=== PATIENT | male | born 1960 | race Caucasian/White ===

== ENCOUNTER 2017-03-16 15:56 | Emergency (ER) | payer SELFPAY ==
[~2017-03-16] VITALS: Ht 182.9 cm; Wt 90.0 kg
[~2017-03-16 15:56] MED LIST: TAMS0.4C67 PO; WARF1TAB PO
[2017-03-16 15:57] VITALS: BP 141/81; PULSE 92; RESP 16; TEMP 98.3; O2SAT 99
--- NOTE | 2017-03-16 16:08 | PD ---
Physical Exam Time Seen by Provider: 15:59 Narrative 36-year-old male presents with concern of discoloration to his right thigh and numbness and tingling to his right lower extremity 1 week. Denies leg pain. Has history of DVT. Denies current anticoagulant therapy. Patient seen in triage. Vital signs reviewed. Patient taken to medical bed. Data Data Last Documented VS Vital Signs Date Time Temp Pulse Resp B/P (MAP) Pulse Ox O2 Delivery O2 Flow Rate FiO2 03/16/17 15:57 98.3 92 16 141/81 (101) 99 MDM Supervised Visit with ROB: Angeles Brink Mar 16, 2017 16:08
--- NOTE | 2017-03-16 16:12 | PD ---
HPI . right leg pain Chief Complaint: Pain: Acute or Chronic Time Seen by Provider: 16:12 Travel History International Travel<30 days: No Contact w/Intl Traveler<30days: No Traveled to known affect area: No History of Present Illness HPI 56 yr old male here with c/o right leg pain and discoloration. He is very worried because he had a blood clot in this leg in 2010 and thinks he may have another one. 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 He wears compression stockings daily and takes aspirin. He has no sob , chest pain, nausea, vomiting, diaphoresis or other complaints. No trauma to the area. He denies any back pain. No bowel or bladder dysfunction. He sometimes has numbness in his feet, but no other paresthesias. PFSH Past Medical History Asthma: No Autoimmune Disease: No Bipolar Disorder: Yes Anxiety: Yes Depression: Yes Cancer: No Cardiovascular Problems: Yes High Cholesterol: No Chemotherapy: No Chest Pain: No Congestive Heart Failure: No COPD: No Diabetes: No Diminished Hearing: No Deep Vein Thrombosis: Yes ([place]) Endocrine: No Genitourinary: No Hiatal Hernia: Yes (2000) Immune Disorder: No Inguinal Hernia: Yes Kidney Stones: Yes Musculoskeletal: No Neurologic: No Psychiatric: Yes (BIPOLAR) Reproductive: No Respiratory: Yes Radiation Therapy: No Renal Failure: Yes Sleep Apnea: No Past Surgical History Abdominal Surgery: Yes (HERNIA REPAIR IN 2000 AND 2001) Cardiac Surgery: No Ear Surgery: No Endocrine Surgery: No Eye Surgery: No Genitourinary Surgery: Yes (KIDNEY STONE REMOVED) Gynecologic Surgery: No Oral Surgery: Yes (TEETH TAKEN OUT) Pacemaker: No Thoracic Surgery: No Tonsillectomy: Yes Other Surgery: Yes Social History Alcohol Use: Yes (1-2 beers qday) Tobacco Use: Yes (< 1 PPD) Substance Use: Yes (OVER 10 YEARS AGO SMOKED POT) Allergies-Medications (Allergen,Severity, Reaction): Coded Allergies: Sulfa (Sulfonamide Antibiotics) (Verified Allergy, Severe, HEADACHE, ) Reported Meds & Prescriptions Reported Meds & Active Scripts Active Reported Aspirin 81 Mg Chew 81 Mg CHEW DAILY Review of Systems General / Constitutional: No: Fever Eyes: No: Visual changes HENT: No: Headaches Cardiovascular: No: Chest Pain or Discomfort Respiratory: No: Shortness of Breath Gastrointestinal: No: Abdominal Pain Genitourinary: No: Dysuria Musculoskeletal: No: Pain Skin: No Rash Neurologic: No: Weakness Psychiatric: No: Depression Endocrine: No: Polydipsia Hematologic/Lymphatic: No: Easy Bruising Physical Exam Narrative GENERAL: AAO x 3, no acute distress, Well-nourished, well-developed patient. SKIN: Warm and dry. No visible rashes or bruising. multiple spider veins and varicosities in the b/l LE, mild discoloration to the popliteal fossa on right side HEAD: Normocephalic and atraumatic. EYES: No scleral icterus. No injection or drainage. ENT: No nasal drainage noted. Mucous membranes pink. Airway patent. NECK: Supple, trachea midline. No JVD. CARDIOVASCULAR: Regular rate and rhythm without murmurs, gallops, or rubs. RESPIRATORY: Breath sounds equal bilaterally. No accessory muscle use. No rhonchi or rales. GASTROINTESTINAL: Abdomen soft, non-tender, nondistended. EXTREMITIES: No cyanosis no edema. pedal pulses intact b/l BACK: Nontender without obvious deformity. No CVA tenderness. NEURO: CN II-12 intact, keno writer/runner strength normal b/l, UE and LE 5/5, no focal deficits PSYCH: AAO x 3, normal affect. Data Data Last Documented VS Vital Signs Date Time Temp Pulse Resp B/P (MAP) Pulse Ox O2 Delivery O2 Flow Rate FiO2 03/16/17 15:57 98.3 92 16 141/81 (101) 99 Orders Orders Us Leg Venous Doppler (03/16/17 16:24) MDM Medical Decision Making Medical Screen Exam Complete: Yes Emergency Medical Condition: Yes Medical Record Reviewed: Yes Differential Diagnosis DVT, PVD, PAD, less likely fracture Narrative Course 56-year-old male here with complaints of possible DVT to the right lower extremities. I've done an exam and I do not suspect there will be a DVT. However with his history I will go ahead and check a venous Doppler. Last Impressions Lower Extremity Ultrasound 03/16/17 1184 Signed Impressions: Service Date/Time: Thursday, March 16, 2017 16:52 - CONCLUSION: 1. No DVT identified. Hernandez Rodriguez MD I discussed the results with the patient. Recommend outpatient f/u. I think he has PVD and could also have some level of neuropathy. This can be followed on an outpatient basis. Patient verbalized understanding of instructions, questions were answered, and thanked me for their care. I advised them if their condition worsens, please return to the nearest emergency room for further care. Diagnosis Primary Impression: Right leg pain Referrals: [facility] Patient Instructions: General Instructions Additional Instructions: Please return to emergency department if your symptoms return or worsen. Follow up with your primary care provider. Disposition: 01 DISCHARGE HOME Condition: Stable Jessica Feliz Mar 16, 2017 16:12
[2017-03-16] MEDS ORDERED: ASPI81CH CHEW (16:23)
--- NOTE | 2017-03-16 17:15 | RADRPT ---
EXAM DATE/TIME: 03/16/2017 16:52 [facility] COMPARISON: US LEG RIGHT VENOUS DOPPLER, March 17, 2011, 16:36. INDICATIONS : Right leg pain. MEDICAL HISTORY : Deep venous thrombosis. Renal calculi. Hiatal hernia. Renal failure. Inguinal hernia. Bipolar dis order. Depression. Anxiety. SURGICAL HISTORY : Tonsillectomy. Kidney stone removal. Hernia repair x 2. ENCOUNTER: Subsequent ACUITY: 2 day PAIN SCORE: 3/10 LOCATION: Right leg. TECHNIQUE: Venous ultrasound of the leg was performed from the inguinal ligament to the proximal calf. Real-claritza e, color Doppler and spectral tracing, compression and augmentation techniques were used. FINDINGS: There is normal compressibility of the deep venous system from the inguinal region to the proximal ca lf. No echogenic clot is seen in the lumen of the common femoral, femoral, popliteal, and posterior tibial veins. There is a normal response of the venous system to proximal and distal augmentation an d respiration. CONCLUSION: 1. No DVT identified. Hernandez Rodriguez MD on March 16, 2017 at 17:12 Board Certified Radiologist. This report was verified electronically.
== END 2017-03-16 18:33 | disposition home or self-care (01) ==
LOC: NEPD 15:56
DX: M79.661 Pain in right lower leg (principal); Z86.718 Personal history of other venous thrombosis and embolism; F31.9 Bipolar disorder, unspecified; F41.9 Anxiety disorder, unspecified; Z79.82 Long term (current) use of aspirin
CPT/HCPCS: 93971

== ENCOUNTER 2018-01-21 21:29 | Inpatient (IN) ==
[2018-01-21] MEDS ORDERED: Sod Chloride 0.9% Inj 1,000 ML IV.SIG ONE (23:24)
[2018-01-21 23:57] LABS: Baso % (Auto) 0.2 % (0.0-2.0); Eos % (Auto) 0.1 % (0.0-4.0); Hematocrit 43.9 % (39.0-51.0); Hemoglobin 14.7 gm/dL (13.0-17.0); Lymph # (Auto) 0.9 th/mm3 (1.0-4.8); Lymph % (Auto) 4.8 % (9.0-44.0); Mean Corpuscular HGB Conc 33.4 % (32.0-36.0); Mean Corpuscular Hemoglobin 31.1 pg (27.0-34.0); Mean Platelet Volume 7.5 fL (7.0-11.0); Mono # (Auto) 1.1 th/mm3 (0.0-0.9); Mono % (Auto) 5.4 % (0.0-8.0); Neut # (Auto) 17.4 th/mm3 (1.8-7.7); Neut % (Auto) 89.5 % (16.0-70.0); Platelet Count 368 th/mm3 (150-450); Red Blood Count 4.72 mil/mm3 (4.50-5.90); Red Cell Distribution Width 16.7 % (11.6-17.2); White Blood Count 19.4 th/mm3 (4.0-11.0)
[2018-01-22 00:14] LABS: Albumin 3.7 g/dL (3.4-5.0); Anion Gap 10 meq/L (5-15); Aspartate Aminotransferase 17 U/L (15-37); Blood Urea Nitrogen 16 mg/dL (7-18); Calcium 8.9 mg/dL (8.5-10.1); Carbon Dioxide 26.6 meq/L (21.0-32.0); Chloride 101 meq/L (98-107); Glomerular Filtration Rate 73 mL/min (>89); Glucose,Random 106 mg/dL (74-106); Lipase 107 U/L (73-393); Potassium 4.2 meq/L (3.5-5.1); Sodium 138 meq/L (136-145)
[2018-01-22 00:16] LABS: Alanine Aminotransferase 20 U/L (12-78)
[2018-01-22 00:18] LABS: Alkaline Phosphatase 102 U/L (45-117); Total Protein 7.6 g/dL (6.4-8.2)
--- NOTE | 2018-01-22 02:21 | CT ---
EXAM DATE: 01/22/2018 2:10 AM EDT AGE/SEX: 57 years / Male INDICATIONS: Patient complains of lower abdomen and pelvic pain. CLINICAL DATA: This is the patient's initial encounter. Patient reports that signs and symptoms have been present for 1 day and indicates a pain score of 6/10. MEDICAL/SURGICAL HISTORY: Deep venous thrombosis. A-fib, viral meningitis None. ORAL CONTRAST: No oral contrast ingested. RADIATION DOSE: 7.07 CTDI (mGy) COMPARISON: [facility] [place], CT ABDOMEN & PELVIS W/O CONTRAST, 12/10/2011. . TECHNIQUE: Multiple contiguous axial images were obtained through the abdomen and pelvis following b olus infusion of 96 ml Omnipaque 350 (iohexol) nonionic water-soluble contrast as a single exam dos e. No oral contrast ingested. Using automated exposure control and adjustment of the mA and/or kV ac cording to patient size, radiation dose was kept as low as reasonably achievable to obtain optimal di agnostic quality images. DICOM format image data is available electronically for review and comparis on. FINDINGS: Lower Lungs: The visualized lower lungs are clear. Liver: The liver has a homogeneous density without space-occupying lesion. There is no dilation of th e biliary tree. Liver millimeter calcified gallstone, larger than 2012. Spleen: Homogeneous density without enlargement. Pancreas: Unremarkable without mass or calcification. Kidneys: Normal in size and shape. No evidence of mass or hydronephrosis. 2 mm nonobstructing calcif ied stone lower pole left kidney. Adrenal Glands: Unremarkable. Aorta: The aorta and proximal iliac vessels are grossly unremarkable without aneurysmal dilation. Bowel/Mesentery: Abnormal. There is induration of the mesenteric fat lower abdomen and pelvis which surrounds the mid sigmoid colon and several loops of small bowel in the right lower quadrant. There a re a few small diverticula in the sigmoid colon and there are several focal collections of gas to the right of the mid sigmoid colon which are nonspecific in appearance and could represent gas and diver ticula or extraluminal gas. The mid sigmoid colon wall appears thick, but this is nonspecific since t he bowel loops are nondistended. The induration extends to the right lower quadrant inferior to the c ecum; the appendix is not identified with certainty. No dilated loops of small bowel seen. No evidenc e of free fluid in the pelvis. Abdominal Wall: Intact. Retroperitoneum: No evidence of adenopathy in the retrocrural, para-aortic, or deep pelvic regions. Bladder: Nondistended. Contours are smooth. Reproductive Organs: No abnormal masses or calcifications seen. Inguinal: The inguinal region is unremarkable without evidence of adenopathy. Bony Structures: Moderate degenerative changes in the posterior elements of the lumbar spine. CONCLUSION: 1. Evidence of inflammatory process in the lower abdomen/pelvis in the midline and to the right of t he midline surrounding the mid sigmoid colon and extending to the inferior cecum. The epicenter of th e inflammation is about the sigmoid colon suggesting this may represent diverticulitis. No evidence o f free fluid. 2. Calcified gallstone is larger than in 2012. Nonobstructing 2 mm stone lower pole left kidney. Electronically signed by: Alex Gilliland MD 01/22/2018 2:20 AM EDT
[2018-01-22 03:14] LABS: Bilirubin,Urine Negative (Negative); Clarity,Urine Clear (Clear); Color,Urine Yellow (Yellw/Straw); Glucose,Urine (UA) Negative (Negative); Hyaline Casts,Urine 1 /lpf (0-3); Leukocyte Esterase,Urine Trace (Negative); Mucus,Urine Few /lpf (Occasional); Nitrite,Urine Negative (Negative); Specific Gravity,Urine 1.017 (1.002-1.035)
[2018-01-22] MEDS ORDERED: Morphine Inj 4 MG/ML Vial IV.PUSH PRN (03:33)
[2018-01-22] MEDS ORDERED: Temazepam 15 MG Capsule PO PRN (03:33)
[2018-01-22] MEDS ORDERED: Bisacodyl 10 MG Supp RECTAL PRN (03:33)
[2018-01-22] MEDS ORDERED: Acetaminophen 325 MG Tablet PO PRN (03:33)
--- NOTE | 2018-01-22 03:59 | P.HPIM ---
History of Present Illness Primary Care Physician: Arnold Costello DO History of Present Illness: This is a 57-year-old male with PMH of A. fib, h/o DVT on Anticoagulation and HTN who presented to the ER w/ complaints of abdominal pain. States pain started yesterday afternoon, pain runs along lower abdomen, severe, 10/10, non- radiating. No associated nausea, vomiting or diarrhea. Denies fever or chills. No h/o similar symptoms. On arrival, BP 125/67, HR 79, O2 sat 98% on RA, Temp 99.1. WBC of 19.4. Chemistry essentially unremarkable except for GFR 73. UA positive for UTI. CT Abdomen/Pelvis with inflammatory process lower abdomen/pelvis, likely diverticulitis, several focal collections of gas to the right of the mid sigmoid colon, nonspecific possible extraluminal gas. S/p Cipro/Flagyl in ER. Dr. Fuentes consulted, will evaluate. - Diagnosis (1) Diverticulitis of colon with perforation (2) UTI (urinary tract infection) (3) Afib Inpatient Certification: I certify that the inpatient services were ordered in accordance with Medicare regulations governing the order. This includes certification that hospital inpatient services are reasonable and necessary and in the case of services not specified as inpatient-only under 42 CFR 419.22(n), that they are appropriately provided as inpatient services in accordance to with the 2-midnight benchmark under 43 CFR 412.3(e) Estimated Total Length of Stay (Days): 2 Plans for Post Hospital Care: Not yet determined Review of Systems PAST FAMILY HISTORY: Reviewed. No h/o DM or CAD All other systems reviewed negative except as stated [facility] - History History Provided By: Patient - Medical History Medical History: Medical History (Last Updated 01/21/18 @ 23:25 by Eusebia Gonzalez) Afib Bacterial meningitis Cataract DVT (deep venous thrombosis) - Tobacco History Tobacco Use In Past 30 Days: Yes Smoking Status: Current every day smoker Tobacco Type: Cigarettes - Alcohol History How Often Do You Have a Drink Containing Alcohol: 4 or more times a week - Substance Use History Substance History: No History of Abuse - Travel History Recent Travel in the [place] Within the Last 8 Weeks: No Recent Travel Out of the Country Within the Last 8 Weeks: No - Immunization History Tetanus Immunization: Unsure Hx Influenza Vaccine This Season: No Medications and Allergies Active Medications: Active Medications Acetaminophen (Tylenol) 650 mg PO Q4H PRN PRN Reason: Temp > 100.4 Al Hydroxide/Mg Hydroxide (Milk Of Magnesia Liq) 30 ml PO Q12H PRN PRN Reason: Mild Constipation Bisacodyl (Dulcolax Supp) 10 mg RECTAL DAILY PRN PRN Reason: SEVERE CONSITIPATION Levofloxacin/Dextrose (Levaquin 750 Mg Premix Inj) 150 mls @ 100 mls/hr IV.SIG ONCE ONE Stop: 01/22/18 04:47 Levofloxacin/Dextrose (Levaquin 750 Mg Premix Inj) 150 mls @ 100 mls/hr IV.SIG Q24H [place] Metronidazole/Sodium Chloride (Flagyl 500 Mg Inj) 100 mls @ 100 mls/hr IV.SIG Q8H [place] Sodium Chloride (Ns Inj) 1,000 mls @ 100 mls/hr IV.CONT .Q10H [place] Lactulose (Lactulose Liq) 30 ml PO DAILY PRN PRN Reason: SEVERE CONSITIPATION Morphine Sulfate (Morphine Inj) 2 mg IV.PUSH Q4H PRN PRN Reason: PAIN 6-10 Ondansetron HCl (Zofran Inj) 4 mg IV.PUSH Q6H PRN PRN Reason: NAUSEA OR VOMITING Senna/Docusate Sodium (Zaira-Colace) 1 tab PO BID [place] Sennosides (Senokot) 17.2 mg PO Q12H PRN PRN Reason: Moderate Constipation Sodium Chloride (Ns Flush) 2 ml IV.FLUSH PRN PRN PRN Reason: FLUSH AFTER USING IV ACCESS Temazepam (Restoril) 15 mg PO HS PRN PRN Reason: INSOMNIA Allergies Allergy/AdvReac Type Severity Reaction Status Date / Time Sulfa (Sulfonamide Allergy Severe HEADACHE Verified 03/16/17 16:22 Antibiotics) Exam Vital signs: Vital Signs 01/21/18 22:01 01/21/18 23:19 Temperature 99.1 F Pulse Rate 79 79 Respiratory Rate 16 18 Blood Pressure 125/67 151/82 H Pulse Oximetry 98 98 Intake & Output 01/21/18 01/21/18 01/22/18 06:59 18:59 06:59 Weight 85 kg Narrative: PE: GENERAL: Middle-aged white male in no acute distress. Anxious, asking for a pillow HEENT: PERRLA, EOMI. No scleral icterus or conjunctival pallor. No lid lag or facial droop. CARDIOVASCULAR: Regular rate and rhythm. No obvious murmurs to auscultation. No chest tenderness to palpation. RESPIRATORY: No obvious rhonchi or wheezing. Clear to auscultation. Breath sounds equal bilaterally. GASTROINTESTINAL: Abdomen soft, tenderness to palpation lower abdomen, nondistended. BS normal. MUSCULOSKELETAL: Extremities without clubbing, cyanosis, or edema. No obvious deformities. NEUROLOGICAL: Awake, alert and oriented x4. No focal neurologic deficits. Moving both upper and lower extremities spontaneously. Results - Labs CBC & Chem 7: 01/21/18 23:35 01/21/18 23:35 Labs: Short CBC 01/21/18 Range/Units 23:35 WBC 19.4 H (4.0-11.0) th/mm3 Hgb 14.7 (13.0-17.0) gm/dL Hct 43.9 (39.0-51.0) % Plt Count 368 (150-450) th/mm3 BMP 01/21/18 23:35 Sodium 138 Potassium 4.2 Chloride 101 Carbon Dioxide 26.6 BUN 16 Creatinine 1.04 Calcium 8.9 Liver Function 01/21/18 Range/Units 23:35 Total Bilirubin 0.4 (0.2-1.0) mg/dL AST 17 (15-37) U/L ALT 20 (12-78) U/L Alkaline Phosphatase 102 (45-117) U/L Albumin 3.7 (3.4-5.0) g/dL Urine 01/22/18 Range/Units 02:40 Urine Color Yellow (Yellw/Straw) Urine Clarity Clear (Clear) Urine pH 5.0 (5.0-8.5) Ur Specific Cost 1.017 (1.002-1.035) Urine Protein Negative (Neg-Trace) mg/dL Urine Glucose (UA) Negative (Negative) mg/dL - Imaging Impressions Abdomen/Pelvis CT 01/22/18 00:19 CONCLUSION: 1. Evidence of inflammatory process in the lower abdomen/pelvis in the midline and to the right of the midline surrounding the mid sigmoid colon and extending to the inferior cecum. The epicenter of the inflammation is about the sigmoid colon suggesting this may represent diverticulitis. No evidence of free fluid. 2. Calcified gallstone is larger than in 2012. Nonobstructing 2 mm stone lower pole left kidney. Caprini VTE Risk Assessment Caprini VTE Risk Assessment: Moderate/High Risk (score >= 2) Caprini Risk Assessment Model: Point Value = 1 Point Value = 2 Point Value = 3 Point Value = 5 Age 41-60 Minor surgery BMI > 25 kg/m2 Swollen legs Varicose veins or History of unexplained or recurrent spontaneous Oral contraceptives or hormone replacement Sepsis (< 1 month) Serious lung disease, including pneumonia (< 1 month) Abnormal pulmonary function Acute myocardial infarction Congestive heart failure (< 1 month) History of inflammatory bowel disease Medical patient at bed rest Age 61-74 Arthroscopic surgery Major open surgery (> 45 min) Laparoscopic surgery (> 45 min) Malignancy Confined to bed (> 72 hours) Immobilizing plaster cast Central venous access Age >= 75 History of VTE Family history of VTE Factor V Leiden Prothrombin 30582H Lupus anticoagulant Anticardiolipin antibodies Elevated serum homocysteine Heparin-induced thrombocytopenia Other congenital or acquired thrombophilia Stroke (< 1 month) Elective arthroplasty Hip, pelvis, or leg fracture Acute spinal cord injury (< 1 month) Prophylaxis Regimen: Total Risk Factor Score Risk Level Prophylaxis Regimen 0-1 Low Early ambulation 2 Moderate Order ONE of the following: *Sequential Compression Device (SCD) *Heparin 5000 units SQ BID 3-4 Higher Order ONE of the following medications: *Heparin 5000 units SQ TID *Enoxaparin/Lovenox 40 mg SQ daily (WT < 150 kg, CrCl > 30 mL/min) *Enoxaparin/Lovenox 30 mg SQ daily (WT < 150 kg, CrCl > 10-29 mL/min) *Enoxaparin/Lovenox 30 mg SQ BID (WT < 150 kg, CrCl > 30 mL/min) AND/OR *Sequential Compression Device (SCD) 5 or more Highest Order ONE of the following medications: *Heparin 5000 units SQ TID (Preferred with Epidurals) *Enoxaparin/Lovenox 40 mg SQ daily (WT < 150 kg, CrCl > 30 mL/min) *Enoxaparin/Lovenox 30 mg SQ daily (WT < 150 kg, CrCl > 10-29 mL/min) *Enoxaparin/Lovenox 30 mg SQ BID (WT < 150 kg, CrCl > 30 mL/min) AND *Sequential Compression Device (SCD) Assessment and Plan - Assessment (1) Diverticulitis of colon with perforation Code(s): K57.20 - Diverticulitis of large intestine with perforation and abscess without bleeding Status: Acute (2) UTI (urinary tract infection) Code(s): N39.0 - Urinary tract infection, site not specified Status: Acute (3) Afib Code(s): I48.91 - Unspecified atrial fibrillation Status: Acute - Plan A/P: 1. Diverticulitis: w/ likely microperforations, CT Abd/Pelvis w/ diverticulitis lower abdomen and several focal collections of gas to the right of the mid sigmoid, possibly extraluminal gas, images reviewed. Dr. Fuentes consulted, will eval. Keep NPO, IVF, Levaquin/Flagyl, analgesics/antiemetics as needed. 2. UTI: U/a w/ UTI, continue IV Abx as above for coverage of UTI, follow up cultures, IVF, monitor I/O. 3. A-fib: H/o Afib on anticoagulation, unable to tell me which medications he takes. Will need to contact pharmacy in am for verification of meds. NPO for now. 4. DVT Prophylaxis: Heparin sq 5. Social work for d/c planning as needed 6. Case discussed w/ ER physician at length, labs/records/imaging reviewed by me.
[2018-01-22 04:09] LABS: INR 1.6 Ratio; Prothrombin Time 16.1 sec (9.8-11.6)
[2018-01-22] MEDS ORDERED: Chlorhexidine Gluconate 2% 1 Pack (2 Cloths) TOPICAL SCH (05:45)
[2018-01-22] MEDS ORDERED: Metoprolol Tartrate 25 MG Tablet PO SCH (05:45)
[2018-01-22] MEDS ORDERED: Sodium Chlor 0.9% Inj 500 ML IV.SIG SCH (06:00)
--- NOTE | 2018-01-22 07:49 | ED ---
HPI General Chief Complaint: Abdominal Pain Stated Complaint: Abd pain Time Seen by Provider: 01/21/18 23:13 Source: patient Mode of arrival: ambulatory Limitations: no limitations History of Present Illness HPI narrative: Patient is a 57-year-old male, past medical history significant for bacterial meningitis several months ago for which he was in intensive unit on dialysis in the hospital in [place]. Today he reports several days of lower abdominal pain. He admits to nausea but denies vomiting. He denies fever nor chills. No constipation. No dysuria. complaint: abdominal pain Onset (ago): day(s) Pain Consistency: constant Location: periumbilical and suprapubic Severity: moderate Quality: aching and fullness Radiation: none Relieving factors: nothing Related Data Home Medications Medication Instructions Recorded Confirmed Unable to Obtain Home Meds 01/22/18 01/22/18 Allergies Allergy/AdvReac Type Severity Reaction Status Date / Time Sulfa (Sulfonamide Allergy Severe HEADACHE Verified 03/16/17 16:22 Antibiotics) Review of Systems Except as stated in HPI: all other systems reviewed are negative Constitutional Denies chills and Denies fever(s) Eyes Denies blurry vision ENT Denies nasal congestion Cardiovascular Denies chest pain Respiratory Denies dyspnea Gastrointestinal Reports abdominal pain, Reports nausea and Denies vomiting Genitourinary Denies flank pain Musculoskeletal Denies back pain Integumentary/Breasts Denies rash Neurologic Denies headache(s) Psychiatric Denies confusion Endocrine Reports fatigue FOR[facility]LY [facility] Medical History Medical History Afib (Acute) Bacterial meningitis (Acute) Cataract (Acute) DVT (deep venous thrombosis) (Acute) Social History Social History Substance History: No History of Abuse Second Hand Smoke Exposure: No Smoking Status: Current every day smoker Tobacco Type: Cigarettes How Often Do You Have a Drink Containing Alcohol: 2 to 3 times a week Recent Travel in [facility] within the Last 8 Weeks: No Recent Out of Country Travel within the Last 8 Weeks: No Immunization History Tetanus Immunization: >5 Years Hx Influenza Vaccine This Season: No Exam Narrative Exam Narrative: GENERAL: Well-appearing male in no acute distress SKIN: Focused skin assessment warm/dry. No erythema, crepitus nor bulla. HEAD: Atraumatic. Normocephalic. EYES: Pupils equal and round. No scleral icterus. No injection or drainage. ENT: No nasal bleeding or discharge. Mucous membranes pink and moist. NECK: Trachea midline. No JVD. CARDIOVASCULAR: Regular rate and rhythm. No murmur appreciated. Intact and equal peripheral pulses RESPIRATORY: No accessory muscle use. Clear to auscultation. Breath sounds equal bilaterally. GASTROINTESTINAL: Abdomen soft in the upper abdomen but not soft in the lower abdomen, nondistended. Diffuse tenderness throughout. Hepatic and splenic margins not palpable. No tenderness, erythema, crepitus to the perineum nor groin. MUSCULOSKELETAL: No obvious deformities. No clubbing. No cyanosis. No edema. NEUROLOGICAL: Awake and alert. No obvious cranial nerve deficits. Motor grossly within normal limits. Normal speech. PSYCHIATRIC: Appropriate mood and affect; insight and judgment normal. Course Initial Documented Vital Signs Temperature 99.1 F 01/21/18 22:01 Pulse Rate 79 01/21/18 22:01 Respiratory Rate 16 01/21/18 22:01 Blood Pressure 125/67 01/21/18 22:01 Pulse Oximetry 98 01/21/18 22:01 Last Documented Vital Signs Temperature 99.1 F 01/21/18 22:01 Pulse Rate 75 01/22/18 03:00 Respiratory Rate 18 01/22/18 03:00 Blood Pressure 114/60 01/22/18 03:00 Pulse Oximetry 98 01/21/18 23:19 Medical Decision Making MDM Narrative Medical decision making narrative: Patient is a 57-year-old male who presents with complaint of lower abdominal pain for the last several days. His upper abdomen is soft but his lower abdomen is not. He is diffusely tender throughout but vital signs are stable. Labs revealed a leukocytosis. CT is concerning for diverticulitis with perforations throughout development of what appears to be an early abscess. I spoke to Dr. Fuentes, surgeon on-call, who recommended this patient be started on Levaquin and Flagyl and admitted to the hospitalist service. Differential Diagnosis Differential Diagnosis: Differential diagnosis includes but is not limited to diverticulitis, urinary tract infection, appendicitis, colitis. Medical Records Medical records reviewed: Yes I reviewed the patient's medical records. Lab Data Lab results reviewed: Yes I reviewed the patient's lab results. Lab results narrative: Leukocytosis present. Result diagrams: 01/21/18 23:35 08/03/18 23:35 Lab Results 01/21/18 01/21/18 01/22/18 Range/Units 23:35 23:35 02:40 WBC 19.4 H (4.0-11.0) th/mm3 RBC 4.72 (4.50-5.90) mil/mm3 Hgb 14.7 (13.0-17.0) gm/dL Hct 43.9 (39.0-51.0) % MCV 93.0 (80.0-100.0) fL MCH 31.1 (27.0-34.0) pg MCHC 33.4 (32.0-36.0) % RDW 16.7 (11.6-17.2) % Plt Count 368 (150-450) th/mm3 MPV 7.5 (7.0-11.0) fL Neut % (Auto) 89.5 H (16.0-70.0) % Lymph % (Auto) 4.8 L (9.0-44.0) % [place] % (Auto) 5.4 (0.0-8.0) % Eos % (Auto) 0.1 (0.0-4.0) % Baso % (Auto) 0.2 (0.0-2.0) % Neut # (Auto) 17.4 H (1.8-7.7) th/mm3 Lymph # (Auto) 0.9 L (1.0-4.8) th/mm3 [place] # (Auto) 1.1 H (0.0-0.9) th/mm3 Eos # (Auto) 0.0 (0.0-0.4) th/mm3 Baso # (Auto) 0.0 (0.0-0.2) th/mm3 WBC Differential . Differential Comment Auto diff final PT (9.8-11.6) sec INR Ratio Sodium 138 (136-145) meq/L Potassium 4.2 (3.5-5.1) meq/L Chloride 101 (98-107) meq/L Carbon Dioxide 26.6 (21.0-32.0) meq/L Anion Gap 10 (5-15) meq/L BUN 16 (7-18) mg/dL Creatinine 1.04 (0.60-1.30) mg/dL Estimated GFR 73 L (>89) mL/min Random Glucose 106 (74-106) mg/dL Lactic Acid (0.4-2.0) mmol/L Calcium 8.9 (8.5-10.1) mg/dL Total Bilirubin 0.4 (0.2-1.0) mg/dL AST 17 (15-37) U/L ALT 20 (12-78) U/L Alkaline Phosphatase 102 (45-117) U/L Total Protein 7.6 (6.4-8.2) g/dL Albumin 3.7 (3.4-5.0) g/dL Lipase 107 (73-393) U/L Urine Color Yellow (Yellw/Straw) Urine Clarity Clear (Clear) Urine pH 5.0 (5.0-8.5) Ur Specific [place] 1.017 (1.002-1.035) Urine Protein Negative (Neg-Trace) mg/dL Urine Glucose (UA) Negative (Negative) mg/dL Urine Ketones 20 (Negative) mg/dL Urine Occult Blood Moderate H (Negative) Urine Nitrate Negative (Negative) Urine Bilirubin Negative (Negative) Urine Urobilinogen Less than 2 (Less than 2) mg/dL Ur Leukocyte Esterase Trace H (Negative) Urine RBC 1 (0-3) /hpf Urine WBC 9 H (0-5) /hpf Hyaline Casts 1 (0-3) /lpf Urine Mucus Few H (Occasional) /lpf Micro UA Comment Culture indicated Urine Culture Comments Culture indicated 01/22/18 01/22/18 Range/Units 03:06 03:30 WBC (4.0-11.0) th/mm3 RBC (4.50-5.90) mil/mm3 Hgb (13.0-17.0) gm/dL Hct (39.0-51.0) % MCV (80.0-100.0) fL MCH (27.0-34.0) pg MCHC (32.0-36.0) % RDW (11.6-17.2) % Plt Count (150-450) th/mm3 MPV (7.0-11.0) fL Neut % (Auto) (16.0-70.0) % Lymph % (Auto) (9.0-44.0) % [place] % (Auto) (0.0-8.0) % Eos % (Auto) (0.0-4.0) % Baso % (Auto) (0.0-2.0) % Neut # (Auto) (1.8-7.7) th/mm3 Lymph # (Auto) (1.0-4.8) th/mm3 [place] # (Auto) (0.0-0.9) th/mm3 Eos # (Auto) (0.0-0.4) th/mm3 Baso # (Auto) (0.0-0.2) th/mm3 WBC Differential Differential Comment PT 16.1 H (9.8-11.6) sec INR 1.6 Ratio Sodium (136-145) meq/L Potassium (3.5-5.1) meq/L Chloride (98-107) meq/L Carbon Dioxide (21.0-32.0) meq/L Anion Gap (5-15) meq/L BUN (7-18) mg/dL Creatinine (0.60-1.30) mg/dL Estimated GFR (>89) mL/min Random Glucose (74-106) mg/dL Lactic Acid 1.0 (0.4-2.0) mmol/L Calcium (8.5-10.1) mg/dL Total Bilirubin (0.2-1.0) mg/dL AST (15-37) U/L ALT (12-78) U/L Alkaline Phosphatase (45-117) U/L Total Protein (6.4-8.2) g/dL Albumin (3.4-5.0) g/dL Lipase (73-393) U/L Urine Color (Yellw/Straw) Urine Clarity (Clear) Urine pH (5.0-8.5) Ur Specific [place] (1.002-1.035) Urine Protein (Neg-Trace) mg/dL Urine Glucose (UA) (Negative) mg/dL Urine Ketones (Negative) mg/dL Urine Occult Blood (Negative) Urine Nitrate (Negative) Urine Bilirubin (Negative) Urine Urobilinogen (Less than 2) mg/dL Ur Leukocyte Esterase (Negative) Urine RBC (0-3) /hpf Urine WBC (0-5) /hpf Hyaline Casts (0-3) /lpf Urine Mucus (Occasional) /lpf Micro UA Comment Urine Culture Comments Imaging Data Attestation: I personally reviewed and interpreted this imaging study as follows : Radiologist's impression: Abdomen/Pelvis CT 01/22/18 00:19 CONCLUSION: 1. Evidence of inflammatory process in the lower abdomen/pelvis in the midline and to the right of the midline surrounding the mid sigmoid colon and extending to the inferior cecum. The epicenter of the inflammation is about the sigmoid colon suggesting this may represent diverticulitis. No evidence of free fluid. 2. Calcified gallstone is larger than in 2012. Nonobstructing 2 mm stone lower pole left kidney. Discharge Plan Discharge Disposition Patient Disposition: 30 Still Patient Discharge Condition Condition: Fair Discharge Details Diagnosis: Diverticulitis Physicians Team ED Provider: Elisa Franco Primary Care Provider: Arnold Costello Attending Provider: Kandy Hernandez Status ED Status: Left Department Discharge Information Discharge Date/Time: 01/22/18 07:14
--- NOTE | 2018-01-22 09:51 | P.CONGS ---
[facility] Gen Surgery Consult Note Consult date: 01/22/18 Reason for consult: abdominal pain Narrative: 57-year-old male who developed severe acute onset of abdominal pain yesterday in the lower abdomen. He denies nausea and vomiting or constipation. He does not have a known history of diverticulitis. He was noted to have a white blood count of 19,[address] of the abdomen and pelvis showing a significant amount of inflammatory changes around the sigmoid colon with some small pockets of free air. The patient has a somewhat complex medical history. Couple months ago he had bacterial meningitis and was critically ill hospitalized in [place]. He had a gastrostomy tube. He has a history of recurrent DVTs and he is on some type of anticoagulation but it is unclear what he is taking. INR is 1.6. Past surgical history includes inguinal hernia repair. Review of Systems All other systems reviewed negative except as stated in [facility] - History History Provided By: Patient - Medical History Medical History: Medical History (Last Reviewed 01/22/18 @ 07:45 by Elisa Franco MD) Afib Bacterial meningitis Cataract DVT (deep venous thrombosis) - Tobacco History Second Hand Smoke Exposure: No Tobacco Use In Past 30 Days: Yes Smoking Status: Current every day smoker Tobacco Type: Cigarettes - Alcohol History How Often Do You Have a Drink Containing Alcohol: 2 to 3 times a week - Substance Use History Substance History: No History of Abuse - Travel History Recent Travel in the [place] Within the Last 8 Weeks: No Recent Travel Out of the Country Within the Last 8 Weeks: No - Immunization History Tetanus Immunization: >5 Years Hx Influenza Vaccine This Season: No Medications and Allergies Active Medications: Active Medications Acetaminophen (Tylenol) 650 mg PO Q4H PRN PRN Reason: Temp > 100.4 Al Hydroxide/Mg Hydroxide (Milk Of Yana Liq) 30 ml PO Q12H PRN PRN Reason: Mild Constipation Bisacodyl (Dulcolax Supp) 10 mg RECTAL DAILY PRN PRN Reason: SEVERE CONSITIPATION Chlorhexidine Gluconate (Chlorhexidine 2% Cloth) 3 pack [employer] [facility] Stop: 01/25/18 05:43 Heparin Sodium (Porcine) (Heparin Inj) 5,000 units SQ Q12HR [place] Levofloxacin/Dextrose (Levaquin 750 Mg Premix Inj) 150 mls @ 100 mls/hr IV.SIG Q24H [place] Metronidazole/Sodium Chloride (Flagyl 500 Mg Inj) 100 mls @ 100 mls/hr IV.SIG Q8H [facility] Sodium Chloride (Ns Inj) 1,000 mls @ 100 mls/hr IV.CONT .Q10H [facility] Lactated Ringer's (Lr 1000 Ml Inj) 1,000 mls @ 30 mls/hr IV.SIG .Q24H [facility] Stop: 01/25/18 05:43 Sodium Chloride (Ns Inj) 500 mls @ 30 mls/hr IV.SIG .Q10H [facility] Stop: 01/25/18 05:43 Lactulose (Lactulose Liq) 30 ml PO DAILY PRN PRN Reason: SEVERE CONSITIPATION Metoprolol Tartrate (Lopressor) 25 mg PO [employer] [facility] Stop: 01/25/18 05:43 Morphine Sulfate (Morphine Inj) 2 mg IV.PUSH Q4H PRN PRN Reason: PAIN 6-10 Ondansetron HCl (Zofran Inj) 4 mg IV.PUSH Q6H PRN PRN Reason: NAUSEA OR VOMITING Povidone Iodine (Betadine 5% Antisepsis Kit) 1 applicatio EACH [employer] [facility] Stop: 01/25/18 05:43 Senna/Docusate Sodium (Zaira-Colace) 1 tab PO BID [facility] Sennosides (Senokot) 17.2 mg PO Q12H PRN PRN Reason: Moderate Constipation Sodium Chloride (Ns Flush) 2 ml IV.FLUSH PRN PRN PRN Reason: FLUSH AFTER USING IV ACCESS Temazepam (Restoril) 15 mg PO HS PRN PRN Reason: INSOMNIA Allergies Allergy/AdvReac Type Severity Reaction Status Date / Time Sulfa (Sulfonamide Allergy Severe HEADACHE Verified 03/16/17 16:22 Antibiotics) Home Medications Medication Instructions Recorded Confirmed Type Unable to Obtain Home Meds 01/22/18 01/22/18 History Exam Vital signs: Vital Signs 01/21/18 22:01 01/21/18 23:19 01/22/18 03:00 Temperature 99.1 F Pulse Rate 79 79 75 Respiratory Rate 16 18 18 Blood Pressure 125/67 151/82 H 114/60 Pulse Oximetry 98 98 Intake & Output 01/21/18 01/22/18 01/22/18 18:59 06:59 18:59 Weight 85 kg Narrative: GENERAL: Awake and alert. No acute distress. Cooperative. HEAD: Normocephalic. Atraumatic. EYES: Pupils equal round and reactive to light bilaterally. No scleral icterus. ENT: Moist oral mucosa. Poor dentition NECK: Trachea midline. CHEST: Lungs clear to auscultation bilaterally with no wheezing or rhonchi. No respiratory distress. CARDIOVASCULAR: Regular rate and rhythm. ABDOMEN: Severe lower abdominal ttp with rebound, remainder of abdomen is firm and mildly tender EXTREMITIES: No cyanosis or edema. SKIN: Warm, dry, nonjaundiced. Results - Labs 01/21/18 23:35 01/21/18 23:35 Abnormal lab results 01/21/18 01/21/18 01/22/18 Range/Units 23:35 23:35 02:40 WBC 19.4 H (4.0-11.0) th/mm3 Neut % (Auto) 89.5 H (16.0-70.0) % Lymph % (Auto) 4.8 L (9.0-44.0) % Neut # (Auto) 17.4 H (1.8-7.7) th/mm3 Lymph # (Auto) 0.9 L (1.0-4.8) th/mm3 [place] # (Auto) 1.1 H (0.0-0.9) th/mm3 PT (9.8-11.6) sec Estimated GFR 73 L (>89) mL/min Urine Occult Blood Moderate H (Negative) Ur Leukocyte Esterase Trace H (Negative) Urine WBC 9 H (0-5) /hpf Urine Mucus Few H (Occasional) /lpf 01/22/18 Range/Units 03:30 WBC (4.0-11.0) th/mm3 Neut % (Auto) (16.0-70.0) % Lymph % (Auto) (9.0-44.0) % Neut # (Auto) (1.8-7.7) th/mm3 Lymph # (Auto) (1.0-4.8) th/mm3 [place] # (Auto) (0.0-0.9) th/mm3 PT 16.1 H (9.8-11.6) sec Estimated GFR (>89) mL/min Urine Occult Blood (Negative) Ur Leukocyte Esterase (Negative) Urine WBC (0-5) /hpf Urine Mucus (Occasional) /lpf Diabetes panel 01/21/18 Range/Units 23:35 Sodium 138 (136-145) meq/L Potassium 4.2 (3.5-5.1) meq/L Chloride 101 (98-107) meq/L Carbon Dioxide 26.6 (21.0-32.0) meq/L BUN 16 (7-18) mg/dL Creatinine 1.04 (0.60-1.30) mg/dL Calcium 8.9 (8.5-10.1) mg/dL AST 17 (15-37) U/L ALT 20 (12-78) U/L Alkaline Phosphatase 102 (45-117) U/L Total Protein 7.6 (6.4-8.2) g/dL Albumin 3.7 (3.4-5.0) g/dL Calcium panel 01/21/18 Range/Units 23:35 Calcium 8.9 (8.5-10.1) mg/dL Albumin 3.7 (3.4-5.0) g/dL Pituitary panel 01/21/18 Range/Units 23:35 Sodium 138 (136-145) meq/L Potassium 4.2 (3.5-5.1) meq/L Chloride 101 (98-107) meq/L Carbon Dioxide 26.6 (21.0-32.0) meq/L BUN 16 (7-18) mg/dL Creatinine 1.04 (0.60-1.30) mg/dL Calcium 8.9 (8.5-10.1) mg/dL Adrenal panel 01/21/18 Range/Units 23:35 Sodium 138 (136-145) meq/L Potassium 4.2 (3.5-5.1) meq/L Chloride 101 (98-107) meq/L Carbon Dioxide 26.6 (21.0-32.0) meq/L BUN 16 (7-18) mg/dL Creatinine 1.04 (0.60-1.30) mg/dL Calcium 8.9 (8.5-10.1) mg/dL Total Bilirubin 0.4 (0.2-1.0) mg/dL AST 17 (15-37) U/L ALT 20 (12-78) U/L Alkaline Phosphatase 102 (45-117) U/L Total Protein 7.6 (6.4-8.2) g/dL Albumin 3.7 (3.4-5.0) g/dL All other labs normal. - Imaging CT scan - abdomen: report reviewed, image reviewed CT scan - pelvis: report reviewed, image reviewed (Discussed CT abdomen and pelvis with radiology Dr. Morales) Assessment and Plan - Assessment (1) Diverticulitis of colon with perforation Code(s): K57.20 - Diverticulitis of large intestine with perforation and abscess without bleeding Status: Acute - Plan The patient has sigmoid diverticulitis with significant inflammatory changes and small perforation. Recommend to attempt nonoperative management with IV antibiotics. Continue n.p.o. Reevaluate tomorrow and repeat labs in the morning. Would recommend if deemed safe to stop his anticoagulation or else change to IV heparin drip.
[2018-01-22] MEDS: Senna/Docusate Sodium 8.6/50 MG Tablet PO SCH ×2 (10:38→20:11)
[2018-01-22] MEDS: Morphine Inj 4 MG/ML Vial IV.PUSH PRN ×3 (10:47→20:04)
[2018-01-22] MEDS: Sod Chloride 0.9% Inj 1,000 ML IV.CONT SCH ×2 (10:48→16:38)
--- NOTE | 2018-01-22 13:43 | ECG ---
Date Performed: 01/22/2018 Time Performed: 09:10:53 PTAGE: 57 years EKG: Sinus rhythm POSSIBLE LEFT ATRIAL ENLARGEMENT MODERATE INTRAVENTRICULAR CONDUCTION DELAY NONSPECIFIC T-WAVE ABNOR MALITY BORDERLINE ECG Since the PREVIOUS TRACING , no significant change noted PREVIOUS TRACIN12/10/2011 18.53 DOCTOR: Allison Arredondo Interpretating Date/Time 01/22/2018 13:42:30
[2018-01-22] MEDS: Heparin - SQ 10,000 UNITS/ML Vial SQ SCH (15:26)
[2018-01-22] MEDS: Piperacil/Tazo 4.5 GM Premix 4.5 GM/100 ML BAG IV.SIG SCH (15:27)
--- NOTE | 2018-01-22 16:05 | P.PN ---
Subjective Interval history: Follow up for diverticulitis. Patient is currently doing well. No fever, chills. He continues to have lower abdominal pain. Physical Exam Vital signs: Vital Signs 01/21/18 22:01 01/21/18 23:19 01/22/18 03:00 Temperature 99.1 F Pulse Rate 79 79 75 Respiratory Rate 16 18 18 Blood Pressure 125/67 151/82 H 114/60 Pulse Oximetry 98 98 01/22/18 08:00 01/22/18 12:00 Temperature 99.3 F 99.5 F Pulse Rate 87 87 Respiratory Rate 24 24 Blood Pressure 142/74 H 128/71 Pulse Oximetry 97 94 L Intake & Output 01/21/18 01/22/18 01/22/18 18:59 06:59 18:59 Weight 85 kg Narrative: GENERAL: Alert, oriented x 3, NAD. SKIN: Warm and dry. HEAD: Normocephalic. EYES: No scleral icterus. No injection or drainage. NECK: Supple, trachea midline. No JVD or lymphadenopathy. CARDIOVASCULAR: Regular rate and rhythm without murmurs, gallops, or rubs. RESPIRATORY: Breath sounds equal bilaterally. No accessory muscle use. GASTROINTESTINAL: Abdomen soft, tender to palpation robson lower abdomen, nondistended. MUSCULOSKELETAL: No cyanosis, or edema. BACK: Nontender without obvious deformity. No CVA tenderness. Results - Labs CBC & Chem 7: 01/21/18 23:35 01/21/18 23:35 Laboratory Results - last 24 hr 01/21/18 01/21/18 01/22/18 23:35 23:35 02:40 WBC 19.4 H RBC 4.72 Hgb 14.7 Hct 43.9 MCV 93.0 MCH 31.1 MCHC 33.4 RDW 16.7 Plt Count 368 MPV 7.5 Neut % (Auto) 89.5 H Lymph % (Auto) 4.8 L [place] % (Auto) 5.4 Eos % (Auto) 0.1 Baso % (Auto) 0.2 Neut # (Auto) 17.4 H Lymph # (Auto) 0.9 L [place] # (Auto) 1.1 H Eos # (Auto) 0.0 Baso # (Auto) 0.0 WBC Differential . Differential Comment Auto diff final PT INR Sodium 138 Potassium 4.2 Chloride 101 Carbon Dioxide 26.6 Anion Gap 10 BUN 16 Creatinine 1.04 Estimated GFR 73 L Random Glucose 106 Lactic Acid Calcium 8.9 Total Bilirubin 0.4 AST 17 ALT 20 Alkaline Phosphatase 102 Total Protein 7.6 Albumin 3.7 Lipase 107 Urine Color Yellow Urine Clarity Clear Urine pH 5.0 Ur Specific [place] 1.017 Urine Protein Negative Urine Glucose (UA) Negative Urine Ketones 20 Urine Occult Blood Moderate H Urine Nitrate Negative Urine Bilirubin Negative Urine Urobilinogen Less than 2 Ur Leukocyte Esterase Trace H Urine RBC 1 Urine WBC 9 H Hyaline Casts 1 Urine Mucus Few H Micro UA Comment Culture indicated Urine Culture Comments Culture indicated 01/22/18 01/22/18 03:06 03:30 WBC RBC Hgb Hct MCV MCH MCHC RDW Plt Count MPV Neut % (Auto) Lymph % (Auto) [place] % (Auto) Eos % (Auto) Baso % (Auto) Neut # (Auto) Lymph # (Auto) [place] # (Auto) Eos # (Auto) Baso # (Auto) WBC Differential Differential Comment PT 16.1 H INR 1.6 Sodium Potassium Chloride Carbon Dioxide Anion Gap BUN Creatinine Estimated GFR Random Glucose Lactic Acid 1.0 Calcium Total Bilirubin AST ALT Alkaline Phosphatase Total Protein Albumin Lipase Urine Color Urine Clarity Urine pH Ur Specific [place] Urine Protein Urine Glucose (UA) Urine Ketones Urine Occult Blood Urine Nitrate Urine Bilirubin Urine Urobilinogen Ur Leukocyte Esterase Urine RBC Urine WBC Hyaline Casts Urine Mucus Micro UA Comment Urine Culture Comments - Imaging Impressions Abdomen/Pelvis CT 01/22/18 00:19 CONCLUSION: 1. Evidence of inflammatory process in the lower abdomen/pelvis in the midline and to the right of the midline surrounding the mid sigmoid colon and extending to the inferior cecum. The epicenter of the inflammation is about the sigmoid colon suggesting this may represent diverticulitis. No evidence of free fluid. 2. Calcified gallstone is larger than in 2012. Nonobstructing 2 mm stone lower pole left kidney. Assessment and Plan - Assessment (1) Diverticulitis of colon with perforation Code(s): K57.20 - Diverticulitis of large intestine with perforation and abscess without bleeding Status: Acute (2) UTI (urinary tract infection) Code(s): N39.0 - Urinary tract infection, site not specified Status: Acute (3) Afib Code(s): I48.91 - Unspecified atrial fibrillation Status: Acute - Plan Mr. Mccurdy is a pleasant 57 year old male with a history of inguinal hernia repair who was admitted to the hospital due to lower abdominal pain. On arrival , BP 125/67, HR 79, O2 sat 98% on RA, Temp 99.1. WBC of 19.4. Chemistry essentially unremarkable except for GFR 73. UA positive for UTI. CT Abdomen/ Pelvis with inflammatory process lower abdomen/pelvis, likely diverticulitis, several focal collections of gas to the right of the mid sigmoid colon, nonspecific possible extraluminal gas. Acute diverticulitis - Patient was on Levaquin and Flagyl. - Will switch to Zosyn 4.5g Q8hrs. - Appreciate Surgery consultation - non-surgical management recommended. - when patient is able to, we will start diet slowly - perhaps clear liquid first. - Once clinically improved, we can likely d/c patient on Augmentin PO. Probable history of Atrial fibrillation - Patient is unable to provide specifics. However, he does report a history of DVT and afib. - He takes Warfarin - does not know the dosage. His INR was 1.6 today. - Currently heart rate well controlled - in the 70s and 80s. Normotensive. - Discussed with RN - will try to get the medication list from [facility]. Full code. Heparin 5000 units SQ for DVT prophylaxis.
[2018-01-23] MEDS: Morphine Inj 4 MG/ML Vial IV.PUSH PRN ×4 (00:08→20:17)
[2018-01-23] MEDS: Heparin - SQ 10,000 UNITS/ML Vial SQ SCH ×2 (02:45→13:22)
[2018-01-23] MEDS: Sod Chloride 0.9% Inj 1,000 ML IV.CONT SCH ×3 (05:00→20:24)
[2018-01-23] MEDS: Piperacil/Tazo 4.5 GM Premix 4.5 GM/100 ML BAG IV.SIG SCH ×5 (06:00→23:52)
[2018-01-23 08:09] LABS: Baso % (Auto) 0.2 % (0.0-2.0); Hematocrit 46.3 % (39.0-51.0); Hemoglobin 15.4 gm/dL (13.0-17.0); Lymph # (Auto) 0.7 th/mm3 (1.0-4.8); Mean Corpuscular HGB Conc 33.2 % (32.0-36.0); Mean Corpuscular Volume 93.3 fL (80.0-100.0); Mean Platelet Volume 8.1 fL (7.0-11.0); Mono # (Auto) 0.9 th/mm3 (0.0-0.9); Mono % (Auto) 4.8 % (0.0-8.0); Neut # (Auto) 16.7 th/mm3 (1.8-7.7); Platelet Count 361 th/mm3 (150-450); Red Blood Count 4.96 mil/mm3 (4.50-5.90); Red Cell Distribution Width 17.1 % (11.6-17.2); White Blood Count 18.4 th/mm3 (4.0-11.0)
[2018-01-23] MEDS: Amiodarone 200 MG Tablet PO SCH (08:43)
[2018-01-23] MEDS: Senna/Docusate Sodium 8.6/50 MG Tablet PO SCH ×2 (08:43→20:21)
[2018-01-23] MEDS: Carvedilol 6.25 MG Tablet PO SCH ×2 (08:43→20:21)
[2018-01-23 08:52] LABS: Alanine Aminotransferase 12 U/L (12-78); Albumin 2.8 g/dL (3.4-5.0); Alkaline Phosphatase 96 U/L (45-117); Anion Gap 9 meq/L (5-15); Aspartate Aminotransferase 13 U/L (15-37); Blood Urea Nitrogen 15 mg/dL (7-18); Calcium 8.9 mg/dL (8.5-10.1); Carbon Dioxide 25.7 meq/L (21.0-32.0); Chloride 105 meq/L (98-107); Glomerular Filtration Rate 74 mL/min (>89); Glucose,Random 104 mg/dL (74-106); Potassium 3.9 meq/L (3.5-5.1); Sodium 140 meq/L (136-145); Total Protein 6.8 g/dL (6.4-8.2)
--- NOTE | 2018-01-23 13:38 | P.PN ---
Subjective Interval history: Follow up for diverticulitis. Patient is doing well, resting in bed. Complains of mild abdominal pain. No fever, chills. Physical Exam Vital signs: Vital Signs 01/22/18 16:00 01/22/18 20:00 01/23/18 00:00 Temperature 99.4 F 97.9 F 98.8 F Pulse Rate 95 H 83 87 Respiratory Rate 22 22 22 Blood Pressure 140/79 150/76 H 149/78 H Pulse Oximetry 97 95 96 01/23/18 04:00 01/23/18 08:00 Temperature 98.1 F 98.2 F Pulse Rate 86 87 Respiratory Rate 22 18 Blood Pressure 133/74 134/76 Pulse Oximetry 94 L 94 L Intake & Output 01/22/18 01/23/18 01/23/18 18:59 06:59 18:59 Intake Total 100 / 100 1420 / 1420 Balance 100 / 100 1420 / 1420 Intake: IV 100 / 100 1100 / 1100 NS Inj 1,000 ML @ 100 mls/hr IV 1000 / 1000 .CONT .Q10H [place] Rx#:[id number] Zosyn 4.5 GM Premix 4.5 gm In 100 / 100 100 / 100 100 ml @ 200 mls/hr IV.SIG Q8H [place] Rx#:[id number] Oral 320 / 320 Other: # Voids 3 Date of Last Bowel Movement 01/21/18 01/21/18 Narrative: GENERAL: Alert, oriented x 3, NAD. SKIN: Warm and dry. HEAD: Normocephalic. EYES: No scleral icterus. No injection or drainage. NECK: Supple, trachea midline. No JVD or lymphadenopathy. CARDIOVASCULAR: Regular rate and rhythm without murmurs, gallops, or rubs. RESPIRATORY: Breath sounds equal bilaterally. No accessory muscle use. GASTROINTESTINAL: Abdomen somewhat firm and distended as well, tender to palpation robson lower abdomen MUSCULOSKELETAL: No cyanosis, or edema. BACK: Nontender without obvious deformity. No CVA tenderness. Results - Labs CBC & Chem 7: 01/23/18 06:47 01/23/18 06:47 Laboratory Results - last 24 hr 01/23/18 01/23/18 06:47 06:47 WBC 18.4 H RBC 4.96 Hgb 15.4 Hct 46.3 MCV 93.3 MCH 31.0 MCHC 33.2 RDW 17.1 Plt Count 361 MPV 8.1 Neut % (Auto) 91.0 H Lymph % (Auto) 4.0 L [place] % (Auto) 4.8 Eos % (Auto) 0.0 Baso % (Auto) 0.2 Neut # (Auto) 16.7 H Lymph # (Auto) 0.7 L [place] # (Auto) 0.9 Eos # (Auto) 0.0 Baso # (Auto) 0.0 WBC Differential . Differential Comment Auto diff final Sodium 140 Potassium 3.9 Chloride 105 Carbon Dioxide 25.7 Anion Gap 9 BUN 15 Creatinine 1.03 Estimated GFR 74 L Random Glucose 104 Calcium 8.9 Total Bilirubin 0.7 AST 13 L ALT 12 Alkaline Phosphatase 96 Total Protein 6.8 D Albumin 2.8 L D Microbiology 01/22/18 02:40 Clean Catch Urine Urine Culture - Preliminary <10,000 cfu/mL mixed gerri - no further workup - Imaging Abdomen/Pelvis CT 01/22/18 00:19 CONCLUSION: 1. Evidence of inflammatory process in the lower abdomen/pelvis in the midline and to the right of the midline surrounding the mid sigmoid colon and extending to the inferior cecum. The epicenter of the inflammation is about the sigmoid colon suggesting this may represent diverticulitis. No evidence of free fluid. 2. Calcified gallstone is larger than in 2012. Nonobstructing 2 mm stone lower pole left kidney. Assessment and Plan - Assessment (1) Diverticulitis of colon with perforation Code(s): K57.20 - Diverticulitis of large intestine with perforation and abscess without bleeding Status: Acute (2) UTI (urinary tract infection) Code(s): N39.0 - Urinary tract infection, site not specified Status: Acute (3) Afib Code(s): I48.91 - Unspecified atrial fibrillation Status: Acute - Plan Mr. Mccurdy is a pleasant 57 year old male with a history of inguinal hernia repair who was admitted to the hospital due to lower abdominal pain. On arrival , BP 125/67, HR 79, O2 sat 98% on RA, Temp 99.1. WBC of 19.4. Chemistry essentially unremarkable except for GFR 73. UA positive for UTI. CT Abdomen/ Pelvis with inflammatory process lower abdomen/pelvis, likely diverticulitis, several focal collections of gas to the right of the mid sigmoid colon, nonspecific possible extraluminal gas. Acute diverticulitis - Continue Zosyn 4.5g Q8hrs. - Appreciate Surgery consultation - non-surgical management recommended. - Will start patient on clear liquid today. - Once clinically improved, we can likely d/c patient on Augmentin PO. Probable history of Atrial fibrillation - Patient is unable to provide specifics. However, he does report a history of DVT and afib. - He takes Warfarin - does not know the dosage. His INR was 1.6 on 01/22/2018. - Currently heart rate is controlled. Continue Carvedilol 6.25mg BID. - Will hold off on starting Warfarin for now. Will continue Heparin SQ for DVT Prophylaxis. Full code. Heparin 5000 units SQ for DVT prophylaxis.
--- NOTE | 2018-01-23 13:44 | P.PNGS ---
Subjective Interval history: WBC 19. He is belching. No flatus. Bloated. C/o some pain not severe. Physical Exam Vital signs: Vital Signs 01/22/18 16:00 01/22/18 20:00 01/23/18 00:00 Temperature 99.4 F 97.9 F 98.8 F Pulse Rate 95 H 83 87 Respiratory Rate 22 22 22 Blood Pressure 140/79 150/76 H 149/78 H Pulse Oximetry 97 95 96 01/23/18 04:00 01/23/18 08:00 Temperature 98.1 F 98.2 F Pulse Rate 86 87 Respiratory Rate 22 18 Blood Pressure 133/74 134/76 Pulse Oximetry 94 L 94 L Intake & Output 01/22/18 01/23/18 01/23/18 18:59 06:59 18:59 Intake Total 100 / 100 1420 / 1420 Balance 100 / 100 1420 / 1420 Intake: IV 100 / 100 1100 / 1100 NS Inj 1,000 ML @ 100 mls/hr IV 1000 / 1000 .CONT .Q10H [place] Rx#:[id number] Zosyn 4.5 GM Premix 4.5 gm In 100 / 100 100 / 100 100 ml @ 200 mls/hr IV.SIG Q8H [place] Rx#:[id number] Oral 320 / 320 Other: # Voids 3 Date of Last Bowel Movement 01/21/18 01/21/18 Narrative: NAD Abd: soft, distended, tympanitic, mild upper ttp, moderate suprapubic ttp Assessment and Plan - Assessment (1) Diverticulitis of colon with perforation Code(s): K57.20 - Diverticulitis of large intestine with perforation and abscess without bleeding Status: Acute - Plan The patient has sigmoid diverticulitis with significant inflammatory changes and small perforation. Continue non op management. If no improvement or worsening he could require operative intervention and I discussed this preliminarily with him. NPO.
[2018-01-24] MEDS: Morphine Inj 4 MG/ML Vial IV.PUSH PRN ×3 (00:20→20:29)
[2018-01-24] MEDS: Heparin - SQ 10,000 UNITS/ML Vial SQ SCH ×2 (02:46→14:47)
[2018-01-24] MEDS: Sod Chloride 0.9% Inj 1,000 ML IV.CONT SCH ×2 (05:31→15:48)
[2018-01-24] MEDS: Piperacil/Tazo 4.5 GM Premix 4.5 GM/100 ML BAG IV.SIG SCH ×3 (06:17→22:59)
[2018-01-24] MEDS: Carvedilol 6.25 MG Tablet PO SCH ×2 (08:18→20:29)
[2018-01-24] MEDS: Amiodarone 200 MG Tablet PO SCH (08:18)
[2018-01-24] MEDS: Senna/Docusate Sodium 8.6/50 MG Tablet PO SCH ×2 (08:18→20:29)
--- NOTE | 2018-01-24 10:57 | P.PNGS ---
Subjective Interval history: No flatus. Persistent pain mainly suprapubic. Belching. Physical Exam Vital signs: Vital Signs 01/23/18 12:00 01/23/18 16:00 01/23/18 20:00 Temperature 97.7 F 98.3 F 99.1 F Pulse Rate 80 82 84 Respiratory Rate 18 18 Blood Pressure 138/82 146/71 H 155/79 H Pulse Oximetry 94 L 99 96 01/24/18 00:00 01/24/18 05:30 01/24/18 08:00 Temperature 98.3 F 98.3 F Pulse Rate 90 81 Respiratory Rate 18 18 18 Blood Pressure 136/85 147/82 H Pulse Oximetry 96 94 L Intake & Output 01/23/18 01/24/18 01/24/18 18:59 06:59 18:59 Intake Total 777 / 777 2340 / 2340 Output Total 825 / 825 150 / 150 Balance -48 / -48 2190 / 2190 Weight 85 kg Intake: IV 100 / 100 2100 / 2100 NS Inj 1,000 ML @ 100 mls/hr IV 1999 / 1999 .CONT .Q10H [place] Rx#:[id number] Zosyn 4.5 GM Premix 4.5 gm In 100 / 100 100 / 100 100 ml @ 200 mls/hr IV.SIG Q8H [place] Rx#:[id number] Oral 240 / 240 Other 677 / 677 Output: Urine 825 / 825 150 / 150 Other: Other Intake Source Saline Solution Date of Last Bowel Movement 01/21/18 01/21/18 Narrative: NAD Abd: severe suprapubic ttp, moderate distention, otherwise soft ntd Assessment and Plan - Assessment (1) Diverticulitis of colon with perforation Code(s): K57.20 - Diverticulitis of large intestine with perforation and abscess without bleeding Status: Acute - Plan The patient has sigmoid diverticulitis with significant inflammatory changes and small perforation, small amt of pneumoperitoneum. Continue non op management. F/u labs. Likely will need repeat CT a/p. Check doppler marcello LE due to recent DVT reported. Ok for therapeutic lovenox or heparin if needed. D/w Dr. Hernandez. Continue present course for now. He could end up requiring operative intervention.
--- NOTE | 2018-01-24 10:59 | US ---
EXAM DATE: 01/24/2018 10:47 AM EDT AGE/SEX: 57 years / Male INDICATIONS: Previous DVT. CLINICAL DATA: This is the patient's initial encounter. Patient reports that signs and symptoms have been present for 1 day and indicates a pain score of 0/10. MEDICAL/SURGICAL HISTORY: Deep venous thrombosis. Atrial fibrillation. Bacterial meningitis. Ca taracts. Anticoagulation.Diverticulitis with colon perforation. None. COMPARISON: [facility] – [place], US LEG RIGHT VENOUS DOPPLER, 03/16/2017. . TECHNIQUE: Venous ultrasound of both lower extremities was performed from the inguinal ligament to t he proximal calf. Real-time, color Doppler and spectral tracing, compression and augmentation techni ques were used. FINDINGS: Right Leg: Normal compression of the deep venous system from the inguinal region to the proximal fletcher f. No echogenic clot is seen. Normal response of the venous system to augmentation and respiration. Left Leg: Normal compression of the deep venous system from the inguinal region to the proximal calf . No echogenic clot is seen. Normal response of the venous system to augmentation and respiration. Other: None. CONCLUSION: 1. No deep venous thrombosis in either lower extremity Electronically signed by: Nic Disla MD 01/24/2018 10:57 AM EDT
--- NOTE | 2018-01-24 11:58 | P.PN ---
Subjective Interval history: Follow up for diverticulitis. Patient is doing well. He has some abdominal pain. He reports burping but no flatus or BM. No fever, chills. Physical Exam Vital signs: Vital Signs 01/23/18 12:00 01/23/18 16:00 01/23/18 20:00 Temperature 97.7 F 98.3 F 99.1 F Pulse Rate 80 82 84 Respiratory Rate 18 18 Blood Pressure 138/82 146/71 H 155/79 H Pulse Oximetry 94 L 99 96 01/24/18 00:00 01/24/18 05:30 01/24/18 08:00 Temperature 98.3 F 98.3 F Pulse Rate 90 81 Respiratory Rate 18 18 18 Blood Pressure 136/85 147/82 H Pulse Oximetry 96 94 L Intake & Output 01/23/18 01/24/18 01/24/18 18:59 06:59 18:59 Intake Total 777 / 777 2340 / 2340 Output Total 825 / 825 150 / 150 Balance -48 / -48 2190 / 2190 Weight 85 kg Intake: IV 100 / 100 2100 / 2100 NS Inj 1,000 ML @ 100 mls/hr IV 1999 / 1999 .CONT .Q10H [place] Rx#:[id number] Zosyn 4.5 GM Premix 4.5 gm In 100 / 100 100 / 100 100 ml @ 200 mls/hr IV.SIG Q8H [place] Rx#:[id number] Oral 240 / 240 Other 677 / 677 Output: Urine 825 / 825 150 / 150 Other: Other Intake Source Saline Solution Date of Last Bowel Movement 01/21/18 01/21/18 Narrative: GENERAL: Alert, oriented x 3, NAD. SKIN: Warm and dry. HEAD: Normocephalic. EYES: No scleral icterus. No injection or drainage. NECK: Supple, trachea midline. No JVD or lymphadenopathy. CARDIOVASCULAR: Regular rate and rhythm without murmurs, gallops, or rubs. RESPIRATORY: Breath sounds equal bilaterally. No accessory muscle use. GASTROINTESTINAL: Abdomen distended, moderately firm, mildly tender to palpation. MUSCULOSKELETAL: No cyanosis, or edema. BACK: Nontender without obvious deformity. No CVA tenderness. Results - Labs CBC & Chem 7: 01/23/18 06:47 01/23/18 06:47 Microbiology 01/22/18 02:40 Clean Catch Urine Urine Culture - Final <10,000 cfu/mL mixed gerri - no further workup - Imaging Impressions Venous Doppler Study 01/24/18 00:00 CONCLUSION: 1. No deep venous thrombosis in either lower extremity Assessment and Plan - Assessment (1) Diverticulitis of colon with perforation Code(s): K57.20 - Diverticulitis of large intestine with perforation and abscess without bleeding Status: Acute (2) UTI (urinary tract infection) Code(s): N39.0 - Urinary tract infection, site not specified Status: Acute (3) Afib Code(s): I48.91 - Unspecified atrial fibrillation Status: Acute - Plan Mr. Mccurdy is a pleasant 57 year old male with a history of inguinal hernia repair who was admitted to the hospital due to lower abdominal pain. On arrival , BP 125/67, HR 79, O2 sat 98% on RA, Temp 99.1. WBC of 19.4. Chemistry essentially unremarkable except for GFR 73. UA positive for UTI. CT Abdomen/ Pelvis with inflammatory process lower abdomen/pelvis, likely diverticulitis, several focal collections of gas to the right of the mid sigmoid colon, nonspecific possible extraluminal gas. Acute diverticulitis - Continue Zosyn 4.5g Q8hrs. - Appreciate Surgery consultation - Patient may need surgical intervention. - Will start patient on clear liquid today. - Once clinically improved, we can likely d/c patient on Augmentin PO. - CBC pending today. Probable history of Atrial fibrillation - Patient is unable to provide specifics. However, he does report a history of DVT and afib. - He takes Warfarin - does not know the dosage. His INR was 1.6 on 01/22/2018. - Currently heart rate is controlled. Continue Carvedilol 6.25mg BID. - Will hold off on starting Warfarin for now. Will continue Heparin SQ for DVT Prophylaxis. Lower ext doppler US shows no DVT. Full code. Heparin 5000 units SQ for DVT prophylaxis. Discussed with Dr. Fuentes (General surgery).
[2018-01-24 16:02] LABS: Baso % (Auto) 0.1 % (0.0-2.0); Hematocrit 46.2 % (39.0-51.0); Hemoglobin 14.8 gm/dL (13.0-17.0); Lymph # (Auto) 0.6 th/mm3 (1.0-4.8); Lymph % (Auto) 5.2 % (9.0-44.0); Mean Corpuscular HGB Conc 32.2 % (32.0-36.0); Mean Corpuscular Hemoglobin 30.2 pg (27.0-34.0); Mean Platelet Volume 8.1 fL (7.0-11.0); Mono # (Auto) 0.7 th/mm3 (0.0-0.9); Mono % (Auto) 6.1 % (0.0-8.0); Neut # (Auto) 10.6 th/mm3 (1.8-7.7); Neut % (Auto) 88.6 % (16.0-70.0); Platelet Count 389 th/mm3 (150-450); Red Blood Count 4.91 mil/mm3 (4.50-5.90); Red Cell Distribution Width 16.5 % (11.6-17.2)
[2018-01-24 16:34] LABS: Calcium 9.3 mg/dL (8.5-10.1); Carbon Dioxide 28.9 meq/L (21.0-32.0); Potassium 3.9 meq/L (3.5-5.1)
[2018-01-25] MEDS: Heparin - SQ 10,000 UNITS/ML Vial SQ SCH ×2 (02:52→14:00)
[2018-01-25] MEDS: Piperacil/Tazo 4.5 GM Premix 4.5 GM/100 ML BAG IV.SIG SCH ×3 (06:32→22:02)
[2018-01-25 06:42] LABS: Baso % (Auto) 0.2 % (0.0-2.0); Hematocrit 43.7 % (39.0-51.0); Hemoglobin 14.6 gm/dL (13.0-17.0); Lymph # (Auto) 0.4 th/mm3 (1.0-4.8); Lymph % (Auto) 4.2 % (9.0-44.0); Mean Corpuscular HGB Conc 33.5 % (32.0-36.0); Mean Corpuscular Hemoglobin 31.1 pg (27.0-34.0); Mean Platelet Volume 8.2 fL (7.0-11.0); Mono # (Auto) 0.6 th/mm3 (0.0-0.9); Mono % (Auto) 7.1 % (0.0-8.0); Neut # (Auto) 7.9 th/mm3 (1.8-7.7); Neut % (Auto) 88.5 % (16.0-70.0); Platelet Count 388 th/mm3 (150-450); Red Blood Count 4.69 mil/mm3 (4.50-5.90); White Blood Count 8.9 th/mm3 (4.0-11.0)
[2018-01-25] MEDS: Amiodarone 200 MG Tablet PO SCH (08:26)
[2018-01-25] MEDS: Senna/Docusate Sodium 8.6/50 MG Tablet PO SCH ×2 (08:26→22:03)
[2018-01-25] MEDS: Carvedilol 6.25 MG Tablet PO SCH ×2 (08:26→22:03)
[2018-01-25] MEDS ORDERED: Diatrizoate Meglum/Diatrizoate Sod Liq 9 ML UDC PO ONE (10:00)
--- NOTE | 2018-01-25 11:03 | P.PNGS ---
Subjective Interval history: Pain improving. WBC normalized. However, he is still not passing flatus except with suppository and has had vomiting since last nigth. Physical Exam Vital signs: Vital Signs 01/24/18 12:00 01/24/18 16:00 01/24/18 20:00 Temperature 97.7 F 98.1 F 98.2 F Pulse Rate 93 H 78 75 Respiratory Rate 20 18 18 Blood Pressure 130/88 139/77 150/74 H Pulse Oximetry 96 97 95 01/25/18 00:00 01/25/18 00:30 01/25/18 08:00 Temperature 97.6 F 97.3 F L Pulse Rate 75 58 L Respiratory Rate 18 15 18 Blood Pressure 150/80 H 161/83 H Pulse Oximetry 97 93 L Intake & Output 01/24/18 01/25/18 01/25/18 18:59 06:59 18:59 Intake Total 1100 / 1100 100 / 100 Output Total 200 / 200 Balance 1100 / 1100 -100 / -100 Intake: IV 1100 / 1100 100 / 100 NS Inj 1,000 ML @ 100 mls/hr IV 1000 / 1000 .CONT .Q10H [place] Rx#:[id number] Zosyn 4.5 GM Premix 4.5 gm In 100 / 100 100 / 100 100 ml @ 200 mls/hr IV.SIG Q8H [place] Rx#:[id number] Output: Urine 200 / 200 Other: Date of Last Bowel Movement 01/21/18 01/21/18 01/21/18 Narrative: Abd: moderate distention, mild tenderness, improving Assessment and Plan - Assessment (1) Diverticulitis of colon with perforation Code(s): K57.20 - Diverticulitis of large intestine with perforation and abscess without bleeding Status: Acute - Plan The patient has sigmoid diverticulitis with significant inflammatory changes and small perforation, small amt of pneumoperitoneum. Continue non op management. CT a/p today. May need NGT if persistent vomiting.
--- NOTE | 2018-01-25 14:58 | CT ---
EXAM DATE: 01/25/2018 2:48 PM EDT AGE/SEX: 57 years / Male INDICATIONS: Diverticulitis with perforation and abscess. Distended abdomen. CLINICAL DATA: This is the patient's subsequent encounter. Patient reports that signs and symptoms h ave been present for 3 days and indicates a pain score of 7/10. MEDICAL/SURGICAL HISTORY: Deep venous thrombosis. None. ORAL CONTRAST: No oral contrast ingested. RADIATION DOSE: 7.31 CTDI (mGy) COMPARISON: [facility] – [place] ABDOMEN & PELVIS W CONTRAST, 01/22/2018. . TECHNIQUE: Multiple contiguous axial images were obtained through the abdomen and pelvis following b olus infusion of 80 ml Omnipaque 350 (iohexol) nonionic water-soluble contrast as a single exam dos e. No oral contrast ingested. Using automated exposure control and adjustment of the mA and/or kV ac cording to patient size, radiation dose was kept as low as reasonably achievable to obtain optimal di agnostic quality images. DICOM format image data is available electronically for review and comparis on. FINDINGS: There is a small right effusion and right basilar atelectasis which is a new finding since January 22. No new findings in the liver, spleen, adrenals, kidneys or pancreas. The distal esophagus is nondilated and there is marked gastric to, both of which are new finding sinc e prior exam. There is also interval development of small bowel dilatation axis diameters of around 5 .6 cm. There are several distal small bowel loops which are nondilated and the colon is nondilated. T here are some inflammatory changes around the sigmoid colon, slightly improved since prior exam. Trace free fluid. No free air. Degenerative changes in the spine. CONCLUSION: 1. Compared with January 22 there is interval dilatation of the distal esophagus, stomach and proximal and mid small bowel with multiple air-fluid levels. Small bowel dilated up to 5.6 cm. Findings are m ost characteristic of a distal small bowel obstruction. 2. Inflammatory changes in the sigmoid region possibly from diverticulitis are slightly improved sin ce January 22. 3. Trace free fluid. No free air. Stable calcified gallstone. Electronically signed by: Nicolas Montelongo MD 01/25/2018 2:57 PM EDT
--- NOTE | 2018-01-25 17:52 | P.PN ---
Subjective Interval history: Follow up for diverticulitis. Patient is currently doing well. He has some abdominal discomfort. He used enema last night had some flatus but no BM. No fever, chills. Physical Exam Vital signs: Vital Signs 01/24/18 20:00 01/25/18 00:00 01/25/18 00:30 Temperature 98.2 F 97.6 F Pulse Rate 75 75 Respiratory Rate 18 18 15 Blood Pressure 150/74 H 150/80 H Pulse Oximetry 95 97 01/25/18 08:00 01/25/18 12:00 Temperature 97.3 F L 97.4 F L Pulse Rate 58 L 67 Respiratory Rate 18 18 Blood Pressure 161/83 H 157/80 H Pulse Oximetry 93 L 95 Intake & Output 01/24/18 01/25/18 01/25/18 18:59 06:59 18:59 Intake Total 1100 / 1100 100 / 100 100 / 100 Output Total 200 / 200 Balance 1100 / 1100 -100 / -100 100 / 100 Intake: IV 1100 / 1100 100 / 100 100 / 100 NS Inj 1,000 ML @ 100 mls/hr IV 1000 / 1000 .CONT .Q10H [place] Rx#:[id number] Zosyn 4.5 GM Premix 4.5 gm In 100 / 100 100 / 100 100 / 100 100 ml @ 200 mls/hr IV.SIG Q8H [place] Rx#:[id number] Output: Urine 200 / 200 Other: Date of Last Bowel Movement 01/21/18 01/21/18 01/21/18 Narrative: GENERAL: Alert, oriented x 3, NAD. SKIN: Warm and dry. HEAD: Normocephalic. EYES: No scleral icterus. No injection or drainage. NECK: Supple, trachea midline. No JVD or lymphadenopathy. CARDIOVASCULAR: Regular rate and rhythm without murmurs, gallops, or rubs. RESPIRATORY: Breath sounds equal bilaterally. No accessory muscle use. GASTROINTESTINAL: Abdomen distended, moderately firm, mildly tender to palpation. MUSCULOSKELETAL: No cyanosis, or edema. BACK: Nontender without obvious deformity. No CVA tenderness. Results - Labs CBC & Chem 7: 01/25/18 05:26 01/24/18 14:54 Laboratory Results - last 24 hr 01/25/18 05:26 WBC 8.9 RBC 4.69 Hgb 14.6 Hct 43.7 MCV 93.0 MCH 31.1 MCHC 33.5 RDW 17.0 Plt Count 388 MPV 8.2 Neut % (Auto) 88.5 H Lymph % (Auto) 4.[address] [place] % (Auto) 7.1 Eos % (Auto) 0.0 Baso % (Auto) 0.2 Neut # (Auto) 7.9 H Lymph # (Auto) 0.[address] [place] # (Auto) 0.6 Eos # (Auto) 0.0 Baso # (Auto) 0.0 WBC Differential . Differential Comment Auto diff final - Imaging Impressions Abdomen/Pelvis CT 01/25/18 06:00 CONCLUSION: 1. Compared with January 22 there is interval dilatation of the distal esophagus , stomach and proximal and mid small bowel with multiple air-fluid levels. Small bowel dilated up to 5.6 cm. Findings are most characteristic of a distal small bowel obstruction. 2. Inflammatory changes in the sigmoid region possibly from diverticulitis are slightly improved since January 22. 3. Trace free fluid. No free air. Stable calcified gallstone. Assessment and Plan - Assessment (1) Diverticulitis of colon with perforation Code(s): K57.20 - Diverticulitis of large intestine with perforation and abscess without bleeding Status: Acute (2) UTI (urinary tract infection) Code(s): N39.0 - Urinary tract infection, site not specified Status: Acute (3) Afib Code(s): I48.91 - Unspecified atrial fibrillation Status: Acute - Plan Mr. Mccurdy is a pleasant 57 year old male with a history of inguinal hernia repair who was admitted to the hospital due to lower abdominal pain. On arrival , BP 125/67, HR 79, O2 sat 98% on RA, Temp 99.1. WBC of 19.4. Chemistry essentially unremarkable except for GFR 73. UA positive for UTI. CT Abdomen/ Pelvis with inflammatory process lower abdomen/pelvis, likely diverticulitis, several focal collections of gas to the right of the mid sigmoid colon, nonspecific possible extraluminal gas. Acute diverticulitis Distal small bowel obstruction - Continue Zosyn 4.5g Q8hrs. - Gen surgery following. - Once clinically improved, we can likely d/c patient on Augmentin PO. - CBC shows normalization of WBC. - IF N/V continues, he may need NG Tube suctioning. Probable history of Atrial fibrillation - Patient is unable to provide specifics. However, he does report a history of DVT and afib. - He takes Warfarin - does not know the dosage. His INR was 1.6 on 01/22/2018. - Currently heart rate is controlled. Continue Carvedilol 6.25mg BID. - Will hold off on starting Warfarin for now. Will continue Heparin SQ for DVT Prophylaxis. Lower ext doppler US shows no DVT. Full code. Heparin 5000 units SQ for DVT prophylaxis.
[2018-01-25] MEDS: Morphine Inj 4 MG/ML Vial IV.PUSH PRN (22:17)
[2018-01-26] MEDS: Heparin - SQ 10,000 UNITS/ML Vial SQ SCH ×2 (02:57→15:24)
[2018-01-26] MEDS: Morphine Inj 4 MG/ML Vial IV.PUSH PRN ×5 (02:58→22:31)
[2018-01-26] MEDS: Piperacil/Tazo 4.5 GM Premix 4.5 GM/100 ML BAG IV.SIG SCH ×3 (06:19→22:32)
[2018-01-26] MEDS: Amiodarone 200 MG Tablet PO SCH (08:30)
[2018-01-26] MEDS: Carvedilol 6.25 MG Tablet PO SCH ×2 (08:30→20:53)
[2018-01-26] MEDS: Senna/Docusate Sodium 8.6/50 MG Tablet PO SCH ×2 (08:30→20:53)
--- NOTE | 2018-01-26 13:26 | P.PNGS ---
Subjective Interval history: High volume ngt output. No flatus. Denies pain. Physical Exam Vital signs: Vital Signs 01/25/18 16:00 01/25/18 20:00 01/26/18 00:00 Temperature 97.6 F 97.8 F 98.4 F Pulse Rate 70 83 72 Respiratory Rate 18 18 18 Blood Pressure 158/79 H 143/73 H 145/76 H Pulse Oximetry 93 L 95 94 L 01/26/18 02:30 01/26/18 04:00 01/26/18 08:00 Temperature 98.6 F 98.5 F Pulse Rate 88 59 L Respiratory Rate 16 18 18 Blood Pressure 119/61 134/75 Pulse Oximetry 96 92 L 01/26/18 12:00 Temperature 98.2 F Pulse Rate 80 Respiratory Rate 20 Blood Pressure 126/72 Pulse Oximetry 91 L Intake & Output 01/25/18 01/26/18 01/26/18 18:59 06:59 18:59 Intake Total 680 / 680 100 / 100 Output Total 2300 / 2300 1400 / 1400 Balance -1620 / -1620 -1300 / -1300 Intake: IV 200 / 200 100 / 100 Zosyn 4.5 GM Premix 4.5 gm In 200 / 200 100 / 100 100 ml @ 200 mls/hr IV.SIG Q8H [place] Rx#:[id number] Oral 480 / 480 Output: Urine 300 / 300 Gastric Drainage 1999 1400 / 1400 Right Nare Nasogastric Tube 1999 1400 / 1400 Other: Date of Last Bowel Movement 01/21/18 01/21/18 01/24/18 Narrative: Abd: distended, NGT 3400cc output since yesterday Assessment and Plan - Assessment (1) Diverticulitis of colon with perforation Code(s): K57.20 - Diverticulitis of large intestine with perforation and abscess without bleeding Status: Acute - Plan The patient has sigmoid diverticulitis with significant inflammatory changes and small perforation, small amt of pneumoperitoneum. Now has ileus vs SBO related to inflammatory changes in RLQ. CT a/p shows ileus vs bowel obstruction, but inflammatory changes are improved. WBC is normal. NG placed yesterday has high volume output. Cont NGT. Check labs and KUB in am. Course and plan discussed in detail with patient.
--- NOTE | 2018-01-26 14:28 | P.PN ---
Subjective Interval history: Follow up for diverticulitis, distal SBO. Patient complains of abdominal discomfort. No fever, chills. NG tube in place on suction. Physical Exam Vital signs: Vital Signs 01/25/18 16:00 01/25/18 20:00 01/26/18 00:00 Temperature 97.6 F 97.8 F 98.4 F Pulse Rate 70 83 72 Respiratory Rate 18 18 18 Blood Pressure 158/79 H 143/73 H 145/76 H Pulse Oximetry 93 L 95 94 L 01/26/18 02:30 01/26/18 04:00 01/26/18 08:00 Temperature 98.6 F 98.5 F Pulse Rate 88 59 L Respiratory Rate 16 18 18 Blood Pressure 119/61 134/75 Pulse Oximetry 96 92 L 01/26/18 12:00 Temperature 98.2 F Pulse Rate 80 Respiratory Rate 20 Blood Pressure 126/72 Pulse Oximetry 91 L Intake & Output 01/25/18 01/26/18 01/26/18 18:59 06:59 18:59 Intake Total 680 / 680 100 / 100 Output Total 2300 / 2300 1400 / 1400 Balance -1620 / -1620 -1300 / -1300 Intake: IV 200 / 200 100 / 100 Zosyn 4.5 GM Premix 4.5 gm In 200 / 200 100 / 100 100 ml @ 200 mls/hr IV.SIG Q8H [place] Rx#:[id number] Oral 480 / 480 Output: Urine 300 / 300 Gastric Drainage 1999 1400 / 1400 Right Nare Nasogastric Tube 1999 1400 / 1400 Other: Date of Last Bowel Movement 01/21/18 01/21/18 01/24/18 Narrative: GENERAL: Alert, oriented x 3, NAD. SKIN: Warm and dry. HEAD: Normocephalic. EYES: No scleral icterus. No injection or drainage. NECK: Supple, trachea midline. No JVD or lymphadenopathy. CARDIOVASCULAR: Regular rate and rhythm without murmurs, gallops, or rubs. RESPIRATORY: Breath sounds equal bilaterally. No accessory muscle use. GASTROINTESTINAL: Abdomen distended, moderately firm, mildly tender to palpation. NG tube in place. MUSCULOSKELETAL: No cyanosis, or edema. BACK: Nontender without obvious deformity. No CVA tenderness. Results - Labs CBC & Chem 7: 01/25/18 05:26 01/24/18 14:54 - Imaging Impressions Abdomen/Pelvis CT 01/25/18 06:00 CONCLUSION: 1. Compared with January 22 there is interval dilatation of the distal esophagus , stomach and proximal and mid small bowel with multiple air-fluid levels. Small bowel dilated up to 5.6 cm. Findings are most characteristic of a distal small bowel obstruction. 2. Inflammatory changes in the sigmoid region possibly from diverticulitis are slightly improved since January 22. 3. Trace free fluid. No free air. Stable calcified gallstone. Assessment and Plan - Assessment (1) Diverticulitis of colon with perforation Code(s): K57.20 - Diverticulitis of large intestine with perforation and abscess without bleeding Status: Acute (2) UTI (urinary tract infection) Code(s): N39.0 - Urinary tract infection, site not specified Status: Acute (3) Afib Code(s): I48.91 - Unspecified atrial fibrillation Status: Acute - Plan Mr. Mccurdy is a pleasant 57 year old male with a history of inguinal hernia repair who was admitted to the hospital due to lower abdominal pain. On arrival , BP 125/67, HR 79, O2 sat 98% on RA, Temp 99.1. WBC of 19.4. Chemistry essentially unremarkable except for GFR 73. UA positive for UTI. CT Abdomen/ Pelvis with inflammatory process lower abdomen/pelvis, likely diverticulitis, several focal collections of gas to the right of the mid sigmoid colon, nonspecific possible extraluminal gas. Acute diverticulitis Distal small bowel obstruction - Continue Zosyn 4.5g Q8hrs. - Gen surgery following. - Once clinically improved, we can likely d/c patient on Augmentin PO. - CBC shows WBC 19.4 ==> 8.9. - Continue NG Tube suctioning. - NPO except meds and ice chips. Probable history of Atrial fibrillation - Patient is unable to provide specifics. However, he does report a history of DVT and afib. - He takes Warfarin - does not know the dosage. His INR was 1.6 on 01/22/2018. - Currently heart rate is controlled. Continue Carvedilol 6.25mg BID. - Will hold off on starting Warfarin for now. Will continue Heparin SQ for DVT Prophylaxis. Lower ext doppler US shows no DVT. Full code. Heparin 5000 units SQ for DVT prophylaxis.
[2018-01-26] MEDS: Sod Chloride 0.9% Inj 1,000 ML IV.CONT SCH (21:51)
[2018-01-27] MEDS: Heparin - SQ 10,000 UNITS/ML Vial SQ SCH ×2 (02:26→13:21)
[2018-01-27] MEDS: Morphine Inj 4 MG/ML Vial IV.PUSH PRN ×2 (05:09→13:32)
[2018-01-27 06:32] LABS: Baso % (Auto) 0.3 % (0.0-2.0); Eos # (Auto) 0.1 th/mm3 (0.0-0.4); Eos % (Auto) 1.4 % (0.0-4.0); Hematocrit 39.9 % (39.0-51.0); Hemoglobin 13.1 gm/dL (13.0-17.0); Lymph # (Auto) 1.2 th/mm3 (1.0-4.8); Lymph % (Auto) 18.6 % (9.0-44.0); Mean Corpuscular HGB Conc 32.9 % (32.0-36.0); Mean Corpuscular Hemoglobin 31.1 pg (27.0-34.0); Mean Corpuscular Volume 94.7 fL (80.0-100.0); Mean Platelet Volume 7.6 fL (7.0-11.0); Mono # (Auto) 0.9 th/mm3 (0.0-0.9); Mono % (Auto) 14.7 % (0.0-8.0); Neut # (Auto) 4.1 th/mm3 (1.8-7.7); Platelet Count 314 th/mm3 (150-450); Red Blood Count 4.21 mil/mm3 (4.50-5.90); Red Cell Distribution Width 16.3 % (11.6-17.2); White Blood Count 6.3 th/mm3 (4.0-11.0)
[2018-01-27 07:02] LABS: Anion Gap 11 meq/L (5-15); Blood Urea Nitrogen 20 mg/dL (7-18); Calcium 8.7 mg/dL (8.5-10.1); Carbon Dioxide 30.5 meq/L (21.0-32.0); Chloride 102 meq/L (98-107); Glomerular Filtration Rate Greater Than 89 mL/min (>89); Glucose,Random 62 mg/dL (74-106); Sodium 143 meq/L (136-145)
[2018-01-27] MEDS: Piperacil/Tazo 4.5 GM Premix 4.5 GM/100 ML BAG IV.SIG SCH ×3 (07:07→23:28)
--- NOTE | 2018-01-27 07:36 | XR ---
EXAM DATE: 01/27/2018 7:32 AM EDT AGE/SEX: 57 years / Male INDICATIONS: Diffuse abdominal pain, evaluate obstruction. CLINICAL DATA: This is the patient's subsequent encounter. Patient reports that signs and symptoms h ave been present for 4 - 6 days and indicates a pain score of 6/10. MEDICAL/SURGICAL HISTORY: Diverticulitis. diverticulitis with perforation and abscess Inguinal hernia repair. COMPARISON: [facility] [place]OM[place] & PELVIS W CONTRAST, 01/25/2018. . FINDINGS: There are dilated loops of small bowel as identified on the patient's prior CT examination from 018 maximum diameter of 6.6 cm. There is however air within the colon down to the rectum. There is no evidence for free intraperitoneal air for technique. CONCLUSION: Persistent dilatation of loops of small bowel possibly slightly worse compared to the prior CT examin ation and possibility of partial small bowel obstruction should be entertained. Electronically signed by: Gabriella Roque MD 01/27/2018 7:35 AM EDT
[2018-01-27] MEDS: Carvedilol 6.25 MG Tablet PO SCH ×2 (08:59→20:43)
[2018-01-27] MEDS: Senna/Docusate Sodium 8.6/50 MG Tablet PO SCH ×2 (08:59→20:43)
[2018-01-27] MEDS: Amiodarone 200 MG Tablet PO SCH (08:59)
[2018-01-27] MEDS: Sod Chloride 0.9% Inj 1,000 ML IV.CONT SCH ×3 (09:00→23:31)
--- NOTE | 2018-01-27 11:24 | P.PN ---
Subjective Interval history: Follow up for diverticulitis, distal SBO. Patient reports feeling well and abdomen is somewhat softer. Passing flatus. No BM yet. No fever, chills. Physical Exam Vital signs: Vital Signs 01/26/18 12:00 01/26/18 15:43 01/26/18 20:00 Temperature 98.2 F 98.5 F 98.6 F Pulse Rate 80 82 78 Respiratory Rate 20 20 20 Blood Pressure 126/72 120/74 144/81 H Pulse Oximetry 91 L 98 94 L 01/27/18 00:00 01/27/18 04:44 01/27/18 08:00 Temperature 98 F 98.5 F 98.2 F Pulse Rate 62 69 75 Respiratory Rate 20 18 14 Blood Pressure 142/70 H 139/72 127/61 Pulse Oximetry 98 93 L 93 L Intake & Output 01/26/18 01/27/18 01/27/18 18:59 06:59 18:59 Intake Total 100 / 100 100 / 100 1000 / 1000 Output Total 300 / 300 2000 / 1999 Balance -200 / -200 -1900 / -1900 1000 / 1000 Intake: IV 100 / 100 100 / 100 1000 / 1000 NS Inj 1,000 ML @ 100 mls/hr IV 1000 / 1000 .CONT .Q10H [place] Rx#:[id number] Zosyn 4.5 GM Premix 4.5 gm In 100 / 100 100 / 100 100 ml @ 200 mls/hr IV.SIG Q8H [place] Rx#:[id number] Output: Urine 300 / 300 Gastric Drainage 300 / 300 1700 / 1700 Right Nare Nasogastric Tube 300 / 300 1700 / 1700 Other: Date of Last Bowel Movement 01/24/18 01/24/18 01/21/18 Narrative: GENERAL: Alert, oriented x 3, NAD. SKIN: Warm and dry. HEAD: Normocephalic. EYES: No scleral icterus. No injection or drainage. NECK: Supple, trachea midline. No JVD or lymphadenopathy. CARDIOVASCULAR: Regular rate and rhythm without murmurs, gallops, or rubs. RESPIRATORY: Breath sounds equal bilaterally. No accessory muscle use. GASTROINTESTINAL: Abdomen is softer than yesterday, BS positive. NG tube in place. MUSCULOSKELETAL: No cyanosis, or edema. BACK: Nontender without obvious deformity. No CVA tenderness. Results - Labs CBC & Chem 7: 01/27/18 04:56 01/27/18 04:56 Laboratory Results - last 24 hr 01/27/18 01/27/18 01/27/18 04:56 04:56 04:56 WBC 6.3 RBC 4.21 L Hgb 13.1 Hct 39.9 MCV 94.7 MCH 31.1 MCHC 32.9 RDW 16.3 Plt Count 314 MPV 7.6 Neut % (Auto) 65.0 Lymph % (Auto) 18.6 [place] % (Auto) 14.7 H Eos % (Auto) 1.4 Baso % (Auto) 0.3 Neut # (Auto) 4.1 Lymph # (Auto) 1.2 [place] # (Auto) 0.9 Eos # (Auto) 0.1 Baso # (Auto) 0.0 WBC Differential . Differential Comment Auto diff final Sodium 143 Potassium 3.0 L Chloride 102 Carbon Dioxide 30.5 Anion Gap 11 BUN 20 H Creatinine 0.79 Estimated GFR Greater than 89 Random Glucose 62 L Calcium 8.7 Magnesium 2.2 - Imaging Impressions Abdomen X-Ray 01/27/18 06:00 CONCLUSION: Persistent dilatation of loops of small bowel possibly slightly worse compared to the prior CT examination and possibility of partial small bowel obstruction should be entertained. Assessment and Plan - Assessment (1) Diverticulitis of colon with perforation Code(s): K57.20 - Diverticulitis of large intestine with perforation and abscess without bleeding Status: Acute (2) UTI (urinary tract infection) Code(s): N39.0 - Urinary tract infection, site not specified Status: Acute (3) Afib Code(s): I48.91 - Unspecified atrial fibrillation Status: Acute - Plan Mr. Mccurdy is a pleasant 57 year old male with a history of inguinal hernia repair who was admitted to the hospital due to lower abdominal pain. On arrival , BP 125/67, HR 79, O2 sat 98% on RA, Temp 99.1. WBC of 19.4. Chemistry essentially unremarkable except for GFR 73. UA positive for UTI. CT Abdomen/ Pelvis with inflammatory process lower abdomen/pelvis, likely diverticulitis, several focal collections of gas to the right of the mid sigmoid colon, nonspecific possible extraluminal gas. Acute diverticulitis Distal small bowel obstruction - Continue Zosyn 4.5g Q8hrs. - Appreciate General surgery input. - Once clinically improved, we can likely d/c patient on Augmentin PO. - CBC shows WBC 19.4 ==> 8.9. - Continue NG Tube suctioning. - NPO except meds and ice chips. Probable history of Atrial fibrillation - Patient is unable to provide specifics. However, he does report a history of DVT and afib. - He takes Warfarin - does not know the dosage. His INR was 1.6 on 01/22/2018. - Currently heart rate is controlled. Continue Carvedilol 6.25mg BID. - Will hold off on starting Warfarin for now. Will continue Heparin SQ for DVT Prophylaxis. Hypokalemia - Potassium 3.0 today. Will replace with IV KCL Agitation - Per nursing, patient has been agitated. Will try low dose Seroquel 25mg BID. Lower ext doppler US shows no DVT. Full code. Heparin 5000 units SQ for DVT prophylaxis.
[2018-01-27] MEDS: Potassium Chlor 20 mEq Premix 20 MEQ/100 ML PIGGYBACK IV.SIG SCH ×2 (12:19→14:39)
[2018-01-27] MEDS: QUEtiapine 25 MG Tablet PO SCH (20:43)
--- NOTE | 2018-01-27 20:50 | P.PNGS ---
Subjective Interval history: He had a substantial bowel movt this afternoon. Less abdominal pain. No nausea. NG with 2L out for last 24h. Physical Exam Vital signs: Vital Signs 01/27/18 00:00 01/27/18 04:44 01/27/18 08:00 Temperature 98 F 98.5 F 98.2 F Pulse Rate 62 69 75 Respiratory Rate 20 18 14 Blood Pressure 142/70 H 139/72 127/61 Pulse Oximetry 98 93 L 93 L 01/27/18 12:00 01/27/18 16:00 Temperature 97.3 F L 98.1 F Pulse Rate 63 61 Respiratory Rate 16 16 Blood Pressure 139/67 133/75 Pulse Oximetry 92 L 94 L Intake & Output 01/27/18 01/27/18 01/28/18 06:59 18:59 06:59 Intake Total 100 / 100 2200 / 2200 Output Total 1999 100 / 100 300 / 300 Balance -1900 / -1900 2100 / 2100 -300 / -300 Intake: IV 100 / 100 2200 / 2200 NS Inj 1,000 ML @ 100 mls/hr IV 1999 .CONT .Q10H [place] Rx#:[id number] Zosyn 4.5 GM Premix 4.5 gm In 100 / 100 100 / 100 100 ml @ 200 mls/hr IV.SIG Q8H [place] Rx#:[id number] KCl 20 mEq Premix Inj 20 meq In 100 / 100 100 ml @ 50 mls/hr IV.SIG Q2H [place] Rx#:[id number] Output: Urine 300 / 300 Gastric Drainage 1700 / 1700 100 / 100 300 / 300 Right Nare Nasogastric Tube 1700 / 1700 100 / 100 300 / 300 Other: Date of Last Bowel Movement 01/24/18 01/27/18 01/27/18 # Bowel Movements 1 Narrative: Abd: moderate distention, soft, ntd, bilious output from ngt Assessment and Plan - Assessment (1) Diverticulitis of colon with perforation Code(s): K57.20 - Diverticulitis of large intestine with perforation and abscess without bleeding Status: Acute - Plan The patient has sigmoid diverticulitis with significant inflammatory changes and small perforation, small amt of pneumoperitoneum. Now has ileus vs SBO related to inflammatory changes in RLQ. CT a/p shows ileus vs bowel obstruction, but inflammatory changes are improved. Ileus may be resolving. Cont NGT.
[2018-01-28] MEDS: Piperacil/Tazo 4.5 GM Premix 4.5 GM/100 ML BAG IV.SIG SCH ×3 (06:39→22:55)
[2018-01-28] MEDS: Heparin - SQ 10,000 UNITS/ML Vial SQ SCH ×2 (06:40→17:59)
[2018-01-28] MEDS: Senna/Docusate Sodium 8.6/50 MG Tablet PO SCH ×2 (09:16→20:19)
[2018-01-28] MEDS: Carvedilol 6.25 MG Tablet PO SCH ×2 (09:16→20:19)
[2018-01-28] MEDS: Amiodarone 200 MG Tablet PO SCH (09:16)
[2018-01-28] MEDS: QUEtiapine 25 MG Tablet PO SCH ×2 (09:16→20:19)
--- NOTE | 2018-01-28 11:57 | P.PNIM ---
Subjective Interval history: Patient resting comfortably in bed when seen. Nasogastric tube is still in relatively high output remains. Pain is controlled. Physical Exam Vital signs: Vital Signs 01/27/18 12:00 01/27/18 16:00 01/27/18 20:00 Temperature 97.3 F L 98.1 F 98.1 F Pulse Rate 63 61 70 Respiratory Rate 16 16 22 Blood Pressure 139/67 133/75 154/74 H Pulse Oximetry 92 L 94 L 96 01/28/18 00:00 01/28/18 02:34 01/28/18 08:00 Temperature 98.3 F 98.4 F Pulse Rate 84 54 L Respiratory Rate 20 15 18 Blood Pressure 144/77 H 133/71 Pulse Oximetry 97 95 Intake & Output 01/27/18 01/28/18 01/28/18 18:59 06:59 18:59 Intake Total 2300 / 2300 1100 / 1100 Output Total 100 / 100 1500 / 1500 Balance 2200 / 2200 -400 / -400 Intake: IV 2300 / 2300 1100 / 1100 NS Inj 1,000 ML @ 100 mls/hr IV 2000 / 2000 1000 / 1000 .CONT .Q10H [place] Rx#:[id number] Zosyn 4.5 GM Premix 4.5 gm In 200 / 200 100 / 100 100 ml @ 200 mls/hr IV.SIG Q8H [place] Rx#:[id number] KCl 20 mEq Premix Inj 20 meq In 100 / 100 100 ml @ 50 mls/hr IV.SIG Q2H [place] Rx#:[id number] Output: Urine 500 / 500 Gastric Drainage 100 / 100 1000 / 1000 Right Nare Nasogastric Tube 100 / 100 1000 / 1000 Other: Date of Last Bowel Movement 01/27/18 01/27/18 01/27/18 # Bowel Movements 1 Narrative: GENERAL: NAD, A&Ox3, NG tube remains in place HEAD: Normocephalic. NECK: Supple, trachea midline. No lymphadenopathy. EYES: No scleral icterus. No injection or drainage. CARDIOVASCULAR: Regular rate and rhythm without murmurs, gallops, or rubs. RESPIRATORY: Breath sounds equal bilaterally. No accessory muscle use. GASTROINTESTINAL: Abdomen soft, non-tender, mild distention. MUSCULOSKELETAL: No cyanosis, or edema. SKIN: Warm and dry. NEURO: No focal neurological deficits. Results - Labs CBC & Chem 7: 01/27/18 04:56 01/27/18 04:56 Assessment and Plan - Assessment (1) Diverticulitis of colon with perforation Code(s): K57.20 - Diverticulitis of large intestine with perforation and abscess without bleeding Status: Acute (2) UTI (urinary tract infection) Code(s): N39.0 - Urinary tract infection, site not specified Status: Acute (3) Afib Code(s): I48.91 - Unspecified atrial fibrillation Status: Acute - Plan 57-year-old male admitted secondary to abdominal pain with diverticulitis and ileus versus small bowel obstruction\ Acute diverticulitis Distal small bowel obstruction versus ileus Continue Zosyn General surgery following Continue NG tube to suction N.p.o. Monitor for improvement Atrial fibrillation Continue carvedilol Continue heparin subcutaneously Coumadin on hold for now given GI situation Hypokalemia Monitor and replace as needed Agitation Continue Seroquel DVT prophylaxis Continue heparin
[2018-01-28] MEDS: Sod Chloride 0.9% Inj 1,000 ML IV.CONT SCH ×2 (13:16→22:55)
--- NOTE | 2018-01-28 13:39 | P.PNGS ---
Subjective Interval history: + BM again and some flatus but continued high ngt output. Physical Exam Vital signs: Vital Signs 01/27/18 16:00 01/27/18 20:00 01/28/18 00:00 Temperature 98.1 F 98.1 F 98.3 F Pulse Rate 61 70 84 Respiratory Rate 16 22 20 Blood Pressure 133/75 154/74 H 144/77 H Pulse Oximetry 94 L 96 97 01/28/18 02:34 01/28/18 08:00 Temperature 98.4 F Pulse Rate 54 L Respiratory Rate 15 18 Blood Pressure 133/71 Pulse Oximetry 95 Intake & Output 01/27/18 01/28/18 01/28/18 18:59 06:59 18:59 Intake Total 2300 / 2300 1100 / 1100 1000 / 1000 Output Total 100 / 100 1500 / 1500 Balance 2200 / 2200 -400 / -400 1000 / 1000 Intake: IV 2300 / 2300 1100 / 1100 1000 / 1000 NS Inj 1,000 ML @ 100 mls/hr IV 2000 / 2000 1000 / 1000 1000 / 1000 .CONT .Q10H [place] Rx#:[id number] Zosyn 4.5 GM Premix 4.5 gm In 200 / 200 100 / 100 100 ml @ 200 mls/hr IV.SIG Q8H [place] Rx#:[id number] KCl 20 mEq Premix Inj 20 meq In 100 / 100 100 ml @ 50 mls/hr IV.SIG Q2H [place] Rx#:[id number] Output: Urine 500 / 500 Gastric Drainage 100 / 100 1000 / 1000 Right Nare Nasogastric Tube 100 / 100 1000 / 1000 Other: Date of Last Bowel Movement 01/27/18 01/27/18 01/27/18 # Bowel Movements 1 Narrative: NAD Abd distended, soft, ntd, biliuous ngt output Assessment and Plan - Assessment (1) Diverticulitis of colon with perforation Code(s): K57.20 - Diverticulitis of large intestine with perforation and abscess without bleeding Status: Acute - Plan The patient has sigmoid diverticulitis with significant inflammatory changes and small perforation, small amt of pneumoperitoneum. Now has ileus vs SBO related to inflammatory changes in RLQ. CT a/p shows ileus vs bowel obstruction, but inflammatory changes are improved. + BM but continued ngt output. Check KUB and labs in am. Cont NGT to LIS. If no improvement in next 1-2 days will need to be started on TPN.
[2018-01-29] MEDS: Heparin - SQ 10,000 UNITS/ML Vial SQ SCH ×2 (01:44→14:00)
[2018-01-29] MEDS: Piperacil/Tazo 4.5 GM Premix 4.5 GM/100 ML BAG IV.SIG SCH ×3 (06:45→23:07)
[2018-01-29] MEDS: Senna/Docusate Sodium 8.6/50 MG Tablet PO SCH ×2 (10:19→21:51)
[2018-01-29] MEDS: QUEtiapine 25 MG Tablet PO SCH ×2 (10:19→21:51)
[2018-01-29] MEDS: Amiodarone 200 MG Tablet PO SCH (10:19)
[2018-01-29] MEDS: Carvedilol 6.25 MG Tablet PO SCH ×2 (10:20→21:51)
--- NOTE | 2018-01-29 13:09 | P.PN ---
Subjective Interval history: Follow-up diverticulitis complicated by small bowel obstruction versus ileus January 29, 2018-patient seen and examined, currently n.p.o. with NG tube in place. No acute event overnight. Afebrile Physical Exam Vital signs: Vital Signs 01/28/18 20:00 01/28/18 23:13 01/29/18 08:00 Temperature 98.1 F 98.2 F 98.0 F Pulse Rate 65 75 69 Respiratory Rate 18 Blood Pressure 137/78 132/72 120/70 Pulse Oximetry 96 96 97 01/29/18 12:00 Temperature 97.8 F Pulse Rate 64 Respiratory Rate 20 Blood Pressure 122/69 Pulse Oximetry 97 Intake & Output 01/28/18 01/29/18 01/29/18 18:59 06:59 18:59 Intake Total 1100 / 1100 2077 100 / 100 Output Total 375 / 375 Balance 1100 / 1100 2077 -275 / -275 Intake: IV 1100 / 1100 2077 100 / 100 NS Inj 1,000 ML @ 100 mls/hr IV 1000 / 1000 1878 / 187 .CONT .Q10H [place] Rx#:[id number] Zosyn 4.5 GM Premix 4.5 gm In 100 / 100 200 / 200 100 / 100 100 ml @ 200 mls/hr IV.SIG Q8H [place] Rx#:[id number] Output: Urine 125 / 125 Gastric Drainage 250 / 250 Right Nare Nasogastric Tube 250 / 250 Other: # Voids 4 Date of Last Bowel Movement 01/27/18 01/28/18 Narrative: GENERAL: NAD with NG tube in place SKIN: Warm and dry. HEAD: Normocephalic. EYES: No scleral icterus. No injection or drainage. NECK: Supple, trachea midline. No JVD or lymphadenopathy. CARDIOVASCULAR: Regular rate and rhythm without murmurs, gallops, or rubs. RESPIRATORY: Breath sounds equal bilaterally. No accessory muscle use. GASTROINTESTINAL: Abdomen soft, non-tender, nondistended. Hypoactive bowel sounds MUSCULOSKELETAL: No cyanosis, or edema. BACK: Nontender without obvious deformity. No CVA tenderness. Results - Labs CBC & Chem 7: 01/27/18 04:56 01/27/18 04:56 Assessment and Plan - Assessment (1) Diverticulitis large intestine Code(s): K57.32 - Diverticulitis of large intestine without perforation or abscess without bleeding Status: Acute (2) UTI (urinary tract infection) Code(s): N39.0 - Urinary tract infection, site not specified Status: Acute (3) Afib Code(s): I48.91 - Unspecified atrial fibrillation Status: Acute - Plan 57-year-old man with Acute diverticulitis Distal small bowel obstruction versus ileus Continue Zosyn General surgery following Continue NG tube, n.p.o. however may consider TPN in the next 48 hours if no improvement Change fluid to D5 half-normal saline Atrial fibrillation Continue carvedilol Continue heparin subcutaneously Coumadin on hold for now given GI situation Hypokalemia Monitor and replace as needed Agitation Continue Seroquel DVT prophylaxis Continue heparin
--- NOTE | 2018-01-29 14:13 | P.PNGS ---
Subjective Patient reports: no new complaints, feels better, still having pain, pain is less, flatus, bowel movement (He has had two BM's and has passed flatus, despite NG still with slightly increased output. ) Physical Exam Vital signs: Vital Signs 01/28/18 20:00 01/28/18 23:13 01/29/18 08:00 Temperature 98.1 F 98.2 F 98.0 F Pulse Rate 65 75 69 Respiratory Rate Blood Pressure 137/78 132/72 120/70 Pulse Oximetry 96 96 97 01/29/18 12:00 Temperature 97.8 F Pulse Rate 64 Respiratory Rate 20 Blood Pressure 122/69 Pulse Oximetry 97 Intake & Output 01/28/18 01/29/18 01/29/18 18:59 06:59 18:59 Intake Total 1100 / 1100 2077 100 / 100 Output Total 375 / 375 Balance 1100 / 1100 2077 -275 / -275 Intake: IV 1100 / 1100 2077 100 / 100 NS Inj 1,000 ML @ 100 mls/hr IV 1000 / 1000 1878 / 187 .CONT .Q10H [place] Rx#:[id number] Zosyn 4.5 GM Premix 4.5 gm In 100 / 100 200 / 200 100 / 100 100 ml @ 200 mls/hr IV.SIG Q8H [place] Rx#:[id number] Output: Urine 125 / 125 Gastric Drainage 250 / 250 Right Nare Nasogastric Tube 250 / 250 Other: # Voids 4 Date of Last Bowel Movement 01/27/18 01/28/18 - Routine Abdominal Exam Present: soft Comments: He has minimal tenderness to palpation in the LLQ but no guarding or rebound. Assessment and Plan - Assessment (1) Diverticulitis of colon with perforation Code(s): K57.20 - Diverticulitis of large intestine with perforation and abscess without bleeding Status: Acute - Plan He is doing well on antibiotics; now having flatus and occasional BM's. Will clamp the NG today and re-open to LIS if he has any nausea or emesis. If ok, it can probably come out tomorrow and he can begin full liquids.
[2018-01-29] MEDS: Sod Chloride 0.9% Inj 1,000 ML IV.CONT SCH (17:13)
[2018-01-30] MEDS: Heparin - SQ 10,000 UNITS/ML Vial SQ SCH ×2 (01:16→15:07)
[2018-01-30] MEDS: Piperacil/Tazo 4.5 GM Premix 4.5 GM/100 ML BAG IV.SIG SCH ×3 (06:38→22:31)
[2018-01-30] MEDS: Senna/Docusate Sodium 8.6/50 MG Tablet PO SCH ×2 (09:57→22:29)
[2018-01-30] MEDS: Carvedilol 6.25 MG Tablet PO SCH ×2 (09:57→22:29)
[2018-01-30] MEDS: QUEtiapine 25 MG Tablet PO SCH ×2 (09:57→22:28)
[2018-01-30] MEDS: Amiodarone 200 MG Tablet PO SCH (09:57)
--- NOTE | 2018-01-30 10:38 | P.PNIM ---
Subjective Interval history: The patient was very frustrated. He said he wanted the NG tube removed. He wanted to go get a sandwich and beer and watch the [employer] race. He said he's been having a lot of bowel movements. He denies nausea. He was not happy with his diet options. Discussed with nursing. Physical Exam Vital signs: Vital Signs 01/29/18 12:00 01/29/18 16:00 01/29/18 20:52 Temperature 97.8 F 97.5 F L 98.3 F Pulse Rate 64 68 75 Respiratory Rate 20 18 18 Blood Pressure 122/69 124/67 127/75 Pulse Oximetry 97 96 97 01/29/18 23:53 01/30/18 01:30 01/30/18 08:00 Temperature 98.5 F 98.5 F Pulse Rate 75 70 Respiratory Rate 18 17 16 Blood Pressure 117/78 123/57 L Pulse Oximetry 96 99 Intake & Output 01/29/18 01/30/18 01/30/18 18:59 06:59 18:59 Intake Total 322 / 322 580 / 580 100 / 100 Output Total 975 / 975 Balance -653 / -653 580 / 580 100 / 100 Weight 89.9 kg Intake: IV 322 / 322 100 / 100 100 / 100 NS Inj 1,000 ML @ 100 mls/hr IV 122 / 122 .CONT .Q10H [place] Rx#:[id number] Zosyn 4.5 GM Premix 4.5 gm In 200 / 200 100 / 100 100 / 100 100 ml @ 200 mls/hr IV.SIG Q8H [place] Rx#:[id number] Oral 0 / 0 480 / 480 Output: Urine 725 / 725 Gastric Drainage 250 / 250 Right Nare Nasogastric Tube 250 / 250 Other: # Voids 2 Date of Last Bowel Movement 01/29/18 # Bowel Movements 0 Narrative: GENERAL: NG tube in place SKIN: Warm and dry. HEAD: Normocephalic. EYES: No scleral icterus. No injection or drainage. NECK: Supple, trachea midline. No JVD or lymphadenopathy. CARDIOVASCULAR: Regular rate and rhythm without murmurs, gallops, or rubs. RESPIRATORY: Breath sounds equal bilaterally. No accessory muscle use. GASTROINTESTINAL: Abdomen soft, mildly tender, nondistended. Hypoactive bowel sounds. MUSCULOSKELETAL: No cyanosis, or edema. BACK: Nontender without obvious deformity. No CVA tenderness. PSYCH: Agitated. Results - Labs CBC & Chem 7: 01/27/18 04:56 01/27/18 04:56 Assessment and Plan - Assessment (1) Diverticulitis large intestine Code(s): K57.32 - Diverticulitis of large intestine without perforation or abscess without bleeding Status: Acute (2) UTI (urinary tract infection) Code(s): N39.0 - Urinary tract infection, site not specified Status: Acute (3) Afib Code(s): I48.91 - Unspecified atrial fibrillation Status: Acute - Plan Mr. Mccurdy is a pleasant 57 year old male with a history of inguinal hernia repair who was admitted to the hospital due to lower abdominal pain. On arrival , BP 125/67, HR 79, O2 sat 98% on RA, Temp 99.1. WBC of 19.4. Chemistry essentially unremarkable except for GFR 73. UA positive for UTI. CT Abdomen/ Pelvis with inflammatory process lower abdomen/pelvis, likely diverticulitis, several focal collections of gas to the right of the mid sigmoid colon, nonspecific possible extraluminal gas. Acute diverticulitis Distal small bowel obstruction - Continue Zosyn 4.5g Q8hrs. - Appreciate General surgery input. - Once clinically improved, we can likely d/c patient on Augmentin PO. - CBC shows WBC 19.4 ==> 8.9. - d/c NG tube. - on clear liquids. Advance to full liquids when OK with surgery. Probable history of Atrial fibrillation - Patient is unable to provide specifics. However, he does report a history of DVT and afib. - He takes Warfarin - does not know the dosage. His INR was 1.6 on 01/22/2018. - Currently heart rate is controlled. Continue Carvedilol and amiodarone. - Will hold off on starting warfarin until cleared by surgery. Hypokalemia S/t decreased PO intake. - monitor and replete as needed. - check mg and phos levels. Agitation Ongoing. Pt demands better food and wants to be discharged. - low dose Seroquel 25mg BID. Full code. Heparin 5000 units SQ for DVT prophylaxis.
--- NOTE | 2018-01-30 14:00 | P.AMA ---
AMA Note - AMA Note Recommended Treatment Course: Monitoring after NG tube removal, gradual advancement of diet, hypokalemia monitoring and treatment if needed, surgical clearance AMA Statement: Patient William Mccurdy has decided to leave the hospital against medical advice. This patient has the capacity to refuse care and understands the risks of leaving, including permanent disability and/or , and has had an opportunity to ask questions about his/her condition. The patient has been informed that he/she may return for care at any time, and follow up has been arranged/advised. - AMA Note Discharge Disposition: Left Against Medical Advice Patient Condition on Discharge: Fair
--- NOTE | 2018-01-30 14:05 | P.DS ---
Date of admission: 01/22/18 03:59 Primary care physician: Arnold Costello DO Anticipated date of discharge: 01/30/18 Brief History from admission: This is a 57-year-old male with PMH of A. fib, h/o DVT on Anticoagulation and HTN who presented to the ER w/ complaints of abdominal pain. States pain started yesterday afternoon, pain runs along lower abdomen, severe, 10/10, non- radiating. No associated nausea, vomiting or diarrhea. Denies fever or chills. No h/o similar symptoms. On arrival, BP 125/67, HR 79, O2 sat 98% on RA, Temp 99.1. WBC of 19.4. Chemistry essentially unremarkable except for GFR 73. UA positive for UTI. CT Abdomen/Pelvis with inflammatory process lower abdomen/pelvis, likely diverticulitis, several focal collections of gas to the right of the mid sigmoid colon, nonspecific possible extraluminal gas. S/p Cipro/Flagyl in ER. Dr. Fuentes consulted, will evaluate. DS: Diagnosis - Discharge Diagnosis (1) Hypokalemia Status: Acute (2) Diverticulitis of colon with perforation Status: Acute (3) Afib Status: Acute DS: Summary Hospital Course: Diverticulitis Mr. Mccurdy is a 57 year old male with a history of inguinal hernia repair who was admitted to the hospital due to lower abdominal pain. On arrival WBC was 19.4. UA positive for UTI. CT Abdomen/Pelvis with inflammatory process lower abdomen/pelvis, likely diverticulitis, several focal collections of gas to the right of the mid sigmoid colon, nonspecific possible extraluminal gas. General surgery was consulted. We started IV Zosyn. He had an NG tube placed which was eventually removed. He tolerated a clear liquid diet. He received pain control as needed. History of atrial fibrillation/ DVT Patient is unable to provide specifics. However, he does report a history of DVT and afib. He takes warfarin. His INR was 1.6 on 01/22/2018. Currently his heart rate is controlled. He was continued on Carvedilol and amiodarone. His warfarin was held while in the hospital and he was placed on prophylactic heparin. Hypokalemia He received repletion as needed. Agitation He was started on Seroquel 25mg BID. He continued to demonstrate episodes of agitation. - Time Spent with Patient Total time spent providing and/or coordinating discharge services: Greater than 30 minutes - Quality: VTE Deep Vein Thrombosis/Pulmonary Embolism Present on Admission: No Exam Vital signs: Vital Signs 01/29/18 16:00 01/29/18 20:52 01/29/18 23:53 Temperature 97.5 F L 98.3 F 98.5 F Pulse Rate 68 75 75 Respiratory Rate 18 18 18 Blood Pressure 124/67 127/75 117/78 Pulse Oximetry 96 97 96 01/30/18 01:30 01/30/18 08:00 01/30/18 12:00 Temperature 98.5 F 98.2 F Pulse Rate 70 82 Respiratory Rate 17 16 19 Blood Pressure 123/57 L 124/72 Pulse Oximetry 99 94 L Intake & Output 01/29/18 01/30/18 01/30/18 18:59 06:59 18:59 Intake Total 322 / 322 580 / 580 100 / 100 Output Total 975 / 975 Balance -653 / -653 580 / 580 100 / 100 Weight 89.9 kg Intake: IV 322 / 322 100 / 100 100 / 100 NS Inj 1,000 ML @ 100 mls/hr IV 122 / 122 .CONT .Q10H [place] Rx#:[id number] Zosyn 4.5 GM Premix 4.5 gm In 200 / 200 100 / 100 100 / 100 100 ml @ 200 mls/hr IV.SIG Q8H [place] Rx#:[id number] Oral 0 / 0 480 / 480 Output: Urine 725 / 725 Gastric Drainage 250 / 250 Right Nare Nasogastric Tube 250 / 250 Other: # Voids 2 Date of Last Bowel Movement 01/29/18 # Bowel Movements 0 Narrative: GENERAL: NG tube in place SKIN: Warm and dry. HEAD: Normocephalic. EYES: No scleral icterus. No injection or drainage. NECK: Supple, trachea midline. No JVD or lymphadenopathy. CARDIOVASCULAR: Regular rate and rhythm without murmurs, gallops, or rubs. RESPIRATORY: Breath sounds equal bilaterally. No accessory muscle use. GASTROINTESTINAL: Abdomen soft, mildly tender, nondistended. Hypoactive bowel sounds. MUSCULOSKELETAL: No cyanosis, or edema. BACK: Nontender without obvious deformity. No CVA tenderness. PSYCH: Agitated. Results Procedures completed during hospitalization: See hospital course - Impressions ITS Impressions Venous Doppler Study 01/24/18 00:00 CONCLUSION: 1. No deep venous thrombosis in either lower extremity Abdomen/Pelvis CT 01/25/18 06:00 CONCLUSION: 1. Compared with January 22 there is interval dilatation of the distal esophagus , stomach and proximal and mid small bowel with multiple air-fluid levels. Small bowel dilated up to 5.6 cm. Findings are most characteristic of a distal small bowel obstruction. 2. Inflammatory changes in the sigmoid region possibly from diverticulitis are slightly improved since January 22. 3. Trace free fluid. No free air. Stable calcified gallstone. Abdomen X-Ray 01/27/18 06:00 CONCLUSION: Persistent dilatation of loops of small bowel possibly slightly worse compared to the prior CT examination and possibility of partial small bowel obstruction should be entertained. Discharge Plan - Discharge Condition Condition: Fair - Discharge Details Anticipated Discharge Date: 01/30/18 - Physicians Team Primary Care Provider: Arnold Costello Attending Provider: Vanessa Spann Other Providers: Sav Fuentes MD
[2018-01-30 20:43] LABS: INR 5.7 Ratio; Prothrombin Time 56.9 sec (9.8-11.6)
[2018-01-30 21:03] LABS: Calcium 8.2 mg/dL (8.5-10.1); Carbon Dioxide 31.3 meq/L (21.0-32.0); Magnesium 1.8 mg/dL (1.5-2.5); Phosphorus 1.8 mg/dL (2.5-4.9)
[2018-01-30 21:17] LABS: Potassium 2.8 meq/L (3.5-5.1)
[2018-01-30] MEDS ORDERED: Potassium Chloride 25 MEQ Effervescent Tablet PO ONE (21:31)
--- NOTE | 2018-01-30 21:45 | P.PNGS ---
Subjective Patient reports: no new complaints, flatus, no bowel movement Physical Exam Vital signs: Vital Signs 01/29/18 23:53 01/30/18 01:30 01/30/18 08:00 Temperature 98.5 F 98.5 F Pulse Rate 75 70 Respiratory Rate 18 17 16 Blood Pressure 117/78 123/57 L Pulse Oximetry 96 99 01/30/18 12:00 01/30/18 16:00 Temperature 98.2 F 98.0 F Pulse Rate 82 86 Respiratory Rate 19 17 Blood Pressure 124/72 119/65 Pulse Oximetry 94 L 95 Intake & Output 01/30/18 01/30/18 01/31/18 06:59 18:59 06:59 Intake Total 580 / 580 650 / 650 Balance 580 / 580 650 / 650 Weight 89.9 kg Intake: IV 100 / 100 200 / 200 Zosyn 4.5 GM Premix 4.5 gm In 100 / 100 200 / 200 100 ml @ 200 mls/hr IV.SIG Q8H [place] Rx#:[id number] Oral 480 / 480 450 / 450 Other: # Voids 2 4 Date of Last Bowel Movement 01/29/18 # Bowel Movements 0 - Constitutional no acute distress - Routine Abdominal Exam Present: soft, distended Comments: non tender Assessment and Plan - Assessment (1) Diverticulitis of colon with perforation Code(s): K57.20 - Diverticulitis of large intestine with perforation and abscess without bleeding Status: Acute - Plan advance diet as tolerated to soft
[2018-01-30] MEDS: Sod Chloride 0.9% Inj 1,000 ML IV.CONT SCH ×2 (22:21→22:22)
[2018-01-31] MEDS: Heparin - SQ 10,000 UNITS/ML Vial SQ SCH (01:57)
[2018-01-31] MEDS: Sod Chloride 0.9% Inj 1,000 ML IV.CONT SCH ×2 (02:54→23:03)
[2018-01-31] MEDS: Piperacil/Tazo 4.5 GM Premix 4.5 GM/100 ML BAG IV.SIG SCH (06:44)
[2018-01-31] MEDS: Senna/Docusate Sodium 8.6/50 MG Tablet PO SCH ×2 (09:32→23:03)
[2018-01-31] MEDS: Carvedilol 6.25 MG Tablet PO SCH ×2 (10:46→23:02)
[2018-01-31] MEDS: QUEtiapine 25 MG Tablet PO SCH (10:46)
[2018-01-31] MEDS: Amiodarone 200 MG Tablet PO SCH (10:47)
[2018-01-31] MEDS ORDERED: Potassium Chloride 25 MEQ Effervescent Tablet PO ONE ×2 (13:00→18:00)
[2018-01-31] MEDS ORDERED: Sodium Phosphate Inj 30 MMOL in Sodium Chlor 0.9% Inj 250 ML IV.SIG ONE (14:00)
--- NOTE | 2018-01-31 14:02 | P.PNIM ---
Subjective Interval history: The patient wanted to be advanced to a regular diet. He said that he was still having some abdominal pain. He has been having diarrhea. Discussed with nursing. Physical Exam Vital signs: Vital Signs 01/30/18 16:00 01/30/18 19:04 01/30/18 23:00 Temperature 98.0 F 97.5 F L 97.6 F Pulse Rate 86 71 64 Respiratory Rate 17 18 18 Blood Pressure 119/65 118/71 124/75 Pulse Oximetry 95 95 96 01/31/18 01:30 01/31/18 08:00 01/31/18 12:00 Temperature 97.7 F 98.4 F Pulse Rate 77 69 Respiratory Rate 17 20 20 Blood Pressure 124/76 128/66 Pulse Oximetry 98 96 Intake & Output 01/30/18 01/31/18 01/31/18 18:59 06:59 18:59 Intake Total 650 / 650 460 / 460 Output Total 500 / 500 Balance 650 / 650 -40 / -40 Weight 89.9 kg Intake: IV 200 / 200 100 / 100 Zosyn 4.5 GM Premix 4.5 gm In 200 / 200 100 / 100 100 ml @ 200 mls/hr IV.SIG Q8H [place] Rx#:[id number] Oral 450 / 450 360 / 360 Output: Urine 500 / 500 Other: # Voids 4 Date of Last Bowel Movement 01/30/18 # Bowel Movements 0 Narrative: GENERAL: Resting. SKIN: Warm and dry. HEAD: Normocephalic. EYES: No scleral icterus. No injection or drainage. NECK: Supple, trachea midline. No JVD or lymphadenopathy. CARDIOVASCULAR: Regular rate and rhythm without murmurs, gallops, or rubs. RESPIRATORY: Breath sounds equal bilaterally. No accessory muscle use. GASTROINTESTINAL: Abdomen soft, mildly tender, nondistended. Hypoactive bowel sounds. MUSCULOSKELETAL: No cyanosis, or edema. BACK: Nontender without obvious deformity. No CVA tenderness. PSYCH: Agitated. Results - Labs CBC & Chem 7: 01/27/18 04:56 01/30/18 19:27 Laboratory Results - last 24 hr 01/30/18 01/30/18 19:27 19:27 PT 56.9 H D INR 5.7 Sodium 142 Potassium 2.8 L* Chloride 104 Carbon Dioxide 31.3 Anion Gap 7 BUN 10 Creatinine 0.99 Estimated GFR 78 L Random Glucose 142 H Calcium 8.2 L Phosphorus 1.8 L Magnesium 1.8 - Procedures See hospital course Assessment and Plan - Assessment (1) Hypokalemia Code(s): E87.6 - Hypokalemia Status: Acute (2) Diverticulitis of colon with perforation Code(s): K57.20 - Diverticulitis of large intestine with perforation and abscess without bleeding Status: Acute (3) Afib Code(s): I48.91 - Unspecified atrial fibrillation Status: Acute - Plan Mr. Mccurdy is a pleasant 57 year old male with a history of inguinal hernia repair who was admitted to the hospital due to lower abdominal pain. On arrival , BP 125/67, HR 79, O2 sat 98% on RA, Temp 99.1. WBC of 19.4. Chemistry essentially unremarkable except for GFR 73. UA positive for UTI. CT Abdomen/ Pelvis with inflammatory process lower abdomen/pelvis, likely diverticulitis, several focal collections of gas to the right of the mid sigmoid colon, nonspecific possible extraluminal gas. Acute diverticulitis Distal small bowel obstruction - S/p Zosyn. Will change to Augmentin. - Appreciate general surgery input. - CBC shows WBC 19.4 ==> 8.9. - d/c NG tube. - diet per surgery. History of atrial fibrillation/ Coagulopathy - Patient is unable to provide specifics. However, he does report a history of DVT and afib. - He takes Warfarin - does not know the dosage. His INR was 1.6 on 01/22/2018 and 5/7 on 01/30. Will repeat INR and check LFTs. Hold anticoagulation. - Currently heart rate is controlled. Continue Carvedilol and amiodarone. Hypokalemia/ Hypophosphatemia S/t decreased PO intake. - replete and monitor. Agitation Ongoing. Pt demands better food and wants to be discharged soon. - anxiolytics as needed. PPx: Heparin on hold
[2018-01-31 16:17] LABS: Calcium 8.3 mg/dL (8.5-10.1); Carbon Dioxide 25.8 meq/L (21.0-32.0); Potassium 3.4 meq/L (3.5-5.1)
[2018-01-31 18:16] LABS: Albumin 2.3 g/dL (3.4-5.0)
[2018-01-31 18:18] LABS: Total Protein 6.2 g/dL (6.4-8.2)
--- NOTE | 2018-01-31 18:39 | P.PNGS ---
Subjective Interval history: Improving well. Having liquid stools and flatus. Tolerating some regular diet earlier today. Seems in better spirits. Physical Exam Vital signs: Vital Signs 01/30/18 19:04 01/30/18 23:00 01/31/18 01:30 Temperature 97.5 F L 97.6 F Pulse Rate 71 64 Respiratory Rate 18 18 17 Blood Pressure 118/71 124/75 Pulse Oximetry 95 96 01/31/18 08:00 01/31/18 12:00 01/31/18 16:00 Temperature 97.7 F 98.4 F 98.2 F Pulse Rate 77 69 74 Respiratory Rate 20 20 18 Blood Pressure 124/76 128/66 120/73 Pulse Oximetry 98 96 95 Intake & Output 01/30/18 01/31/18 01/31/18 18:59 06:59 18:59 Intake Total 650 / 650 460 / 460 Output Total 500 / 500 Balance 650 / 650 -40 / -40 Weight 89.9 kg Intake: IV 200 / 200 100 / 100 Zosyn 4.5 GM Premix 4.5 gm In 200 / 200 100 / 100 100 ml @ 200 mls/hr IV.SIG Q8H [place] Rx#:[id number] Oral 450 / 450 360 / 360 Output: Urine 500 / 500 Other: # Voids 4 Date of Last Bowel Movement 01/30/18 # Bowel Movements 0 Narrative: No distress Abd: mild distention, ntd Assessment and Plan - Assessment (1) Diverticulitis of colon with perforation Code(s): K57.20 - Diverticulitis of large intestine with perforation and abscess without bleeding Status: Acute - Plan He continues to improve. If continuing to tolerate diet he could be discharged tomorrow. I don't think he needs to be sent home with antibiotics as he is improved and WBC normal. Can f/u with me in two weeks. He should call or return to ED with increasing pain or fevers.
[2018-01-31 19:21] LABS: Baso % (Auto) 0.2 % (0.0-2.0); Eos # (Auto) 0.3 th/mm3 (0.0-0.4); Eos % (Auto) 2.1 % (0.0-4.0); Hematocrit 43.5 % (39.0-51.0); Hemoglobin 14.4 gm/dL (13.0-17.0); Lymph # (Auto) 1.2 th/mm3 (1.0-4.8); Lymph % (Auto) 9.3 % (9.0-44.0); Mean Corpuscular Hemoglobin 30.8 pg (27.0-34.0); Mean Corpuscular Volume 93.3 fL (80.0-100.0); Mean Platelet Volume 7.7 fL (7.0-11.0); Mono # (Auto) 0.9 th/mm3 (0.0-0.9); Mono % (Auto) 7.3 % (0.0-8.0); Neut # (Auto) 10.2 th/mm3 (1.8-7.7); Neut % (Auto) 81.1 % (16.0-70.0); Platelet Count 418 th/mm3 (150-450); Red Blood Count 4.67 mil/mm3 (4.50-5.90); White Blood Count 12.6 th/mm3 (4.0-11.0)
[2018-01-31 19:29] LABS: INR 3.8 Ratio
[2018-02-01] MEDS: Sod Chloride 0.9% Inj 1,000 ML IV.CONT SCH ×2 (04:51→14:07)
[2018-02-01 05:45] LABS: Hematocrit 41.6 % (39.0-51.0); Hemoglobin 13.9 gm/dL (13.0-17.0); Mean Corpuscular HGB Conc 33.4 % (32.0-36.0); Mean Corpuscular Hemoglobin 31.3 pg (27.0-34.0); Mean Corpuscular Volume 93.8 fL (80.0-100.0); Mean Platelet Volume 7.8 fL (7.0-11.0); Platelet Count 402 th/mm3 (150-450); Red Blood Count 4.44 mil/mm3 (4.50-5.90); Red Cell Distribution Width 16.2 % (11.6-17.2); White Blood Count 13.3 th/mm3 (4.0-11.0)
[2018-02-01 05:52] LABS: INR 3.9 Ratio; Prothrombin Time 39.5 sec (9.8-11.6)
[2018-02-01 06:12] LABS: Albumin 2.2 g/dL (3.4-5.0); Calcium 7.9 mg/dL (8.5-10.1); Carbon Dioxide 27.2 meq/L (21.0-32.0); Potassium 3.4 meq/L (3.5-5.1)
[2018-02-01 06:15] LABS: Total Protein 6.4 g/dL (6.4-8.2)
[2018-02-01] MEDS: Senna/Docusate Sodium 8.6/50 MG Tablet PO SCH ×2 (08:53→21:15)
[2018-02-01] MEDS: Carvedilol 6.25 MG Tablet PO SCH ×2 (08:53→21:15)
[2018-02-01] MEDS: Amiodarone 200 MG Tablet PO SCH (08:53)
--- NOTE | 2018-02-01 17:11 | P.PNIM ---
Subjective Interval history: The patient said that he was having liquid diarrhea. He said he did not have much of an appetite. No other acute complaints. Discussed with nursing. Physical Exam Vital signs: Vital Signs 01/31/18 20:00 02/01/18 00:00 02/01/18 04:00 Temperature 97.6 F 98.2 F 98.3 F Pulse Rate 84 72 77 Respiratory Rate 18 16 16 Blood Pressure 135/67 130/73 139/70 Pulse Oximetry 96 97 97 02/01/18 08:00 02/01/18 12:00 Temperature 98.2 F 98.4 F Pulse Rate 75 78 Respiratory Rate 17 20 Blood Pressure 120/72 110/69 Pulse Oximetry 98 95 Intake & Output 01/31/18 02/01/18 02/01/18 18:59 06:59 18:59 Intake Total 0 / 0 Output Total 400 / 400 Balance -400 / -400 0 / 0 Weight 89.7 kg Intake: IV 0 / 0 Output: Urine 400 / 400 Other: # Voids 2 2 # Bowel Movements 0 Narrative: GENERAL: Resting. SKIN: Warm and dry. HEAD: Normocephalic. EYES: No scleral icterus. No injection or drainage. NECK: Supple, trachea midline. No JVD or lymphadenopathy. CARDIOVASCULAR: Regular rate and rhythm without murmurs, gallops, or rubs. RESPIRATORY: Breath sounds equal bilaterally. No accessory muscle use. GASTROINTESTINAL: Abdomen soft, mildly tender, mildly distended. Hypoactive bowel sounds. MUSCULOSKELETAL: No cyanosis, or edema. BACK: Nontender without obvious deformity. No CVA tenderness. Results - Labs CBC & Chem 7: 02/01/18 04:40 02/01/18 04:40 Laboratory Results - last 24 hr 01/31/18 01/31/18 01/31/18 14:27 18:37 18:37 WBC 12.6 H RBC 4.67 Hgb 14.4 Hct 43.5 MCV 93.3 MCH 30.8 MCHC 33.0 RDW 16.0 Plt Count 418 D MPV 7.7 Neut % (Auto) 81.1 H Lymph % (Auto) 9.3 [place] % (Auto) 7.3 Eos % (Auto) 2.1 Baso % (Auto) 0.2 Neut # (Auto) 10.2 H Lymph # (Auto) 1.2 [place] # (Auto) 0.9 Eos # (Auto) 0.3 Baso # (Auto) 0.0 WBC Differential . Differential Comment Auto diff final PT 38.0 H D INR 3.8 Sodium Potassium Chloride Carbon Dioxide Anion Gap BUN Creatinine Estimated GFR Random Glucose Calcium Total Bilirubin 0.2 Direct Bilirubin 0.1 Indirect Bilirubin 0.1 AST 11 L ALT 9 L Alkaline Phosphatase 50 Total Protein 6.2 L Albumin 2.3 L 02/01/18 02/01/18 02/01/18 04:40 04:40 04:40 WBC 13.3 H RBC 4.44 L Hgb 13.9 Hct 41.6 MCV 93.8 MCH 31.3 MCHC 33.4 RDW 16.2 Plt Count 402 MPV 7.8 Neut % (Auto) Lymph % (Auto) [place] % (Auto) Eos % (Auto) Baso % (Auto) Neut # (Auto) Lymph # (Auto) [place] # (Auto) Eos # (Auto) Baso # (Auto) WBC Differential Differential Comment PT 39.5 H INR 3.9 Sodium 144 Potassium 3.4 L Chloride 110 H Carbon Dioxide 27.2 Anion Gap 7 BUN 11 Creatinine 1.54 H Estimated GFR 47 L Random Glucose 98 Calcium 7.9 L Total Bilirubin 0.1 L Direct Bilirubin 0.1 Indirect Bilirubin 0.0 AST 12 L ALT 8 L Alkaline Phosphatase 56 Total Protein 6.4 Albumin 2.2 L - Procedures See hospital course Assessment and Plan - Assessment (1) Hypokalemia Code(s): E87.6 - Hypokalemia Status: Acute (2) Diverticulitis of colon with perforation Code(s): K57.20 - Diverticulitis of large intestine with perforation and abscess without bleeding Status: Acute (3) Afib Code(s): I48.91 - Unspecified atrial fibrillation Status: Acute - Plan Mr. Mccurdy is a pleasant 57 year old male with a history of inguinal hernia repair who was admitted to the hospital due to lower abdominal pain. On arrival , BP 125/67, HR 79, O2 sat 98% on RA, Temp 99.1. WBC of 19.4. Chemistry essentially unremarkable except for GFR 73. UA positive for UTI. CT Abdomen/ Pelvis with inflammatory process lower abdomen/pelvis, likely diverticulitis, several focal collections of gas to the right of the mid sigmoid colon, nonspecific possible extraluminal gas. Acute diverticulitis Distal small bowel obstruction - S/p Zosyn. - Appreciate general surgery input. - d/c NG tube. - diet per surgery. - check KUB. History of atrial fibrillation/ Coagulopathy - Patient is unable to provide specifics. However, he does report a history of DVT and afib. - He takes Warfarin - does not know the dosage. His INR was 1.6 on 01/22/2018 and 5.7 on 01/30. Will repeat INR daily (3.9). Hold anticoagulation. CT without obvious liver pathology. - Currently heart rate is controlled. Continue Carvedilol and amiodarone. Hypokalemia/ Hypophosphatemia S/t decreased PO intake. - replete and monitor. PPx: Heparin on hold
--- NOTE | 2018-02-01 18:15 | XR ---
EXAM DATE: 02/01/2018 6:08 PM EDT AGE/SEX: 57 years / Male INDICATIONS: Distention. CLINICAL DATA: This is the patient's subsequent encounter. Patient reports that signs and symptoms h ave been present for 1 week and indicates a pain score of 5/10. MEDICAL/SURGICAL HISTORY: . Diverticulitis. . Inguinal hernia repair. COMPARISON: [facility] – [place], [place] ABDOMEN & PELVIS W CONTRAST, 01/25/2018. . FINDINGS: 2 AP supine views of the abdomen and pelvis were obtained and again demonstrate multiple loops of mi ldly dilated air containing small bowel in the midabdomen. These appear slightly increased in number. Gas and stool is again noted segmental in the colon. There is no evidence of free air or mass effect on the supine study. The bony structures remain intact. There are calcified gallstones in the upper quadrant. CONCLUSION: 1. Apparent slight interval increase in the number of air containing loops of small bowel. 2. Calcified gallstones. Electronically signed by: Mervin Mena MD 02/01/2018 6:14 PM EDT
[2018-02-02] MEDS ORDERED: Acetaminophen 325 MG Tablet PO ONE (00:34)
[2018-02-02] MEDS: Sod Chloride 0.9% Inj 1,000 ML IV.CONT SCH ×3 (01:17→21:51)
[2018-02-02] MEDS: Amiodarone 200 MG Tablet PO SCH (08:22)
[2018-02-02] MEDS: Carvedilol 6.25 MG Tablet PO SCH ×2 (08:22→20:59)
[2018-02-02] MEDS: Senna/Docusate Sodium 8.6/50 MG Tablet PO SCH ×2 (08:23→21:00)
[2018-02-02 08:51] LABS: Baso # (Auto) 0.1 th/mm3 (0.0-0.2); Baso % (Auto) 0.4 % (0.0-2.0); Eos # (Auto) 0.2 th/mm3 (0.0-0.4); Eos % (Auto) 1.5 % (0.0-4.0); Hematocrit 40.8 % (39.0-51.0); Hemoglobin 13.5 gm/dL (13.0-17.0); Lymph # (Auto) 1.2 th/mm3 (1.0-4.8); Lymph % (Auto) 8.4 % (9.0-44.0); Mean Corpuscular HGB Conc 33.2 % (32.0-36.0); Mean Corpuscular Volume 93.5 fL (80.0-100.0); Mean Platelet Volume 8.2 fL (7.0-11.0); Mono # (Auto) 1.2 th/mm3 (0.0-0.9); Mono % (Auto) 8.2 % (0.0-8.0); Neut # (Auto) 11.9 th/mm3 (1.8-7.7); Neut % (Auto) 81.5 % (16.0-70.0); Platelet Count 417 th/mm3 (150-450); Red Blood Count 4.37 mil/mm3 (4.50-5.90); Red Cell Distribution Width 16.2 % (11.6-17.2); White Blood Count 14.6 th/mm3 (4.0-11.0)
[2018-02-02 08:56] LABS: INR 2.6 Ratio; Prothrombin Time 26.4 sec (9.8-11.6)
[2018-02-02 09:05] LABS: Albumin 2.4 g/dL (3.4-5.0); Calcium 8.3 mg/dL (8.5-10.1); Carbon Dioxide 25.3 meq/L (21.0-32.0); Potassium 3.8 meq/L (3.5-5.1)
[2018-02-02 09:08] LABS: Total Protein 6.5 g/dL (6.4-8.2)
--- NOTE | 2018-02-02 13:08 | P.PNIM ---
Subjective Interval history: + tolerating oral intact. denied any abdominal pain and stated no pain but his abdomen feels "funny." + diarrhea but that has improved. last BM in AM. Patient stated no BM while sleeping. afebrile overnignt. Physical Exam Vital signs: Vital Signs 02/01/18 16:00 02/01/18 22:00 02/02/18 00:00 Temperature 97.9 F 97.8 F 98 F Pulse Rate 81 82 79 Respiratory Rate 22 18 18 Blood Pressure 111/69 126/74 135/81 Pulse Oximetry 93 L 95 95 02/02/18 04:00 02/02/18 08:00 Temperature 98.1 F 98.1 F Pulse Rate 81 69 Respiratory Rate 18 18 Blood Pressure 110/70 115/68 Pulse Oximetry 96 94 L Intake & Output 02/01/18 02/02/18 02/02/18 18:59 06:59 18:59 Intake Total 0 / 0 Balance 0 / 0 Weight 89.7 kg Intake: IV 0 / 0 Other: # Voids 2 Results - Labs CBC & Chem 7: 02/02/18 08:00 02/02/18 08:00 Laboratory Results - last 24 hr 02/01/18 02/02/18 02/02/18 19:45 08:00 08:00 WBC 14.6 H RBC 4.37 L Hgb 13.5 Hct 40.8 MCV 93.5 MCH 31.0 MCHC 33.2 RDW 16.2 Plt Count 417 MPV 8.2 Neut % (Auto) 81.5 H Lymph % (Auto) 8.4 L [place] % (Auto) 8.2 H Eos % (Auto) 1.5 Baso % (Auto) 0.4 Neut # (Auto) 11.9 H Lymph # (Auto) 1.2 [place] # (Auto) 1.2 H Eos # (Auto) 0.2 Baso # (Auto) 0.1 WBC Differential . Differential Comment Auto diff final PT INR Sodium 141 Potassium 3.8 Chloride 110 H Carbon Dioxide 25.3 Anion Gap 6 BUN 10 Creatinine 1.34 H Estimated GFR 55 L Random Glucose 93 Calcium 8.3 L Total Bilirubin 0.2 Direct Bilirubin 0.1 Indirect Bilirubin 0.1 AST 10 L ALT 8 L Alkaline Phosphatase 57 Total Protein 6.5 Albumin 2.4 L Stl C.difficile Tox PCR Negative St C. diff Tox Epid 027 Negative 02/02/18 08:00 WBC RBC Hgb Hct MCV MCH MCHC RDW Plt Count MPV Neut % (Auto) Lymph % (Auto) [place] % (Auto) Eos % (Auto) Baso % (Auto) Neut # (Auto) Lymph # (Auto) [place] # (Auto) Eos # (Auto) Baso # (Auto) WBC Differential Differential Comment PT 26.4 H D INR 2.6 Sodium Potassium Chloride Carbon Dioxide Anion Gap BUN Creatinine Estimated GFR Random Glucose Calcium Total Bilirubin Direct Bilirubin Indirect Bilirubin AST ALT Alkaline Phosphatase Total Protein Albumin Stl C.difficile Tox PCR St C. diff Tox Epid 027 - Imaging Impressions Abdomen X-Ray 02/01/18 00:00 CONCLUSION: 1. Apparent slight interval increase in the number of air containing loops of small bowel. 2. Calcified gallstones. - Procedures See hospital course Assessment and Plan - Assessment (1) Hypokalemia Code(s): E87.6 - Hypokalemia Status: Acute (2) Diverticulitis of colon with perforation Code(s): K57.20 - Diverticulitis of large intestine with perforation and abscess without bleeding Status: Acute (3) Afib Code(s): I48.91 - Unspecified atrial fibrillation Status: Acute - Plan Mr. Mccurdy is 57 year old male with a history of inguinal hernia repair who was admitted to the hospital due to lower abdominal pain. CT Abdomen/Pelvis suggest inflammatory process lower abdomen/pelvis, likely diverticulitis, several focal collections of gas to the right of the mid sigmoid colon, nonspecific possible extraluminal gas. Acute diverticulitis Distal small bowel obstruction - S/p Zosyn. - Appreciate general surgery input. - tolerating oral intake but WBC continues to increase. d/w Dr. uFentes, General Surgeon, who recommends CT scan of abd/pelvis. will place order. History of atrial fibrillation/ Coagulopathy - Patient is unable to provide specifics. However, he does report a history of DVT and afib. - He takes Warfarin -alternates btwn 7 mg and 6 mg tablets. His INR was 1.6 on 01/22/2018 and 5.7 on 01/30. Will repeat INR daily (3.9). Hold anticoagulation. CT without obvious liver pathology. - Currently heart rate is controlled. Continue Carvedilol and amiodarone. Hypokalemia/ Hypophosphatemia S/t decreased PO intake. - replete and monitor. PPx: Heparin on hold
--- NOTE | 2018-02-02 15:12 | CT ---
EXAM DATE: 02/02/2018 2:53 PM EDT AGE/SEX: 57 years / Male INDICATIONS: Diverticulitis CLINICAL DATA: This is the patient's initial encounter. Patient reports that signs and symptoms have been present for 1 day and indicates a pain score of 3/10. MEDICAL/SURGICAL HISTORY: Deep venous thrombosis. A-fib bacterial meningitis None. ORAL CONTRAST: No oral contrast ingested. RADIATION DOSE: 7.24 CTDI (mGy) [place] [facility] [place] CONTRAST, 01/25/2018. . TECHNIQUE: Multiple contiguous axial images were obtained through the abdomen and pelvis following b olus infusion of 99 ml Omnipaque 350 (iohexol) nonionic water-soluble contrast as a single exam dos e. No oral contrast ingested. Using automated exposure control and adjustment of the mA and/or kV ac cording to patient size, radiation dose was kept as low as reasonably achievable to obtain optimal di agnostic quality images. DICOM format image data is available electronically for review and comparis on. FINDINGS: Lower Lungs: Persistent atelectatic changes in the right lung base. Lung bases are otherwise clear Liver: The liver has a homogeneous density without space-occupying lesion. There is no dilation of th e biliary tree. Stable calcified gallstone. Spleen: Homogeneous density without enlargement. Pancreas: Unremarkable without mass or calcification. Kidneys: Normal in size and shape. No evidence of mass or hydronephrosis. Adrenal Glands: Unremarkable. Aorta: The aorta and proximal iliac vessels are grossly unremarkable without aneurysmal dilation. Bowel/Mesentery: On the previous CT scan, there was marked distention of multiple small bowel loops. Bowel loops are currently partially decompressed with only mild distention but there is now pneumope ritoneum characteristic of bowel perforation. Abdominal Wall: Intact. Retroperitoneum: No evidence of adenopathy in the retrocrural, para-aortic, or deep pelvic regions. Bladder: Contours are smooth. Reproductive Organs: Mild prominence of the prostate is 4.9 cm with dystrophic calcification. Inguinal: The inguinal region is unremarkable without evidence of adenopathy. Bony Structures: Unremarkable. Post Contrast: No abnormal areas of enhancement seen. CONCLUSION: 1. Interval development of pneumoperitoneum with partial decompression of previously distended bowel loops. Findings are characteristic of bowel perforation. 2. Cholelithiasis. 3. Stable right basilar atelectasis Electronically signed by: Rick Ramirez MD 02/02/2018 3:11 PM EDT
--- NOTE | 2018-02-02 17:15 | P.PNGS ---
Subjective Interval history: Noted with increasing wbc and CT a/p ordered. This showed pneumoperitoneum. He denies abdominal pain but does state that he feels "off". He has been tolerating diet. Physical Exam Vital signs: Vital Signs 02/01/18 22:00 02/02/18 00:00 02/02/18 04:00 Temperature 97.8 F 98 F 98.1 F Pulse Rate 82 79 81 Respiratory Rate 18 18 18 Blood Pressure 126/74 135/81 110/70 Pulse Oximetry 95 95 96 02/02/18 08:00 02/02/18 16:00 Temperature 98.1 F 98 F Pulse Rate 69 75 Respiratory Rate 18 18 Blood Pressure 115/68 134/78 Pulse Oximetry 94 L 96 Intake & Output 02/01/18 02/02/18 02/02/18 18:59 06:59 18:59 Intake Total 0 / 0 Balance 0 / 0 Weight 89.7 kg Intake: IV 0 / 0 Other: # Voids 2 Narrative: NAD Abd: soft, moderate distention, very mild lower abdominal ttp Assessment and Plan - Assessment (1) Diverticulitis of colon with perforation Code(s): K57.20 - Diverticulitis of large intestine with perforation and abscess without bleeding Status: Acute - Plan WBC [address] a/p showing pneumoperitoneum. Exam basically benign. Restart antibiotics and IVF. NPO. Give vit K 10mg SQ and recheck INR in am. I will tentatively plan for diagnostic laparoscopy tomorrow. I discussed the situation in detail with Mr. Mccurdy who understands and agrees with the recommendation at this time. I will see him tomorrow first thing.
[2018-02-02] MEDS ORDERED: Phytonadione Inj 10 MG/ML Vial SQ ONE (17:50)
[2018-02-02] MEDS: KCL 20 mEq/D5W/NaCl 0.45% Inj 1,000 ML IV.CONT SCH (19:00)
[2018-02-03] MEDS ORDERED: Chlorhexidine Gluconate 2% 1 Pack (2 Cloths) TOPICAL SCH (03:30)
[2018-02-03] MEDS ORDERED: Sodium Chlor 0.9% Inj 500 ML IV.SIG SCH (04:00)
[2018-02-03 05:12] LABS: Baso % (Auto) 0.4 % (0.0-2.0); Eos # (Auto) 0.2 th/mm3 (0.0-0.4); Eos % (Auto) 1.7 % (0.0-4.0); Hematocrit 39.7 % (39.0-51.0); Hemoglobin 13.6 gm/dL (13.0-17.0); Lymph # (Auto) 1.8 th/mm3 (1.0-4.8); Lymph % (Auto) 14.4 % (9.0-44.0); Mean Corpuscular HGB Conc 34.2 % (32.0-36.0); Mean Corpuscular Hemoglobin 31.6 pg (27.0-34.0); Mean Corpuscular Volume 92.5 fL (80.0-100.0); Mono % (Auto) 8.2 % (0.0-8.0); Neut # (Auto) 9.2 th/mm3 (1.8-7.7); Neut % (Auto) 75.3 % (16.0-70.0); Platelet Count 444 th/mm3 (150-450); Red Blood Count 4.29 mil/mm3 (4.50-5.90); Red Cell Distribution Width 16.2 % (11.6-17.2); White Blood Count 12.3 th/mm3 (4.0-11.0)
[2018-02-03 05:15] LABS: INR 1.5 Ratio; Prothrombin Time 14.8 sec (9.8-11.6)
[2018-02-03 05:30] LABS: Carbon Dioxide 26.5 meq/L (21.0-32.0); Potassium 3.4 meq/L (3.5-5.1)
[2018-02-03] MEDS: Sod Chloride 0.9% Inj 1,000 ML IV.CONT SCH ×2 (06:29→17:27)
[2018-02-03] MEDS: KCL 20 mEq/D5W/NaCl 0.45% Inj 1,000 ML IV.CONT SCH ×2 (07:19→19:35)
--- NOTE | 2018-02-03 08:47 | P.PNGS ---
Subjective Interval history: WBC improving. Denies abdominal pain. He is hungry. Physical Exam Vital signs: Vital Signs 02/02/18 16:00 02/02/18 20:00 02/03/18 00:00 Temperature 98 F 98.6 F 98.3 F Pulse Rate 75 74 71 Respiratory Rate 18 17 17 Blood Pressure 134/78 136/81 127/80 Pulse Oximetry 96 97 98 02/03/18 08:00 Temperature 97.7 F Pulse Rate 67 Respiratory Rate 16 Blood Pressure 119/70 Pulse Oximetry 98 Intake & Output 02/02/18 02/03/18 02/03/18 18:59 06:59 18:59 Intake Total 1200 / 1200 1350 / 1350 Output Total 350 / 350 Balance 1200 / 1200 1000 / 1000 Weight 89.6 kg Intake: IV 1350 / 1350 D5W/1/2NS + KCL 20 mEq Inj 1, 1000 / 1000 000 ML @ 84 mls/hr IV.CONT . [id number] [facility] Rx#:[id number] Levaquin 750 mg Premix Inj 150 150 / 150 ML @ 100 mls/hr IV.SIG Q24H [facility] Rx#:[id number] Flagyl 500 MG Inj 100 ML @ 100 200 / 200 mls/hr IV.SIG Q6H [facility] Rx#: [id number] Oral 1200 / 1200 Output: Urine 350 / 350 Other: # Voids 5 Date of Last Bowel Movement 02/02/18 Narrative: Abd: soft, moderate distention, nontender, no peritoneal signs Assessment and Plan - Assessment (1) Diverticulitis of colon with perforation Code(s): K57.20 - Diverticulitis of large intestine with perforation and abscess without bleeding Status: Acute - Plan CT a/p yesterday showed pneumoperitoneum. I discussed his CT from yesterday and previous scans with Dr. Patel in person. There does not appear to be any benefit of drain placement as there is no free fluid. WBC is improving after restarting antibiotics yesterday. I would recommend attempted nonoperative management. I think a colostomy or ileostomy would be difficult for this patient. Will need extended course of antibiotics.
--- NOTE | 2018-02-03 09:26 | P.PNIM ---
Subjective Interval history: patient had multiple questions on surgery. denied any N/V or abdominal pain. remains afebrile. d/c with Dr. Fuentes since exam is benign, WBC improving, and exam benign avoid surgery. Physical Exam Vital signs: Vital Signs 02/02/18 16:00 02/02/18 20:00 02/03/18 00:00 Temperature 98 F 98.6 F 98.3 F Pulse Rate 75 74 71 Respiratory Rate 18 17 17 Blood Pressure 134/78 136/81 127/80 Pulse Oximetry 96 97 98 02/03/18 08:00 Temperature 97.7 F Pulse Rate 67 Respiratory Rate 16 Blood Pressure 119/70 Pulse Oximetry 98 Intake & Output 02/02/18 02/03/18 02/03/18 18:59 06:59 18:59 Intake Total 1200 / 1200 1350 / 1350 Output Total 350 / 350 Balance 1200 / 1200 1000 / 1000 Weight 89.6 kg Intake: IV 1350 / 1350 D5W/1/2NS + KCL 20 mEq Inj 1, 1000 / 1000 000 ML @ 84 mls/hr IV.CONT . [id number] [facility] Rx#:[id number] Levaquin 750 mg Premix Inj 150 150 / 150 ML @ 100 mls/hr IV.SIG Q24H [facility] Rx#:[id number] Flagyl 500 MG Inj 100 ML @ 100 200 / 200 mls/hr IV.SIG Q6H [facility] Rx#: [id number] Oral 1200 / 1200 Output: Urine 350 / 350 Other: # Voids 5 Date of Last Bowel Movement 02/02/18 - Constitutional no acute distress, mild distress - Routine HEENT Exam Head: Present: normocephalic, atraumatic ENT: Present: mucous membranes moist - Routine Respiratory Exam Present: CTA bilaterally - Routine Cardiovascular Exam Present: RRR, S1, S2 - Routine Abdominal Exam Present: soft, normoactive bowel sounds Comments: neg peritoneal signs. - Routine Extremities Exam Present: edema - Routine Neurological Exam Present: alert, oriented X3 - Routine Psychiatric Exam Present: normal affect Results - Labs CBC & Chem 7: 02/03/18 04:23 02/03/18 04:23 Laboratory Results - last 24 hr 02/03/18 02/03/18 02/03/18 04:23 04:23 04:23 WBC 12.3 H RBC 4.29 L Hgb 13.6 Hct 39.7 MCV 92.5 MCH 31.6 MCHC 34.2 RDW 16.2 Plt Count 444 MPV 8.0 Neut % (Auto) 75.3 H Lymph % (Auto) 14.4 [place] % (Auto) 8.2 H Eos % (Auto) 1.7 Baso % (Auto) 0.4 Neut # (Auto) 9.2 H Lymph # (Auto) 1.8 [place] # (Auto) 1.0 H Eos # (Auto) 0.2 Baso # (Auto) 0.0 WBC Differential . Differential Comment Auto diff final PT 14.8 H D INR 1.5 Sodium 141 Potassium 3.4 L Chloride 108 H Carbon Dioxide 26.5 Anion Gap 7 BUN 8 Creatinine 1.06 Estimated GFR 72 L Random Glucose 91 Calcium 8.0 L - Imaging Impressions Abdomen/Pelvis CT 02/02/18 00:00 CONCLUSION: 1. Interval development of pneumoperitoneum with partial decompression of previously distended bowel loops. Findings are characteristic of bowel perforation. 2. Cholelithiasis. 3. Stable right basilar atelectasis - Procedures See hospital course Assessment and Plan - Assessment (1) Hypokalemia Code(s): E87.6 - Hypokalemia Status: Acute (2) Diverticulitis of colon with perforation Code(s): K57.20 - Diverticulitis of large intestine with perforation and abscess without bleeding Status: Acute (3) Afib Code(s): I48.91 - Unspecified atrial fibrillation Status: Acute - Plan Mr. Mccurdy is 57 year old male with a history of inguinal hernia repair who was admitted to the hospital due to lower abdominal pain. CT Abdomen/Pelvis suggest inflammatory process lower abdomen/pelvis, likely diverticulitis, several focal collections of gas to the right of the mid sigmoid colon, nonspecific possible extraluminal gas. Acute diverticulitis Distal small bowel obstruction - S/p Zosyn. - Appreciate general surgery input. -CT scan of abd/pelvis on 02/02 showed perforated bowel. patient was tentatively schedule for surgery toady but clinically doing well and WBC is improving. will continue with conservative management. -continue with levaquin and flagyl per general surgery. History of atrial fibrillation/ Coagulopathy - Patient is unable to provide specifics. However, he does report a history of DVT and afib. - He takes Warfarin -alternates btwn 7 mg and 6 mg tablets. today INR 1.5 after given vitamin K 10 mg anticipating surgery today. -will restart coumadin if no surgery is anticipated. if suspecting surgery will start heparin gtt. will speak to Dr. Fuentes in regards to this. - Currently heart rate is controlled. Continue Carvedilol and amiodarone. Hypokalemia/ Hypophosphatemia S/t decreased PO intake. - replete and monitor. PPx: Heparin on hold
[2018-02-03] MEDS: Carvedilol 6.25 MG Tablet PO SCH ×2 (10:06→20:30)
[2018-02-03] MEDS: Amiodarone 200 MG Tablet PO SCH (10:06)
[2018-02-03] MEDS: Senna/Docusate Sodium 8.6/50 MG Tablet PO SCH ×2 (10:14→20:30)
[2018-02-03 20:11] LABS: Hematocrit 40.4 % (39.0-51.0); Hemoglobin 13.4 gm/dL (13.0-17.0); Mean Corpuscular HGB Conc 33.2 % (32.0-36.0); Mean Corpuscular Volume 93.2 fL (80.0-100.0); Mean Platelet Volume 8.1 fL (7.0-11.0); Platelet Count 441 th/mm3 (150-450); Red Blood Count 4.33 mil/mm3 (4.50-5.90); Red Cell Distribution Width 16.4 % (11.6-17.2); White Blood Count 9.2 th/mm3 (4.0-11.0)
[2018-02-03 20:12] LABS: Activated Partial Thrombo Time 25.7 sec (24.3-30.1); INR 1.2 Ratio; Prothrombin Time 11.7 sec (9.8-11.6)
[2018-02-03] MEDS: Heparin Drip 25,000 UNIT/250 ML BAG IV.CONT PRN (22:50)
[2018-02-04] MEDS: Melatonin 5 MG Tablet PO PRN (02:25)
[2018-02-04] MEDS: Sod Chloride 0.9% Inj 1,000 ML IV.CONT SCH ×3 (02:28→23:04)
[2018-02-04 06:16] LABS: Baso % (Auto) 0.3 % (0.0-2.0); Eos # (Auto) 0.2 th/mm3 (0.0-0.4); Eos % (Auto) 1.6 % (0.0-4.0); Hematocrit 40.2 % (39.0-51.0); Hemoglobin 13.2 gm/dL (13.0-17.0); Lymph % (Auto) 18.1 % (9.0-44.0); Mean Corpuscular HGB Conc 32.8 % (32.0-36.0); Mean Corpuscular Hemoglobin 30.6 pg (27.0-34.0); Mean Corpuscular Volume 93.2 fL (80.0-100.0); Mean Platelet Volume 8.1 fL (7.0-11.0); Mono # (Auto) 0.9 th/mm3 (0.0-0.9); Platelet Count 442 th/mm3 (150-450); Red Blood Count 4.31 mil/mm3 (4.50-5.90); Red Cell Distribution Width 16.1 % (11.6-17.2); White Blood Count 11.2 th/mm3 (4.0-11.0)
[2018-02-04 06:24] LABS: INR 1.2 Ratio; Prothrombin Time 11.8 sec (9.8-11.6)
[2018-02-04 06:42] LABS: Carbon Dioxide 25.7 meq/L (21.0-32.0); Potassium 3.3 meq/L (3.5-5.1)
[2018-02-04] MEDS: Amiodarone 200 MG Tablet PO SCH (08:56)
[2018-02-04] MEDS: Carvedilol 6.25 MG Tablet PO SCH ×2 (08:56→23:02)
[2018-02-04] MEDS: Senna/Docusate Sodium 8.6/50 MG Tablet PO SCH ×2 (08:57→23:03)
[2018-02-04] MEDS: KCL 20 mEq/D5W/NaCl 0.45% Inj 1,000 ML IV.CONT SCH ×2 (09:06→19:13)
--- NOTE | 2018-02-04 13:02 | P.PNIM ---
Subjective Interval history: f/u for perforated bowel patient upset because he stated he wants to eat. Denied any N/V or abdominal pain. nurse at bedside during interview. Physical Exam Vital signs: Vital Signs 02/03/18 16:00 02/03/18 20:00 02/04/18 00:00 Temperature 97.7 F 98.3 F 98.7 F Pulse Rate 71 73 66 Respiratory Rate 16 18 18 Blood Pressure 129/81 132/79 129/74 Pulse Oximetry 99 98 66 L 02/04/18 04:00 02/04/18 08:00 02/04/18 12:00 Temperature 98.2 F 97.7 F 98.1 F Pulse Rate 73 66 67 Respiratory Rate 18 16 16 Blood Pressure 114/72 117/70 130/77 Pulse Oximetry 97 97 97 Intake & Output 02/03/18 02/04/18 02/04/18 18:59 06:59 18:59 Intake Total 100 / 100 1350 / 1350 100 / 100 Output Total 600 / 600 300 / 300 Balance -500 / -500 1050 / 1050 100 / 100 Intake: IV 100 / 100 1350 / 1350 100 / 100 D5W/1/2NS + KCL 20 mEq Inj 1, 1000 / 1000 000 ML @ 84 mls/hr IV.CONT . [id number] [facility] Rx#:[id number] Levaquin 750 mg Premix Inj 150 150 / 150 ML @ 100 mls/hr IV.SIG Q24H [facility] Rx#:[id number] Flagyl 500 MG Inj 100 ML @ 100 100 / 100 200 / 200 100 / 100 mls/hr IV.SIG Q6H [facility] Rx#: [id number] Output: Urine 600 / 600 300 / 300 Other: Date of Last Bowel Movement 02/02/18 02/02/18 02/04/18 - Constitutional no acute distress - Routine Respiratory Exam Present: CTA bilaterally - Routine Cardiovascular Exam Present: RRR, S1, S2 - Routine Abdominal Exam Present: soft, normoactive bowel sounds Comments: nondistended. denied TTP but he does guard a little but he stated its because of my cold hands. negative for peritoneal signs. - Routine Extremities Exam Comments: negative edema Results - Labs CBC & Chem 7: 02/04/18 05:04 02/04/18 05:04 Laboratory Results - last 24 hr 02/03/18 02/03/1802/04/18 18:25 18:25 05:04 WBC 9.2 11.2 H RBC 4.33 L 4.31 L Hgb 13.4 13.2 Hct 40.4 40.2 MCV 93.2 93.2 MCH 31.0 30.6 MCHC 33.2 32.8 RDW 16.4 16.1 Plt Count 441 442 MPV 8.1 8.1 Neut % (Auto) 72.0 H Lymph % (Auto) 18.1 [place] % (Auto) 8.0 Eos % (Auto) 1.6 Baso % (Auto) 0.3 Neut # (Auto) 8.0 H Lymph # (Auto) 2.0 [place] # (Auto) 0.9 Eos # (Auto) 0.2 Baso # (Auto) 0.0 WBC Differential . Differential Comment Auto diff final PT 11.7 H INR 1.2 APTT 25.7 Sodium Potassium Chloride Carbon Dioxide Anion Gap BUN Creatinine Estimated GFR Random Glucose Calcium 02/04/18 02/04/18 05:04 05:04 WBC RBC Hgb Hct MCV MCH MCHC RDW Plt Count MPV Neut % (Auto) Lymph % (Auto) [place] % (Auto) Eos % (Auto) Baso % (Auto) Neut # (Auto) Lymph # (Auto) [place] # (Auto) Eos # (Auto) Baso # (Auto) WBC Differential Differential Comment PT 11.8 H INR 1.2 APTT Sodium 141 Potassium 3.3 L Chloride 106 Carbon Dioxide 25.7 Anion Gap 9 BUN 6 L Creatinine 0.93 Estimated GFR 83 L Random Glucose 94 Calcium 8.0 L - Procedures See hospital course Assessment and Plan - Assessment (1) Hypokalemia Code(s): E87.6 - Hypokalemia Status: Acute (2) Diverticulitis of colon with perforation Code(s): K57.20 - Diverticulitis of large intestine with perforation and abscess without bleeding Status: Acute (3) Afib Code(s): I48.91 - Unspecified atrial fibrillation Status: Acute - Plan Mr. Mccurdy is 57 year old male with a history of inguinal hernia repair who was admitted to the hospital due to lower abdominal pain. CT Abdomen/Pelvis suggest inflammatory process lower abdomen/pelvis, likely diverticulitis, several focal collections of gas to the right of the mid sigmoid colon, nonspecific possible extraluminal gas. Acute diverticulitis Distal small bowel obstruction perforated bowel - S/p Zosyn. - Appreciate general surgery input. -CT scan of abd/pelvis on 02/02 showed perforated bowel. patient was tentatively schedule for surgery toady but clinically doing well. will continue with conservative management. -continue with levaquin and flagyl per general surgery. per Dr. Fuentes continue with NPO. History of atrial fibrillation/ Coagulopathy - Patient is unable to provide specifics. However, he does report a history of DVT and afib. - He takes Warfarin -alternates btwn 7 mg and 6 mg tablets. s/p vitamin K 10 mg anticipating surgery. -per Dr. Fuentes do not restart coumadin yet in case patient needs surgery. on heparin gtt due to high risk. Hypokalemia/ Hypophosphatemia S/t decreased PO intake. - replete and monitor. PPx: on heparin gtt.
[2018-02-04] MEDS: Heparin Drip 25,000 UNIT/250 ML BAG IV.CONT PRN (15:08)
--- NOTE | 2018-02-04 16:31 | P.PNGS ---
Subjective Interval history: No major complaints. Physical Exam Vital signs: Vital Signs 02/03/18 20:00 02/04/18 00:00 02/04/18 04:00 Temperature 98.3 F 98.7 F 98.2 F Pulse Rate 73 66 73 Respiratory Rate 18 18 18 Blood Pressure 132/79 129/74 114/72 Pulse Oximetry 98 66 L 97 02/04/18 08:00 02/04/18 12:00 Temperature 97.7 F 98.1 F Pulse Rate 66 67 Respiratory Rate 16 16 Blood Pressure 117/70 130/77 Pulse Oximetry 97 97 Intake & Output 02/03/18 02/04/18 02/04/18 18:59 06:59 18:59 Intake Total 100 / 100 1350 / 1350 450 / 450 Output Total 600 / 600 300 / 300 Balance -500 / -500 1050 / 1050 450 / 450 Intake: IV 100 / 100 1350 / 1350 450 / 450 Heparin/D5W 25,000 U/250 mL 25, 250 / 250 000 unit In 250 ml @ Per Protocol IV.CONT TITRATE PRN Rx #:[id number] D5W/1/2NS + KCL 20 mEq Inj 1, 1000 / 1000 000 ML @ 84 mls/hr IV.CONT . [id number] [facility] Rx#:[id number] Levaquin 750 mg Premix Inj 150 150 / 150 ML @ 100 mls/hr IV.SIG Q24H [facility] Rx#:[id number] Flagyl 500 MG Inj 100 ML @ 100 100 / 100 200 / 200 200 / 200 mls/hr IV.SIG Q6H [facility] Rx#: [id number] Output: Urine 600 / 600 300 / 300 Other: Date of Last Bowel Movement 02/02/18 02/02/18 02/04/18 Narrative: moderate suprapubic ttp Assessment and Plan - Assessment (1) Diverticulitis of colon with perforation Code(s): K57.20 - Diverticulitis of large intestine with perforation and abscess without bleeding Status: Acute - Plan Continue IV antibiotics. May require repeat CT. Dr. Barton will be rounding this weekend. Cont NPo for now.
[2018-02-05] MEDS: KCL 20 mEq/D5W/NaCl 0.45% Inj 1,000 ML IV.CONT SCH ×3 (05:00→22:12)
[2018-02-05 05:51] LABS: Baso % (Auto) 0.4 % (0.0-2.0); Eos # (Auto) 0.1 th/mm3 (0.0-0.4); Eos % (Auto) 1.1 % (0.0-4.0); Hematocrit 38.8 % (39.0-51.0); Hemoglobin 13.1 gm/dL (13.0-17.0); Mean Corpuscular HGB Conc 33.8 % (32.0-36.0); Mean Corpuscular Hemoglobin 31.2 pg (27.0-34.0); Mean Corpuscular Volume 92.3 fL (80.0-100.0); Mean Platelet Volume 7.3 fL (7.0-11.0); Neut # (Auto) 8.2 th/mm3 (1.8-7.7); Neut % (Auto) 71.5 % (16.0-70.0); Platelet Count 445 th/mm3 (150-450); Red Blood Count 4.21 mil/mm3 (4.50-5.90); Red Cell Distribution Width 16.1 % (11.6-17.2); White Blood Count 11.4 th/mm3 (4.0-11.0)
[2018-02-05 06:01] LABS: INR 1.2 Ratio; Prothrombin Time 11.8 sec (9.8-11.6)
[2018-02-05 06:05] LABS: Calcium 7.7 mg/dL (8.5-10.1); Carbon Dioxide 23.7 meq/L (21.0-32.0); Potassium 3.7 meq/L (3.5-5.1)
[2018-02-05] MEDS: Heparin Drip 25,000 UNIT/250 ML BAG IV.CONT PRN ×2 (06:33→22:13)
[2018-02-05] MEDS: Sod Chloride 0.9% Inj 1,000 ML IV.CONT SCH ×2 (09:08→19:40)
[2018-02-05] MEDS: Carvedilol 6.25 MG Tablet PO SCH ×2 (09:26→22:14)
[2018-02-05] MEDS: Amiodarone 200 MG Tablet PO SCH (09:26)
[2018-02-05] MEDS: Senna/Docusate Sodium 8.6/50 MG Tablet PO SCH ×2 (09:26→22:14)
--- NOTE | 2018-02-05 12:08 | P.PN ---
Subjective Interval history: Follow-up perforated bowel secondary to diverticulitis, distal small bowel obstruction, A. fib, history of DVT. Patient seen and examined today. Reports is doing okay. States that he has a lot of question if surgery is going to be done for him. Discussed with patient ongoing treatment and medical condition. Denies SOB/ dyspnea. Denies chest pain, palpitations, headaches, dizziness. Denies fevers, chills, n/v/d. Denies dysuria. Physical Exam Vital signs: Vital Signs 02/04/18 16:00 02/04/18 20:00 02/05/18 00:00 Temperature 98.0 F 98.2 F 98.5 F Pulse Rate 81 72 75 Respiratory Rate 18 20 20 Blood Pressure 140/84 135/81 135/84 Pulse Oximetry 97 96 96 02/05/18 04:00 02/05/18 08:00 Temperature 98.8 F 98.1 F Pulse Rate 65 70 Respiratory Rate 20 16 Blood Pressure 121/72 124/71 Pulse Oximetry 98 98 Intake & Output 02/04/18 02/05/18 02/05/18 18:59 06:59 18:59 Intake Total 1450 / 1450 600 / 600 100 / 100 Output Total 600 / 600 Balance 850 / 850 600 / 600 100 / 100 Intake: IV 1450 / 1450 600 / 600 100 / 100 Heparin/D5W 25,000 U/250 mL 25, 250 / 250 250 / 250 000 unit In 250 ml @ Per Protocol IV.CONT TITRATE [facility]N Rx #:[id number] D5W/1/2NS + KCL 20 mEq Inj 1, 1000 / 1000 000 ML @ 84 mls/hr IV.CONT . [id number] [facility] Rx#:[id number] Levaquin 750 mg Premix Inj 150 150 / 150 ML @ 100 mls/hr IV.SIG Q24H [facility] Rx#:[id number] Flagyl 500 MG Inj 100 ML @ 100 200 / 200 200 / 200 100 / 100 mls/hr IV.SIG Q6H [facility] Rx#: [id number] Output: Urine 600 / 600 Other: # Voids 3 Date of Last Bowel Movement 02/04/18 Narrative: GENERAL: This is a well-nourished, well-developed patient, in no apparent distress. SKIN: Warm and dry. HEENT: Normocephalic. Pupils equal round and reactive. Nose without bleeding. Airway patent. Multiple possibly psoriatic facial plaques NECK: Trachea midline. Supple. CARDIOVASCULAR: Regular rate and rhythm without murmurs, gallops, or rubs. RESPIRATORY: Clear to auscultation. Breath sounds equal bilaterally. No wheezes , rales, or rhonchi. GASTROINTESTINAL: Abdomen mildly firm. Bowel Sounds hypoactive. Tympanic. MUSCULOSKELETAL: Extremities without clubbing, cyanosis, or edema. NEUROLOGICAL: Awake and alert. Oriented to place, person. No focal neuro deficit. Moves all extremities. Normal speech. Results - Labs CBC & Chem 7: 02/05/18 05:33 02/05/18 05:33 Laboratory Results - last 24 hr 02/04/18 02/04/18 02/05/18 14:16 20:34 05:33 WBC RBC Hgb Hct MCV MCH MCHC RDW Plt Count MPV Neut % (Auto) Lymph % (Auto) [place] % (Auto) Eos % (Auto) Baso % (Auto) Neut # (Auto) Lymph # (Auto) [place] # (Auto) Eos # (Auto) Baso # (Auto) WBC Differential Differential Comment PT 11.8 H INR 1.2 APTT 31.7 H D 34.6 H Sodium Potassium Chloride Carbon Dioxide Anion Gap BUN Creatinine Estimated GFR Random Glucose Calcium 02/05/18 02/05/18 02/05/18 05:33 05:33 05:33 WBC 11.4 H RBC 4.21 L Hgb 13.1 Hct 38.8 L MCV 92.3 MCH 31.2 MCHC 33.8 RDW 16.1 Plt Count 445 MPV 7.3 Neut % (Auto) 71.5 H Lymph % (Auto) 18.0 [place] % (Auto) 9.0 H Eos % (Auto) 1.1 Baso % (Auto) 0.4 Neut # (Auto) 8.2 H Lymph # (Auto) 2.0 [place] # (Auto) 1.0 H Eos # (Auto) 0.1 Baso # (Auto) 0.0 WBC Differential . Differential Comment Auto diff final PT INR APTT 42.5 H D Sodium 139 Potassium 3.7 Chloride 106 Carbon Dioxide 23.7 Anion Gap 9 BUN 4 L Creatinine 0.88 Estimated GFR 89 Random Glucose 107 H Calcium 7.7 L - Procedures See hospital course Assessment and Plan - Assessment (1) Hypokalemia Code(s): E87.6 - Hypokalemia Status: Acute (2) Diverticulitis of colon with perforation Code(s): K57.20 - Diverticulitis of large intestine with perforation and abscess without bleeding Status: Acute (3) Afib Code(s): I48.91 - Unspecified atrial fibrillation Status: Acute - Plan Mr. Mccurdy is 57 year old male with a history of inguinal hernia repair who was admitted to the hospital due to lower abdominal pain. CT Abdomen/Pelvis suggest inflammatory process lower abdomen/pelvis, likely diverticulitis, several focal collections of gas to the right of the mid sigmoid colon, nonspecific possible extraluminal gas. Acute diverticulitis Distal small bowel obstruction perforated bowel -S/p Zosyn. -Appreciate general surgery input. -CT scan of abd/pelvis on 02/02 showed perforated bowel. patient was tentatively schedule for surgery toady but clinically doing well. -Will continue with conservative management. -continue with levaquin and flagyl per general surgery. Per Dr. Fuentes continue with NPO. History of atrial fibrillation/ Coagulopathy -Patient is unable to provide specifics. However, he does report a history of DVT and afib. -He takes Warfarin -alternates between 7 mg and 6 mg tablets. s/p vitamin K 10 mg anticipating surgery. -per Dr. Fuentes do not restart coumadin yet in case patient needs surgery. -on heparin gtt due to high risk. Hypokalemia/ Hypophosphatemia S/t decreased PO intake. -replete and monitor. -Improved PPx: on heparin gtt. Code Status: Full code Discussed Condition With: Patient, nurse Discharge Planning: Plan to DC home when clinically improved
--- NOTE | 2018-02-05 13:27 | P.PNGS ---
Subjective Patient reports: feels better, pain is less, flatus, bowel movement Physical Exam Vital signs: Vital Signs 02/04/18 16:00 02/04/18 20:00 02/05/18 00:00 Temperature 98.0 F 98.2 F 98.5 F Pulse Rate 81 72 75 Respiratory Rate 18 20 20 Blood Pressure 140/84 135/81 135/84 Pulse Oximetry 97 96 96 02/05/18 04:00 02/05/18 08:00 Temperature 98.8 F 98.1 F Pulse Rate 65 70 Respiratory Rate 20 16 Blood Pressure 121/72 124/71 Pulse Oximetry 98 98 Intake & Output 02/04/18 02/05/18 02/05/18 18:59 06:59 18:59 Intake Total 1450 / 1450 600 / 600 100 / 100 Output Total 600 / 600 Balance 850 / 850 600 / 600 100 / 100 Intake: IV 1450 / 1450 600 / 600 100 / 100 Heparin/D5W 25,000 U/250 mL 25, 250 / 250 250 / 250 000 unit In 250 ml @ Per Protocol IV.CONT TITRATE PRN Rx #:[id number] D5W/1/2NS + KCL 20 mEq Inj 1, 1000 / 1000 000 ML @ 84 mls/hr IV.CONT . [id number] [facility] Rx#:[id number] Levaquin 750 mg Premix Inj 150 150 / 150 ML @ 100 mls/hr IV.SIG Q24H [facility] Rx#:[id number] Flagyl 500 MG Inj 100 ML @ 100 200 / 200 200 / 200 100 / 100 mls/hr IV.SIG Q6H [facility] Rx#: [id number] Output: Urine 600 / 600 Other: # Voids 3 Date of Last Bowel Movement 02/04/18 - Routine Abdominal Exam Present: normoactive bowel sounds, distended (The patient's abdomen is somewhat distended and firm. He denies any tenderness to palpation and has no guarding or rebound tenderness either.) Assessment and Plan - Assessment (1) Diverticulitis of colon with perforation Code(s): K57.20 - Diverticulitis of large intestine with perforation and abscess without bleeding Status: Acute - Plan The patient regressed during the week. But states that he feels better now and has had increased bowel activity with increased flatus as well as liquid bowel movements. Plan I have started him on clear liquids today and plan to advance his diet if he tolerates it by tomorrow. He may well require repeat CT scan by Wednesday.
[2018-02-06] MEDS: KCL 20 mEq/D5W/NaCl 0.45% Inj 1,000 ML IV.CONT SCH ×2 (06:53→18:03)
[2018-02-06] MEDS: Sod Chloride 0.9% Inj 1,000 ML IV.CONT SCH ×2 (06:53→14:29)
[2018-02-06] MEDS: Senna/Docusate Sodium 8.6/50 MG Tablet PO SCH ×2 (08:59→20:12)
[2018-02-06] MEDS: Carvedilol 6.25 MG Tablet PO SCH ×2 (09:01→20:12)
[2018-02-06] MEDS: Amiodarone 200 MG Tablet PO SCH (09:01)
--- NOTE | 2018-02-06 13:35 | P.PN ---
Subjective Interval history: Follow-up perforated bowel secondary to diverticulitis, distal small bowel obstruction, A. fib, history of DVT. Patient seen and examined today. Patient is very irritable and upset that he is on clear liquid diet stating that grape juice is not clear and he wants to eat better food. States that he is passing gas, went to the bathroom and had small amount of diarrhea. He feels that his abdomen has always been sore but not really in pain. Denies pain and discomfort. Denies SOB/ dyspnea. Denies chest pain, palpitations, headaches, dizziness. Denies fevers, chills, n/v. Denies dysuria. Physical Exam Vital signs: Vital Signs 02/05/18 16:00 02/05/18 20:00 02/06/18 00:00 Temperature 97.9 F 98.3 F 98.1 F Pulse Rate 66 65 67 Respiratory Rate 16 18 17 Blood Pressure 141/78 H 132/72 129/71 Pulse Oximetry 98 97 97 02/06/18 04:00 02/06/18 08:00 Temperature 98.2 F 97.8 F Pulse Rate 67 69 Respiratory Rate 17 20 Blood Pressure 109/67 137/78 Pulse Oximetry 98 98 Intake & Output 02/05/18 02/06/18 02/06/18 18:59 06:59 18:59 Intake Total 200 / 200 1700 / 1700 Output Total 500 / 500 Balance 200 / 200 1200 / 1200 Weight 89.7 kg Intake: IV 200 / 200 1700 / 1700 Heparin/D5W 25,000 U/250 mL 25, 250 / 250 000 unit In 250 ml @ Per Protocol IV.CONT TITRATE PRN Rx #:[id number] NS Inj 1,000 ML @ 100 mls/hr IV 1000 / 1000 .CONT .Q10H [place] Rx#:[id number] Levaquin 750 mg Premix Inj 150 150 / 150 ML @ 100 mls/hr IV.SIG Q24H [place] Rx#:[id number] Flagyl 500 MG Inj 100 ML @ 100 200 / 200 300 / 300 mls/hr IV.SIG Q6H [place] Rx#: [id number] Output: Urine 500 / 500 Other: # Voids 3 Date of Last Bowel Movement 02/04/18 02/05/18 02/06/18 Narrative: GENERAL: This is a well-nourished, well-developed patient, in no apparent distress. SKIN: Warm and dry. HEENT: Normocephalic. Pupils equal round and reactive. Nose without bleeding. Airway patent. Multiple possibly psoriatic facial plaques NECK: Trachea midline. Supple. CARDIOVASCULAR: Regular rate and rhythm without murmurs, gallops, or rubs. RESPIRATORY: Clear to auscultation. Breath sounds equal bilaterally. No wheezes , rales, or rhonchi. GASTROINTESTINAL: Abdomen mildly firm. Bowel Sounds hypoactive. Tympanic. MUSCULOSKELETAL: Extremities without clubbing, cyanosis, or edema. NEUROLOGICAL: Awake and alert. Oriented to place, person. No focal neuro deficit. Moves all extremities. Normal speech. Results - Labs CBC & Chem 7: 02/05/18 05:33 02/05/18 05:33 Laboratory Results - last 24 hr 02/05/18 02/06/18 13:40 06:53 APTT 47.6 H 50.3 H - Procedures See hospital course Assessment and Plan - Assessment (1) Hypokalemia Code(s): E87.6 - Hypokalemia Status: Acute (2) Diverticulitis of colon with perforation Code(s): K57.20 - Diverticulitis of large intestine with perforation and abscess without bleeding Status: Acute (3) Afib Code(s): I48.91 - Unspecified atrial fibrillation Status: Acute - Plan Mr. Mccurdy is 57 year old male with a history of inguinal hernia repair who was admitted to the hospital due to lower abdominal pain. CT Abdomen/Pelvis suggest inflammatory process lower abdomen/pelvis, likely diverticulitis, several focal collections of gas to the right of the mid sigmoid colon, nonspecific possible extraluminal gas. Acute diverticulitis Distal small bowel obstruction perforated bowel -S/p Zosyn. -Appreciate general surgery input. -CT scan of abd/pelvis on 02/02 showed perforated bowel. -Conservative management for now -continue with levaquin and flagyl per general surgery. -Started on clear liquids yesterday. Has been drinking water but could not have brought her other clears. No nausea vomiting. No pain. -Plan for repeat CT tomorrow as per surgery History of atrial fibrillation/ Coagulopathy History of DVT -Patient is unable to provide specifics. However, he does report a history of DVT and afib. -He takes Warfarin -alternates between 7 mg and 6 mg tablets. s/p vitamin K 10 mg anticipating surgery. -per Dr. Fuentes do not restart coumadin yet in case patient needs surgery. -on heparin gtt due to high risk. Hypokalemia/ Hypophosphatemia S/t decreased PO intake. -replete and monitor. -Improved PPx: on heparin gtt. Code Status: Full code Discussed Condition With: Patient, nursing Discharge Planning: Plan to DC home when clinically improved
[2018-02-06] MEDS: Heparin Drip 25,000 UNIT/250 ML BAG IV.CONT PRN (14:29)
--- NOTE | 2018-02-06 15:57 | P.PNGS ---
Subjective Patient reports: no new complaints, feels better, pain is less, tolerating liquids well, flatus, bowel movement (He states he has had no pain and has continued to have flatus and loose BM's. ) Physical Exam Vital signs: Vital Signs 02/05/18 16:00 02/05/18 20:00 02/06/18 00:00 Temperature 97.9 F 98.3 F 98.1 F Pulse Rate 66 65 67 Respiratory Rate 16 18 17 Blood Pressure 141/78 H 132/72 129/71 Pulse Oximetry 98 97 97 02/06/18 04:00 02/06/18 08:00 02/06/18 12:00 Temperature 98.2 F 97.8 F 98.3 F Pulse Rate 67 69 63 Respiratory Rate 18 Blood Pressure 109/67 137/78 131/76 Pulse Oximetry 98 98 98 Intake & Output 02/05/18 02/06/18 02/06/18 18:59 06:59 18:59 Intake Total 200 / 200 1700 / 1700 350 / 350 Output Total 500 / 500 Balance 200 / 200 1200 / 1200 350 / 350 Weight 89.7 kg Intake: IV 200 / 200 1700 / 1700 350 / 350 Heparin/D5W 25,000 U/250 mL 25, 250 / 250 250 / 250 000 unit In 250 ml @ Per Protocol IV.CONT TITRATE PRN Rx #:[id number] NS Inj 1,000 ML @ 100 mls/hr IV 1000 / 1000 .CONT .Q10H [place] Rx#:[id number] Levaquin 750 mg Premix Inj 150 150 / 150 ML @ 100 mls/hr IV.SIG Q24H [place] Rx#:[id number] Flagyl 500 MG Inj 100 ML @ 100 200 / 200 300 / 300 100 / 100 mls/hr IV.SIG Q6H [place] Rx#: [id number] Output: Urine 500 / 500 Other: # Voids 3 Date of Last Bowel Movement 02/04/18 02/05/18 02/06/18 - Routine Abdominal Exam Present: soft Comments: His abdomen is still somewhat distended, but softer. He denies any pain to palpation or percussive rebound. Assessment and Plan - Assessment (1) Diverticulitis of colon with perforation Code(s): K57.20 - Diverticulitis of large intestine with perforation and abscess without bleeding Status: Acute - Plan He is continuing to improve overall, though I remain concerned with his moderately tense, somewhat distended abdomen. He denies pain and is having increased bowel activity. He is hungry and is tolerating the clear liquid diet without problem. I have advanced him to a full liquid diet and have ordered a CT scan for tomorrow AM.
[2018-02-07] MEDS: Melatonin 5 MG Tablet PO PRN ×2 (01:31→22:57)
[2018-02-07 05:55] LABS: Baso % (Auto) 0.3 % (0.0-2.0); Eos # (Auto) 0.1 th/mm3 (0.0-0.4); Eos % (Auto) 0.9 % (0.0-4.0); Hematocrit 40.9 % (39.0-51.0); Hemoglobin 13.2 gm/dL (13.0-17.0); Lymph # (Auto) 2.3 th/mm3 (1.0-4.8); Lymph % (Auto) 18.9 % (9.0-44.0); Mean Corpuscular HGB Conc 32.3 % (32.0-36.0); Mean Corpuscular Hemoglobin 30.3 pg (27.0-34.0); Mean Corpuscular Volume 93.9 fL (80.0-100.0); Mean Platelet Volume 7.5 fL (7.0-11.0); Mono % (Auto) 8.3 % (0.0-8.0); Neut # (Auto) 8.6 th/mm3 (1.8-7.7); Neut % (Auto) 71.6 % (16.0-70.0); Platelet Count 469 th/mm3 (150-450); Red Blood Count 4.35 mil/mm3 (4.50-5.90)
[2018-02-07 06:21] LABS: Alanine Aminotransferase 9 U/L (12-78); Albumin 2.2 g/dL (3.4-5.0); Anion Gap 9 meq/L (5-15); Aspartate Aminotransferase 14 U/L (15-37); Blood Urea Nitrogen 2 mg/dL (7-18); Carbon Dioxide 25.1 meq/L (21.0-32.0); Chloride 105 meq/L (98-107); Glomerular Filtration Rate Greater Than 89 mL/min (>89); Glucose,Random 95 mg/dL (74-106); Potassium 3.6 meq/L (3.5-5.1); Sodium 139 meq/L (136-145)
[2018-02-07 06:23] LABS: Alkaline Phosphatase 57 U/L (45-117); Total Protein 5.9 g/dL (6.4-8.2)
[2018-02-07] MEDS: Heparin Drip 25,000 UNIT/250 ML BAG IV.CONT PRN ×2 (06:30→20:31)
[2018-02-07] MEDS: KCL 20 mEq/D5W/NaCl 0.45% Inj 1,000 ML IV.CONT SCH ×2 (06:53→20:35)
[2018-02-07] MEDS: Sod Chloride 0.9% Inj 1,000 ML IV.CONT SCH ×3 (06:54→22:52)
[2018-02-07] MEDS: Amiodarone 200 MG Tablet PO SCH (09:15)
[2018-02-07] MEDS: Carvedilol 6.25 MG Tablet PO SCH ×2 (09:15→20:31)
[2018-02-07] MEDS: Senna/Docusate Sodium 8.6/50 MG Tablet PO SCH ×2 (09:20→22:53)
[2018-02-07] MEDS ORDERED: Diatrizoate Meglum/Diatrizoate Sod Liq 9 ML UDC PO ONE (12:00)
--- NOTE | 2018-02-07 14:51 | P.PNGS ---
Subjective Interval history: clinically stable Physical Exam Vital signs: Vital Signs 02/06/18 16:00 02/06/18 20:00 02/07/18 00:00 Temperature 97.4 F L 98 F 98.1 F Pulse Rate 65 71 69 Respiratory Rate 16 21 17 Blood Pressure 130/78 123/74 124/77 Pulse Oximetry 99 99 99 02/07/18 01:00 02/07/18 04:00 02/07/18 06:30 Temperature 98 F Pulse Rate 69 Respiratory Rate 16 16 16 Blood Pressure 126/75 Pulse Oximetry 98 02/07/18 08:00 02/07/18 12:00 Temperature 97.4 F L Pulse Rate 66 16 L Respiratory Rate 16 16 Blood Pressure 109/65 125/73 Pulse Oximetry 98 98 Intake & Output 02/06/18 02/07/18 02/07/18 18:59 06:59 18:59 Intake Total 1950 / 1950 1500 / 1500 200 / 200 Output Total 1400 / 1400 Balance 1950 / 1950 100 / 100 200 / 200 Weight 89.6 kg Intake: IV 1450 / 1450 1500 / 1500 200 / 200 Heparin/D5W 25,000 U/250 mL 25, 250 / 250 250 / 250 000 unit In 250 ml @ Per Protocol IV.CONT TITRATE PRN Rx #:[id number] D5W/1/2NS + KCL 20 mEq Inj 1, 1000 / 1000 1000 / 1000 000 ML @ 84 mls/hr IV.CONT . [id number] [place] Rx#:[id number] Levaquin 750 mg Premix Inj 150 150 / 150 ML @ 100 mls/hr IV.SIG Q24H [place] Rx#:[id number] Flagyl 500 MG Inj 100 ML @ 100 200 / 200 100 / 100 200 / 200 mls/hr IV.SIG Q6H [place] Rx#: [id number] Oral 500 / 500 Output: Urine 1400 / 1400 Other: # Voids 4 Date of Last Bowel Movement 02/06/18 02/06/18 Narrative: GENERAL: NAD GASTROINTESTINAL: Abdomen mildly firm,Tympanic. MUSCULOSKELETAL: Extremities without clubbing, cyanosis, or edema. NEUROLOGICAL: Awake and alert. Oriented to place, person. No focal neuro deficit. Moves all extremities. Normal speech. - Additional findings Additional findings: Laboratory Results - last 12 hr 02/07/18 02/07/18 02/07/18 04:30 04:30 11:19 WBC 12.0 H RBC 4.35 L Hgb 13.2 Hct 40.9 MCV 93.9 MCH 30.3 MCHC 32.3 RDW 16.0 Plt Count 469 H MPV 7.5 Neut % (Auto) 71.6 H Lymph % (Auto) 18.9 [place] % (Auto) 8.3 H Eos % (Auto) 0.9 Baso % (Auto) 0.3 Neut # (Auto) 8.6 H Lymph # (Auto) 2.3 [place] # (Auto) 1.0 H Eos # (Auto) 0.1 Baso # (Auto) 0.0 WBC Differential . Differential Comment Auto diff final APTT 52.7 H Sodium 139 Potassium 3.6 Chloride 105 Carbon Dioxide 25.1 Anion Gap 9 BUN 2 L Creatinine 0.84 Estimated GFR Greater than 89 Random Glucose 95 Calcium 8.0 L Total Bilirubin 0.2 AST 14 L ALT 9 L Alkaline Phosphatase 57 Total Protein 5.9 L D Albumin 2.2 L Assessment and Plan - Plan 57yo M with perforated diverticulum Patient is clinically stable. Will repeat CT today, if negative will advance to regular diet Code Status: full - Attending Attestation The exam, history, and the medical decision-making described in the above note were completed with the assistance of the mid-level provider. I reviewed and agree with the findings presented. I attest that I had a [id number] encounter with the patient on the same day, and personally performed and documented my assessment and findings in the medical record.
--- NOTE | 2018-02-07 16:32 | P.PN ---
Subjective Interval history: Follow-up perforated bowel secondary to diverticulitis, distal small bowel obstruction, A. fib, history of DVT. Patient seen and examined today. States he had BM and passing gas. States he drank the contrast and did not eat lunch. Denies pain and discomfort. Denies SOB/ dyspnea. Denies chest pain, palpitations, headaches, dizziness. Denies fevers, chills, n/v. Denies dysuria. Physical Exam Vital signs: Vital Signs 02/06/18 20:00 02/07/18 00:00 02/07/18 01:00 Temperature 98 F 98.1 F Pulse Rate 71 69 Respiratory Rate 21 17 16 Blood Pressure 123/74 124/77 Pulse Oximetry 99 99 02/07/18 04:00 02/07/18 06:30 02/07/18 08:00 Temperature 98 F 97.4 F L Pulse Rate 69 66 Respiratory Rate 16 16 16 Blood Pressure 126/75 109/65 Pulse Oximetry 98 98 02/07/18 12:00 Temperature Pulse Rate 16 L Respiratory Rate 16 Blood Pressure 125/73 Pulse Oximetry 98 Intake & Output 02/06/18 02/07/18 02/07/18 18:59 06:59 18:59 Intake Total 1950 / 1950 1500 / 1500 200 / 200 Output Total 1400 / 1400 Balance 1949 / 1950 100 / 100 200 / 200 Weight 89.6 kg Intake: IV 1450 / 1450 1500 / 1500 200 / 200 Heparin/D5W 25,000 U/250 mL 25, 250 / 250 250 / 250 000 unit In 250 ml @ Per Protocol IV.CONT TITRATE PRN Rx #:[id number] D5W/1/2NS + KCL 20 mEq Inj 1, 1000 / 1000 1000 / 1000 000 ML @ 84 mls/hr IV.CONT . [id number] [place] Rx#:[id number] Levaquin 750 mg Premix Inj 150 150 / 150 ML @ 100 mls/hr IV.SIG Q24H [place] Rx#:[id number] Flagyl 500 MG Inj 100 ML @ 100 200 / 200 100 / 100 200 / 200 mls/hr IV.SIG Q6H [place] Rx#: [id number] Oral 500 / 500 Output: Urine 1400 / 1400 Other: # Voids 4 Date of Last Bowel Movement 02/06/18 02/06/18 Narrative: GENERAL: This is a well-nourished, well-developed patient, in no apparent distress. SKIN: Warm and dry. HEENT: Normocephalic. Pupils equal round and reactive. Nose without bleeding. Airway patent. NECK: Trachea midline. Supple. CARDIOVASCULAR: Regular rate and rhythm without murmurs, gallops, or rubs. RESPIRATORY: Diminished bases. No wheezes, rales, or rhonchi. GASTROINTESTINAL: Abdomen slightly firm, non-tender, slightly distended. Bowel Sounds hypoactive. MUSCULOSKELETAL: Extremities without clubbing, cyanosis, or edema. NEUROLOGICAL: Awake and alert. Oriented to time, place, person. Moves all extremities. Normal speech. Results - Labs CBC & Chem 7: 02/07/18 04:30 02/07/18 04:30 Laboratory Results - last 24 hr 02/07/18 02/07/18 02/07/18 04:30 04:30 11:19 WBC 12.0 H RBC 4.35 L Hgb 13.2 Hct 40.9 MCV 93.9 MCH 30.3 MCHC 32.3 RDW 16.0 Plt Count 469 H MPV 7.5 Neut % (Auto) 71.6 H Lymph % (Auto) 18.9 [place] % (Auto) 8.3 H Eos % (Auto) 0.9 Baso % (Auto) 0.3 Neut # (Auto) 8.6 H Lymph # (Auto) 2.3 [place] # (Auto) 1.0 H Eos # (Auto) 0.1 Baso # (Auto) 0.0 WBC Differential . Differential Comment Auto diff final APTT 52.7 H Sodium 139 Potassium 3.6 Chloride 105 Carbon Dioxide 25.1 Anion Gap 9 BUN 2 L Creatinine 0.84 Estimated GFR Greater than 89 Random Glucose 95 Calcium 8.0 L Total Bilirubin 0.2 AST 14 L ALT 9 L Alkaline Phosphatase 57 Total Protein 5.9 L D Albumin 2.2 L - Procedures See hospital course Assessment and Plan - Assessment (1) Hypokalemia Code(s): E87.6 - Hypokalemia Status: Acute (2) Diverticulitis of colon with perforation Code(s): K57.20 - Diverticulitis of large intestine with perforation and abscess without bleeding Status: Acute (3) Afib Code(s): I48.91 - Unspecified atrial fibrillation Status: Acute - Plan Mr. Mccurdy is 57 year old male with a history of inguinal hernia repair who was admitted to the hospital due to lower abdominal pain. CT Abdomen/Pelvis suggest inflammatory process lower abdomen/pelvis, likely diverticulitis, several focal collections of gas to the right of the mid sigmoid colon, nonspecific possible extraluminal gas. Acute diverticulitis Distal small bowel obstruction perforated bowel -S/p Zosyn. -Appreciate general surgery input. -CT scan of abd/pelvis on 02/02 showed perforated bowel. -Conservative management for now -continue with levaquin and flagyl per general surgery. -Started on clear liquids yesterday. Has been drinking water but could not have brought her other clears. No nausea vomiting. No pain. -Plan for repeat CT today. -Spoke with surgery who is covering for Dr. Fuentes, we will possibly advance diet if CT is negative. Patient appears to be clinically okay. Not complaining of any abdominal pain, passing flatus. -If no surgery is to be done based on CT scan, we will plan to do lovenox or heparin prop History of atrial fibrillation/ Coagulopathy History of DVT -Patient is unable to provide specifics. However, he does report a history of DVT and afib. -He takes Warfarin -alternates between 7 mg and 6 mg tablets. s/p vitamin K 10 mg anticipating surgery. -on heparin gtt due to high risk. -Will place on lovenox if no anticipated surgery, pending CT scan Hypokalemia/ Hypophosphatemia S/t decreased PO intake. -replete and monitor. -Improved PPx: on heparin gtt. Code Status: Full Code Discussed Condition With: Patient, nursing Discharge Planning: Plan to DC home when clinically improved
--- NOTE | 2018-02-07 17:11 | CT ---
EXAM DATE: 02/07/2018 4:37 PM EDT AGE/SEX: 57 years / Male INDICATIONS: Lower abdomen pain today. CLINICAL DATA: This is the patient's initial encounter. Patient reports that signs and symptoms have been present for 1 day and indicates a pain score of 7/10. MEDICAL/SURGICAL HISTORY: Diverticulitis. Deep venous thrombosis. None. RADIATION DOSE: 8.37 CTDI (mGy) COMPARISON: [facility] [place], CT ABDOMEN & PELVIS W CONTRAST, 02/02/2018. . TECHNIQUE: Multiple contiguous axial images were obtained through the abdomen. Images were obtained using multiple row detector helical technique. Using automated exposure control and adjustment of the mA and/or kV according to patient size, radiation dose was kept as low as reasonably achievable to o btain optimal diagnostic quality images. DICOM format image data is available electronically for rev iew and comparison. FINDINGS: Lower chest: There is trace pleural fluid bilaterally with atelectasis at the lung bases. Hepatobiliary: Liver density is within normal limits. No focal lesion is seen on this noncontrast exa mination. There is a high density stones within the gallbladder. No bile duct dilatation is present. Kidneys: No hydronephrosis or mass. There is a stable 2 mm nonobstructing stone in the left lower teri e collecting system. Adrenal Glands: Within normal limits. Spleen: Within normal limits. Pancreas: Within normal limits. Vascular: The aorta is nonaneurysmal. There is severe atherosclerotic disease with mildly aneurysmal right common iliac artery measuring 16 mm. Bowel/Mesentery: A small hiatal hernia is present. The proximal and mid small bowel is mildly dilated measuring up to 3.6 cm similar to the prior study. Oral contrast has reached the colon. Sigmoid dive rticulosis is present and there is a mildly thick walled air and fluid collection in in the right pel vis measuring 7.0 x 4.4 cm that abuts the sigmoid colon and distal small bowel. Finding has slightly increased in size. Additionally, there is increased inflammatory change in the adjacent peritoneal fa t. Large volume of free intraperitoneal air is identified in the abdomen and pelvis. Abdominal Wall: No hernia is visualized. Retroperitoneum: No lymphadenopathy. Bladder: Urinary bladder demonstrates circumferential wall thickening. Reproductive: Within normal limits. Inguinal: No lymphadenopathy or hernia. Musculoskeletal: No acute osseous abnormality is identified. There are degenerative changes of the th oracic spine. CONCLUSION: 1. Persistent large volume of free intraperitoneal air within the abdomen and pelvis indicating perf orated bowel. There are inflammatory changes in the right pelvis that have slightly increased and the re is a loculated air collection measuring up to 7 cm in the right pelvis which abuts the sigmoid col on and small bowel. This could represent the area of perforation and it could be associated with a di verticulum. No percutaneous drainable abscess is present. 2. Circumferential wall thickening the urinary bladder likely representing secondary inflammation gi neto the adjacent changes in the right pelvis. 3. Trace bilateral pleural effusions. 4. Stable nonacute findings, as above. Electronically signed by: Immanuel Edgar MD 02/07/2018 5:10 PM EDT
[2018-02-08] MEDS ORDERED: Morphine Inj 4 MG/ML Vial IV.PUSH ONE (02:20)
[2018-02-08] MEDS: Sod Chloride 0.9% Inj 1,000 ML IV.CONT SCH ×2 (06:36→17:58)
[2018-02-08] MEDS: KCL 20 mEq/D5W/NaCl 0.45% Inj 1,000 ML IV.CONT SCH ×2 (06:36→18:05)
[2018-02-08] MEDS: Amiodarone 200 MG Tablet PO SCH (08:46)
[2018-02-08] MEDS: Carvedilol 6.25 MG Tablet PO SCH ×2 (08:46→20:45)
--- NOTE | 2018-02-08 09:04 | P.PN ---
Subjective Interval history: Follow-up perforated bowel secondary to diverticulitis, distal small bowel obstruction, A. fib, history of DVT. Patient seen and examined in bed with complaints of pain. 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 States " he should have operated on me last week". Patient reports that he will never return to this hospital once again. He denies any nausea, vomiting, cough, shortness of breath, fevers or chills. Physical Exam Vital signs: Vital Signs 02/07/18 12:00 02/07/18 16:00 02/07/18 20:00 Temperature 97.2 F L 97.8 F Pulse Rate 16 L 64 73 Respiratory Rate 16 16 18 Blood Pressure 125/73 125/74 133/75 Pulse Oximetry 98 96 91 L 02/08/18 00:00 02/08/18 04:00 02/08/18 08:00 Temperature 97.9 F 98.1 F 98 F Pulse Rate 82 83 80 Respiratory Rate 17 16 18 Blood Pressure 129/69 104/67 103/62 Pulse Oximetry 96 97 98 Intake & Output 02/07/18 02/08/18 02/08/18 18:59 06:59 18:59 Intake Total 540 / 540 1600 / 1600 Output Total 450 / 450 Balance 90 / 90 1600 / 1600 Weight 89 kg Intake: IV 300 / 300 1600 / 1600 Heparin/D5W 25,000 U/250 mL 25, 250 / 250 000 unit In 250 ml @ Per Protocol IV.CONT TITRATE PRN Rx #:[id number] D5W/1/2NS + KCL 20 mEq Inj 1, 1000 / 1000 000 ML @ 84 mls/hr IV.CONT . [id number] [place] Rx#:[id number] Levaquin 750 mg Premix Inj 150 150 / 150 ML @ 100 mls/hr IV.SIG Q24H [place] Rx#:[id number] Flagyl 500 MG Inj 100 ML @ 100 300 / 300 200 / 200 mls/hr IV.SIG Q6H [place] Rx#: [id number] Oral 240 / 240 Output: Urine 450 / 450 Other: # Voids 700 2 Date of Last Bowel Movement 02/07/18 02/07/18 # Bowel Movements 1 Narrative: GENERAL: This is a well-nourished, well-developed patient, in no apparent distress. SKIN: Warm and dry. HEENT: Normocephalic. Pupils equal round and reactive. Nose without bleeding. Airway patent. NECK: Trachea midline. CARDIOVASCULAR: Regular rate and rhythm without murmurs. RESPIRATORY: Diminished bases. No wheezes, rales, or rhonchi. GASTROINTESTINAL: Abdomen slightly firm, generalized abdominal tenderness. Normoactive bowel sounds in all quadrants MUSCULOSKELETAL: Extremities without clubbing, cyanosis, or edema. NEUROLOGICAL: Awake and alert. Oriented to time, place, person. Moves all extremities. Normal speech. Results - Labs CBC & Chem 7: 02/07/18 04:30 02/07/18 04:30 Laboratory Results - last 24 hr 02/07/18 11:19 APTT 52.7 H - Imaging Impressions Abdomen/Pelvis CT 02/07/18 00:00 CONCLUSION: 1. Persistent large volume of free intraperitoneal air within the abdomen and pelvis indicating perforated bowel. There are inflammatory changes in the right pelvis that have slightly increased and there is a loculated air collection measuring up to 7 cm in the right pelvis which abuts the sigmoid colon and small bowel. This could represent the area of perforation and it could be associated with a diverticulum. No percutaneous drainable abscess is present. 2. Circumferential wall thickening the urinary bladder likely representing secondary inflammation given the adjacent changes in the right pelvis. 3. Trace bilateral pleural effusions. 4. Stable nonacute findings, as above. - Procedures See hospital course Assessment and Plan - Assessment (1) Hypokalemia Code(s): E87.6 - Hypokalemia Status: Acute (2) Diverticulitis of colon with perforation Code(s): K57.20 - Diverticulitis of large intestine with perforation and abscess without bleeding Status: Acute (3) Afib Code(s): I48.91 - Unspecified atrial fibrillation Status: Acute - Plan Mr. Mccurdy is 57 year old male with a history of inguinal hernia repair who was admitted to the hospital due to lower abdominal pain. CT Abdomen/Pelvis suggest inflammatory process lower abdomen/pelvis, likely diverticulitis, several focal collections of gas to the right of the mid sigmoid colon, nonspecific possible extraluminal gas. Acute diverticulitis Distal small bowel obstruction perforated bowel -S/p Zosyn. -Appreciate general surgery input. -CT scan of abd/pelvis on 02/02 showed perforated bowel. -Conservative management for now -continue with levaquin and flagyl per general surgery. -N.p.o. -Repeat CT scan on 02/07 continues to show persistent large volumes of free intraperitoneal air within the abdomen and pelvis indicating perforated bowel, air collection 7 cm in the pelvis which abuts the sigmoid colon and small bowel. Circumferential wall thickening in the urinary bladder likely representing secondary inflammation given adjacent changes in the pelvis. Trace bilateral pleural effusions. -Dr. Fuentes, seen and evaluated patient, will will be starting patient on TPN, plans for possible surgery on -If no surgery is to be done based on CT scan, we will plan to do lovenox or heparin prop -Pain medical control with p.o. [place], IV morphine for breakthrough pain History of atrial fibrillation/ Coagulopathy History of DVT -Patient is unable to provide specifics. However, he does report a history of DVT and afib. -He takes Warfarin -alternates between 7 mg and 6 mg tablets. s/p vitamin K 10 mg anticipating surgery. -Continue on heparin drip, plans for surgery possibly . Hypokalemia/ Hypophosphatemia S/t decreased PO intake. -replete and monitor. -Improved -We will start TPN, monitor electrolytes PPx: on heparin gtt. Discussed Condition With: Discussed with patient, RN, Dr. Fuentes, Dr. Loomis.
[2018-02-08] MEDS: Senna/Docusate Sodium 8.6/50 MG Tablet PO SCH ×2 (09:38→20:45)
[2018-02-08] MEDS: Morphine Inj 4 MG/ML Vial IV.PUSH PRN ×4 (09:43→22:37)
[2018-02-08] MEDS: Heparin Drip 25,000 UNIT/250 ML BAG IV.CONT PRN (12:02)
--- NOTE | 2018-02-08 16:12 | P.PNGS ---
Subjective Interval history: He had significant pain yesterday after drinking contrast for CT. The CT showed persistent free air, slightly worsened inflammation, large air pocket. Physical Exam Vital signs: Vital Signs 02/07/18 20:00 02/08/18 00:00 02/08/18 04:00 Temperature 97.8 F 97.9 F 98.1 F Pulse Rate 73 82 83 Respiratory Rate 18 17 16 Blood Pressure 133/75 129/69 104/67 Pulse Oximetry 91 L 96 97 02/08/18 08:00 02/08/18 12:00 Temperature 98 F 97.9 F Pulse Rate 80 80 Respiratory Rate 18 18 Blood Pressure 103/62 108/66 Pulse Oximetry 98 97 Intake & Output 02/07/18 02/08/18 02/08/18 18:59 06:59 18:59 Intake Total 540 / 540 1600 / 1600 1350 / 1350 Output Total 450 / 450 Balance 90 / 90 1600 / 1600 1350 / 1350 Weight 89 kg Intake: IV 300 / 300 1600 / 1600 1350 / 1350 Heparin/D5W 25,000 U/250 mL 25, 250 / 250 250 / 250 000 unit In 250 ml @ Per Protocol IV.CONT TITRATE PRN Rx #:[id number] D5W/1/2NS + KCL 20 mEq Inj 1, 1000 / 1000 000 ML @ 84 mls/hr IV.CONT . [id number] [facility] Rx#:[id number] NS Inj 1,000 ML @ 100 mls/hr IV 1000 / 1000 .CONT .Q10H [place] Rx#:[id number] Levaquin 750 mg Premix Inj 150 150 / 150 ML @ 100 mls/hr IV.SIG Q24H [facility] Rx#:[id number] Flagyl 500 MG Inj 100 ML @ 100 300 / 300 200 / 200 100 / 100 mls/hr IV.SIG Q6H [facility] Rx#: [id number] Oral 240 / 240 Output: Urine 450 / 450 Other: # Voids 700 2 Date of Last Bowel Movement 02/07/18 02/07/18 # Bowel Movements 1 Narrative: He is in no distress Moderate abd distention, mod-severe suprapubic ttp Assessment and Plan - Assessment (1) Diverticulitis of colon with perforation Code(s): K57.20 - Diverticulitis of large intestine with perforation and abscess without bleeding Status: Acute - Plan He continues to have free air on CT and persisent inflammation. He is not improving on IV antibiotics. At this point I definitely recommend to proceed with operative intervention. Will plan for ex lap, sigmoid resection, end colostomy. I discussed this all in detail with the patient and he understands and desires to proceed. WIll likely be on am. I am also going to request PICC line and start TPN.
[2018-02-09] MEDS: Morphine Inj 4 MG/ML Vial IV.PUSH PRN (02:27)
[2018-02-09] MEDS: Sod Chloride 0.9% Inj 1,000 ML IV.CONT SCH ×2 (02:31→14:12)
[2018-02-09] MEDS: Heparin Drip 25,000 UNIT/250 ML BAG IV.CONT PRN (03:13)
[2018-02-09] MEDS: KCL 20 mEq/D5W/NaCl 0.45% Inj 1,000 ML IV.CONT SCH ×2 (06:52→17:13)
[2018-02-09 08:16] LABS: Baso % (Auto) 0.2 % (0.0-2.0); Eos % (Auto) 0.3 % (0.0-4.0); Hematocrit 41.3 % (39.0-51.0); Hemoglobin 13.7 gm/dL (13.0-17.0); Lymph # (Auto) 1.4 th/mm3 (1.0-4.8); Lymph % (Auto) 9.2 % (9.0-44.0); Mean Corpuscular HGB Conc 33.1 % (32.0-36.0); Mean Corpuscular Hemoglobin 30.7 pg (27.0-34.0); Mean Corpuscular Volume 92.8 fL (80.0-100.0); Mean Platelet Volume 7.5 fL (7.0-11.0); Mono # (Auto) 1.9 th/mm3 (0.0-0.9); Mono % (Auto) 11.8 % (0.0-8.0); Neut # (Auto) 12.4 th/mm3 (1.8-7.7); Neut % (Auto) 78.5 % (16.0-70.0); Platelet Count 410 th/mm3 (150-450); Red Blood Count 4.45 mil/mm3 (4.50-5.90); White Blood Count 15.8 th/mm3 (4.0-11.0)
[2018-02-09] MEDS: Carvedilol 6.25 MG Tablet PO SCH ×2 (08:20→21:29)
[2018-02-09] MEDS: Amiodarone 200 MG Tablet PO SCH (08:20)
[2018-02-09] MEDS: Senna/Docusate Sodium 8.6/50 MG Tablet PO SCH ×2 (08:24→21:29)
[2018-02-09 08:28] LABS: Activated Partial Thrombo Time 29.2 sec (24.3-30.1); INR 1.3 Ratio; Prothrombin Time 13.4 sec (9.8-11.6)
[2018-02-09 08:39] LABS: Albumin 2.1 g/dL (3.4-5.0); Anion Gap 11 meq/L (5-15); Aspartate Aminotransferase 13 U/L (15-37); Blood Urea Nitrogen 6 mg/dL (7-18); Calcium 7.9 mg/dL (8.5-10.1); Carbon Dioxide 24.2 meq/L (21.0-32.0); Chloride 101 meq/L (98-107); Glomerular Filtration Rate 68 mL/min (>89); Glucose,Random 108 mg/dL (74-106); Magnesium 1.1 mg/dL (1.5-2.5); Potassium 3.7 meq/L (3.5-5.1); Sodium 136 meq/L (136-145)
[2018-02-09 08:41] LABS: Alanine Aminotransferase 8 U/L (12-78); Triglycerides 59 mg/dL (42-150)
[2018-02-09 08:43] LABS: Alkaline Phosphatase 58 U/L (45-117)
--- NOTE | 2018-02-09 10:49 | P.DIET ---
Nutritional Evaluation Type of nutrition evaluation: initial Nutrition consult regarding: TPN/PPN Objective - Diagnosis Diverticulitis w/ Perforation - Objective % IBW: 125 (YGM=501#) Body Weight Used for Calculations: IBW (70kg) Energy Needs - Lower Range (kCal/kg): 28 Energy Needs - Upper Range (kCal/kg): 32 Lower Limit kCal/kg (kCals): 1,960 Upper Limit kCal/kg (kCals): 2,240 Lower Limit Protein Factor (Grams per Kg): 1.2 Upper Limit Protein Factor (Grams per Kg): 1.4 Lower Protein Needs (Protein): 84 Upper Protein Needs (Protein): 98 Fluid Factor (ml/kg): 30 Estimated Fluid Needs (ml): 2,100 Dietitian Reviewed in Medical Record: Current diet, Curent medications, Intake & Output, Labs, Medical history, TPN/PPN Diet Order: NPO Objective Comments: Labs: Mg 1.1, Triglycerides 59 LBM 02/07 02/09-> ex lap, sigmoid resection, & end colostomy per general surgery Assessment Assessment: Pt admitted for diverticulitis w/ perforation. Per review of EMR, pt has sigmoid diverticulitis. He's going to surgery today for ex lap, sigmoid resection, and end colostomy. Pt has been NPO or on a liquid only diet since admission on 01/22. He is at nutritional risk r/t restricted diets for ~2wks and now the need for TPN. Current TPN order is for Clinimix E 4.25/25 @ 42mls/hr with 250mls IV lipids @ 31.25mls/hr x 8hrs daily. Recommend increasing TPN rate to 70mls/hr to provide 1680mls fluid, 71g PRO, [id number] (including lipids), and a GIR of 3.3. Continue same lipid regimen. Monitor triglycerides weekly while on TPN. Dietitian following. Recommendations: 1. Recommend Clinimix E 4.25/25 @ 70mls/hr. 2. Continue current lipids. 3. Continue to check TGs weekly while on TPN. Dietitian to Monitor: Lab values, Electrolytes, Intake & Output, TPN/PPN tolerance, Diet advancement, Medical course
[2018-02-09] MEDS ORDERED: Heparin Central Flush 100 UNIT/ML 5 ML Vial IV.FLUSH PRN (11:01)
[2018-02-09] MEDS: Mag Sulf 1 gm/100 ml Premix 100 ML IV.SIG SCH ×2 (12:40→14:13)
--- NOTE | 2018-02-09 13:29 | P.PN ---
Subjective Interval history: Follow-up visit for perforated bowel secondary to diverticulitis, distal bowel obstruction, A. fib, history of DVT. Patient is seen and examined resting in bed, appears to be comfortable and in no acute distress. Patient reports that abdominal pain is better today, still passing gas with no diarrhea. Patient denies any nausea or vomiting, cough, shortness of breath, chest pain, headache , dizziness or chills. Physical Exam Vital signs: Vital Signs 02/08/18 16:00 02/08/18 20:00 02/09/18 00:00 Temperature 98.2 F 98.6 F 98.8 F Pulse Rate 86 89 80 Respiratory Rate 18 18 18 Blood Pressure 103/64 109/66 110/67 Pulse Oximetry 98 97 97 02/09/18 04:00 02/09/18 08:00 02/09/18 08:10 Temperature 98.7 F 98.3 F Pulse Rate 77 81 Respiratory Rate 18 18 18 Blood Pressure 101/55 L 113/65 Pulse Oximetry 96 95 02/09/18 08:40 02/09/18 12:00 Temperature 98.2 F Pulse Rate 79 Respiratory Rate 18 17 Blood Pressure 105/58 L Pulse Oximetry 95 Intake & Output 02/08/18 02/09/18 02/09/18 18:59 06:59 18:59 Intake Total 2850 / 2850 850 / 850 100 / 100 Output Total 150 / 150 425 / 425 Balance 2700 / 2700 425 / 425 100 / 100 Weight 87.6 kg Intake: IV 2450 / 2450 850 / 850 100 / 100 Heparin/D5W 25,000 U/250 mL 25, 250 / 250 500 / 500 000 unit In 250 ml @ Per Protocol IV.CONT TITRATE PRN Rx #:[id number] D5W/1/2NS + KCL 20 mEq Inj 1, 1000 / 1000 000 ML @ 84 mls/hr IV.CONT . [id number] [facility] Rx#:[id number] NS Inj 1,000 ML @ 100 mls/hr IV 1000 / 1000 .CONT .Q10H [facility] Rx#:[id number] Levaquin 750 mg Premix Inj 150 150 / 150 ML @ 100 mls/hr IV.SIG Q24H [facility] Rx#:[id number] Flagyl 500 MG Inj 100 ML @ 100 200 / 200 200 / 200 100 / 100 mls/hr IV.SIG Q6H [facility] Rx#: [id number] Oral 400 / 400 Output: Urine 150 / 150 425 / 425 Other: # Voids 1 1 Date of Last Bowel Movement 02/07/18 02/07/18 # Bowel Movements 0 Narrative: GENERAL: This is a well-nourished, well-developed patient, in no apparent distress. SKIN: Warm and dry. HEENT: Normocephalic. Pupils equal round and reactive. Nose without bleeding. Airway patent. NECK: Trachea midline. CARDIOVASCULAR: Regular rate and rhythm without murmurs. RESPIRATORY: Diminished bases. No wheezes, rales, or rhonchi. GASTROINTESTINAL: Abdomen slightly firm, mild diffuse tenderness, better compared to yesterday. Normoactive bowel sounds in all quadrants MUSCULOSKELETAL: Extremities without clubbing, cyanosis, or edema. NEUROLOGICAL: Awake and alert. Oriented to time, place, person. Moves all extremities. Normal speech. Results - Labs CBC & Chem 7: 02/09/18 07:25 02/09/18 07:25 Laboratory Results - last 24 hr 02/09/18 02/09/18 02/09/18 07:25 07:25 07:25 WBC 15.8 H RBC 4.45 L Hgb 13.7 Hct 41.3 MCV 92.8 MCH 30.7 MCHC 33.1 RDW 16.0 Plt Count 410 MPV 7.5 Neut % (Auto) 78.5 H Lymph % (Auto) 9.2 Daniels % (Auto) 11.8 H Eos % (Auto) 0.3 Baso % (Auto) 0.2 Neut # (Auto) 12.4 H Lymph # (Auto) 1.4 Daniels # (Auto) 1.9 H Eos # (Auto) 0.0 Baso # (Auto) 0.0 WBC Differential . Differential Comment Auto diff final PT 13.4 H INR 1.3 APTT 29.2 D Sodium 136 Potassium 3.7 Chloride 101 Carbon Dioxide 24.2 Anion Gap 11 BUN 6 L Creatinine 1.11 Estimated GFR 68 L Random Glucose 108 H Calcium 7.9 L Magnesium 1.1 L Total Bilirubin 0.3 AST 13 L ALT 8 L Alkaline Phosphatase 58 Total Protein 6.0 L Albumin 2.1 L Triglycerides 59 - Procedures See hospital course Assessment and Plan - Assessment (1) Hypokalemia Code(s): E87.6 - Hypokalemia Status: Acute (2) Diverticulitis of colon with perforation Code(s): K57.20 - Diverticulitis of large intestine with perforation and abscess without bleeding Status: Acute (3) Afib Code(s): I48.91 - Unspecified atrial fibrillation Status: Acute - Plan Mr. Mccurdy is 57 year old male with a history of inguinal hernia repair who was admitted to the hospital due to lower abdominal pain. CT Abdomen/Pelvis suggest inflammatory process lower abdomen/pelvis, likely diverticulitis, several focal collections of gas to the right of the mid sigmoid colon, nonspecific possible extraluminal gas. Acute diverticulitis Distal small bowel obstruction perforated bowel -S/p Zosyn. -Appreciate general surgery input. -CT scan of abd/pelvis on 02/02 showed perforated bowel. -Conservative management for now -continue with levaquin and flagyl per general surgery. -N.p.o., now with PICC, to start TPN -Repeat CT scan on 02/07 continues to show persistent large volumes of free intraperitoneal air within the abdomen and pelvis indicating perforated bowel, air collection 7 cm in the pelvis which abuts the sigmoid colon and small bowel. Circumferential wall thickening in the urinary bladder likely representing secondary inflammation given adjacent changes in the pelvis. Trace bilateral pleural effusions. -Dr. Fuentes, plans to take patient to surgery on , continue antibiotics , repeat blood cultures today -Pain medical control with p.o. [place], IV morphine for breakthrough pain History of atrial fibrillation/ Coagulopathy History of DVT -Patient is unable to provide specifics. However, he does report a history of DVT and afib. -He takes Warfarin -alternates between 7 mg and 6 mg tablets. s/p vitamin K 10 mg anticipating surgery. -Continue on heparin drip, plans for surgery possibly , will need to verify with time heparin drip needs to be placed on hold. Hypokalemia/ Hypophosphatemia/hypomagnesemia S/t decreased PO intake. -replete and monitor. -Improved -Replace mag with 2 g IV, recheck electrolytes in a.m. PPx: on heparin gtt. Discussed Condition With: Discussed with patient and RN
--- NOTE | 2018-02-09 15:08 | P.PNWCN ---
Wound Care Nurse Consult Description: Consult for New Ostomy Teaching of Left abdomen marking for end colostomy per Dr Fuentes Communicated with: Patient RN Additional information: Patient seen on for ostomy marking on left side abdomen. Patient coughed for eval of rectus muscles, sat up for eval of creases in abdomen, asked where patient wore his pants/belt line (which was marked). Area cleansed, shaved for marking, wiped with alcohol, and transparent film placed to protect marking. Educational materials left at bedside for reinforcement of teaching. Supplies shown to patient.
--- NOTE | 2018-02-09 16:38 | P.PNGS ---
Subjective Interval history: No new complaints. Physical Exam Vital signs: Vital Signs 02/08/18 20:00 02/09/18 00:00 02/09/18 04:00 Temperature 98.6 F 98.8 F 98.7 F Pulse Rate 89 80 77 Respiratory Rate 18 18 18 Blood Pressure 109/66 110/67 101/55 L Pulse Oximetry 97 97 96 02/09/18 08:00 02/09/18 08:10 02/09/18 08:40 Temperature 98.3 F Pulse Rate 81 Respiratory Rate 18 18 18 Blood Pressure 113/65 Pulse Oximetry 95 02/09/18 12:00 02/09/18 16:00 Temperature 98.2 F 97.9 F Pulse Rate 79 73 Respiratory Rate 17 18 Blood Pressure 105/58 L 100/56 L Pulse Oximetry 95 93 L Intake & Output 02/08/18 02/09/18 02/09/18 18:59 06:59 18:59 Intake Total 2850 / 2850 634 / 634 200 / 200 Output Total 150 / 150 425 / 425 Balance 2700 / 2700 209 / 209 200 / 200 Weight 87.6 kg Intake: IV 2450 / 2450 634 / 634 200 / 200 Heparin/D5W 25,000 U/250 mL 25, 250 / 250 284 / 284 000 unit In 250 ml @ Per Protocol IV.CONT TITRATE PRN Rx #:[id number] D5W/1/2NS + KCL 20 mEq Inj 1, 1000 / 1000 000 ML @ 84 mls/hr IV.CONT . [id number] [facility] Rx#:[id number] NS Inj 1,000 ML @ 100 mls/hr IV 1000 / 1000 .CONT .Q10H [facility] Rx#:[id number] Levaquin 750 mg Premix Inj 150 150 / 150 ML @ 100 mls/hr IV.SIG Q24H [facility] Rx#:[id number] Magnesium Sulfate 1 gm/D5W 100 100 / 100 ml Premix 100 ML @ 100 mls/hr IV.SIG Q1H [facility] Rx#:[id number] Flagyl 500 MG Inj 100 ML @ 100 200 / 200 200 / 200 100 / 100 mls/hr IV.SIG Q6H [facility] Rx#: [id number] Oral 400 / 400 Output: Urine 150 / 150 425 / 425 Other: # Voids 1 1 Date of Last Bowel Movement 02/07/18 02/07/18 # Bowel Movements 0 Narrative: No distress Abd distended, tender Assessment and Plan - Assessment (1) Diverticulitis of colon with perforation Code(s): K57.20 - Diverticulitis of large intestine with perforation and abscess without bleeding Status: Acute - Plan Proceed to OR tomorrow am for exploratory laparotomy, likely sigmoid resection and end colostomy. Patient understands and desires to proceed. Stop heparin drip around 6p.
[2018-02-10] MEDS: Heparin Drip 25,000 UNIT/250 ML BAG IV.CONT PRN (00:19)
[2018-02-10] MEDS: Sod Chloride 0.9% Inj 1,000 ML IV.CONT SCH ×2 (03:30→07:27)
[2018-02-10] MEDS ORDERED: Chlorhexidine Gluconate 2% 1 Pack (2 Cloths) TOPICAL SCH ×2 (05:15)
[2018-02-10] MEDS ORDERED: Sodium Chlor 0.9% Inj 500 ML IV.SIG SCH (06:00)
[2018-02-10] MEDS: Carvedilol 6.25 MG Tablet PO SCH ×3 (06:08→20:32)
[2018-02-10] MEDS: KCL 20 mEq/D5W/NaCl 0.45% Inj 1,000 ML IV.CONT SCH (06:36)
[2018-02-10] MEDS ORDERED: Protamine Sulfate Inj 50 MG/5 ML Vial ONE (07:59)
[2018-02-10 08:29] LABS: INR 1.2 Ratio; Prothrombin Time 12.2 sec (9.8-11.6)
[2018-02-10 10:46] LABS: ABG Base Excess -1.3 mmol/L (-2-2); ABG PCO2 38 mmHg (38-42); ABG PO2 182 mmHG (61-120)
[2018-02-10] MEDS ORDERED: Naloxone Inj 0.4 MG/ML Vial IV.PUSH PRN (11:40)
--- NOTE | 2018-02-10 11:42 | P.OP ---
- Preoperative Diagnosis (1) Diverticulitis of colon with perforation - Postoperative Diagnosis (1) Diverticulitis of colon with perforation Date of procedure: 02/10/18 Procedure: Exploratory laparotomy Lysis of adhesions >1hr Sigmoid resection with end colostomy Surgeon: Sav Fuentes MD Vessel Builder: Marichuy PUGH IV fluids (mL): 3,500 Pathology: other (sigmoid colon) Operation and Findings: Operative findings: Severely inflamed sigmoid colon and dome of bladder as well as involved loops of small bowel. Associated abscess. The dome of the bladder was extremely thick walled and a portion of the wall was entered although the bladder lumen itself was not entered. Procedure in detail: The patient was taken to the operating room and placed in supine position. General endotracheal anesthesia was induced. The abdomen was prepped and draped in usual sterile fashion and a surgical timeout was performed to verify correct patient procedure and site. The patient had had preoperative marking for colostomy placement. In midline laparotomy incision was made and dissection carried out with electrocautery down to underlying fascia which was divided. The peritoneum was entered sharply. There was noted to be dense inflammation in the lower midline with adherence to the anterior abdominal wall was initially unable to be brought down bluntly. Careful and extensive lysis of adhesions and delineation of the anatomy was required due to severe inflammation in this area. Multiple loops of small bowel were involved in the area of concern and there is an associated abscess which was drained. These loops of small bowel were thickened in a couple of small serosal injuries occurred. On further dissection the sigmoid colon was finally identified and was densely adherent to what appeared to be a very thickened dome of the bladder. The dome of the bladder had been intimately involved in the inflammation and the wall was partially entered without injuring the lumen of the bladder. At this point an area on the sigmoid colon distal to the inflammation was chosen and the mesenteric defect created. A green load contour stapler was used to divide the distal sigmoid. The distal descending colon proximal to the inflammation was divided with the JUNG 75 blue load. The mesentery of the sigmoid colon was then taken down using the harmonic wave and the specimen was removed. The mesentery was extremely thickened and some areas of bleeding were controlled with [id number] silk sutures. The white line of [place] of the descending colon was freed to further mobilize the descending colon. The entire small bowel was run multiple times in 2 or 3 areas of small serosal injury were repaired with 3-0 silk suture. The entire abdominal cavity was irrigated with multiple liters of warm normal saline until only clear fluid remained. The thickened bladder wall which was partially opened at the dome was oversewn with 0 Vicryl running locking suture. In the left abdomen at site of previous marking for stoma placement the skin was grasped and a circular incision made. Dissection carried out through subcutaneous tissue in a cruciate incision created on the fascia. Posterior fascia was divided. The colostomy site allowed 2 fingerbreadths of entry. The descending colon was brought up through the area. At this point in 19 [place] round Meet drain was placed through the right lower abdomen through a separate stab incision and into the pelvis. The rectal stump was marked with a 2-0 Prolene suture on each corner. The fascia was then closed with running #1 looped PDS suture. The incision was copiously irrigated and wide skin staplers placed. A angela incisional wound VAC dressing was applied. Attention was turned to maturation of the colostomy. The staple line of the colostomy was removed and the colostomy created in Davina fashion with 3-0 Vicryl sutures. The appliance was then placed. The patient tolerated procedure well and was extubated and taken to PACU in stable condition. All sponge management counts were correct.
[2018-02-10] MEDS ORDERED: Glycopyrrolate Inj 1 MG/5 ML Syringe IV.PUSH ONE (12:00)
[2018-02-10] MEDS ORDERED: Neostigmine Inj 5 MG/5 ML Syringe IV.PUSH ONE (12:00)
[2018-02-10] MEDS ORDERED: Phenylephrine/NS 1000 MCG/10ML Syringe IV.PUSH ONE (12:00)
[2018-02-10] MEDS ORDERED: Lidocaine PF 1% Inj 5 ML Syringe INFILTRATN ONE (12:00)
[2018-02-10] MEDS ORDERED: HYDROmorphone PCA Inj 6 MG/30 ML PCA.VIAL PCA ONE (12:07)
[2018-02-10] MEDS ORDERED: *morphine SULFATE 4 MG/ML PERIprocedure ONLY ONE (12:07)
[2018-02-10] MEDS ORDERED: Ketorolac Inj 30 MG/ML (IVP) Vial ONE (12:09)
[2018-02-10] MEDS ORDERED: fentaNYL Citrate Inj 100 MCG/2 ML Ampul ONE (12:30)
[2018-02-10 12:40] LABS: Hematocrit 42.8 % (39.0-51.0); Mean Corpuscular HGB Conc 32.7 % (32.0-36.0); Mean Corpuscular Hemoglobin 30.8 pg (27.0-34.0); Mean Corpuscular Volume 94.2 fL (80.0-100.0); Mean Platelet Volume 7.9 fL (7.0-11.0); Platelet Count 405 th/mm3 (150-450); Red Blood Count 4.54 mil/mm3 (4.50-5.90); Red Cell Distribution Width 16.5 % (11.6-17.2); White Blood Count 22.5 th/mm3 (4.0-11.0)
[2018-02-10] MEDS: HYDROmorphone PCA Inj 6 MG/30 ML PCA.VIAL PCA PRN (12:42)
[2018-02-10] MEDS: Ketorolac Inj 30 MG/ML (IVP) Vial IV.PUSH SCH (12:47)
[2018-02-10 13:04] LABS: Anion Gap 7 meq/L (5-15); Blood Urea Nitrogen 4 mg/dL (7-18); Carbon Dioxide 26.2 meq/L (21.0-32.0); Chloride 107 meq/L (98-107); Glomerular Filtration Rate Greater Than 89 mL/min (>89); Glucose,Random 171 mg/dL (74-106); Potassium 3.6 meq/L (3.5-5.1); Sodium 140 meq/L (136-145)
[2018-02-10 13:17] LABS: Total Protein 4.3 g/dL (6.4-8.2)
--- NOTE | 2018-02-10 15:40 | P.PNWCN ---
Wound Care Nurse Consult Description: Consult for New Ostomy Teaching of Left abdomen for end colostomy per Dr Fuentes Communicated with: Patient Recommendation: Monitor stoma for red/pink color, moisture, and output. Empty pouch of effluent when 1/3-1/2 full Change appliance Q5D and PRN for leaks. Additional information: Patient seen post operatively on for ostomy assessment. Incision - Incision Abdomen Drainage Description: Sanguinous Drainage Amount: Scant Other Cover Dressing: MARKEL Incision/Surgery Date: 02/10/18 Bowel Diversion Stoma - Bowel Stoma Colostomy Stoma Edema: Yes Stoma Appearance: Protruding, Round (red, moist) Loop Supporting Edwin: No Collection Device: Two-piece Wafer Size: 1 3/4 Moldable 45mm
--- NOTE | 2018-02-10 15:47 | P.PN ---
Subjective Interval history: Follow-up visit for diverticulitis perforation, abdominal pain. Patient is status post exploratory laparotomy, lysis of adhesions, sigmoid resection with end colostomy earlier today by Dr. Fuentes. He is seen and examined resting in bed comfortably, appears to be in no acute distress. He does complain of some mild abdominal pain as well as tenderness. He endorses some nausea but no vomiting, shortness of breath, cough, or chest pain. Physical Exam Vital signs: Vital Signs 02/09/18 16:00 02/09/18 17:32 02/09/18 20:00 Temperature 97.9 F 98.3 F Pulse Rate 73 71 Respiratory Rate 18 18 17 Blood Pressure 100/56 L 111/63 Pulse Oximetry 93 L 97 02/10/18 00:00 02/10/18 01:30 02/10/18 04:00 Temperature 98.2 F 98.2 F Pulse Rate 70 75 Respiratory Rate 17 16 17 Blood Pressure 111/61 110/59 L Pulse Oximetry 96 96 02/10/18 11:50 02/10/18 12:05 02/10/18 12:30 Temperature 97.5 F L Pulse Rate 100 H 80 80 Respiratory Rate 20 18 22 Blood Pressure 131/74 101/60 97/58 L Pulse Oximetry 100 98 97 02/10/18 12:38 02/10/18 13:10 Temperature 98 F 98.0 F Pulse Rate 87 Respiratory Rate 18 20 Blood Pressure 106/55 L 99/62 L Pulse Oximetry 936 H 98 Intake & Output 02/09/18 02/10/18 02/10/18 18:59 06:59 18:59 Intake Total 400 / 400 566 / 566 550 / 550 Output Total 600 / 600 1950 / 1950 Balance -200 / -200 566 / 566 -1400 / -1400 Intake: IV 400 / 400 566 / 566 250 / 250 Intralipid 20% Inj 250 ML @ 31. 250 / 250 25 mls/hr IV.CENTRAL Q24H [place] Rx#:[id number] Heparin/D5W 25,000 U/250 mL 25, 216 / 216 000 unit In 250 ml @ Per Protocol IV.CONT TITRATE PRN Rx #:[id number] Levaquin 750 mg Premix Inj 150 150 / 150 ML @ 100 mls/hr IV.SIG Q24H [place] Rx#:[id number] Magnesium Sulfate 1 gm/D5W 100 200 / 200 ml Premix 100 ML @ 100 mls/hr IV.SIG Q1H [place] Rx#:[id number] Flagyl 500 MG Inj 100 ML @ 100 200 / 200 200 / 200 mls/hr IV.SIG Q6H [place] Rx#: [id number] Anesthesia Amount 300 / 300 Output: Urine 600 / 600 Estimated Blood Loss 500 / 500 Urine Amount (Catheter) 325 / 325 Indwelling Urethral Catheter 325 / 325 Gastric Drainage 1100 / 1100 Right Nare Nasogastric Tube 1100 / 1100 Wound Drainage # 1 Right Lower Abdomen Other: Date of Last Bowel Movement 02/07/18 02/07/18 Narrative: GENERAL: This is a well-nourished, well-developed patient, in no apparent distress. SKIN: Warm and dry. HEENT: Normocephalic. Pupils equal round and reactive. Nose without bleeding. Airway patent. NECK: Trachea midline. CARDIOVASCULAR: Regular rate and rhythm without murmurs. RESPIRATORY: Diminished bases. No wheezes, rales, or rhonchi. GASTROINTESTINAL: Abdomen slightly softer, hypoactive/intermittent bowel sounds , mild diffuse tenderness to very light palpation. Midline dressing dry and intact, right lateral ELHAM drain with serosanguineous drainage, left quadrant ostomy, with pink stoma. GENITOURINARY: Mccray catheter with clear yellow urine. MUSCULOSKELETAL: Extremities without clubbing, cyanosis, or edema. NEUROLOGICAL: Awake and alert. Oriented to time, place, person. Moves all extremities. Normal speech. - Urinary Catheter Management Indwelling Urethral Catheter Cath placed during this visit: yes Reason for continuing: Hourly intake/output Insertion date: 02/10/18 Insertion time: 08:00 Results - Labs CBC & Chem 7: 02/10/18 11:25 02/10/18 11:25 Laboratory Results - last 24 hr 02/09/18 02/10/18 02/10/18 19:09 00:10 06:43 WBC RBC Hgb Hct MCV MCH MCHC RDW Plt Count MPV PT INR APTT 44.4 H D Puncture Site Patient Temperature O2 Saturation ABG pH ABG pCO2 ABG pO2 ABG HCO3 ABG O2 Content ABG Base Excess ABG Methemoglobin Hemoglobin Carboxyhemoglobin O2 Delivery Device Inspired O2 Critical Value Sodium Potassium Chloride Carbon Dioxide Anion Gap BUN Creatinine Estimated GFR POC Glucose 115 H 125 H Random Glucose Calcium Prot Corrected Calcium Total Protein 02/10/18 02/10/18 02/10/18 07:52 07:52 09:54 WBC RBC Hgb Hct MCV MCH MCHC RDW Plt Count MPV PT 12.2 H INR 1.2 APTT 26.6 D Puncture Site Drawn in or Patient Temperature 98.6 O2 Saturation 97 ABG pH 7.40 ABG pCO2 38 ABG pO2 182 H ABG HCO3 23 ABG O2 Content 20.1 H ABG Base Excess -1.3 ABG Methemoglobin 1.5 Hemoglobin 14.6 Carboxyhemoglobin 0.8 O2 Delivery Device Or Inspired O2 21 Critical Value No Sodium Potassium Chloride Carbon Dioxide Anion Gap BUN Creatinine Estimated GFR POC Glucose Random Glucose Calcium Prot Corrected Calcium Total Protein 02/10/18 02/10/18 02/10/18 11:25 11:25 12:52 WBC 22.5 H RBC 4.54 Hgb 14.0 Hct 42.8 MCV 94.2 MCH 30.8 MCHC 32.7 RDW 16.5 Plt Count 405 MPV 7.9 PT INR APTT Puncture Site Patient Temperature O2 Saturation ABG pH ABG pCO2 ABG pO2 ABG HCO3 ABG O2 Content ABG Base Excess ABG Methemoglobin Hemoglobin Carboxyhemoglobin O2 Delivery Device Inspired O2 Critical Value Sodium 140 Potassium 3.6 Chloride 107 Carbon Dioxide 26.2 Anion Gap 7 BUN 4 L Creatinine 0.81 Estimated GFR Greater than 89 POC Glucose 171 H Random Glucose 171 H Calcium 7.0 L* D Prot Corrected Calcium 8.5 Total Protein 4.3 L D Microbiology 02/09/18 07:20 Blood - Peripheral Aerobic Blood Culture - Preliminary No growth in 1 day 02/09/18 07:20 Blood - Peripheral Anaerobic Blood Culture - Preliminary No growth in 1 day 02/09/18 07:25 Blood - Peripheral Aerobic Blood Culture - Preliminary No growth in 1 day 02/09/18 07:25 Blood - Peripheral Anaerobic Blood Culture - Preliminary No growth in 1 day - Procedures See hospital course Assessment and Plan - Assessment (1) Hypokalemia Code(s): E87.6 - Hypokalemia Status: Acute (2) Diverticulitis of colon with perforation Code(s): K57.20 - Diverticulitis of large intestine with perforation and abscess without bleeding Status: Acute (3) Afib Code(s): I48.91 - Unspecified atrial fibrillation Status: Acute - Plan Mr. Kinum is 57 year old male with a history of inguinal hernia repair who was admitted to the hospital due to lower abdominal pain. CT Abdomen/Pelvis suggest inflammatory process lower abdomen/pelvis, likely diverticulitis, several focal collections of gas to the right of the mid sigmoid colon, nonspecific possible extraluminal gas. Acute diverticulitis Distal small bowel obstruction perforated bowel -S/p Zosyn. -Greatly appreciate assistance. -CT scan of abd/pelvis on 02/02 showed perforated bowel. -Repeat CT scan on 02/07 continues to show persistent large volumes of free intraperitoneal air within the abdomen and pelvis indicating perforated bowel, air collection 7 cm in the pelvis which abuts the sigmoid colon and small bowel. Circumferential wall thickening in the urinary bladder likely representing secondary inflammation given adjacent changes in the pelvis. Trace bilateral pleural effusions. - S/P exploratory laparotomy, lysis of adhesions, sigmoid resection with end colonoscopy 02/10 -Continue IV Levaquin and Flagyl, n.p.o. with NG tube to low intermittent wall suction. 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 However, he does report a history of DVT and afib. -He takes Warfarin -alternates between 7 mg and 6 mg tablets. -Heparin gtt placed on hold this a.m. will resume once okay with GS. Hypokalemia/ Hypophosphatemia/hypomagnesemia S/t decreased PO intake. -replete and monitor. -Improved -Replace mag with 2 g IV, recheck electrolytes in a.m. PPx: SCD's Discussed Condition With: pending surgical clearance
[2018-02-10] MEDS: Heparin Central Flush 100 UNIT/ML 5 ML Vial IV.FLUSH SCH (19:47)
[2018-02-10] MEDS: Amiodarone 200 MG Tablet PO SCH (19:47)
[2018-02-10] MEDS: Senna/Docusate Sodium 8.6/50 MG Tablet PO SCH (20:32)
[2018-02-11] MEDS: Ketorolac Inj 30 MG/ML (IVP) Vial IV.PUSH SCH ×5 (02:08→18:07)
[2018-02-11] MEDS: KCL 20 mEq/D5W/NaCl 0.45% Inj 1,000 ML IV.CONT SCH ×3 (04:22→18:09)
[2018-02-11] MEDS: Sod Chloride 0.9% Inj 1,000 ML IV.CONT SCH ×3 (04:22→15:13)
[2018-02-11 04:55] LABS: Hematocrit 39.2 % (39.0-51.0); Hemoglobin 13.3 gm/dL (13.0-17.0); Mean Corpuscular HGB Conc 33.8 % (32.0-36.0); Mean Corpuscular Hemoglobin 31.3 pg (27.0-34.0); Mean Corpuscular Volume 92.3 fL (80.0-100.0); Mean Platelet Volume 7.5 fL (7.0-11.0); Platelet Count 340 th/mm3 (150-450); Red Blood Count 4.24 mil/mm3 (4.50-5.90); Red Cell Distribution Width 16.1 % (11.6-17.2); White Blood Count 18.4 th/mm3 (4.0-11.0)
[2018-02-11 05:11] LABS: Calcium 7.3 mg/dL (8.5-10.1); Carbon Dioxide 26.9 meq/L (21.0-32.0); Magnesium 1.7 mg/dL (1.5-2.5); Potassium 4.2 meq/L (3.5-5.1)
[2018-02-11 05:28] LABS: Total Protein 4.9 g/dL (6.4-8.2)
--- NOTE | 2018-02-11 08:15 | P.PN ---
Subjective Interval history: Follow-up visit for diverticulitis perforation, status post exploratory laparotomy with lysis of adhesions, sigmoid resection and colostomy. Post-op day 1. Patient is seen and examined resting in bed comfortable, he complains of abdominal pain and discomfort worse with coughing. He reports some nausea, but no vomiting. Denies fevers, chills, SOB, cough or chest pain. Physical Exam Vital signs: Vital Signs 02/10/18 11:50 02/10/18 12:05 02/10/18 12:30 Temperature 97.5 F L Pulse Rate 100 H 80 80 Respiratory Rate 20 18 22 Blood Pressure 131/74 101/60 97/58 L Pulse Oximetry 100 98 97 02/10/18 12:38 02/10/18 13:10 02/10/18 16:00 Temperature 98 F 98.0 F 98 F Pulse Rate 87 87 Respiratory Rate 18 20 18 Blood Pressure 106/55 L 99/62 L 97/60 L Pulse Oximetry 936 H 98 97 02/10/18 20:00 02/11/18 00:00 02/11/18 00:30 Temperature 97.2 F L 98.1 F Pulse Rate 85 92 H Respiratory Rate 18 18 17 Blood Pressure 100/60 107/64 Pulse Oximetry 99 98 02/11/18 04:00 02/11/18 06:28 Temperature 97.5 F L Pulse Rate 89 Respiratory Rate 18 17 Blood Pressure 101/58 L Pulse Oximetry 98 Intake & Output 02/10/18 02/11/18 02/11/18 18:59 06:59 18:59 Intake Total 550 / 550 2210.2 / 2210.2 Output Total 1950 / 1950 650 / 650 Balance -1400 / -1400 1560.2 / 1560.2 Weight 87.6 kg Intake: IV 250 / 250 2210.2 / 2210.2 Intralipid 20% Inj 250 ML @ 31. 250 / 250 25 mls/hr IV.CENTRAL Q24H [place] Rx#:[id number] MVI-12 Inj 10 ML Folvite Inj 1 1010.2 / 1010.2 MG In Clinimix E 4.25%/D25W Inj 1,000 ML @ 42 mls/hr IV. [facility]EN[facility]AL Q24H [place] Rx#:[id number] NS Inj 1,000 ML @ 100 mls/hr IV 1000 / 1000 .CONT .Q10H [place] Rx#:[id number] Flagyl 500 MG Inj 100 ML @ 100 200 / 200 mls/hr IV.SIG Q6H [place] Rx#: [id number] Oral 0 / 0 Anesthesia Amount 300 / 300 Output: Urine 200 / 200 Estimated Blood Loss 500 / 500 Urine Amount (Catheter) 325 / 325 Indwelling Urethral Catheter 325 / 325 Gastric Drainage 1100 / 1100 350 / 350 Right Nare Nasogastric Tube 1100 / 1100 350 / 350 Wound Drainage 25 / 25 100 / 100 # 1 Right Lower Abdomen 100 / 100 Other: Date of Last Bowel Movement 02/07/18 Narrative: GENERAL: This is a well-nourished, well-developed patient, in no apparent distress. SKIN: Warm and dry. HEENT: Normocephalic. Pupils equal round and reactive. Nose without bleeding. Airway patent. NECK: Trachea midline. CARDIOVASCULAR: Regular rate and rhythm without murmurs. RESPIRATORY: Diminished bases. No wheezes, rales, or rhonchi. GASTROINTESTINAL: Abdomen slightly softer, hypoactive bowel sounds, tenderness to very light palpation. Midline dressing dry and intact, right lateral ELHAM drain with serosanguineous drainage, left quadrant ostomy, with pink stoma. GENITOURINARY: Mccray catheter with clear liam urine. MUSCULOSKELETAL: Extremities without clubbing, cyanosis, or edema. NEUROLOGICAL: Awake and alert. Oriented to time, place, person. Moves all extremities. Normal speech. - Urinary Catheter Management Indwelling Urethral Catheter Cath placed during this visit: yes Reason for continuing: Hourly intake/output Insertion date: 02/10/18 Insertion time: 08:00 Results - Labs CBC & Chem 7: 02/11/18 03:31 02/11/18 03:31 Laboratory Results - last 24 hr 02/10/18 02/10/18 02/10/18 07:52 07:52 09:54 WBC RBC Hgb Hct MCV MCH MCHC RDW Plt Count MPV PT 12.2 H INR 1.2 APTT 26.6 D Puncture Site Drawn in or Patient Temperature 98.6 O2 Saturation 97 ABG pH 7.40 ABG pCO2 38 ABG pO2 182 H ABG HCO3 23 ABG O2 Content 20.1 H ABG Base Excess -1.3 ABG Methemoglobin 1.5 Hemoglobin 14.6 Carboxyhemoglobin 0.8 O2 Delivery Device Or Inspired O2 21 Critical Value No Sodium Potassium Chloride Carbon Dioxide Anion Gap BUN Creatinine Estimated GFR POC Glucose Random Glucose Calcium Prot Corrected Calcium Magnesium Total Protein 02/10/18 02/10/18 02/10/18 11:25 11:25 12:52 WBC 22.5 H RBC 4.54 Hgb 14.0 Hct 42.8 MCV 94.2 MCH 30.8 MCHC 32.7 RDW 16.5 Plt Count 405 MPV 7.9 PT INR APTT Puncture Site Patient Temperature O2 Saturation ABG pH ABG pCO2 ABG pO2 ABG HCO3 ABG O2 Content ABG Base Excess ABG Methemoglobin Hemoglobin Carboxyhemoglobin O2 Delivery Device Inspired O2 Critical Value Sodium 140 Potassium 3.6 Chloride 107 Carbon Dioxide 26.2 Anion Gap 7 BUN 4 L Creatinine 0.81 Estimated GFR Greater than 89 POC Glucose 171 H Random Glucose 171 H Calcium 7.0 L* D Prot Corrected Calcium 8.5 Magnesium Total Protein 4.3 L D 02/10/18 02/10/18 02/11/18 18:36 20:47 03:31 WBC 18.4 H RBC 4.24 L Hgb 13.3 Hct 39.2 MCV 92.3 MCH 31.3 MCHC 33.8 RDW 16.1 Plt Count 340 MPV 7.5 PT INR APTT Puncture Site Patient Temperature O2 Saturation ABG pH ABG pCO2 ABG pO2 ABG HCO3 ABG O2 Content ABG Base Excess ABG Methemoglobin Hemoglobin Carboxyhemoglobin O2 Delivery Device Inspired O2 Critical Value Sodium Potassium Chloride Carbon Dioxide Anion Gap BUN Creatinine Estimated GFR POC Glucose 169 H 170 H Random Glucose Calcium Prot Corrected Calcium Magnesium Total Protein 02/11/18 03:31 WBC RBC Hgb Hct MCV MCH MCHC RDW Plt Count MPV PT INR APTT Puncture Site Patient Temperature O2 Saturation ABG pH ABG pCO2 ABG pO2 ABG HCO3 ABG O2 Content ABG Base Excess ABG Methemoglobin Hemoglobin Carboxyhemoglobin O2 Delivery Device Inspired O2 Critical Value Sodium 140 Potassium 4.2 Chloride 106 Carbon Dioxide 26.9 Anion Gap 7 BUN 9 Creatinine 0.93 Estimated GFR 83 L POC Glucose Random Glucose 172 H Calcium 7.3 L* Prot Corrected Calcium 8.5 Magnesium 1.7 D Total Protein 4.9 L D Microbiology 02/09/18 07:20 Blood - Peripheral Aerobic Blood Culture - Preliminary No growth in 1 day 02/09/18 07:20 Blood - Peripheral Anaerobic Blood Culture - Preliminary No growth in 1 day 02/09/18 07:25 Blood - Peripheral Aerobic Blood Culture - Preliminary No growth in 1 day 02/09/18 07:25 Blood - Peripheral Anaerobic Blood Culture - Preliminary No growth in 1 day - Procedures See hospital course Assessment and Plan - Assessment (1) Hypokalemia Code(s): E87.6 - Hypokalemia Status: Acute (2) Diverticulitis of colon with perforation Code(s): K57.20 - Diverticulitis of large intestine with perforation and abscess without bleeding Status: Acute (3) Afib Code(s): I48.91 - Unspecified atrial fibrillation Status: Acute - Plan Mr. Mccurdy is 57 year old male with a history of inguinal hernia repair who was admitted to the hospital due to lower abdominal pain. CT Abdomen/Pelvis suggest inflammatory process lower abdomen/pelvis, likely diverticulitis, several focal collections of gas to the right of the mid sigmoid colon, nonspecific possible extraluminal gas. Acute diverticulitis Distal small bowel obstruction perforated bowel -S/p Zosyn. -Greatly appreciate assistance. -CT scan of abd/pelvis on 02/02 showed perforated bowel. -Repeat CT scan on 02/07 continues to show persistent large volumes of free intraperitoneal air within the abdomen and pelvis indicating perforated bowel, air collection 7 cm in the pelvis which abuts the sigmoid colon and small bowel. Circumferential wall thickening in the urinary bladder likely representing secondary inflammation given adjacent changes in the pelvis. Trace bilateral pleural effusions. - S/P exploratory laparotomy, lysis of adhesions, sigmoid resection with end colonoscopy 02/10 -Continue IV Levaquin and Flagyl, n.p.o. with NG tube to low intermittent wall suction. -Currently on TPN -Pain medical control with KETTLEMAN History of atrial fibrillation/ Coagulopathy History of DVT -Patient is unable to provide specifics. However, he does report a history of DVT and afib. -He takes Warfarin -alternates between 7 mg and 6 mg tablets. -Heparin gtt continues to be on hold, reassess patient in the a.m., if no bleeding resume heparin drip for at least 24 hours, transitioned over to subcu Lovenox, therapeutic dose. Hypokalemia/ Hypophosphatemia/hypomagnesemia S/t decreased PO intake. -replete and monitor. -Repeat labs stable. PPx: SCD's Discussed Condition With: Discussed with patient and RN
[2018-02-11] MEDS ORDERED: Calcium Chloride Inj 1 GM in Sodium Chlor 0.9% Inj 100 ML IV.SIG ONE (09:00)
--- NOTE | 2018-02-11 09:39 | P.PNGS ---
Subjective Interval history: No major complaints. 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 Physical Exam Vital signs: Vital Signs 02/10/18 11:50 02/10/18 12:05 02/10/18 12:30 Temperature 97.5 F L Pulse Rate 100 H 80 80 Respiratory Rate 20 18 22 Blood Pressure 131/74 101/60 97/58 L Pulse Oximetry 100 98 97 02/10/18 12:38 02/10/18 13:10 02/10/18 16:00 Temperature 98 F 98.0 F 98 F Pulse Rate 87 87 Respiratory Rate 18 20 18 Blood Pressure 106/55 L 99/62 L 97/60 L Pulse Oximetry 936 H 98 97 02/10/18 20:00 02/11/18 00:00 02/11/18 00:30 Temperature 97.2 F L 98.1 F Pulse Rate 85 92 H Respiratory Rate 18 18 17 Blood Pressure 100/60 107/64 Pulse Oximetry 99 98 02/11/18 04:00 02/11/18 06:28 Temperature 97.5 F L Pulse Rate 89 Respiratory Rate 18 17 Blood Pressure 101/58 L Pulse Oximetry 98 Intake & Output 02/10/18 02/11/18 02/11/18 18:59 06:59 18:59 Intake Total 550 / 550 2210.2 / 2210.2 1250 / 1250 Output Total 1950 / 1950 650 / 650 Balance -1400 / -1400 1560.2 / 1560.2 1250 / 1250 Weight 87.6 kg Intake: IV 250 / 250 2210.2 / 2210.2 1250 / 1250 Intralipid 20% Inj 250 ML @ 31. 250 / 250 250 / 250 25 mls/hr IV.CENTRAL Q24H [place] Rx#:[id number] MVI-12 Inj 10 ML Folvite Inj 1 1010.2 / 1010.2 MG In Clinimix E 4.25%/D25W Inj 1,000 ML @ 42 mls/hr IV. [facility] Q24H [place] Rx#:[id number] LR 1000 mL Inj 1,000 ML @ 125 1000 / 1000 mls/hr IV.CONT .Q8H [place] Rx#: [id number] NS Inj 1,000 ML @ 100 mls/hr IV 1000 / 1000 .CONT .Q10H [place] Rx#:[id number] Flagyl 500 MG Inj 100 ML @ 100 200 / 200 mls/hr IV.SIG Q6H [place] Rx#: [id number] Oral 0 / 0 Anesthesia Amount 300 / 300 Output: Urine 200 / 200 Estimated Blood Loss 500 / 500 Urine Amount (Catheter) 325 / 325 Indwelling Urethral Catheter 325 / 325 Gastric Drainage 1100 / 1100 350 / 350 Right Nare Nasogastric Tube 1100 / 1100 350 / 350 Wound Drainage 25 / 25 100 / 100 # 1 Right Lower Abdomen 25 / 25 100 / 100 Other: Date of Last Bowel Movement 02/07/18 Narrative: NAD Abd: inc bandage in place, cristy ss, colostomy pink, edematous, no output yet - Urinary Catheter Management Indwelling Urethral Catheter Cath placed during this visit: yes Reason for continuing: Hourly intake/output Insertion date: 02/10/18 Insertion time: 08:00 Assessment and Plan - Assessment (1) Diverticulitis of colon with perforation Code(s): K57.20 - Diverticulitis of large intestine with perforation and abscess without bleeding Status: Acute - Plan POD 1 s/p ex lap sigmoid resection. Stable post op. Cont ng, npo. 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 Cont chu for 5-7 days as he had bladder repair during surgery. Ok to restart full anticoagulation tomorrow morning.
[2018-02-11] MEDS: Amiodarone 200 MG Tablet PO SCH (10:03)
[2018-02-11] MEDS: Carvedilol 6.25 MG Tablet PO SCH ×3 (10:03→21:35)
[2018-02-11] MEDS: Senna/Docusate Sodium 8.6/50 MG Tablet PO SCH ×2 (10:04→21:35)
--- NOTE | 2018-02-11 11:40 | P.PNWCN ---
Wound Care Nurse Consult Description: Consult for New Ostomy Teaching of Left abdomen for end colostomy per Dr Fuentes Communicated with: Patient Recommendation: Monitor stoma for red/pink color, moisture, and output. Empty pouch of effluent when 1/3-1/2 full Change appliance Q5D and PRN for leaks. Additional information: Patient seen on for ostomy assessment, teaching, and reinforcement of products available and where to obtain these. Bowel Diversion Stoma - Bowel Stoma Colostomy Stoma Edema: Yes Stoma Appearance: Protruding, Round (red, moist) Loop Supporting Edwin: No Collection Device: Two-piece Wafer Size: 2 1/4 Moldable Zaira-Stomal Surrounding Tissue Sensation Description: No Symptoms
[2018-02-11] MEDS: HYDROmorphone PCA Inj 6 MG/30 ML PCA.VIAL PCA PRN (14:23)
--- NOTE | 2018-02-11 15:06 | P.DIET ---
Nutritional Evaluation Type of nutrition evaluation: follow-up Nutrition consult regarding: TPN/PPN Objective - Diagnosis Diverticulitis w/ Perforation - Objective % IBW: 125 (TLB=555#) Body Weight Used for Calculations: IBW (70kg) Energy Needs - Lower Range (kCal/kg): 28 Energy Needs - Upper Range (kCal/kg): 32 Lower Limit kCal/kg (kCals): 1,960 Upper Limit kCal/kg (kCals): 2,240 Lower Limit Protein Factor (Grams per Kg): 1.2 Upper Limit Protein Factor (Grams per Kg): 1.4 Lower Protein Needs (Protein): 84 Upper Protein Needs (Protein): 98 Fluid Factor (ml/kg): 30 Estimated Fluid Needs (ml): 2,100 Dietitian Reviewed in Medical Record: Current diet, Curent medications, Intake & Output, Labs, Medical history, TPN/PPN Diet Order: NPO Objective Comments: Labs: Glu 172 Triglycerides 59 (on 02/09) LBM 02/07 Assessment Assessment: Pt admitted for diverticulitis w/ perforation. He is now s/p exp lap, sigmoid resection, and end colostomy post-op day #1. Pt has been NPO or on a liquid only diet since admission on 01/22. He is at nutritional risk r/t restricted diets for ~2wks and now the need for TPN. Current TPN order is for Clinimix E 4.25/25 @ 42mls/hr with 250mls IV lipids @ 31.25mls/hr x 8hrs daily. Recommend increasing TPN rate to 70mls/hr to provide 1680mls fluid, 71g PRO, [id number] ( including lipids), and a GIR of 3.3. Continue same lipid regimen. Monitor triglycerides weekly while on TPN. Labs, wts and clinical course reviewed: CBW = 87.6 kg Recommendations: 1. Recommend Clinimix E 4.25/25 @ 70mls/hr. 2. Continue current lipids. 3. Continue to check TGs weekly while on TPN. 4. Advance diet per surgery Dietitian to Monitor: Lab values, Electrolytes, Intake & Output, TPN/PPN tolerance, Diet advancement, Medical course
[2018-02-11] MEDS: Heparin Central Flush 100 UNIT/ML 5 ML Vial IV.FLUSH SCH (15:13)
[2018-02-12] MEDS: Ketorolac Inj 30 MG/ML (IVP) Vial IV.PUSH SCH ×5 (00:05→23:44)
[2018-02-12] MEDS: Sod Chloride 0.9% Inj 1,000 ML IV.CONT SCH ×2 (03:10→09:41)
[2018-02-12] MEDS: KCL 20 mEq/D5W/NaCl 0.45% Inj 1,000 ML IV.CONT SCH (05:41)
[2018-02-12 06:49] LABS: Calcium 7.7 mg/dL (8.5-10.1); Carbon Dioxide 28.9 meq/L (21.0-32.0); Magnesium 1.6 mg/dL (1.5-2.5); Potassium 3.7 meq/L (3.5-5.1)
--- NOTE | 2018-02-12 08:36 | P.PN ---
Subjective Interval history: Follow-up visit for diverticulitis perforation, status post exploratory laparotomy with lysis of adhesions, sigmoid resection and colostomy. Post-op day 2. Patient is seen and examined resting in bed, in no acute distress. Patient reports some belly tenderness and feels as if his abdomen is larger, has not passed any gas to his knowledge. He also reports frustrations regarding the PT helping him out of bed, we discussed the importance of early mobility following surgery and it's benefits. He denies any fevers, chills, N/V, cough or SOB. Physical Exam Vital signs: Vital Signs 02/11/18 12:00 02/11/18 13:06 02/11/18 14:53 Temperature 97.9 F Pulse Rate 70 Respiratory Rate 16 18 18 Blood Pressure 99/56 L Pulse Oximetry 97 02/11/18 18:37 02/11/18 18:53 02/11/18 20:00 Temperature 98 F Pulse Rate 92 H Respiratory Rate 18 18 18 Blood Pressure 101/59 L Pulse Oximetry 96 02/12/18 06:00 Temperature 97.9 F Pulse Rate 90 Respiratory Rate 20 Blood Pressure 105/56 L Pulse Oximetry 95 Intake & Output 02/11/18 02/12/18 02/12/18 18:59 06:59 18:59 Intake Total 2570 / 2570 2410.2 / 2410.2 Output Total 300 / 300 275 / 275 Balance 2270 / 2270 2135.2 / 2135.2 Weight 92.4 kg Intake: IV 2560 / 2560 2410.2 / 2410.2 Intralipid 20% Inj 250 ML @ 31. 250 / 250 250 / 250 25 mls/hr IV.CENTRAL Q24H [place] Rx#:[id number] MVI-12 Inj 10 ML Folvite Inj 1 1010.2 / 1010.2 MG In Clinimix E 4.25%/D25W Inj 1,000 ML @ 42 mls/hr IV. [facility]EN[facility]AL Q24H [place] Rx#:[id number] LR 1000 mL Inj 1,000 ML @ 125 2000 / 2000 800 / 800 mls/hr IV.CONT .Q8H [place] Rx#: [id number] Calcium Chloride Inj 1 GM In NS 110 / 110 Inj 100 ML @ 110 mls/hr IV.SIG ONCE ONE Rx#:[id number] Levaquin 750 mg Premix Inj 150 150 / 150 ML @ 100 mls/hr IV.SIG Q24H [place] Rx#:[id number] Flagyl 500 MG Inj 100 ML @ 100 200 / 200 200 / 200 mls/hr IV.SIG Q6H [place] Rx#: [id number] Oral 10 / 10 0 / 0 Output: Urine 100 / 100 Urine Amount (Catheter) 200 / 200 Indwelling Urethral Catheter 200 / 200 Gastric Drainage 50 / 50 150 / 150 Right Nare Nasogastric Tube 50 / 50 150 / 150 Wound Drainage 50 / 50 25 / 25 # 1 Right Lower Abdomen 50 / 50 25 / 25 Other: Date of Last Bowel Movement 02/07/18 Narrative: GENERAL: This is a well-nourished, well-developed patient, in no apparent distress. SKIN: Warm and dry. HEENT: Normocephalic. Pupils equal round and reactive. Nose without bleeding. Airway patent. NECK: Trachea midline. CARDIOVASCULAR: Regular rate and rhythm without murmurs. RESPIRATORY: Diminished bases. No wheezes, rales, or rhonchi. GASTROINTESTINAL: Abdomen distended, hypoactive bowel sounds, tenderness to very light palpation. Midline dressing dry and intact, right lateral ELHAM drain with serosanguineous drainage, left quadrant ostomy, with pink stoma no gas or stool in bag. GENITOURINARY: Mccray catheter with clear liam urine. MUSCULOSKELETAL: Extremities without clubbing, cyanosis, or edema. NEUROLOGICAL: Awake and alert. Oriented to time, place, person. Moves all extremities. Normal speech. - Urinary Catheter Management Indwelling Urethral Catheter Cath placed during this visit: yes Reason for continuing: Hourly intake/output Insertion date: 02/10/18 Insertion time: 08:00 Results - Labs CBC & Chem 7: 02/11/18 03:31 02/12/18 05:33 Laboratory Results - last 24 hr 02/11/18 02/11/18 02/11/18 08:57 12:52 18:18 Sodium Potassium Chloride Carbon Dioxide Anion Gap BUN Creatinine Estimated GFR POC Glucose 139 H 130 H 112 H Random Glucose Calcium Magnesium 02/12/18 02/12/18 00:03 05:33 Sodium 139 Potassium 3.7 Chloride 104 Carbon Dioxide 28.9 Anion Gap 6 BUN 13 Creatinine 0.94 Estimated GFR 82 L POC Glucose 112 H Random Glucose 139 H Calcium 7.7 L Magnesium 1.6 Microbiology 02/09/18 07:20 Blood - Peripheral Aerobic Blood Culture - Preliminary No growth in 2 days 02/09/18 07:20 Blood - Peripheral Anaerobic Blood Culture - Preliminary No growth in 2 days 02/09/18 07:25 Blood - Peripheral Aerobic Blood Culture - Preliminary No growth in 2 days 02/09/18 07:25 Blood - Peripheral Anaerobic Blood Culture - Preliminary No growth in 2 days - Procedures See hospital course Assessment and Plan - Assessment (1) Hypokalemia Code(s): E87.6 - Hypokalemia Status: Acute (2) Diverticulitis of colon with perforation Code(s): K57.20 - Diverticulitis of large intestine with perforation and abscess without bleeding Status: Acute (3) Afib Code(s): I48.91 - Unspecified atrial fibrillation Status: Acute - Plan Mr. Mccurdy is 57 year old male with a history of inguinal hernia repair who was admitted to the hospital due to lower abdominal pain. CT Abdomen/Pelvis suggest inflammatory process lower abdomen/pelvis, likely diverticulitis, several focal collections of gas to the right of the mid sigmoid colon, nonspecific possible extraluminal gas. Acute diverticulitis Distal small bowel obstruction perforated bowel -S/p Zosyn. -Greatly appreciate assistance. -CT scan of abd/pelvis on 02/02 showed perforated bowel. -Repeat CT scan on 02/07 continues to show persistent large volumes of free intraperitoneal air within the abdomen and pelvis indicating perforated bowel, air collection 7 cm in the pelvis which abuts the sigmoid colon and small bowel. Circumferential wall thickening in the urinary bladder likely representing secondary inflammation given adjacent changes in the pelvis. Trace bilateral pleural effusions. - S/P exploratory laparotomy, lysis of adhesions, sigmoid resection with end colonoscopy 02/10 -Continue IV Levaquin and Flagyl, n.p.o. with NG tube to low intermittent wall suction. -Currently on TPN, rate increased per dietary recommendations. -Pain control with [employer] - KUB due to abd distention History of atrial fibrillation/ Coagulopathy History of DVT -Patient is unable to provide specifics. However, he does report a history of DVT and afib. -He takes Warfarin -alternates between 7 mg and 6 mg tablets. -Heparin gtt continues to be on hold, resume Lovenox therapeutic dose. Hypokalemia/ Hypophosphatemia/hypomagnesemia S/t decreased PO intake. -replete and monitor. -Repeat labs stable. - Decrease output documented in EMR, creatinine stable. Discussed with RN, please keep paper record of I&O as a back up, discussed this is imperative due to recent surgery. PPx: SCD's subq Lovenox Discussed Condition With: Patient, RN, Dr. Fuentes
[2018-02-12] MEDS: Senna/Docusate Sodium 8.6/50 MG Tablet PO SCH ×2 (09:39→23:46)
[2018-02-12] MEDS: Amiodarone 200 MG Tablet PO SCH (09:39)
[2018-02-12] MEDS: Carvedilol 6.25 MG Tablet PO SCH ×2 (09:39→23:45)
[2018-02-12] MEDS: Heparin Central Flush 100 UNIT/ML 5 ML Vial IV.FLUSH SCH (09:40)
[2018-02-12] MEDS: HYDROmorphone PCA Inj 6 MG/30 ML PCA.VIAL PCA PRN (11:10)
[2018-02-12] MEDS ORDERED: Sod Chloride 0.9% Inj 1,000 ML IV.SIG SCH (12:04)
--- NOTE | 2018-02-12 12:12 | P.PNGS ---
Subjective Interval history: He feels bloated. 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 Physical Exam Vital signs: Vital Signs 02/11/18 13:06 02/11/18 14:53 02/11/18 18:37 Temperature Pulse Rate Respiratory Rate 18 Blood Pressure Pulse Oximetry 02/11/18 18:53 02/11/18 20:00 02/12/18 06:00 Temperature 98 F 97.9 F Pulse Rate 92 H 90 Respiratory Rate Blood Pressure 101/59 L 105/56 L Pulse Oximetry 96 95 Intake & Output 02/11/18 02/12/18 02/12/18 18:59 06:59 18:59 Intake Total 2570 / 2570 2410.2 / 2410.2 Output Total 300 / 300 275 / 275 Balance 2270 / 2270 2135.2 / 2135.2 Weight 92.4 kg Intake: IV 2560 / 2560 2410.2 / 2410.2 Intralipid 20% Inj 250 ML @ 31. 250 / 250 250 / 250 25 mls/hr IV.CENTRAL Q24H [place] Rx#:[id number] MVI-12 Inj 10 ML Folvite Inj 1 1010.2 / 1010.2 MG In Clinimix E 4.25%/D25W Inj 1,000 ML @ 42 mls/hr IV. [facility]EN[facility]AL Q24H [place] Rx#:[id number] LR 1000 mL Inj 1,000 ML @ 125 2000 / 2000 800 / 800 mls/hr IV.CONT .Q8H [place] Rx#: [id number] Calcium Chloride Inj 1 GM In NS 110 / 110 Inj 100 ML @ 110 mls/hr IV.SIG ONCE ONE Rx#:[id number] Levaquin 750 mg Premix Inj 150 150 / 150 ML @ 100 mls/hr IV.SIG Q24H [place] Rx#:[id number] Flagyl 500 MG Inj 100 ML @ 100 200 / 200 200 / 200 mls/hr IV.SIG Q6H [place] Rx#: [id number] Oral 10 / 10 0 / 0 Output: Urine 100 / 100 Urine Amount (Catheter) 200 / 200 Indwelling Urethral Catheter 200 / 200 Gastric Drainage 50 / 50 150 / 150 Right Nare Nasogastric Tube 50 / 50 150 / 150 Wound Drainage 50 / 50 25 / 25 # 1 Right Lower Abdomen 50 / 50 25 / 25 Other: Date of Last Bowel Movement 02/07/18 Narrative: Somewhat uncomfortable NG with low output Abd: distended, tympanitic, bandage c/d/i, colostomy edematous without output yet - Urinary Catheter Management Indwelling Urethral Catheter Cath placed during this visit: yes Reason for continuing: Hourly intake/output Insertion date: 02/10/18 Insertion time: 08:00 Assessment and Plan - Assessment (1) Diverticulitis of colon with perforation Code(s): K57.20 - Diverticulitis of large intestine with perforation and abscess without bleeding Status: Acute - Plan POD 2 s/p ex lap sigmoid resection. Stable post op. Cont ng, npo. Check KUB to be sure of placement. 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 Cont chu for 5-7 days as he had bladder repair during surgery. Bolus 1L NS. Needs accurate I/Os and this was discussed with staff. Ok to restart full anticoagulation.
--- NOTE | 2018-02-12 12:55 | XR ---
EXAM DATE: 02/12/2018 12:52 PM EDT AGE/SEX: 57 years / Male INDICATIONS: Constipation. CLINICAL DATA: This is the patient's initial encounter. Patient reports that signs and symptoms have been present for 2 days and indicates a pain score of 5/10. MEDICAL/SURGICAL HISTORY: Diverticulitis. Deep venous thrombosis. None. COMPARISON: [place], ABDOMEN 1V KUB, 02/01/2018. . FINDINGS: Single view the abdomen. Multiple dilated small bowel loops. Postsurgical changes. Nasogastric tube with tip in stomach. Catheter overlies the pelvis possibly surgical drain. There is also a catheter o verlying the right abdomen may be external to the patient. No abnormal masses, calcifications, or or ganomegaly is seen. The osseous structures are unremarkable. CONCLUSION: Multiple dilated small bowel loops likely postsurgical ileus. Electronically signed by: Nic Disla MD 02/12/2018 12:53 PM EDT
[2018-02-12] MEDS: HYDROmorphone PF Inj 2 MG/ML Vial IV.PUSH PRN ×3 (14:13→20:32)
[2018-02-12] MEDS: Multivitamin Inj 10 ML, Folic Acid Inj 1 MG in TPN Fluid 2 Liter 2,000 ML IV.SIG SCH ×2 (14:32→23:45)
[2018-02-12] MEDS: Enoxaparin Inj 100 MG/ML Syringe SQ SCH (21:00)
[2018-02-13] MEDS: HYDROmorphone PF Inj 2 MG/ML Vial IV.PUSH PRN ×6 (02:29→23:44)
[2018-02-13] MEDS: Ketorolac Inj 30 MG/ML (IVP) Vial IV.PUSH SCH ×4 (06:08→23:44)
[2018-02-13 06:30] LABS: Anion Gap 8 meq/L (5-15); Calcium 7.5 mg/dL (8.5-10.1); Carbon Dioxide 30.3 meq/L (21.0-32.0); Chloride 104 meq/L (98-107); Glomerular Filtration Rate Greater Than 89 mL/min (>89); Glucose,Random 123 mg/dL (74-106); Potassium 3.8 meq/L (3.5-5.1); Sodium 142 meq/L (136-145)
[2018-02-13 06:39] LABS: Blood Urea Nitrogen 13 mg/dL (7-18)
[2018-02-13] MEDS: Amiodarone 200 MG Tablet PO SCH (08:38)
[2018-02-13] MEDS: Senna/Docusate Sodium 8.6/50 MG Tablet PO SCH ×2 (08:38→20:43)
[2018-02-13] MEDS: Carvedilol 6.25 MG Tablet PO SCH ×2 (08:38→20:42)
--- NOTE | 2018-02-13 09:48 | P.PN ---
Subjective Interval history: Follow-up visit for diverticulitis perforation, status post exploratory laparotomy with lysis of adhesions, sigmoid resection and colostomy. Postop day 2. Patient is seen and examined resting in bed comfortably, appears to be in no acute distress. He reports pain is well controlled on current dose of Dilaudid, feels as if her abdominal distention is about the same with no increase in abdominal pain. Denies any fevers, chills, nausea, vomiting, shortness of breath, cough or chest pain. Physical Exam Vital signs: Vital Signs 02/12/18 12:00 02/12/18 16:00 02/12/18 20:00 Temperature 98.3 F 98.1 F 97.9 F Pulse Rate 89 92 H 92 H Respiratory Rate 19 20 18 Blood Pressure 114/60 116/63 113/64 Pulse Oximetry 95 96 95 02/13/18 00:00 02/13/18 04:00 Temperature 98.0 F 97.6 F Pulse Rate 96 H 95 H Respiratory Rate 18 18 Blood Pressure 125/66 118/63 Pulse Oximetry 96 96 Intake & Output 02/12/18 02/13/18 02/13/18 18:59 06:59 18:59 Intake Total 2200 / 2200 5625 / 5625 Output Total 1485 / 1485 3165 / 3165 Balance 715 / 715 2460 / 2460 Weight 90.1 kg Intake: IV 1200 / 1200 5600 / 5600 Intralipid 20% Inj 250 ML @ 31. 250 / 250 25 mls/hr IV.CENTRAL Q24H [place] Rx#:[id number] MVI-12 Inj 10 ML Folvite Inj 1 2000 / 1999 MG In Clinimix E 4.25%/D25W Inj 1,000 ML @ 70 mls/hr IV. [facility]EN[facility]AL Q24H [place] Rx#:[id number] LR 1000 mL Inj 1,000 ML @ 125 1000 / 1000 1000 / 1000 mls/hr IV.CONT .Q8H [place] Rx#: [id number] NS Inj 1,000 ML @ 100 mls/hr IV 1000 / 1000 .CONT .Q10H [place] Rx#:[id number] Levaquin 750 mg Premix Inj 150 150 / 150 ML @ 100 mls/hr IV.SIG Q24H [place] Rx#:[id number] NS Inj 1,000 ML @ Wide Open IV. 1000 / 1000 SIG BOLUS [facility] Rx#:[id number] Flagyl 500 MG Inj 100 ML @ 100 200 / 200 200 / 200 mls/hr IV.SIG Q6H [place] Rx#: [id number] Oral Other 1000 / 1000 Output: Urine 500 / 500 Urine Amount (Catheter) 450 / 450 850 / 850 Indwelling Urethral Catheter 450 / 450 850 / 850 Stool Amount (Stoma) Colostomy Gastric Drainage 1000 / 1000 1775 / 1775 Right Nare Nasogastric Tube 1000 / 1000 1775 / 1775 Wound Drainage # 1 Right Lower Abdomen Other: Other Intake Source Saline Solution Date of Last Bowel Movement 02/07/18 02/07/18 02/07/18 Narrative: GENERAL: This is a well-nourished, well-developed patient, in no apparent distress. SKIN: Warm and dry. HEENT: Normocephalic. Pupils equal round and reactive. Nose without bleeding. Airway patent. NECK: Trachea midline. CARDIOVASCULAR: Regular rate and rhythm without murmurs. RESPIRATORY: Diminished bases. No wheezes, rales, or rhonchi. GASTROINTESTINAL: Abdomen distended, + bowel sounds in all quadrants. Midline dressing dry and intact, right lateral ELHAM drain with serosanguineous drainage, left quadrant ostomy, with pink stoma no gas or stool in bag. GENITOURINARY: Mccray catheter with clear yellow urine. MUSCULOSKELETAL: Extremities without clubbing, cyanosis, or edema. NEUROLOGICAL: Awake and alert. Oriented to time, place, person. Moves all extremities. Normal speech. - Urinary Catheter Management Indwelling Urethral Catheter Cath placed during this visit: yes Reason for continuing: Hourly intake/output Insertion date: 02/10/18 Insertion time: 08:00 Results - Labs CBC & Chem 7: 02/11/18 03:31 02/13/18 05:31 Laboratory Results - last 24 hr 02/12/18 02/12/18 02/12/18 09:27 13:56 17:24 APTT 28.2 Sodium Potassium Chloride Carbon Dioxide Anion Gap BUN Creatinine Estimated GFR POC Glucose 120 H 108 Random Glucose Calcium 02/12/18 02/13/18 02/13/18 20:30 05:31 08:13 APTT Sodium 142 Potassium 3.8 Chloride 104 Carbon Dioxide 30.3 Anion Gap 8 BUN 13 Creatinine 0.79 Estimated GFR Greater than 89 POC Glucose 99 119 H Random Glucose 123 H Calcium 7.5 L Microbiology 02/09/18 07:20 Blood - Peripheral Aerobic Blood Culture - Preliminary No growth in 3 days 02/09/18 07:20 Blood - Peripheral Anaerobic Blood Culture - Preliminary No growth in 3 days 02/09/18 07:25 Blood - Peripheral Aerobic Blood Culture - Preliminary No growth in 3 days 02/09/18 07:25 Blood - Peripheral Anaerobic Blood Culture - Preliminary No growth in 3 days - Imaging Impressions Abdomen X-Ray 02/12/18 00:00 CONCLUSION: Multiple dilated small bowel loops likely postsurgical ileus. - Procedures See hospital course Assessment and Plan - Assessment (1) Hypokalemia Code(s): E87.6 - Hypokalemia Status: Acute (2) Diverticulitis of colon with perforation Code(s): K57.20 - Diverticulitis of large intestine with perforation and abscess without bleeding Status: Acute (3) Afib Code(s): I48.91 - Unspecified atrial fibrillation Status: Acute - Plan Mr. Mccurdy is 57 year old male with a history of inguinal hernia repair who was admitted to the hospital due to lower abdominal pain. CT Abdomen/Pelvis suggest inflammatory process lower abdomen/pelvis, likely diverticulitis, several focal collections of gas to the right of the mid sigmoid colon, nonspecific possible extraluminal gas. Acute diverticulitis Distal small bowel obstruction perforated bowel -S/p Zosyn. -Greatly appreciate assistance. -CT scan of abd/pelvis on 02/02 showed perforated bowel. -Repeat CT scan on 02/07 continues to show persistent large volumes of free intraperitoneal air within the abdomen and pelvis indicating perforated bowel, air collection 7 cm in the pelvis which abuts the sigmoid colon and small bowel. Circumferential wall thickening in the urinary bladder likely representing secondary inflammation given adjacent changes in the pelvis. Trace bilateral pleural effusions. - S/P exploratory laparotomy, lysis of adhesions, sigmoid resection with end colonoscopy 02/10 -Mccray catheter to be removed in 57 days due to bladder repair during surgery -Continue IV Levaquin and Flagyl, n.p.o. with NG tube to low intermittent wall suction. -Currently on TPN and lipids. -Pain control with IV Dilaudid and Toradol - KUB with multiple dilated bowel loops likely postsurgical ileus -Abdomen stable, positive bowel sounds in all quadrants. History of atrial fibrillation/ Coagulopathy History of DVT -Patient is unable to provide specifics. However, he does report a history of DVT and afib. -He takes Warfarin -alternates between 7 mg and 6 mg tablets. -Currently on Lovenox therapeutic dose. Patient will eventually need to be transitioned to Coumadin. Hypokalemia/ Hypophosphatemia/hypomagnesemia S/t decreased PO intake. -replete and monitor. -Repeat labs stable. -Improvement in urinary output. PPx: SCD's subq Lovenox Discussed Condition With: Patient and RN. (2) Diverticulitis of colon with perforation Qualifiers: Diverticulitis bleeding: without bleeding Qualified Code(s): K57.20 - Diverticulitis of large intestine with perforation and abscess without bleeding
[2018-02-13] MEDS: Enoxaparin Inj 100 MG/ML Syringe SQ SCH ×2 (10:05→20:43)
[2018-02-13] MEDS: Heparin Central Flush 100 UNIT/ML 5 ML Vial IV.FLUSH SCH (10:06)
--- NOTE | 2018-02-13 10:29 | P.PN ---
Subjective Interval history: no complaints Physical Exam Vital signs: Vital Signs 02/12/18 12:00 02/12/18 16:00 02/12/18 20:00 Temperature 98.3 F 98.1 F 97.9 F Pulse Rate 89 92 H 92 H Respiratory Rate 19 20 18 Blood Pressure 114/60 116/63 113/64 Pulse Oximetry 95 96 95 02/13/18 00:00 02/13/18 04:00 02/13/18 08:00 Temperature 98.0 F 97.6 F 98.1 F Pulse Rate 96 H 95 H 93 H Respiratory Rate 18 18 18 Blood Pressure 125/66 118/63 130/68 Pulse Oximetry 96 96 95 Intake & Output 02/12/18 02/13/18 02/13/18 18:59 06:59 18:59 Intake Total 2200 / 2200 5625 / 5625 100 / 100 Output Total 1485 / 1485 3165 / 3165 Balance 715 / 715 2460 / 2460 100 / 100 Weight 90.1 kg Intake: IV 1200 / 1200 5600 / 5600 100 / 100 Intralipid 20% Inj 250 ML @ 31. 250 / 250 25 mls/hr IV.CENTRAL Q24H [facility] Rx#:[id number] MVI-12 Inj 10 ML Folvite Inj 1 2000 / 2000 MG In Clinimix E 4.25%/D25W Inj 1,000 ML @ 70 mls/hr IV. [facility]AL Q24H [place] Rx#:[id number] LR 1000 mL Inj 1,000 ML @ 125 1000 / 1000 1000 / 1000 mls/hr IV.CONT .Q8H [place] Rx#: [id number] NS Inj 1,000 ML @ 100 mls/hr IV 1000 / 1000 .CONT .Q10H [place] Rx#:[id number] Levaquin 750 mg Premix Inj 150 150 / 150 ML @ 100 mls/hr IV.SIG Q24H [place] Rx#:[id number] NS Inj 1,000 ML @ Wide Open IV. 1000 / 1000 SIG BOLUS [place] Rx#:[id number] Flagyl 500 MG Inj 100 ML @ 100 200 / 200 200 / 200 100 / 100 mls/hr IV.SIG Q6H [place] Rx#: [id number] Oral 25 / 25 Other 1000 / 1000 Output: Urine 500 / 500 Urine Amount (Catheter) 450 / 450 850 / 850 Indwelling Urethral Catheter 450 / 450 850 / 850 Stool Amount (Stoma) Colostomy Gastric Drainage 1000 / 1000 1775 / 1775 Right Nare Nasogastric Tube 1000 / 1000 1775 / 1775 Wound Drainage # 1 Right Lower Abdomen Other: Other Intake Source Saline Solution Date of Last Bowel Movement 02/07/18 02/07/18 02/07/18 - Constitutional no acute distress - Routine Abdominal Exam Present: soft, tenderness (incisional), distended (moderate), drain (serous), ostomy (pink no air in bag) - Urinary Catheter Management Indwelling Urethral Catheter Cath placed during this visit: yes Reason for continuing: Hourly intake/output Insertion date: 02/10/18 Insertion time: 08:00 Results - Labs CBC & Chem 7: 02/11/18 03:31 02/13/18 05:31 Laboratory Results - last 24 hr 02/12/18 02/12/18 02/12/18 09:27 13:56 17:24 APTT 28.2 Sodium Potassium Chloride Carbon Dioxide Anion Gap BUN Creatinine Estimated GFR POC Glucose 120 H 108 Random Glucose Calcium 02/12/18 02/13/18 02/13/18 20:30 05:31 08:13 APTT Sodium 142 Potassium 3.8 Chloride 104 Carbon Dioxide 30.3 Anion Gap 8 BUN 13 Creatinine 0.79 Estimated GFR Greater than 89 POC Glucose 99 119 H Random Glucose 123 H Calcium 7.5 L Microbiology 02/09/18 07:20 Blood - Peripheral Aerobic Blood Culture - Preliminary No growth in 3 days 02/09/18 07:20 Blood - Peripheral Anaerobic Blood Culture - Preliminary No growth in 3 days 02/09/18 07:25 Blood - Peripheral Aerobic Blood Culture - Preliminary No growth in 3 days 02/09/18 07:25 Blood - Peripheral Anaerobic Blood Culture - Preliminary No growth in 3 days - Imaging Impressions Abdomen X-Ray 02/12/18 00:00 CONCLUSION: Multiple dilated small bowel loops likely postsurgical ileus. - Procedures See hospital course Assessment and Plan - Assessment (1) Diverticulitis of colon with perforation Code(s): K57.20 - Diverticulitis of large intestine with perforation and abscess without bleeding Status: Acute - Plan cont npo/ngt oob ambulate with assistance (1) Diverticulitis of colon with perforation Qualifiers: Diverticulitis bleeding: without bleeding Qualified Code(s): K57.20 - Diverticulitis of large intestine with perforation and abscess without bleeding
[2018-02-13] MEDS: Multivitamin Inj 10 ML, Folic Acid Inj 1 MG in TPN Fluid 2 Liter 2,000 ML IV.SIG SCH (19:20)
[2018-02-14] MEDS: HYDROmorphone PF Inj 2 MG/ML Vial IV.PUSH PRN ×4 (02:42→22:28)
[2018-02-14] MEDS: Ketorolac Inj 30 MG/ML (IVP) Vial IV.PUSH SCH ×4 (05:47→23:41)
[2018-02-14 07:53] LABS: Baso % (Auto) 0.2 % (0.0-2.0); Eos # (Auto) 0.3 th/mm3 (0.0-0.4); Eos % (Auto) 1.7 % (0.0-4.0); Hematocrit 34.8 % (39.0-51.0); Hemoglobin 11.2 gm/dL (13.0-17.0); Lymph # (Auto) 0.7 th/mm3 (1.0-4.8); Lymph % (Auto) 4.8 % (9.0-44.0); Mean Corpuscular HGB Conc 32.3 % (32.0-36.0); Mean Corpuscular Hemoglobin 30.3 pg (27.0-34.0); Mean Corpuscular Volume 93.7 fL (80.0-100.0); Mean Platelet Volume 7.8 fL (7.0-11.0); Mono # (Auto) 1.1 th/mm3 (0.0-0.9); Mono % (Auto) 7.2 % (0.0-8.0); Neut % (Auto) 86.1 % (16.0-70.0); Platelet Count 243 th/mm3 (150-450); Red Blood Count 3.72 mil/mm3 (4.50-5.90); Red Cell Distribution Width 15.7 % (11.6-17.2); White Blood Count 15.1 th/mm3 (4.0-11.0)
[2018-02-14] MEDS: Carvedilol 6.25 MG Tablet PO SCH ×2 (10:04→22:32)
[2018-02-14] MEDS: Amiodarone 200 MG Tablet PO SCH (10:04)
[2018-02-14] MEDS: Enoxaparin Inj 100 MG/ML Syringe SQ SCH ×2 (10:04→22:31)
[2018-02-14] MEDS: Senna/Docusate Sodium 8.6/50 MG Tablet PO SCH ×2 (10:04→22:31)
[2018-02-14] MEDS: Heparin Central Flush 100 UNIT/ML 5 ML Vial IV.FLUSH SCH (10:06)
--- NOTE | 2018-02-14 11:36 | P.PN ---
Subjective Interval history: Follow-up visit for diverticulitis perforation, status post exploratory laparotomy with lysis of adhesions, sigmoid resection and colostomy. Patient is seen and evaluated resting in bed comfortably in no acute distress. He denies any increased abdominal discomfort, no vomiting, patient eating ice chips intermittently. Discussed with patient increasing mobility and if tolerated ambulating some to help with gastric motility. Patient denies any shortness of breath, cough, chest pain, headache or dizziness. Physical Exam Vital signs: Vital Signs 02/13/18 12:00 02/13/18 14:57 02/13/18 20:00 Temperature 98.1 F 98.4 F 97.7 F Pulse Rate 77 81 82 Respiratory Rate 19 19 18 Blood Pressure 108/58 L 116/61 124/59 L Pulse Oximetry 96 96 95 02/14/18 00:00 02/14/18 04:00 02/14/18 08:00 Temperature 98.8 F 98.3 F 98.2 F Pulse Rate 84 88 91 H Respiratory Rate 18 18 18 Blood Pressure 122/63 132/68 110/66 Pulse Oximetry 93 L 94 L 96 Intake & Output 02/13/18 02/14/18 02/14/18 18:59 06:59 18:59 Intake Total 2500 / 2500 5351.2 / 5351.2 Output Total 2076 / 2076 1275 / 1275 Balance 424 / 424 4076.2 / 4076.2 Weight 90 kg Intake: IV 1200 / 1200 5351.2 / 5351.2 Intralipid 20% Inj 250 ML @ 31. 250 / 250 25 mls/hr IV.CENTRAL Q24H [place] Rx#:[id number] LR 1000 mL Inj 1,000 ML @ 125 1000 / 1000 2000 / 2000 mls/hr IV.CONT .Q8H [place] Rx#: [id number] Levaquin 750 mg Premix Inj 150 150 / 150 ML @ 100 mls/hr IV.SIG Q24H [place] Rx#:[id number] MVI-12 Inj 10 ML Folvite Inj 1 2751.2 / 2751.2 MG In TPN Fluid 2 Liter 2,000 ML @ 70 mls/hr IV.SIG Q24H [place] Rx#:[id number] Flagyl 500 MG Inj 100 ML @ 100 200 / 200 200 / 200 mls/hr IV.SIG Q6H [place] Rx#: [id number] Oral 0 / 0 0 / 0 Anesthesia Amount 300 / 300 Other 1000 / 1000 Output: Urine 500 / 500 Stool / Estimated Blood Loss 500 / 500 Urine Amount (Catheter) 950 / 950 850 / 850 Indwelling Urethral Catheter 950 / 950 850 / 850 Stool Amount (Stoma) Colostomy Gastric Drainage 60 / 60 400 / 400 Right Nare Nasogastric Tube 60 / 60 400 / 400 Wound Drainage # 1 Right Lower Abdomen Other: Other Intake Source Saline Solution # Voids 1 Date of Last Bowel Movement 02/07/18 02/07/18 # Bowel Movements 0 Narrative: GENERAL: This is a well-nourished, well-developed patient, in no apparent distress. SKIN: Warm and dry. HEENT: Normocephalic. Pupils equal round and reactive. Nose without bleeding. Airway patent. NECK: Trachea midline. CARDIOVASCULAR: Regular rate and rhythm without murmurs. RESPIRATORY: Diminished bases. No wheezes, rales, or rhonchi. GASTROINTESTINAL: Abdomen distended, + bowel sounds in all quadrants. Midline dressing dry and intact, right lateral ELHAM drain with serosanguineous drainage, left quadrant ostomy, with pink stoma no gas or stool in bag. GENITOURINARY: Mccray catheter with clear yellow urine. MUSCULOSKELETAL: Extremities without clubbing, cyanosis, or edema. NEUROLOGICAL: Awake and alert. Oriented to time, place, person. Moves all extremities. Normal speech. - Urinary Catheter Management Indwelling Urethral Catheter Cath placed during this visit: yes Reason for continuing: Hourly intake/output Insertion date: 02/10/18 Insertion time: 08:00 Results - Labs CBC & Chem 7: 02/14/18 06:28 02/13/18 05:31 Laboratory Results - last 24 hr 02/13/18 02/13/18 02/13/18 11:30 18:42 23:53 WBC RBC Hgb Hct MCV MCH MCHC RDW Plt Count MPV Neut % (Auto) Lymph % (Auto) [place] % (Auto) Eos % (Auto) Baso % (Auto) Neut # (Auto) Lymph # (Auto) [place] # (Auto) Eos # (Auto) Baso # (Auto) WBC Differential Differential Comment POC Glucose 129 H 122 H 107 02/14/18 02/14/18 06:06 06:28 WBC 15.1 H RBC 3.72 L Hgb 11.2 L Hct 34.8 L MCV 93.7 MCH 30.3 MCHC 32.3 RDW 15.7 Plt Count 243 MPV 7.8 Neut % (Auto) 86.1 H Lymph % (Auto) 4.8 L [place] % (Auto) 7.2 Eos % (Auto) 1.7 Baso % (Auto) 0.2 Neut # (Auto) 13.0 H Lymph # (Auto) 0.7 L [place] # (Auto) 1.1 H Eos # (Auto) 0.3 Baso # (Auto) 0.0 WBC Differential . Differential Comment Auto diff final POC Glucose 115 H Microbiology 02/09/18 07:20 Blood - Peripheral Aerobic Blood Culture - Final No growth in 5 days 02/09/18 07:20 Blood - Peripheral Anaerobic Blood Culture - Final No growth in 5 days 02/09/18 07:25 Blood - Peripheral Aerobic Blood Culture - Final No growth in 5 days 02/09/18 07:25 Blood - Peripheral Anaerobic Blood Culture - Final No growth in 5 days - Procedures See hospital course Assessment and Plan - Assessment (1) Hypokalemia Code(s): E87.6 - Hypokalemia Status: Acute (2) Diverticulitis of colon with perforation Code(s): K57.20 - Diverticulitis of large intestine with perforation and abscess without bleeding Status: Acute (3) Afib Code(s): I48.91 - Unspecified atrial fibrillation Status: Acute - Plan Mr. Mccurdy is 57 year old male with a history of inguinal hernia repair who was admitted to the hospital due to lower abdominal pain. CT Abdomen/Pelvis suggest inflammatory process lower abdomen/pelvis, likely diverticulitis, several focal collections of gas to the right of the mid sigmoid colon, nonspecific possible extraluminal gas. Acute diverticulitis Distal small bowel obstruction perforated bowel -S/p Zosyn. -Greatly appreciate assistance. -CT scan of abd/pelvis on 02/02 showed perforated bowel. -Repeat CT scan on 02/07 continues to show persistent large volumes of free intraperitoneal air within the abdomen and pelvis indicating perforated bowel, air collection 7 cm in the pelvis which abuts the sigmoid colon and small bowel. Circumferential wall thickening in the urinary bladder likely representing secondary inflammation given adjacent changes in the pelvis. Trace bilateral pleural effusions. - S/P exploratory laparotomy, lysis of adhesions, sigmoid resection with end colonoscopy 02/10 -Mccray catheter to be removed in 57 days due to bladder repair during surgery -Continue IV Levaquin and Flagyl, n.p.o. with NG tube to low intermittent wall suction. -Currently on TPN and lipids. -Pain control with IV Dilaudid and Toradol - KUB with multiple dilated bowel loops likely postsurgical ileus -Abdomen distended but about the same, positive bowel sounds in all quadrants. History of atrial fibrillation/ Coagulopathy History of DVT -Patient is unable to provide specifics. However, he does report a history of DVT and afib. -He takes Warfarin -alternates between 7 mg and 6 mg tablets. -Currently on Lovenox therapeutic dose. Patient will eventually need to be transitioned to Coumadin. Hypokalemia/ Hypophosphatemia/hypomagnesemia S/t decreased PO intake. -replete and monitor. -Repeat labs stable. -Improvement in urinary output. PPx: SCD's subq Lovenox Discussed Condition With: Discussed with patient and RN (2) Diverticulitis of colon with perforation Qualifiers: Diverticulitis bleeding: without bleeding Qualified Code(s): K57.20 - Diverticulitis of large intestine with perforation and abscess without bleeding
--- NOTE | 2018-02-14 12:10 | P.PNWCN ---
Wound Care Nurse Consult Description: Consult for New Ostomy Teaching of Left abdomen for end colostomy per Dr Fuentes Communicated with: SANDRA Luo regarding no I.S. in room Patient Physical Therapy regarding patient not having been out of bed since surgery Recommendation: Monitor stoma for red/pink color, moisture, and output. Empty pouch of effluent when 1/3-1/2 full Change appliance Q5D and PRN for leaks. Additional information: Patient seen on for ostomy assessment and reinforcement of teaching. Also encouraged to get out of bed with P.T. today with frequent turning to relieve pressure. Bowel Diversion Stoma - Bowel Stoma Colostomy Stoma Appearance: Protruding (pink, moist with mucus), Round Collection Device: Two-piece Drainage Description: Liquid, Blood-Tinged (thickened post op drainage only. No effluent noted.) Wafer Size: 2 1/4 Moldable (intact) - Additional Information Additional Information: There is approximately 15-20ml of post op drainage noted in pouch that was not emptied by sba underwriter. Patient does not recall passing flatus. No stool is noted in pouch. Patient abdomen appears distended. Spoke with SANDRA Luo regarding no I.S. in room and patient has not been out of bed since surgery with no output. Bowel sounds audible during assessment of stoma noted to left side abdomen with 2piece intact wafer and pouch.
--- NOTE | 2018-02-14 12:37 | P.DIET ---
Nutritional Evaluation Type of nutrition evaluation: follow-up Nutrition consult regarding: TPN/PPN Objective - Diagnosis Diverticulitis w/ Perforation - Objective % IBW: 129 (GNA=958#) Body Weight Used for Calculations: IBW (70kg) Energy Needs - Lower Range (kCal/kg): 28 Energy Needs - Upper Range (kCal/kg): 32 Lower Limit kCal/kg (kCals): 1,960 Upper Limit kCal/kg (kCals): 2,240 Lower Limit Protein Factor (Grams per Kg): 1.2 Upper Limit Protein Factor (Grams per Kg): 1.4 Lower Protein Needs (Protein): 84 Upper Protein Needs (Protein): 98 Fluid Factor (ml/kg): 30 Estimated Fluid Needs (ml): 2,100 Dietitian Reviewed in Medical Record: Current diet, Curent medications, Intake & Output, Labs, TPN/PPN Diet Order: NPO Objective Comments: Labs: Triglycerides 59 (on 02/09) LBM 02/07-> no output via ostomy per WOC[facility] note Feeding - Current TPN/PPN Current TPN: Clinimix E 11/07 Current TPN/PPN Rate (ml/hr): 70 Amino Acid and Dextrose Current kCals Provided: 1,478 Amino Acid and Dextrose Current Protein Provided: 84 Current Lipid Concentration: 20% Current Lipids Rate: mls/hr over 24 hours: (31.25mls/hr x 8hrs daily) Current kCal Provided by TPN/PPN: 1,978 Carbohydrate Load (mg/kg/min): 3 Assessment Assessment: Pt remains on TPN and lipids as described above. Remains NPO w/ NGT in place. s/ p sigmoid resection w/ colostomy placement, but per EMR no output yet. Labs reviewed. Continue current TPN and lipid regimen. Recommend continuing to check triglyceride levels weekly while on TPN. RD following along. Recommendations: 1. Continue current TPN and lipid regimen. 2. Recommend continuing to check TG levels weekly while on TPN. 3. Advance diet per surgery. Dietitian to Monitor: Lab values, Electrolytes, Intake & Output, TPN/PPN tolerance, Diet advancement, Medical course
--- NOTE | 2018-02-14 14:15 | P.PNGS ---
Subjective Interval history: Pain is better. Has intermittent nausea mostly when receives pain meds. Physical Exam Vital signs: Vital Signs 02/13/18 14:57 02/13/18 20:00 02/14/18 00:00 Temperature 98.4 F 97.7 F 98.8 F Pulse Rate 81 82 84 Respiratory Rate 19 18 18 Blood Pressure 116/61 124/59 L 122/63 Pulse Oximetry 96 95 93 L 02/14/18 04:00 02/14/18 08:00 02/14/18 12:00 Temperature 98.3 F 98.2 F 98.6 F Pulse Rate 88 91 H 97 H Respiratory Rate 18 18 18 Blood Pressure 132/68 110/66 121/68 Pulse Oximetry 94 L 96 96 Intake & Output 02/13/18 02/14/18 02/14/18 18:59 06:59 18:59 Intake Total 2500 / 2500 5351.2 / 5351.2 1100 / 1100 Output Total 2076 / 2076 1275 / 1275 Balance 424 / 424 4076.2 / 4076.2 1100 / 1100 Weight 90 kg Intake: IV 1200 / 1200 5351.2 / 5351.2 1100 / 1100 Intralipid 20% Inj 250 ML @ 31. 250 / 250 25 mls/hr IV.CENTRAL Q24H [place] Rx#:[id number] LR 1000 mL Inj 1,000 ML @ 125 1000 / 1000 2000 / 2000 1000 / 1000 mls/hr IV.CONT .Q8H [place] Rx#: [id number] Levaquin 750 mg Premix Inj 150 150 / 150 ML @ 100 mls/hr IV.SIG Q24H [place] Rx#:[id number] MVI-12 Inj 10 ML Folvite Inj 1 2751.2 / 2751.2 MG In TPN Fluid 2 Liter 2,000 ML @ 70 mls/hr IV.SIG Q24H [facility] Rx#:[id number] Flagyl 500 MG Inj 100 ML @ 100 200 / 200 200 / 200 100 / 100 mls/hr IV.SIG Q6H [facility] Rx#: [id number] Oral 0 / 0 0 / 0 Anesthesia Amount 300 / 300 Other 1000 / 1000 Output: Urine 500 / 500 Stool 1 / 1 Estimated Blood Loss 500 / 500 Urine Amount (Catheter) 950 / 950 850 / 850 Indwelling Urethral Catheter 950 / 950 850 / 850 Stool Amount (Stoma) 35 / 35 15 / 15 Colostomy 35 / 35 15 / 15 Gastric Drainage 400 / 400 Right Nare Nasogastric Tube 400 / 400 Wound Drainage # 1 Right Lower Abdomen Other: Other Intake Source Saline Solution # Voids 1 Date of Last Bowel Movement 02/07/18 02/07/18 # Bowel Movements 0 Narrative: NAD, sitting up in chair Abd: mod distention, ng 460 bilious/24h, bandage c/d/i, ostomy pink with loose stool output, cristy ss - Urinary Catheter Management Indwelling Urethral Catheter Cath placed during this visit: yes Reason for continuing: Hourly intake/output Insertion date: 02/10/18 Insertion time: 08:00 Assessment and Plan - Assessment (1) Diverticulitis of colon with perforation Code(s): K57.20 - Diverticulitis of large intestine with perforation and abscess without bleeding Status: Acute - Plan POD 4 s/p ex lap sigmoid resection. Stable post op. Cont ng, npo. Start reglan. Stoma starting to function hopefully ng can be removed tomorrow. PRN dilaudid. Cont chu for 5-7 days as he had bladder repair during surgery. UOP improved. On therapeutic anticoagulation. (1) Diverticulitis of colon with perforation Qualifiers: Diverticulitis bleeding: without bleeding Qualified Code(s): K57.20 - Diverticulitis of large intestine with perforation and abscess without bleeding
[2018-02-14] MEDS: Multivitamin Inj 10 ML, Folic Acid Inj 1 MG in TPN Fluid 2 Liter 2,000 ML IV.SIG SCH (23:27)
[2018-02-15] MEDS: HYDROmorphone PF Inj 2 MG/ML Vial IV.PUSH PRN ×5 (01:36→21:49)
[2018-02-15] MEDS: Ketorolac Inj 30 MG/ML (IVP) Vial IV.PUSH SCH ×2 (06:18→13:51)
[2018-02-15 06:27] LABS: Baso % (Auto) 0.3 % (0.0-2.0); Eos # (Auto) 0.3 th/mm3 (0.0-0.4); Eos % (Auto) 3.6 % (0.0-4.0); Hematocrit 32.9 % (39.0-51.0); Hemoglobin 11.1 gm/dL (13.0-17.0); Lymph # (Auto) 1.1 th/mm3 (1.0-4.8); Lymph % (Auto) 13.2 % (9.0-44.0); Mean Corpuscular HGB Conc 33.7 % (32.0-36.0); Mean Corpuscular Hemoglobin 31.1 pg (27.0-34.0); Mean Corpuscular Volume 92.4 fL (80.0-100.0); Mean Platelet Volume 8.1 fL (7.0-11.0); Mono % (Auto) 12.2 % (0.0-8.0); Neut # (Auto) 5.7 th/mm3 (1.8-7.7); Neut % (Auto) 70.7 % (16.0-70.0); Platelet Count 246 th/mm3 (150-450); Red Blood Count 3.56 mil/mm3 (4.50-5.90); Red Cell Distribution Width 15.7 % (11.6-17.2)
--- NOTE | 2018-02-15 09:26 | P.PNWCN ---
Wound Care Nurse Consult Description: Consult for New Ostomy Teaching of Left abdomen for end colostomy per Dr Fuentes Communicated with: SANDRA Galdamez Recommendation: Please encourage patient to reposition from left to right sides and avoid DTI on coccyx area noted on today's assessment. Patient has an ostomy and a chu catheter. Patient should have one ultrasorb under him for moisture wicking. Cotton pull pads are not required as Patient is a minimal assist and needs to be reminded, encouraged, and assisted in repositioning Q2H. Monitor stoma for red/pink color, moisture, and output. Empty pouch of effluent when 1/3-1/2 full Change appliance Q5D and PRN for leaks. Additional information: Patient seen on for ostomy assessment and eval of new pressure injury to sacrum. Wound/Pressure Injury - Wound Coccyx Wound Staging: DTI Wound Type: Pressure Injury Is This a Chronic Wound: No Requested from Provider a Wound Care Consult: No Length: 3 (cm) Width: 4 (cm) Depth: 0 Wound Bed Appearance: dry purple non blanching discoloration indicating a DEEP TISSUE INJURY Drainage Amount: None Dressing Status: Open to Air Topical: Calazime skin protectant paste - Additional Information Patient states that he has a wound on his bottom now. Patient was further assisted to his right side for assessment. Gluteal cleft/coccyx areas noted with a DTI with approximated wound measurements above. Calazime noted and appropriately placed prior to assessment. Bowel Diversion Stoma - Bowel Stoma Colostomy Stoma Edema: Yes (mild) Stoma Appearance: Protruding (pink, moist with mucus), Round Loop Supporting Edwin: No Collection Device: Two-piece Drainage Description: Liquid, Green Wafer Size: 2 1/4 Moldable (intact) Stoma Care: Pouch and Wafer Changed (today by day shift nurse Denice) - Additional Information Additional Information: There is approximately 15ml of green effluent noted in pouch that was not emptied by speech writer. Patient states that he wants the NG tube out and needs to talk to the surgeon. Patient abdomen appears less distended than previously noted upon last assessment by speech writer on Wednesday02/14/18. Spoke with SANDRA Galdamez regarding the fact that there is still no I.S. in room. Bowel sounds audible during assessment of stoma noted to left side abdomen with 2piece intact wafer and pouch.
[2018-02-15] MEDS: Enoxaparin Inj 100 MG/ML Syringe SQ SCH ×2 (09:54→20:10)
[2018-02-15] MEDS: Heparin Central Flush 100 UNIT/ML 5 ML Vial IV.FLUSH SCH (09:54)
[2018-02-15] MEDS: Amiodarone 200 MG Tablet PO SCH (09:56)
[2018-02-15] MEDS: Carvedilol 6.25 MG Tablet PO SCH ×2 (09:56→20:10)
[2018-02-15] MEDS: Senna/Docusate Sodium 8.6/50 MG Tablet PO SCH ×2 (11:42→20:10)
--- NOTE | 2018-02-15 15:32 | P.PN ---
Subjective Interval history: Patient is seen lying in bed. He is very unhappy about having "so many things hooked up to him". He is particularly upset about his NG tube and thinks that it should be taken out. He denies any chest pain or shortness of breath. No nausea or vomiting. Ostomy is functioning well. No fever or chills. Physical Exam Vital signs: Vital Signs 02/14/18 16:00 02/14/18 20:00 02/15/18 08:00 Temperature 97.5 F L 98.7 F 98.6 F Pulse Rate 88 97 H 90 Respiratory Rate 18 18 16 Blood Pressure 101/55 L 105/51 L 111/62 Pulse Oximetry 96 96 95 02/15/18 12:00 Temperature 97.7 F Pulse Rate 91 H Respiratory Rate 16 Blood Pressure 110/60 Pulse Oximetry 96 Intake & Output 02/14/18 02/15/18 02/15/18 18:59 06:59 18:59 Intake Total 1200 / 1200 2469.2 / 2469.2 1500 / 1500 Output Total 2920 / 2920 820 / 820 1450 / 1450 Balance -1720 / -1720 1649.2 / 1649.2 50 / 50 Weight 96.4 kg Intake: IV 1200 / 1200 2469.2 / 2469.2 1500 / 1500 Intralipid 20% Inj 250 ML @ 31. 250 / 250 25 mls/hr IV.CENTRAL Q24H [place] Rx#:[id number] LR 1000 mL Inj 1,000 ML @ 125 1000 / 1000 1000 / 1000 1000 / 1000 mls/hr IV.CONT .Q8H [facility] Rx#: [id number] Levaquin 750 mg Premix Inj 150 150 / 150 ML @ 100 mls/hr IV.SIG Q24H [facility] Rx#:[id number] MVI-12 Inj 10 ML Folvite Inj 1 1269.2 / 1269.2 MG In TPN Fluid 2 Liter 2,000 ML @ 70 mls/hr IV.SIG Q24H [facility] Rx#:[id number] Flagyl 500 MG Inj 100 ML @ 100 200 / 200 200 / 200 100 / 100 mls/hr IV.SIG Q6H [facility] Rx#: [id number] Output: Urine 450 / 450 Stool 350 / 350 Urine Amount (Catheter) 500 / 500 250 / 250 Indwelling Urethral Catheter 500 / 500 250 / 250 Stool Amount (Stoma) 600 / 600 1200 / 1200 Colostomy 600 / 600 1200 / 1200 Gastric Drainage 1800 / 1800 Right Nare Nasogastric Tube 1800 / 1800 Wound Drainage # 1 Right Lower Abdomen 20 Wound Vac Amount Right Abdomen Other: Mode Setting Right Abdomen Continuous Date of Last Bowel Movement 02/07/18 02/15/18 Narrative: GENERAL: This is a well-nourished, well-developed patient, in no apparent distress. SKIN: Warm and dry. HEENT: Normocephalic. Pupils equal round and reactive. Nose without bleeding. Airway patent. NG tube to low intermittent wall suction. NECK: Trachea midline. CARDIOVASCULAR: Regular rate and rhythm without murmurs. RESPIRATORY: Diminished bases. No wheezes, rales, or rhonchi. GASTROINTESTINAL: Abdomen distended, + bowel sounds in all quadrants. Midline dressing dry and intact, right lateral ELHAM drain with serosanguineous drainage, left quadrant ostomy, with pink stoma no gas or stool in bag. GENITOURINARY: Mccray catheter with clear yellow urine. MUSCULOSKELETAL: Extremities without clubbing, cyanosis, or edema. NEUROLOGICAL: Awake and alert. Oriented to time, place, person. Moves all extremities. Normal speech. - Urinary Catheter Management Indwelling Urethral Catheter Cath placed during this visit: yes Reason for continuing: Hourly intake/output Insertion date: 02/10/18 Insertion time: 08:00 Results - Labs CBC & Chem 7: 02/15/18 05:41 02/13/18 05:31 Laboratory Results - last 24 hr 02/15/18 02/15/18 05:41 13:29 WBC 8.0 RBC 3.56 L Hgb 11.1 L Hct 32.9 L MCV 92.4 MCH 31.1 MCHC 33.7 RDW 15.7 Plt Count 246 MPV 8.1 Neut % (Auto) 70.7 H Lymph % (Auto) 13.2 [place] % (Auto) 12.2 H Eos % (Auto) 3.6 Baso % (Auto) 0.3 Neut # (Auto) 5.7 Lymph # (Auto) 1.1 [place] # (Auto) 1.0 H Eos # (Auto) 0.3 Baso # (Auto) 0.0 WBC Differential . Differential Comment Auto diff final POC Glucose 122 H - Procedures See hospital course Assessment and Plan - Assessment (1) Hypokalemia Code(s): E87.6 - Hypokalemia Status: Acute (2) Diverticulitis of colon with perforation Code(s): K57.20 - Diverticulitis of large intestine with perforation and abscess without bleeding Status: Acute (3) Afib Code(s): I48.91 - Unspecified atrial fibrillation Status: Acute - Plan Mr. Mccurdy is 57 year old male with a history of inguinal hernia repair who was admitted to the hospital due to lower abdominal pain. CT Abdomen/Pelvis suggest inflammatory process lower abdomen/pelvis, likely diverticulitis, several focal collections of gas to the right of the mid sigmoid colon, nonspecific possible extraluminal gas. Acute diverticulitis Distal small bowel obstruction perforated bowel -S/p Zosyn. -Surgery consult ;greatly appreciate assistance. -CT scan of abd/pelvis on 02/02 showed perforated bowel. -Repeat CT scan on 02/07 continues to show persistent large volumes of free intraperitoneal air within the abdomen and pelvis indicating perforated bowel, air collection 7 cm in the pelvis which abuts the sigmoid colon and small bowel. Circumferential wall thickening in the urinary bladder likely representing secondary inflammation given adjacent changes in the pelvis. Trace bilateral pleural effusions. - S/P exploratory laparotomy, lysis of adhesions, sigmoid resection with end colonoscopy 02/10 -Mccray catheter to be removed in 57 days due to bladder repair during surgery -Continue IV Levaquin and Flagyl, n.p.o. with NG tube to low intermittent wall suction. -Currently on TPN and lipids. -Pain control with IV Dilaudid and Toradol - KUB with multiple dilated bowel loops likely postsurgical ileus -Abdomen distended but about the same, positive bowel sounds in all quadrants. History of atrial fibrillation/ Coagulopathy History of DVT -Patient is unable to provide specifics. However, he does report a history of DVT and afib. -He takes Warfarin -alternates between 7 mg and 6 mg tablets. -Currently on Lovenox therapeutic dose. Patient will eventually need to be transitioned to Coumadin. Hypokalemia/ Hypophosphatemia/hypomagnesemia S/t decreased PO intake. -replete and monitor. -Repeat labs stable. -Improvement in urinary output. PPx: SCD's subq Lovenox Discussed Condition With: Discussed with patient and RN (2) Diverticulitis of colon with perforation Qualifiers: Diverticulitis bleeding: without bleeding Qualified Code(s): K57.20 - Diverticulitis of large intestine with perforation and abscess without bleeding
[2018-02-15] MEDS: Multivitamin Inj 10 ML, Folic Acid Inj 1 MG in TPN Fluid 2 Liter 2,000 ML IV.SIG SCH (20:08)
[2018-02-16] MEDS: HYDROmorphone PF Inj 2 MG/ML Vial IV.PUSH PRN ×2 (01:06→04:18)
[2018-02-16] MEDS: Enoxaparin Inj 100 MG/ML Syringe SQ SCH ×2 (08:52→23:40)
[2018-02-16] MEDS: Carvedilol 6.25 MG Tablet PO SCH ×2 (08:52→23:39)
[2018-02-16] MEDS: Amiodarone 200 MG Tablet PO SCH (08:52)
[2018-02-16] MEDS: Senna/Docusate Sodium 8.6/50 MG Tablet PO SCH ×2 (08:52→23:39)
[2018-02-16] MEDS: Heparin Central Flush 100 UNIT/ML 5 ML Vial IV.FLUSH SCH (10:01)
[2018-02-16] MEDS ORDERED: LORazepam 0.5 MG Tablet PO PRN (10:23)
[2018-02-16 10:24] LABS: Anion Gap 6 meq/L (5-15); Blood Urea Nitrogen 11 mg/dL (7-18); Calcium 7.6 mg/dL (8.5-10.1); Carbon Dioxide 30.7 meq/L (21.0-32.0); Chloride 103 meq/L (98-107); Glomerular Filtration Rate Greater Than 89 mL/min (>89); Glucose,Random 121 mg/dL (74-106); Potassium 3.9 meq/L (3.5-5.1); Sodium 140 meq/L (136-145)
--- NOTE | 2018-02-16 13:16 | P.PNGS ---
Subjective Interval history: He pulled out ngt. Was not having nausea since clamped yesterday and would have been removed anyway. UOP is adequate. Denies nausea except with narcotic administration. Colostomy with liquid output. He has been refusing PT and not really getting out of bed much. Physical Exam Vital signs: Vital Signs 02/15/18 20:21 02/16/18 00:00 02/16/18 00:30 Temperature 98.1 F 99.1 F Pulse Rate 94 H 94 H Respiratory Rate 18 17 Blood Pressure 106/57 L 122/62 Pulse Oximetry 93 L 95 02/16/18 04:00 02/16/18 08:00 02/16/18 08:40 Temperature 99.0 F 98.0 F Pulse Rate 98 H 95 H Respiratory Rate 18 Blood Pressure 128/69 128/75 Pulse Oximetry 96 96 Intake & Output 02/15/18 02/16/18 02/16/18 18:59 06:59 18:59 Intake Total 1600 / 1600 2260.2 / 2260.2 1450 / 1450 Output Total 1450 / 1450 500 / 500 620 / 620 Balance 150 / 150 1760.2 / 1760.2 830 / 830 Weight 96.4 kg Intake: IV 1600 / 1600 2260.2 / 2260.2 1450 / 1450 Intralipid 20% Inj 250 ML @ 31. 250 / 250 250 / 250 25 mls/hr IV.CENTRAL Q24H [place] Rx#:[id number] LR 1000 mL Inj 1,000 ML @ 125 1000 / 1000 1000 / 1000 mls/hr IV.CONT .Q8H [place] Rx#: [id number] Levaquin 750 mg Premix Inj 150 150 / 150 150 / 150 ML @ 100 mls/hr IV.SIG Q24H [place] Rx#:[id number] MVI-12 Inj 10 ML Folvite Inj 1 2009.2 / 2009.2 MG In TPN Fluid 2 Liter 2,000 ML @ 70 mls/hr IV.SIG Q24H [facility] Rx#:[id number] Flagyl 500 MG Inj 100 ML @ 100 200 / 200 100 / 100 200 / 200 mls/hr IV.SIG Q6H [place] Rx#: [id number] Output: Urine Amount (Catheter) 250 / 250 400 / 400 600 / 600 Indwelling Urethral Catheter 250 / 250 400 / 400 600 / 600 Stool Amount (Stoma) 1200 / 1200 100 / 100 Colostomy 1200 / 1200 100 / 100 Wound Drainage # 1 Right Lower Abdomen Other: Date of Last Bowel Movement 02/15/18 02/15/18 02/16/18 Narrative: NAD, sitting in chair Abd: GILBERTO ss, colostomy pink with liquid output, angela bandage in place, moderate distention Chu with liam urine Superior gluteal crease he has stage 1 pressure ulcer - Urinary Catheter Management Indwelling Urethral Catheter Cath placed during this visit: yes Reason for continuing: Hourly intake/output Insertion date: 02/10/18 Insertion time: 08:00 Assessment and Plan - Plan POD 6 s/p ex lap sigmoid resection. Stable post op. Leave NGT out. Start clears. D/c dilaudid start lortab. Check cystogram in am possibly dc chu tomorrow. On therapeutic anticoagulation. WBC nml- cont IV antibiotics for now may be able to stop in a few days. Gilberto drain output decreasing will likely remove tomorrow.
--- NOTE | 2018-02-16 15:36 | P.PN ---
Subjective Interval history: Patient is seen lying in bed. He is very verbally abusive to me. Staff reports that he has also been abusive to them. Is threatening to pull out his NG tube. Physical Exam Vital signs: Vital Signs 02/15/18 20:21 02/16/18 00:00 02/16/18 00:30 Temperature 98.1 F 99.1 F Pulse Rate 94 H 94 H Respiratory Rate 18 18 17 Blood Pressure 106/57 L 122/62 Pulse Oximetry 93 L 95 02/16/18 04:00 02/16/18 08:00 02/16/18 08:40 Temperature 99.0 F 98.0 F Pulse Rate 98 H 95 H Respiratory Rate 18 18 18 Blood Pressure 128/69 128/75 Pulse Oximetry 96 96 02/16/18 12:00 Temperature Pulse Rate 91 H Respiratory Rate 18 Blood Pressure 160/75 H Pulse Oximetry 97 Intake & Output 02/15/18 02/16/18 02/16/18 18:59 06:59 18:59 Intake Total 1600 / 1600 2260.2 / 2260.2 1450 / 1450 Output Total 1450 / 1450 500 / 500 620 / 620 Balance 150 / 150 1760.2 / 1760.2 830 / 830 Weight 96.4 kg Intake: IV 1600 / 1600 2260.2 / 2260.2 1450 / 1450 Intralipid 20% Inj 250 ML @ 31. 250 / 250 250 / 250 25 mls/hr IV.CENTRAL Q24H [place] Rx#:[id number] LR 1000 mL Inj 1,000 ML @ 125 1000 / 1000 1000 / 1000 mls/hr IV.CONT .Q8H [place] Rx#: [id number] Levaquin 750 mg Premix Inj 150 150 / 150 150 / 150 ML @ 100 mls/hr IV.SIG Q24H [place] Rx#:[id number] MVI-12 Inj 10 ML Folvite Inj 1 2009.2 / 2010.2 MG In TPN Fluid 2 Liter 2,000 ML @ 70 mls/hr IV.SIG Q24H [facility] Rx#:[id number] Flagyl 500 MG Inj 100 ML @ 100 200 / 200 100 / 100 200 / 200 mls/hr IV.SIG Q6H [place] Rx#: [id number] Output: Urine Amount (Catheter) 250 / 250 400 / 400 600 / 600 Indwelling Urethral Catheter 250 / 250 400 / 400 600 / 600 Stool Amount (Stoma) 1200 / 1200 100 / 100 Colostomy 1200 / 1200 100 / 100 Wound Drainage # 1 Right Lower Abdomen Other: Date of Last Bowel Movement 02/15/18 02/15/18 02/16/18 Narrative: GENERAL: This is a well-nourished, well-developed patient, in no apparent distress. SKIN: Warm and dry. HEENT: Normocephalic. Pupils equal round and reactive. Nose without bleeding. Airway patent. NG tube to low intermittent wall suction. NECK: Trachea midline. CARDIOVASCULAR: Regular rate and rhythm without murmurs. RESPIRATORY: Diminished bases. No wheezes, rales, or rhonchi. GASTROINTESTINAL: Abdomen distended, + bowel sounds in all quadrants. Midline dressing dry and intact, right lateral ELHAM drain with serosanguineous drainage, left quadrant ostomy, with pink stoma w/ gas and liquid in bag. GENITOURINARY: Mccray catheter with clear yellow urine. MUSCULOSKELETAL: Extremities without clubbing, cyanosis, or edema. NEUROLOGICAL: Awake and alert. Oriented to time, place, person. Moves all extremities. Normal speech. - Urinary Catheter Management Indwelling Urethral Catheter Cath placed during this visit: yes Reason for continuing: Hourly intake/output Insertion date: 02/10/18 Insertion time: 08:00 Results - Labs CBC & Chem 7: 02/15/18 05:41 02/16/18 09:20 Laboratory Results - last 24 hr 02/15/18 02/16/18 02/16/18 20:35 08:11 09:20 Sodium 140 Potassium 3.9 Chloride 103 Carbon Dioxide 30.7 Anion Gap 6 BUN 11 Creatinine 0.65 Estimated GFR Greater than 89 POC Glucose 114 H 121 H Random Glucose 121 H Calcium 7.6 L - Procedures See hospital course Assessment and Plan - Assessment (1) Hypokalemia Code(s): E87.6 - Hypokalemia Status: Acute (2) Diverticulitis of colon with perforation Code(s): K57.20 - Diverticulitis of large intestine with perforation and abscess without bleeding Status: Acute (3) Afib Code(s): I48.91 - Unspecified atrial fibrillation Status: Acute - Plan Mr. Mccurdy is 57 year old male with a history of inguinal hernia repair who was admitted to the hospital due to lower abdominal pain. CT Abdomen/Pelvis suggest inflammatory process lower abdomen/pelvis, likely diverticulitis, several focal collections of gas to the right of the mid sigmoid colon, nonspecific possible extraluminal gas. Acute diverticulitis Distal small bowel obstruction perforated bowel -S/p Zosyn. -Surgery consult ;greatly appreciate assistance. -CT scan of abd/pelvis on 02/02 showed perforated bowel. -Repeat CT scan on 02/07 continues to show persistent large volumes of free intraperitoneal air within the abdomen and pelvis indicating perforated bowel, air collection 7 cm in the pelvis which abuts the sigmoid colon and small bowel. Circumferential wall thickening in the urinary bladder likely representing secondary inflammation given adjacent changes in the pelvis. Trace bilateral pleural effusions. - S/P exploratory laparotomy, lysis of adhesions, sigmoid resection with end colonoscopy 02/10 -Mccray catheter to be removed in 57 days due to bladder repair during surgery -cystogram planned for 02/17 -Continue IV Levaquin and Flagyl, -Patient removed NG tube. Okay to leave out per surgery. Start clear liquid. -Currently on TPN and lipids. -Pain control d/c Dilaudid; start Lortab - KUB with multiple dilated bowel loops likely postsurgical ileus -Abdomen distended but about the same, positive bowel sounds in all quadrants. History of atrial fibrillation/ Coagulopathy History of DVT -Patient is unable to provide specifics. However, he does report a history of DVT and afib. -He takes Warfarin -alternates between 7 mg and 6 mg tablets. -Currently on Lovenox therapeutic dose. Patient will eventually need to be transitioned to Coumadin. Hypokalemia/ Hypophosphatemia/hypomagnesemia S/t decreased PO intake. -replete and monitor. -Repeat labs stable. -Improvement in urinary output. PPx: SCD's subq Lovenox Discussed Condition With: Discussed with patient and RN (2) Diverticulitis of colon with perforation Qualifiers: Diverticulitis bleeding: without bleeding Qualified Code(s): K57.20 - Diverticulitis of large intestine with perforation and abscess without bleeding
--- NOTE | 2018-02-16 17:56 | P.PNWCN ---
Wound Care Nurse Consult Description: Patient seen for follow up of colostomy teaching covering for Giselle IBARRA Communicated with: SANDRA Khan [address] [place] [address] director community center, Carlie FLORES [address] [place] [address] Recommendation: Please encourage patient to reposition from left to right sides and avoid DTI on coccyx area noted on previous assessment Patient has an ostomy. Patient should have one ultrasorb under him for moisture wicking. Cotton pull pads are not required as Patient is a minimal assist and needs to be reminded, encouraged, and assisted in repositioning Q2H. Monitor stoma for red/pink color, moisture, and output. Empty pouch of effluent when 1/3-1/2 full Change appliance Q5D and PRN for leaks. Wound/Pressure Injury - Wound Right Abdomen Dressing Status: Dry & Intact Incision - Incision Abdomen Other Cover Dressing: MARKEL Bowel Diversion Stoma - Bowel Stoma Colostomy Stoma Edema: Yes (mild) Stoma Appearance: Beefy Red Loop Supporting Edwin: No Collection Device: Two-piece Drainage Description: Liquid, Green Wafer Size: 2 1/4 Moldable Zaira-Stomal Surrounding Tissue Sensation Description: No Symptoms - Additional Information Additional Information: Patient seen on [address] [place] [address], for follow up teaching for colostomy to LLQ of abdomen. Patient is sleeping and is not ready for teaching at this time. Patient allowed commercial lines underwriter to view stoma and pouching system. Stoma presents as red and round visible through transparent pouch. Emptied 150 ml of green liquid effluent from pouch. Two piece 2 1/4 appliance is dry and intact. Spoke with front of house manager, Erin, Doctor Alfredo wrote order for MARKEL dressing change. Erin will change tomorrow and will call wound care if assistance is needed.
[2018-02-16] MEDS: Multivitamin Inj 10 ML, Folic Acid Inj 1 MG in TPN Fluid 2 Liter 2,000 ML IV.SIG SCH (23:41)
[2018-02-17] MEDS: Melatonin 5 MG Tablet PO PRN (02:17)
[2018-02-17] MEDS: Carvedilol 6.25 MG Tablet PO SCH ×2 (08:36→21:56)
[2018-02-17] MEDS: Amiodarone 200 MG Tablet PO SCH (08:36)
[2018-02-17] MEDS: Senna/Docusate Sodium 8.6/50 MG Tablet PO SCH ×2 (08:37→21:56)
[2018-02-17] MEDS: Heparin Central Flush 100 UNIT/ML 5 ML Vial IV.FLUSH SCH (08:37)
[2018-02-17] MEDS: Enoxaparin Inj 100 MG/ML Syringe SQ SCH ×2 (08:37→21:56)
[2018-02-17] MEDS ORDERED: Diatrizoate Meglumine 30% Inj 300 ML Bottle (for RAD DIAG) I-VESICULR ONE (10:10)
--- NOTE | 2018-02-17 10:21 | P.DIET ---
Nutritional Evaluation Type of nutrition evaluation: follow-up Nutrition consult regarding: TPN/PPN Objective - Diagnosis Diverticulitis w/ Perforation - Objective % IBW: 135 (CAO=772#) Body Weight Used for Calculations: IBW (70kg) Energy Needs - Lower Range (kCal/kg): 28 Energy Needs - Upper Range (kCal/kg): 32 Lower Limit kCal/kg (kCals): 1,960 Upper Limit kCal/kg (kCals): 2,240 Lower Limit Protein Factor (Grams per Kg): 1.2 Upper Limit Protein Factor (Grams per Kg): 1.4 Lower Protein Needs (Protein): 84 Upper Protein Needs (Protein): 98 Fluid Factor (ml/kg): 30 Estimated Fluid Needs (ml): 2,100 Dietitian Reviewed in Medical Record: Current diet, Curent medications, Intake & Output, Labs, TPN/PPN Diet Order: Clear Liquids Wound Care Note: 02/15 WOCN: DTI to coccyx Objective Comments: Labs: Triglycerides 59 (on 02/09) Pulled out NGT Feeding - Current TPN/PPN Current TPN: Clinimix E 11/07 Current TPN/PPN Rate (ml/hr): 70 Amino Acid and Dextrose Current kCals Provided: 1,478 Amino Acid and Dextrose Current Protein Provided: 84 Current Lipid Concentration: 20% Current Lipids Rate: mls/hr over 24 hours: (31.25mls/hr x 8hrs daily) Current kCal Provided by TPN/PPN: 1,978 Carbohydrate Load (mg/kg/min): 3 Assessment Assessment: Pt remains on TPN and lipids as described above. Now on Clear Liquids. Pt removed his NGT. s/p sigmoid resection w/ colostomy placement. WOCN note states new DTI to coccyx. Labs reviewed. Continue current TPN and lipid regimen. Recommend continuing to check triglyceride levels weekly while on TPN. RD following along. Recommendations: 1. Continue current TPN and lipid regimen. 2. Recommend continuing to check TG levels weekly while on TPN. 3. Advance diet per surgery. Dietitian to Monitor: Lab values, Electrolytes, Intake & Output, TPN/PPN tolerance, PO Intake, Diet advancement, Medical course
--- NOTE | 2018-02-17 10:59 | FL ---
EXAM DATE: 02/17/2018 10:44 AM EDT AGE/SEX: 57 years / Male INDICATIONS: Evaluate for leaks in bladder one week post sigmoid resection and bladder repair CLINICAL DATA: This is the patient's subsequent encounter. Patient reports that signs and symptoms h ave been present for 1 week and indicates a pain score of 5/10. MEDICAL/SURGICAL HISTORY: Diverticulitis. Colon resection. COMPARISON: No prior exams available for comparison. FINDINGS: Tank Stave Assembler film: Patient status post recent abdominal surgery. There are some air-filled loops of small an d large bowel suggestive of an ileus. There are some drainage catheters in the lower pelvis. There is a Mccray catheter in the bladder. Contrast was allowed to fill the urinary bladder under grav ity in retrograde fashion to adequate distention and post images in multiple obliquities were obtaine d. Approximately 280 cc of contrast was infused into the urinary bladder. Incidental finding of a sma ll bladder diverticulum on the right side. There was no evidence of any leak outside the urinary blad alok. The post film is unremarkable. CONCLUSION: Unremarkable cystogram. No evidence of leak. Electronically signed by: Beto Pabon MD 02/17/2018 10:58 AM EDT
--- NOTE | 2018-02-17 11:43 | P.PN ---
Subjective Interval history: Patient is seen lying quietly in bed. He is less agitated today. Denies any abdominal discomfort, nausea or vomiting. No chest pain or shortness of breath. Physical Exam Vital signs: Vital Signs 02/16/18 12:00 02/16/18 16:00 02/16/18 20:00 Temperature 97.2 F L 98.4 F Pulse Rate 91 H 90 91 H Respiratory Rate 18 18 17 Blood Pressure 160/75 H 121/67 121/71 Pulse Oximetry 97 97 96 02/17/18 00:00 02/17/18 01:30 02/17/18 04:00 Temperature 98.2 F 98.8 F Pulse Rate 87 82 Respiratory Rate 18 17 17 Blood Pressure 132/72 117/64 Pulse Oximetry 97 97 02/17/18 07:26 02/17/18 07:27 02/17/18 08:00 Temperature 98.0 F Pulse Rate 83 Respiratory Rate 18 18 16 Blood Pressure 109/59 L Pulse Oximetry 95 Intake & Output 02/16/18 02/17/18 02/17/18 18:59 06:59 18:59 Intake Total 2420 / 2420 3350.2 / 3350.2 1450 / 1450 Output Total 3045 / 3045 3275 / 3275 260 / 260 Balance -625 / -625 75.2 / 75.2 1190 / 1190 Weight 94.2 kg Intake: IV 1700 / 1700 3110.2 / 3110.2 1450 / 1450 Intralipid 20% Inj 250 ML @ 31. 250 / 250 250 / 250 25 mls/hr IV.CENTRAL Q24H [place] Rx#:[id number] LR 1000 mL Inj 1,000 ML @ 125 1000 / 1000 1000 / 1000 1000 / 1000 mls/hr IV.CONT .Q8H [facility] Rx#: [id number] Levaquin 750 mg Premix Inj 150 150 / 150 ML @ 100 mls/hr IV.SIG Q24H [place] Rx#:[id number] MVI-12 Inj 10 ML Folvite Inj 1 2009.2 / 2010.2 MG In TPN Fluid 2 Liter 2,000 ML @ 70 mls/hr IV.SIG Q24H [place] Rx#:[id number] Flagyl 500 MG Inj 100 ML @ 100 300 / 300 100 / 100 200 / 200 mls/hr IV.SIG Q6H [place] Rx#: [id number] Oral 720 / 720 240 / 240 Output: Urine 825 / 825 1775 / 1775 Urine Amount (Catheter) 1600 / 1600 1250 / 1250 Indwelling Urethral Catheter 1600 / 1600 1250 / 1250 Stool Amount (Stoma) 600 / 600 250 / 250 250 / 250 Colostomy 600 / 600 250 / 250 250 / 250 Wound Drainage # 1 Right Lower Abdomen Other: Date of Last Bowel Movement 02/16/18 02/16/18 Narrative: GENERAL: This is a well-nourished, well-developed patient, in no apparent distress. SKIN: Warm and dry. HEENT: Normocephalic. Pupils equal round and reactive. Nose without bleeding. Airway patent. NECK: Trachea midline. CARDIOVASCULAR: Regular rate and rhythm without murmurs. RESPIRATORY: Diminished bases. No wheezes, rales, or rhonchi. GASTROINTESTINAL: Abdomen distended, + bowel sounds in all quadrants. Midline dressing dry and intact, right lateral ELHAM drain with serosanguineous drainage, left quadrant ostomy, with pink stoma w/ gas and liquid in bag. GENITOURINARY: Mccray catheter with clear yellow urine. MUSCULOSKELETAL: Extremities without clubbing, cyanosis, or edema. NEUROLOGICAL: Awake and alert. Oriented to time, place, person. Moves all extremities. Normal speech. - Urinary Catheter Management Indwelling Urethral Catheter Cath placed during this visit: yes Reason for continuing: Hourly intake/output Insertion date: 02/10/18 Insertion time: 08:00 Results - Labs CBC & Chem 7: 02/15/18 05:41 02/16/18 09:20 Laboratory Results - last 24 hr 02/16/18 02/17/18 18:46 08:40 POC Glucose 131 H 124 H - Imaging Impressions Cystogram 02/17/18 00:00 CONCLUSION: Unremarkable cystogram. No evidence of leak. - Procedures See hospital course Assessment and Plan - Assessment (1) Hypokalemia Code(s): E87.6 - Hypokalemia Status: Acute (2) Diverticulitis of colon with perforation Code(s): K57.20 - Diverticulitis of large intestine with perforation and abscess without bleeding Status: Acute (3) Afib Code(s): I48.91 - Unspecified atrial fibrillation Status: Acute - Plan Mr. Mccurdy is 57 year old male with a history of inguinal hernia repair who was admitted to the hospital due to lower abdominal pain. CT Abdomen/Pelvis suggest inflammatory process lower abdomen/pelvis, likely diverticulitis, several focal collections of gas to the right of the mid sigmoid colon, nonspecific possible extraluminal gas. Acute diverticulitis Distal small bowel obstruction perforated bowel -S/p Zosyn. -Surgery consult ;greatly appreciate assistance. -CT scan of abd/pelvis on 02/02 showed perforated bowel. -Repeat CT scan on 02/07 continues to show persistent large volumes of free intraperitoneal air within the abdomen and pelvis indicating perforated bowel, air collection 7 cm in the pelvis which abuts the sigmoid colon and small bowel. Circumferential wall thickening in the urinary bladder likely representing secondary inflammation given adjacent changes in the pelvis. Trace bilateral pleural effusions. - S/P exploratory laparotomy, lysis of adhesions, sigmoid resection with end colonoscopy 02/10 -Mccray catheter to be removed in 57 days due to bladder repair during surgery -cystogram on 02/17 was unremarkable with no evidence of leak. -Continue IV Levaquin and Flagyl, -Patient removed NG tube 02/16. Okay to leave out per surgery. Start clear liquid. -Currently on TPN and lipids. -Pain control d/c Dilaudid; start Lortab - KUB with multiple dilated bowel loops likely postsurgical ileus History of atrial fibrillation/ Coagulopathy History of DVT -Patient is unable to provide specifics. However, he does report a history of DVT and afib. -He takes Warfarin -alternates between 7 mg and 6 mg tablets. -Currently on Lovenox therapeutic dose. Patient will eventually need to be transitioned to Coumadin. Hypokalemia/ Hypophosphatemia/hypomagnesemia S/t decreased PO intake. -replete and monitor. -Repeat labs stable. -Improvement in urinary output. PPx: SCD's subq Lovenox Discussed Condition With: Discussed with patient and RN (2) Diverticulitis of colon with perforation Qualifiers: Diverticulitis bleeding: without bleeding Qualified Code(s): K57.20 - Diverticulitis of large intestine with perforation and abscess without bleeding
--- NOTE | 2018-02-17 17:21 | P.PNGS ---
Subjective Interval history: Sitting up in chair. Denies nausea. MARKEL dressing changed by charge Megan and incision was intact without erythema or drainage. Physical Exam Vital signs: Vital Signs 02/16/18 20:00 02/17/18 00:00 02/17/18 01:30 Temperature 98.4 F 98.2 F Pulse Rate 91 H 87 Respiratory Rate 17 18 17 Blood Pressure 121/71 132/72 Pulse Oximetry 96 97 02/17/18 04:00 02/17/18 07:26 02/17/18 07:27 Temperature 98.8 F Pulse Rate 82 Respiratory Rate 17 18 18 Blood Pressure 117/64 Pulse Oximetry 97 02/17/18 08:00 02/17/18 11:54 02/17/18 15:31 Temperature 98.0 F 97.9 F Pulse Rate 83 78 Respiratory Rate 16 16 18 Blood Pressure 109/59 L 109/59 L Pulse Oximetry 95 96 02/17/18 16:00 Temperature 97.9 F Pulse Rate 84 Respiratory Rate 20 Blood Pressure 115/64 Pulse Oximetry 97 Intake & Output 02/16/18 02/17/18 02/17/18 18:59 06:59 18:59 Intake Total 2420 / 2420 3350.2 / 3350.2 1550 / 1550 Output Total 3045 / 3045 3275 / 3275 410 / 410 Balance -625 / -625 75.2 / 75.2 1140 / 1140 Weight 94.2 kg Intake: IV 1700 / 1700 3110.2 / 3110.2 1550 / 1550 Intralipid 20% Inj 250 ML @ 31. 250 / 250 250 / 250 25 mls/hr IV.CENTRAL Q24H [place] Rx#:[id number] LR 1000 mL Inj 1,000 ML @ 125 1000 / 1000 1000 / 1000 1000 / 1000 mls/hr IV.CONT .Q8H [place] Rx#: [id number] Levaquin 750 mg Premix Inj 150 150 / 150 ML @ 100 mls/hr IV.SIG Q24H [place] Rx#:[id number] MVI-12 Inj 10 ML Folvite Inj 1 2009.2 / 2009.2 MG In TPN Fluid 2 Liter 2,000 ML @ 70 mls/hr IV.SIG Q24H [facility] Rx#:[id number] Flagyl 500 MG Inj 100 ML @ 100 300 / 300 100 / 100 300 / 300 mls/hr IV.SIG Q6H [place] Rx#: [id number] Oral 720 / 720 240 / 240 Output: Urine 825 / 825 1775 / 1775 150 / 150 Urine Amount (Catheter) 1600 / 1600 1250 / 1250 Indwelling Urethral Catheter 1600 / 1600 1250 / 1250 Stool Amount (Stoma) 600 / 600 250 / 250 250 / 250 Colostomy 600 / 600 250 / 250 250 / 250 Wound Drainage # 1 Right Lower Abdomen Other: # Voids 1 Date of Last Bowel Movement 02/16/18 02/16/18 02/17/18 Narrative: No distress Abd: MARKEL in place, colostomy appliance. ELHAM ss. distended. - Urinary Catheter Management Indwelling Urethral Catheter Cath placed during this visit: yes Reason for continuing: Hourly intake/output Insertion date: 02/10/18 Insertion time: 08:00 Assessment and Plan - Plan POD 7 s/p ex lap sigmoid resection. Stable post op. Has moderate ileus, slightly improving. Soft diet. Lortab. Cystogram ok. D/c chu in am. D/c ELHAM drain. On therapeutic anticoagulation. WBC nml- cont IV antibiotics for now may be able to stop in a few days.
--- NOTE | 2018-02-17 17:43 | P.PNWCN ---
Wound Care Nurse Consult Description: Patient seen for follow up of colostomy teaching covering for Giselle IBARRA Communicated with: Patient and SANDAR Sexton [address] Recommendation: Please encourage patient to reposition from left to right sides and avoid DTI noted from previous assessment Patient has an ostomy. Patient should have one ultrasorb under him for moisture wicking. Cotton pull pads are not required as Patient is a minimal assist and needs to be reminded, encouraged, and assisted in repositioning Q2H. Monitor stoma for red/pink color, moisture, and output. Empty pouch of effluent when 1/3-1/2 full Change appliance Q5D and PRN for leaks. Incision - Incision Abdomen Incision Dressing Status: Dry & Intact Primary Dressing: MARKEL Cover Dressing: Transparent (Reinforced dressing with tranparent markel strips) Other Cover Dressing: MARKEL Incision Dressing Change Date: 02/17/18 - Additional Information MARKEL dressing was changed today by office mover Megan and label cutter Dixie Bowel Diversion Stoma - Bowel Stoma Colostomy Stoma Edema: Yes (mild) Stoma Appearance: Beefy Red Loop Supporting Edwin: No Collection Device: Two-piece Wafer Size: 2 1/4 Moldable Zaira-Stomal Surrounding Tissue Sensation Description: No Symptoms - Additional Information Additional Information: Patient seen today for follow up with colostomy teaching.MARKEL dressing and two piece ostomy appliance to abdomen was changed today by retail sales manager Erin and Megan FLORES charge nurse. Inspected dressing tp abdomen,orange light was observed blinking on MAREKL cartridge,reinforced dressing with transparent strips and and pressed orange button. Green light is noted on MARKEL cartridge indicating good seal. Colostomy appliance is intact and dry, with no output present in pouch.Stoma is red, pink, moist and visible through transparent pouch Patient's abdomen is distended and slightly firm,and bowel sounds are audible. Patient was able to return demonstrate opening and closing of the pouch to empty. Doctor Alfredo arrived in patient's room to assess patient. [employer] Certified Network Associate exited the room. Spoke with SANDRA Sexton regarding no out put and abdominal distention. Doctor is aware of this and will address.
[2018-02-18] MEDS: Multivitamin Inj 10 ML, Folic Acid Inj 1 MG in TPN Fluid 2 Liter 2,000 ML IV.SIG SCH ×2 (01:18→22:27)
[2018-02-18] MEDS: Melatonin 5 MG Tablet PO PRN (01:19)
--- NOTE | 2018-02-18 07:28 | P.PNGS ---
Subjective Interval history: He feels bloated and has had no output from colostomy for a day or so. Also c/ o indigestion. Physical Exam Vital signs: Vital Signs 02/17/18 07:26 02/17/18 07:27 02/17/18 08:00 Temperature 98.0 F Pulse Rate 83 Respiratory Rate 18 18 16 Blood Pressure 109/59 L Pulse Oximetry 95 02/17/18 11:54 02/17/18 15:31 02/17/18 16:00 Temperature 97.9 F 97.9 F Pulse Rate 78 84 Respiratory Rate 16 18 20 Blood Pressure 109/59 L 115/64 Pulse Oximetry 96 97 02/17/18 18:50 02/17/18 20:00 02/18/18 00:00 Temperature 98.6 F 99.1 F Pulse Rate 95 H 92 H Respiratory Rate 18 17 17 Blood Pressure 112/63 114/60 Pulse Oximetry 97 97 02/18/18 04:00 Temperature 99.5 F Pulse Rate 97 H Respiratory Rate 17 Blood Pressure 116/59 L Pulse Oximetry 96 Intake & Output 02/17/18 02/18/18 02/18/18 18:59 06:59 18:59 Intake Total 1940 / 1940 3454 / 3454 850 / 850 Output Total 410 / 410 1425 / 1425 Balance 1530 / 1530 202 / 202 850 / 850 Weight 94.2 kg Intake: IV 1700 / 1700 3064 / 3064 850 / 850 Intralipid 20% Inj 250 ML @ 31. 250 / 250 250 / 250 25 mls/hr IV.CENTRAL Q24H [place] Rx#:[id number] LR 1000 mL Inj 1,000 ML @ 125 1000 / 1000 1000 / 1000 600 / 600 mls/hr IV.CONT .Q8H [place] Rx#: [id number] Levaquin 750 mg Premix Inj 150 150 / 150 ML @ 100 mls/hr IV.SIG Q24H [facility] Rx#:[id number] MVI-12 Inj 10 ML Folvite Inj 1 1864 / 1864 MG In TPN Fluid 2 Liter 2,000 ML @ 70 mls/hr IV.SIG Q24H [facility] Rx#:[id number] Flagyl 500 MG Inj 100 ML @ 100 300 / 300 200 / 200 mls/hr IV.SIG Q6H [facility] Rx#: [id number] Oral 240 / 240 390 / 390 Output: Urine 150 / 150 1125 / 1125 Urine Amount (Catheter) 300 / 300 Indwelling Urethral Catheter 300 / 300 Stool Amount (Stoma) 250 / 250 Colostomy 250 / 250 Wound Drainage # 1 Right Lower Abdomen Other: Mode Setting Right Abdomen Continuous # Voids 1 Date of Last Bowel Movement 02/17/18 02/17/18 Narrative: NAD Abd: significantly distended, bandage c/d/i, Colostomy pink with some exudate on mucosa- no output. Digital exam shows it is patent at fascia. - Urinary Catheter Management Indwelling Urethral Catheter Cath placed during this visit: yes Reason for continuing: Hourly intake/output Insertion date: 02/10/18 Insertion time: 08:00 Assessment and Plan - Plan POD 8 s/p ex lap sigmoid resection. He is having significant ileus again. C/o indigestion. Clears. Check KUB. CHeck labs. Start protonix/tums. May need CT as he is really not improving as expected, although WBC has been normal so likelihood of abscess seems low. May just be persistent ileus. Lortab. D/c chu. Give flomax. . On therapeutic anticoagulation.
[2018-02-18 08:33] LABS: Baso % (Auto) 0.2 % (0.0-2.0); Eos # (Auto) 0.2 th/mm3 (0.0-0.4); Eos % (Auto) 1.2 % (0.0-4.0); Hematocrit 34.5 % (39.0-51.0); Hemoglobin 11.7 gm/dL (13.0-17.0); Lymph # (Auto) 0.8 th/mm3 (1.0-4.8); Mean Corpuscular HGB Conc 33.8 % (32.0-36.0); Mean Corpuscular Hemoglobin 30.6 pg (27.0-34.0); Mean Corpuscular Volume 90.5 fL (80.0-100.0); Mean Platelet Volume 7.4 fL (7.0-11.0); Mono % (Auto) 5.5 % (0.0-8.0); Neut # (Auto) 16.9 th/mm3 (1.8-7.7); Neut % (Auto) 89.1 % (16.0-70.0); Platelet Count 343 th/mm3 (150-450); Red Blood Count 3.81 mil/mm3 (4.50-5.90); Red Cell Distribution Width 15.6 % (11.6-17.2)
--- NOTE | 2018-02-18 08:48 | XR ---
EXAM DATE: 02/18/2018 8:44 AM EDT AGE/SEX: 57 years / Male INDICATIONS: Abdominal pain and distention. CLINICAL DATA: This is the patient's initial encounter. Patient reports that signs and symptoms have been present for 3 days and indicates a pain score of 7/10. MEDICAL/SURGICAL HISTORY: Diverticulitis. Colon resection. [place] [facility] [place]AST[place]/2018. . FINDINGS: Examination of the abdomen demonstrates gaseous distention of the small and large bowel with air flu id levels most consistent with ileus .There are no findings of small bowel obstruction. No free air i s identified. There is a single gallstone without gallbladder wall thickening or pericholecystic fluid measuring 10 mm. CONCLUSION: Findings of generalized ileus. The findings have worsened when compared with the prior examination. F ollowup examination is recommended if clinically indicated. Electronically signed by: Ricky Carranza MD 02/18/2018 8:47 AM EDT
[2018-02-18] MEDS: Pantoprazole Inj 40 MG Vial IV.PUSH SCH (09:20)
[2018-02-18] MEDS: Enoxaparin Inj 100 MG/ML Syringe SQ SCH ×2 (09:23→22:24)
[2018-02-18] MEDS: Senna/Docusate Sodium 8.6/50 MG Tablet PO SCH ×2 (09:23→22:24)
[2018-02-18] MEDS: Amiodarone 200 MG Tablet PO SCH (09:23)
[2018-02-18] MEDS: Heparin Central Flush 100 UNIT/ML 5 ML Vial IV.FLUSH SCH (09:24)
[2018-02-18] MEDS: Carvedilol 6.25 MG Tablet PO SCH ×2 (09:32→22:24)
[2018-02-18 10:09] LABS: Albumin 1.7 g/dL (3.4-5.0); Anion Gap 8 meq/L (5-15); Aspartate Aminotransferase 8 U/L (15-37); Blood Urea Nitrogen 10 mg/dL (7-18); Calcium 7.8 mg/dL (8.5-10.1); Carbon Dioxide 29.1 meq/L (21.0-32.0); Chloride 102 meq/L (98-107); Glomerular Filtration Rate Greater Than 89 mL/min (>89); Glucose,Random 135 mg/dL (74-106); Potassium 3.9 meq/L (3.5-5.1); Sodium 139 meq/L (136-145)
[2018-02-18 10:12] LABS: Alkaline Phosphatase 101 U/L (45-117); Total Protein 5.7 g/dL (6.4-8.2); Triglycerides 99 mg/dL (42-150)
[2018-02-18] MEDS ORDERED: Diatrizoate Meglum/Diatrizoate Sod Liq 9 ML UDC PO ONE (12:55)
--- NOTE | 2018-02-18 15:03 | P.PNWCN ---
Wound Care Nurse Consult Description: Patient seen for follow up of colostomy teaching covering for Giselle IBARRA Communicated with: Sandra Catalan Recommendation: Please encourage patient to reposition from left to right sides and avoid DTI on coccyx seen today and with previous assessments by Giselle IBARRA Patient has an ostomy, chu catheter was removed. Patient should have one ultrasorb under him for moisture wicking. Cotton pull pads are not required as Patient is a minimal assist and needs to be reminded, encouraged, and assisted in repositioning Q2H. Monitor stoma for red/pink color, moisture, and output. Empty pouch of effluent when 1/3-1/2 full Change appliance Q5D and PRN for leaks. Wound/Pressure Injury - Wound Right Buttocks Wound Staging: DTI Wound Assessment: Ongoing Wound Type: Pressure Injury Is This a Chronic Wound: No Requested from Provider a Wound Care Consult: Yes (Wound care as assessed patient) Length: 3.5 (~3.5cm) Width: 3 (~3cm) Depth: 0 (non blanchable purple discoloration to skin ) Wound Bed Appearance: Wound is a DTI. Non blanchable purple discoloration to intact skin. Periwound denuded skin is noted. Surrounding Tissue Temperature: Cool Drainage Amount: None Dressing Status: Open to Air Topical: Calazime skin protectant paste Left Buttocks Wound Staging: DTI (Deep tissue injury opening to partial thickness skin loss) Wound Assessment: Ongoing Wound Type: Pressure Injury Is This a Chronic Wound: No Requested from Provider a Wound Care Consult: Yes (Wound has seen patient ) Length: 3.5 (~3.5cm) Width: 4 (~4cm) Depth: 0 (purple discoloration to skin that is opening to partial thickness) Wound Bed Appearance: Deep tissue injury to L buttocks presents with purple non blanchable discoloration that is opening to partial thickness skin loss Surrounding Tissue Temperature: Cool Drainage Description: Serosanguinous Drainage Amount: Scant Drainage Odor: No Odor Dressing Status: Open to Air Cleansing Solution: Calazime skin protectant paste - Additional Information Reassessed Previously noted DTI to gluteal cleft . Patient was minimally assisted to his right side for assessment. Patient is noted with hydrocolloid dressing that is dislodged and wrinkling. Bedsheet is saturated with urine. Removed wrinkled hydrocolloid dressing in place to reveal A deep tissue injury to the L inner buttock close to gluteal cleft and coccyx, that is opening to partial thickness skin loss. Also noted R buttock DTI inner buttock DTI that is still intact. Cleansed buttock, gluteal cleft and perineal area with Remedy barrier wipes. Applied Calazime skin protectant paste. Patient walked with P.T. Market Development Analyst changed bed linens and patinet was assisted back to bed. Patient was then assisted to position off of bottom. Incision - Incision Abdomen Incision Assessment: Ongoing Incision Type: Incision Incision Description: Marshall, Sutures Drainage Description: Sanguinous Drainage Amount: None Incision Dressing Status: Dry & Intact Primary Dressing: MARKEL Cover Dressing: Transparent (Reinforced dressing with tranparent markel strips) Other Cover Dressing: MARKEL Incision Dressing Change Date: 02/17/18 Incision/Surgery Date: 02/10/18 - Additional Information MARKEL dressing was changed today by fire captain marineSANDRA Guzman and dry color tester Dixie Bowel Diversion Stoma - Bowel Stoma Colostomy Stoma Edema: Yes (mild) Stoma Appearance: Beefy Red Loop Supporting Edwin: No Collection Device: Two-piece Drainage Description: Liquid, Green Wafer Size: 2 1/4 Moldable Zaira-Stomal Surrounding Tissue Sensation Description: No Symptoms - Additional Information Additional Information: Patient seen on , for follow up teaching for colostomy to [facility] of abdomen. MARKEL dressing to abdomen is dry, intact and functioning well.Colostomy appliance is intact and without leaks. Bowel sounds are hypoactive x4 quadrants. Abdomen is still distended and slightly firm.Stoma as red and round visible through transparent pouch.Liquid green/ brown effluent is noted in pouch. Emptied 125 ml of effluent from pouch with patient assisting with step by step instruction for teaching purposes.Encouraged patient to try something on his liquid diet
--- NOTE | 2018-02-18 17:07 | P.PN ---
Subjective Interval history: Patient is seen lying in bed. He tells me that he is feeling somewhat better and apologizes for previous outbursts. He tells me he has not been eating much because he does not have an appetite. Denies any nausea or vomiting. No chest pain or shortness of breath. Tells me he has been urinating normally since catheter was removed. Physical Exam Vital signs: Vital Signs 02/17/18 18:50 02/17/18 20:00 02/18/18 00:00 Temperature 98.6 F 99.1 F Pulse Rate 95 H 92 H Respiratory Rate 18 17 17 Blood Pressure 112/63 114/60 Pulse Oximetry 97 97 02/18/18 04:00 02/18/18 08:00 02/18/18 12:00 Temperature 99.5 F 98.4 F 98.3 F Pulse Rate 97 H 61 84 Respiratory Rate 17 20 19 Blood Pressure 116/59 L 108/63 106/53 L Pulse Oximetry 96 96 97 02/18/18 16:00 Temperature 98.8 F Pulse Rate 103 H Respiratory Rate 18 Blood Pressure 101/57 L Pulse Oximetry 96 Intake & Output 02/17/18 02/18/18 02/18/18 18:59 06:59 18:59 Intake Total 1940 / 1940 3454 / 3454 1350 / 1350 Output Total 410 / 410 1425 / 1425 Balance 1530 / 1530 2028 / 2028 1350 / 1350 Weight 94.2 kg Intake: IV 1700 / 1700 3064 / 3064 1350 / 1350 Intralipid 20% Inj 250 ML @ 31. 250 / 250 250 / 250 25 mls/hr IV.CENTRAL Q24H [place] Rx#:[id number] LR 1000 mL Inj 1,000 ML @ 50 1000 / 1000 1000 / 1000 1000 / 1000 mls/hr IV.CONT .Q20H [place] Rx#: [id number] Levaquin 750 mg Premix Inj 150 150 / 150 ML @ 100 mls/hr IV.SIG Q24H [place] Rx#:[id number] MVI-12 Inj 10 ML Folvite Inj 1 1864 / 1864 MG In TPN Fluid 2 Liter 2,000 ML @ 70 mls/hr IV.SIG Q24H [place] Rx#:[id number] Flagyl 500 MG Inj 100 ML @ 100 300 / 300 200 / 200 100 / 100 mls/hr IV.SIG Q6H [place] Rx#: [id number] Oral 240 / 240 390 / 390 Output: Urine 150 / 150 1125 / 1125 Urine Amount (Catheter) 300 / 300 Indwelling Urethral Catheter 300 / 300 Stool Amount (Stoma) 250 / 250 Colostomy 250 / 250 Wound Drainage # 1 Right Lower Abdomen Other: Mode Setting Right Abdomen Continuous # Voids 1 Date of Last Bowel Movement 02/17/18 02/17/18 02/18/18 Narrative: Mr. Mccurdy is 57 year old male with a history of inguinal hernia repair who was admitted to the hospital due to lower abdominal pain. CT Abdomen/Pelvis suggest inflammatory process lower abdomen/pelvis, likely diverticulitis, several focal collections of gas to the right of the mid sigmoid colon, nonspecific possible extraluminal gas. Acute diverticulitis Distal small bowel obstruction perforated bowel -S/p Zosyn. -Surgery consult ;greatly appreciate assistance. -CT scan of abd/pelvis on 02/02 showed perforated bowel. -Repeat CT scan on 02/07 continues to show persistent large volumes of free intraperitoneal air within the abdomen and pelvis indicating perforated bowel, air collection 7 cm in the pelvis which abuts the sigmoid colon and small bowel. Circumferential wall thickening in the urinary bladder likely representing secondary inflammation given adjacent changes in the pelvis. Trace bilateral pleural effusions. - S/P exploratory laparotomy, lysis of adhesions, sigmoid resection with end colonoscopy 02/10 -Mccray catheter removed y -cystogram on 02/17 was unremarkable with no evidence of leak. -Continue IV Levaquin and Flagyl, -Patient removed NG tube 02/16. Okay to leave out per surgery. Start clear liquid. -Currently on TPN and lipids. -Pain control d/c Dilaudid; start Lortab - KUB with multiple dilated bowel loops likely postsurgical ileus History of atrial fibrillation/ Coagulopathy History of DVT -Patient is unable to provide specifics. However, he does report a history of DVT and afib. -He takes Warfarin -alternates between 7 mg and 6 mg tablets. -Currently on Lovenox therapeutic dose. Patient will eventually need to be transitioned to Coumadin. Hypokalemia/ Hypophosphatemia/hypomagnesemia S/t decreased PO intake. -replete and monitor. -Repeat labs stable. -Improvement in urinary output. PPx: SCD's subq Lovenox Discussed Condition With: Discussed with patient and RN - Urinary Catheter Management Indwelling Urethral Catheter Cath placed during this visit: yes Reason for continuing: Hourly intake/output Insertion date: 02/10/18 Insertion time: 08:00 Results - Labs CBC & Chem 7: 02/18/18 08:07 02/18/18 08:07 Laboratory Results - last 24 hr 02/18/18 02/18/18 02/18/18 08:07 08:07 08:54 WBC 19.0 H RBC 3.81 L Hgb 11.7 L Hct 34.5 L MCV 90.5 MCH 30.6 MCHC 33.8 RDW 15.6 Plt Count 343 D MPV 7.4 Neut % (Auto) 89.1 H Lymph % (Auto) 4.0 L Henderson % (Auto) 5.5 Eos % (Auto) 1.2 Baso % (Auto) 0.2 Neut # (Auto) 16.9 H Lymph # (Auto) 0.8 L Henderson # (Auto) 1.0 H Eos # (Auto) 0.2 Baso # (Auto) 0.0 WBC Differential . Differential Comment Auto diff final Sodium 139 Potassium 3.9 Chloride 102 Carbon Dioxide 29.1 Anion Gap 8 BUN 10 Creatinine 0.66 Estimated GFR Greater than 89 POC Glucose 104 Random Glucose 135 H Calcium 7.8 L Total Bilirubin 0.2 AST 8 L ALT Less than 6 L Alkaline Phosphatase 101 Total Protein 5.7 L Albumin 1.7 L Triglycerides 99 02/18/18 14:20 WBC RBC Hgb Hct MCV MCH MCHC RDW Plt Count MPV Neut % (Auto) Lymph % (Auto) Henderson % (Auto) Eos % (Auto) Baso % (Auto) Neut # (Auto) Lymph # (Auto) Henderson # (Auto) Eos # (Auto) Baso # (Auto) WBC Differential Differential Comment Sodium Potassium Chloride Carbon Dioxide Anion Gap BUN Creatinine Estimated GFR POC Glucose 125 H Random Glucose Calcium Total Bilirubin AST ALT Alkaline Phosphatase Total Protein Albumin Triglycerides - Imaging Impressions Abdomen X-Ray 02/18/18 00:00 CONCLUSION: Findings of generalized ileus. The findings have worsened when compared with the prior examination. Followup examination is recommended if clinically indicated. - Procedures See hospital course Assessment and Plan - Assessment (1) Hypokalemia Code(s): E87.6 - Hypokalemia Status: Acute (2) Diverticulitis of colon with perforation Code(s): K57.20 - Diverticulitis of large intestine with perforation and abscess without bleeding Status: Acute (3) Afib Code(s): I48.91 - Unspecified atrial fibrillation Status: Acute - Plan Mr. Mccurdy is 57 year old male with a history of inguinal hernia repair who was admitted to the hospital due to lower abdominal pain. CT Abdomen/Pelvis suggest inflammatory process lower abdomen/pelvis, likely diverticulitis, several focal collections of gas to the right of the mid sigmoid colon, nonspecific possible extraluminal gas. Acute diverticulitis Distal small bowel obstruction perforated bowel -S/p Zosyn. -Surgery consult ;greatly appreciate assistance. -CT scan of abd/pelvis on 02/02 showed perforated bowel. -Repeat CT scan on 02/07 continues to show persistent large volumes of free intraperitoneal air within the abdomen and pelvis indicating perforated bowel, air collection 7 cm in the pelvis which abuts the sigmoid colon and small bowel. Circumferential wall thickening in the urinary bladder likely representing secondary inflammation given adjacent changes in the pelvis. Trace bilateral pleural effusions. - S/P exploratory laparotomy, lysis of adhesions, sigmoid resection with end colonoscopy 02/10 -Mccray catheter to be removed in 57 days due to bladder repair during surgery -cystogram on 02/17 was unremarkable with no evidence of leak. -Continue IV Levaquin and Flagyl, -Patient removed NG tube 02/16. Okay to leave out per surgery. Start clear liquid. -Currently on TPN and lipids. -Pain control d/c Dilaudid; start Lortab - KUB with multiple dilated bowel loops likely postsurgical ileus History of atrial fibrillation/ Coagulopathy History of DVT -Patient is unable to provide specifics. However, he does report a history of DVT and afib. -He takes Warfarin -alternates between 7 mg and 6 mg tablets. -Currently on Lovenox therapeutic dose. Patient will eventually need to be transitioned to Coumadin. Hypokalemia/ Hypophosphatemia/hypomagnesemia S/t decreased PO intake. -replete and monitor. -Repeat labs stable. -Improvement in urinary output. PPx: SCD's subq Lovenox Discussed Condition With: Discussed with patient and RN (2) Diverticulitis of colon with perforation Qualifiers: Diverticulitis bleeding: without bleeding Qualified Code(s): K57.20 - Diverticulitis of large intestine with perforation and abscess without bleeding
--- NOTE | 2018-02-18 17:14 | CT ---
EXAM DATE: 02/18/2018 5:02 PM EDT AGE/SEX: 57 years / Male INDICATIONS: Bowel Obstruction CLINICAL DATA: This is the patient's subsequent encounter. Patient reports that signs and symptoms h ave been present for 2 days and indicates a pain score of 8/10. MEDICAL/SURGICAL HISTORY: Deep venous thrombosis. Diverticulitis. Atrial Fib, Bacterial mening itis Colostomy. ORAL CONTRAST: Prescribed oral contrast ingested. RADIATION DOSE: 9.38 CTDI (mGy) COMPARISON: [facility] [place] & PEL[place] W/O CONTRAST, 02/07/2018. . TECHNIQUE: Multiple contiguous axial images were obtained through the abdomen and pelvis following b olus infusion of 96ML ml Omnipaque 350 (iohexol) nonionic water-soluble contrast as a single exam d ose. Prescribed oral contrast ingested. Using automated exposure control and adjustment of the mA an d/or kV according to patient size, radiation dose was kept as low as reasonably achievable to obtain optimal diagnostic quality images. DICOM format image data is available electronically for review an d comparison. FINDINGS: Lower Lungs: Slight atelectasis and effusion at the right lung base. Liver: The liver has a homogeneous density without space-occupying lesion. There is no dilation of th e biliary tree. Gallstone again noted in the gallbladder. Spleen: Homogeneous density without enlargement. Pancreas: Unremarkable without mass or calcification. Kidneys: Normal in size and shape. No evidence of mass or hydronephrosis. Tiny nonobstructing calcul us in the lower pole lateral collecting system of the left kidney Adrenal Glands: Unremarkable. Aorta: The aorta and proximal iliac vessels are grossly unremarkable without aneurysmal dilation. Bowel/Mesentery: There has been interval left lower quadrant colostomy and Herrera's pouch. The smal l bowel is moderately dilated throughout with air and fluid. There do appear to potentially be some e ntrapped distal small bowel loops in the right lower quadrant which are nondilated. Small volume of r esidual fluid and residual pneumoperitoneum which is presumably postoperative. Abdominal Wall: Left lower quadrant colostomy. Midline skin alan. Retroperitoneum: No evidence of adenopathy in the retrocrural, para-aortic, or deep pelvic regions. Bladder: Contours are smooth. Reproductive Organs: No abnormal masses or calcifications seen. Inguinal: The inguinal region is unremarkable without evidence of adenopathy. Bony Structures: Unremarkable. CONCLUSION: Dilated small bowel loops throughout. Distal ileal loops in the right lower quadrant are nondilated a nd potentially entrapped. Electronically signed by: Immanuel Patel MD 02/18/2018 5:13 PM EDT
[2018-02-19] MEDS: Carvedilol 6.25 MG Tablet PO SCH ×3 (08:38→20:26)
[2018-02-19] MEDS: Pantoprazole Inj 40 MG Vial IV.PUSH SCH (08:38)
[2018-02-19] MEDS: Enoxaparin Inj 100 MG/ML Syringe SQ SCH ×2 (08:38→20:26)
[2018-02-19] MEDS: Amiodarone 200 MG Tablet PO SCH ×2 (08:39→14:13)
[2018-02-19] MEDS: Heparin Central Flush 100 UNIT/ML 5 ML Vial IV.FLUSH SCH (08:43)
[2018-02-19] MEDS: Senna/Docusate Sodium 8.6/50 MG Tablet PO SCH ×2 (08:56→20:26)
[2018-02-19 11:07] LABS: Bilirubin,Urine Negative (Negative); Clarity,Urine Clear (Clear); Color,Urine Yellow (Yellw/Straw); Glucose,Urine (UA) Negative (Negative); Leukocyte Esterase,Urine Trace (Negative); Mucus,Urine Few /lpf (Occasional); Nitrite,Urine Negative (Negative); Squamous Epithelial Cell,Urine <1 /hpf (0-5)
--- NOTE | 2018-02-19 12:12 | P.PNGS ---
Subjective Patient reports: no new complaints, tolerating liquids well, voiding w/o difficulty, no flatus (He states he occasionally burps, but has noted no gas in the stoma bag. He denies any nausea or emesis with clear liquids. ) Physical Exam Vital signs: Vital Signs 02/18/18 12:00 02/18/18 16:00 02/18/18 20:00 Temperature 98.3 F 98.8 F 98.4 F Pulse Rate 84 103 H 89 Respiratory Rate 19 18 18 Blood Pressure 106/53 L 101/57 L 100/59 L Pulse Oximetry 97 96 96 02/19/18 00:00 02/19/18 04:00 02/19/18 08:00 Temperature 98.2 F 98.6 F 97.9 F Pulse Rate 94 H 90 91 H Respiratory Rate 20 18 16 Blood Pressure 90/53 L 101/58 L 93/50 L Pulse Oximetry 94 L 96 95 Intake & Output 02/18/18 02/19/18 02/19/18 18:59 06:59 18:59 Intake Total 2790 / 2790 2829.2 / 2829.2 Output Total 1150 / 1150 1000 / 1000 Balance 1640 / 1640 1829.2 / 1829.2 Weight 95.8 kg Intake: IV 2450 / 2450 2349.2 / 2349.2 Intralipid 20% Inj 250 ML @ 31. 250 / 250 250 / 250 25 mls/hr IV.CENTRAL Q24H [place] Rx#:[id number] LR 1000 mL Inj 1,000 ML @ 50 2000 / 2000 mls/hr IV.CONT .Q20H [place] Rx#: [id number] Levaquin 750 mg Premix Inj 150 150 / 150 ML @ 100 mls/hr IV.SIG Q24H [place] Rx#:[id number] MVI-12 Inj 10 ML Folvite Inj 1 1749.2 / 1749.2 MG In TPN Fluid 2 Liter 2,000 ML @ 70 mls/hr IV.SIG Q24H [place] Rx#:[id number] Flagyl 500 MG Inj 100 ML @ 100 200 / 200 200 / 200 mls/hr IV.SIG Q6H [place] Rx#: [id number] Oral 340 / 340 480 / 480 Output: Urine 650 / 650 1000 / 1000 Stool 500 / 500 Other: Mode Setting Right Abdomen Continuous Date of Last Bowel Movement 02/18/18 02/17/18 - Routine Abdominal Exam Present: tenderness (The abdomen is distended and quite tympanitic. He has mild tenderness to deep palpation but no guarding or rebound. The stoma is pink and there is a small amount of liquid in the bag...no gas is present.) - Urinary Catheter Management Indwelling Urethral Catheter Cath placed during this visit: yes, but has since been removed by the nurse Reason for continuing: Hourly intake/output Insertion date: 02/10/18 Insertion time: 08:00 Removal date: 02/18/18 Removal time: 08:00 Assessment and Plan - Assessment (1) Diverticulitis of colon with perforation Code(s): K57.20 - Diverticulitis of large intestine with perforation and abscess without bleeding Status: Acute - Plan POD S/P sigmoid resection and colostomy. CT yesterday showed distal small bowel decompressed with air in the proximal bowel (partial entrapment?). No abscess was evident. Patient has a grade II sacral decubitus; wound care saw him yesterday. He is clinically stable overall; I will order a Gastrografin small bowel follow through for today to further evaluate CT findings. (1) Diverticulitis of colon with perforation Qualifiers: Diverticulitis bleeding: without bleeding Qualified Code(s): K57.20 - Diverticulitis of large intestine with perforation and abscess without bleeding
[2018-02-19] MEDS ORDERED: Naloxone Inj 0.4 MG/ML Vial IV.PUSH PRN (12:27)
[2018-02-19 12:42] LABS: Baso % (Auto) 0.2 % (0.0-2.0); Eos # (Auto) 0.5 th/mm3 (0.0-0.4); Eos % (Auto) 2.5 % (0.0-4.0); Hemoglobin 9.7 gm/dL (13.0-17.0); Lymph # (Auto) 1.4 th/mm3 (1.0-4.8); Lymph % (Auto) 7.4 % (9.0-44.0); Mean Corpuscular HGB Conc 32.4 % (32.0-36.0); Mean Corpuscular Volume 92.6 fL (80.0-100.0); Mean Platelet Volume 7.5 fL (7.0-11.0); Mono # (Auto) 1.2 th/mm3 (0.0-0.9); Mono % (Auto) 6.4 % (0.0-8.0); Neut # (Auto) 15.8 th/mm3 (1.8-7.7); Neut % (Auto) 83.5 % (16.0-70.0); Platelet Count 337 th/mm3 (150-450); Red Blood Count 3.23 mil/mm3 (4.50-5.90); Red Cell Distribution Width 15.6 % (11.6-17.2); White Blood Count 18.9 th/mm3 (4.0-11.0)
[2018-02-19 13:05] LABS: Albumin 1.5 g/dL (3.4-5.0); Alkaline Phosphatase 75 U/L (45-117); Anion Gap 6 meq/L (5-15); Aspartate Aminotransferase 7 U/L (15-37); Blood Urea Nitrogen 10 mg/dL (7-18); Calcium 7.1 mg/dL (8.5-10.1); Carbon Dioxide 30.1 meq/L (21.0-32.0); Chloride 104 meq/L (98-107); Glomerular Filtration Rate Greater Than 89 mL/min (>89); Glucose,Random 113 mg/dL (74-106); Magnesium 1.8 mg/dL (1.5-2.5); Potassium 3.9 meq/L (3.5-5.1); Sodium 140 meq/L (136-145); Total Protein 5.1 g/dL (6.4-8.2)
--- NOTE | 2018-02-19 18:19 | P.PN ---
Subjective Interval history: Patient is seen lying in bed. He is very pleasant and talkative today. Denies any significant pain. Says he is getting tired of clear liquids. Denies any fevers or chills. He does think his stomach is a little more distended than before. He has not had any nausea or vomiting. No chest pain or shortness of breath. Physical Exam Vital signs: Vital Signs 02/18/18 20:00 02/19/18 00:00 02/19/18 04:00 Temperature 98.4 F 98.2 F 98.6 F Pulse Rate 89 94 H 90 Respiratory Rate 18 20 18 Blood Pressure 100/59 L 90/53 L 101/58 L Pulse Oximetry 96 94 L 96 02/19/18 08:00 02/19/18 12:00 02/19/18 16:00 Temperature 97.9 F 98.2 F 98.4 F Pulse Rate 91 H 84 87 Respiratory Rate 16 16 16 Blood Pressure 93/50 L 99/57 L 102/56 L Pulse Oximetry 95 97 95 Intake & Output 02/18/18 02/19/18 02/19/18 18:59 06:59 18:59 Intake Total 2790 / 2790 2829.2 / 2829.2 1100 / 1100 Output Total 1150 / 1150 1000 / 1000 Balance 1640 / 1640 1829.2 / 1829.2 1100 / 1100 Weight 95.8 kg Intake: IV 2450 / 2450 2349.2 / 2349.2 1100 / 1100 Intralipid 20% Inj 250 ML @ 31. 250 / 250 250 / 250 25 mls/hr IV.CENTRAL Q24H [place] Rx#:[id number] LR 1000 mL Inj 1,000 ML @ 50 2000 / 2000 1000 / 1000 mls/hr IV.CONT .Q20H [place] Rx#: [id number] Levaquin 750 mg Premix Inj 150 150 / 150 ML @ 100 mls/hr IV.SIG Q24H [place] Rx#:[id number] MVI-12 Inj 10 ML Folvite Inj 1 1749.2 / 1749.2 MG In TPN Fluid 2 Liter 2,000 ML @ 70 mls/hr IV.SIG Q24H [place] Rx#:[id number] Flagyl 500 MG Inj 100 ML @ 100 200 / 200 200 / 200 100 / 100 mls/hr IV.SIG Q6H [place] Rx#: [id number] Oral 340 / 340 480 / 480 Output: Urine 650 / 650 1000 / 1000 Stool 500 / 500 Other: Mode Setting Right Abdomen Continuous Date of Last Bowel Movement 02/18/18 02/17/18 Narrative: GENERAL: This is a well-nourished, well-developed patient, in no apparent distress. SKIN: Warm and dry. HEENT: Normocephalic. Pupils equal round and reactive. Nose without bleeding. Airway patent. NECK: Trachea midline. CARDIOVASCULAR: Regular rate and rhythm without murmurs. RESPIRATORY: Diminished bases. No wheezes, rales, or rhonchi. GASTROINTESTINAL: Abdomen distended, + bowel sounds in all quadrants. Midline dressing dry and intact, ELHAM drain previous removed, left quadrant ostomy, with pink stoma w/ gas and brown liquid in bag. GENITOURINARY: Mccray catheter previously removed. MUSCULOSKELETAL: Extremities without clubbing, cyanosis, or edema. NEUROLOGICAL: Awake and alert. Oriented to time, place, person. Moves all extremities. Normal speech. - Urinary Catheter Management Indwelling Urethral Catheter Cath placed during this visit: yes, but has since been removed by the nurse Reason for continuing: Hourly intake/output Insertion date: 02/10/18 Insertion time: 08:00 Removal date: 02/18/18 Removal time: 08:00 Results - Labs CBC & Chem 7: 02/19/18 12:20 02/19/18 12:20 Laboratory Results - last 24 hr 02/19/18 02/19/18 02/19/18 02:23 08:37 10:45 WBC RBC Hgb Hct MCV MCH MCHC RDW Plt Count MPV Neut % (Auto) Lymph % (Auto) [place] % (Auto) Eos % (Auto) Baso % (Auto) Neut # (Auto) Lymph # (Auto) [place] # (Auto) Eos # (Auto) Baso # (Auto) WBC Differential Differential Comment Sodium Potassium Chloride Carbon Dioxide Anion Gap BUN Creatinine Estimated GFR POC Glucose 106 118 H Random Glucose Calcium Prot Corrected Calcium Magnesium Total Bilirubin AST ALT Alkaline Phosphatase Total Protein Albumin Urine Color Yellow Urine Clarity Clear Urine pH 5.0 Ur Specific [place] 1.020 Urine Protein Negative Urine Glucose (UA) Negative Urine Ketones Negative Urine Occult Blood Negative Urine Nitrate Negative Urine Bilirubin Negative Urine Urobilinogen Less than 2 Ur Leukocyte Esterase Trace H Urine RBC 1 Urine WBC 9 H Ur Squamous Epith Cells <1 Urine Mucus Few H Micro UA Comment Culture indicated Ur Microscopic Review Not Reportable Urine Culture Comments Culture indicated 02/19/18 02/19/18 02/19/18 12:20 12:20 14:34 WBC 18.9 H RBC 3.23 L Hgb 9.7 L D Hct 30.0 L MCV 92.6 MCH 30.0 MCHC 32.4 RDW 15.6 Plt Count 337 MPV 7.5 Neut % (Auto) 83.5 H Lymph % (Auto) 7.4 L [place] % (Auto) 6.4 Eos % (Auto) 2.5 Baso % (Auto) 0.2 Neut # (Auto) 15.8 H Lymph # (Auto) 1.4 [place] # (Auto) 1.2 H Eos # (Auto) 0.5 H Baso # (Auto) 0.0 WBC Differential . Differential Comment Auto diff final Sodium 140 Potassium 3.9 Chloride 104 Carbon Dioxide 30.1 Anion Gap 6 BUN 10 Creatinine 0.59 L Estimated GFR Greater than 89 POC Glucose 112 H Random Glucose 113 H Calcium 7.1 L* Prot Corrected Calcium 8.2 L Magnesium 1.8 Total Bilirubin 0.2 AST 7 L ALT Less than 6 L Alkaline Phosphatase 75 Total Protein 5.1 L D Albumin 1.5 L Urine Color Urine Clarity Urine pH Ur Specific [place] Urine Protein Urine Glucose (UA) Urine Ketones Urine Occult Blood Urine Nitrate Urine Bilirubin Urine Urobilinogen Ur Leukocyte Esterase Urine RBC Urine WBC Ur Squamous Epith Cells Urine Mucus Micro UA Comment Ur Microscopic Review Urine Culture Comments - Procedures See hospital course Assessment and Plan - Assessment (1) Hypokalemia Code(s): E87.6 - Hypokalemia Status: Acute (2) Diverticulitis of colon with perforation Code(s): K57.20 - Diverticulitis of large intestine with perforation and abscess without bleeding Status: Acute (3) Afib Code(s): I48.91 - Unspecified atrial fibrillation Status: Acute - Plan Mr. Mccurdy is 57 year old male with a history of inguinal hernia repair who was admitted to the hospital due to lower abdominal pain. CT Abdomen/Pelvis suggest inflammatory process lower abdomen/pelvis, likely diverticulitis, several focal collections of gas to the right of the mid sigmoid colon, nonspecific possible extraluminal gas. Acute diverticulitis Distal small bowel obstruction perforated bowel -S/p Zosyn. -Surgery consult ;greatly appreciate assistance. -CT scan of abd/pelvis on 02/02 showed perforated bowel. -Repeat CT scan on 02/07 continues to show persistent large volumes of free intraperitoneal air within the abdomen and pelvis indicating perforated bowel, air collection 7 cm in the pelvis which abuts the sigmoid colon and small bowel. Circumferential wall thickening in the urinary bladder likely representing secondary inflammation given adjacent changes in the pelvis. Trace bilateral pleural effusions. - S/P exploratory laparotomy, lysis of adhesions, sigmoid resection with end colonoscopy 02/10 -Mccray catheter removed -cystogram on 02/17 was unremarkable with no evidence of leak. -IV Levaquin and Flagyl -stopped per surgery on 02/19 due to concern for reactionary leukocytosis -Patient removed NG tube 02/16. Okay to leave out per surgery. Start clear liquid. -Currently on TPN and lipids. -Pain control d/c Dilaudid; start Lortab - KUB with multiple dilated bowel loops likely postsurgical ileus -Repeat abdominal CT on 02/18/18 indicated dilated small bowel loops throughout. Distal ileal loops in the lower right quadrant are nondilated and potentially entrapped. FL Small bowel ordered by surgery to evaluate. Leukocytosis -Cause unclear. Afebrile/asymptomatic. UA sent. Cultures ordered due to PICC line with TPN. Monitor. History of atrial fibrillation/ Coagulopathy History of DVT -Patient is unable to provide specifics. However, he does report a history of DVT and afib. -He takes Warfarin -alternates between 7 mg and 6 mg tablets. -Currently on Lovenox therapeutic dose. Patient will eventually need to be transitioned to Coumadin. Hypokalemia/ Hypophosphatemia/hypomagnesemia S/t decreased PO intake. -replete and monitor. -Repeat labs stable. -Improvement in urinary output. PPx: SCD's subq Lovenox Discussed Condition With: Discussed with patient and RN, Dr. Barton and Dr. Maradiaga. (2) Diverticulitis of colon with perforation Qualifiers: Diverticulitis bleeding: without bleeding Qualified Code(s): K57.20 - Diverticulitis of large intestine with perforation and abscess without bleeding
[2018-02-19] MEDS ORDERED: Diatrizoate Meglum/Diatrizoate Sod Liq 120 ML Bottle (for RAD diag) PO ONE (20:46)
[2018-02-19] MEDS: Multivitamin Inj 10 ML, Folic Acid Inj 1 MG in TPN Fluid 2 Liter 2,000 ML IV.SIG SCH (22:05)
--- NOTE | 2018-02-19 22:23 | FL ---
EXAM DATE: 02/19/2018 10:11 PM EDT AGE/SEX: 57 years / Male INDICATIONS: Obstruction. CLINICAL DATA: This is the patient's subsequent encounter. Patient reports that signs and symptoms h ave been present for 3 days and indicates a pain score of 8/10. MEDICAL/SURGICAL HISTORY: . Deep venous thrombosis. Diverticulitis. Atrial Fib, Bacterial menin gitis. . Colostomy. [place] [facility] [place]/18/[place]. . FLUORO TIME: 0.0 IMAGE COUNT: 19 CONTRAST: FINDINGS: Examination was performed with single contrast Gastrografin which gives diluted and therefore the exa mination is limited. Contrast eventually after 8 hours gets into the patient's ostomy site. There are dilated loops of large and small bowel. CONCLUSION: Ileus versus partial small bowel obstruction with contrast getting into the patient's ostomy site. Electronically signed by: Gabriella Roque MD 02/19/2018 10:22 PM EDT
[2018-02-20 05:45] LABS: Baso # (Auto) 0.1 th/mm3 (0.0-0.2); Baso % (Auto) 0.7 % (0.0-2.0); Eos # (Auto) 0.5 th/mm3 (0.0-0.4); Hematocrit 28.8 % (39.0-51.0); Hemoglobin 9.8 gm/dL (13.0-17.0); Lymph # (Auto) 1.5 th/mm3 (1.0-4.8); Lymph % (Auto) 9.4 % (9.0-44.0); Mean Corpuscular HGB Conc 34.1 % (32.0-36.0); Mean Platelet Volume 7.9 fL (7.0-11.0); Mono # (Auto) 0.9 th/mm3 (0.0-0.9); Mono % (Auto) 5.9 % (0.0-8.0); Platelet Count 412 th/mm3 (150-450); Red Blood Count 3.17 mil/mm3 (4.50-5.90); Red Cell Distribution Width 15.5 % (11.6-17.2)
[2018-02-20 06:06] LABS: Anion Gap 7 meq/L (5-15); Blood Urea Nitrogen 9 mg/dL (7-18); Calcium 7.5 mg/dL (8.5-10.1); Carbon Dioxide 29.8 meq/L (21.0-32.0); Chloride 105 meq/L (98-107); Glomerular Filtration Rate Greater Than 89 mL/min (>89); Glucose,Random 106 mg/dL (74-106); Potassium 3.8 meq/L (3.5-5.1); Sodium 142 meq/L (136-145)
[2018-02-20] MEDS: Senna/Docusate Sodium 8.6/50 MG Tablet PO SCH ×2 (09:00→20:25)
[2018-02-20] MEDS: Carvedilol 6.25 MG Tablet PO SCH ×2 (09:00→20:26)
[2018-02-20] MEDS: Amiodarone 200 MG Tablet PO SCH (09:00)
[2018-02-20] MEDS: Enoxaparin Inj 100 MG/ML Syringe SQ SCH ×2 (09:01→20:24)
[2018-02-20] MEDS: Pantoprazole Inj 40 MG Vial IV.PUSH SCH (09:02)
[2018-02-20 10:21] LABS: Eosinophils 1 % (0-4); Lymphocytes 7 % (9-44); Monocytes 8 % (0-8); Myelocytes 1 % (0-0)
[2018-02-20 10:23] LABS: Toxic Granulation 1+
[2018-02-20 10:24] LABS: Ovalocytes 1+; Platelet Estimate Normal (Normal); Platelet Morphology Normal (Normal)
--- NOTE | 2018-02-20 14:33 | P.PNGS ---
Subjective Interval history: Some bloating but feels a bit better. Had a lot of colostomy output after SBFT. Incisional vac not suctioning. Physical Exam Vital signs: Vital Signs 02/19/18 16:00 02/19/18 20:00 02/20/18 00:00 Temperature 98.4 F 98.2 F 98.9 F Pulse Rate 87 92 H 100 H Respiratory Rate 16 18 18 Blood Pressure 102/56 L 108/64 118/58 L Pulse Oximetry 95 95 95 02/20/18 04:00 02/20/18 08:00 02/20/18 12:00 Temperature 98.2 F 98.8 F 98.2 F Pulse Rate 98 H 96 H 90 Respiratory Rate 18 16 16 Blood Pressure 108/56 L 112/57 L 122/68 Pulse Oximetry 95 95 96 Intake & Output 02/19/18 02/20/18 02/20/18 18:59 06:59 18:59 Intake Total 1300 / 1300 2260.2 / 2260.2 Output Total 600 / 600 2325 / 2325 Balance 700 / 700 -64.8 / -64.8 Weight 95.8 kg Intake: IV 1100 / 1100 2260.2 / 2260.2 Intralipid 20% Inj 250 ML @ 31. 250 / 250 25 mls/hr IV.CENTRAL Q24H [place] Rx#:[id number] LR 1000 mL Inj 1,000 ML @ 50 1000 / 1000 mls/hr IV.CONT .Q20H [place] Rx#: [id number] MVI-12 Inj 10 ML Folvite Inj 1 2009.2 / 2009.2 MG In TPN Fluid 2 Liter 2,000 ML @ 70 mls/hr IV.SIG Q24H [place] Rx#:[id number] Flagyl 500 MG Inj 100 ML @ 100 100 / 100 mls/hr IV.SIG Q6H [place] Rx#: [id number] Oral 200 / 200 Output: Urine 450 / 450 Stool 150 / 150 Stool Amount (Stoma) 2325 / 2325 Colostomy 2324 / 232 Other: Date of Last Bowel Movement 02/19/18 02/19/18 Narrative: NAD Abd: soft, distended, bandage removed with slightly cloudy fluid leaking from superior aspect; moderate induration and erythema inferiorly. Colostomy pink and appliance cahnged. - Urinary Catheter Management Indwelling Urethral Catheter Cath placed during this visit: yes, but has since been removed by the nurse Reason for continuing: Hourly intake/output Insertion date: 02/10/18 Insertion time: 08:00 Removal date: 02/18/18 Removal time: 08:00 Assessment and Plan - Assessment (1) Diverticulitis of colon with perforation Code(s): K57.20 - Diverticulitis of large intestine with perforation and abscess without bleeding Status: Acute - Plan POD 10 s/p ex lap sigmoid resection. Clears. CT showed ? partial SBO vs ileus. SBFT shows slow transit taking 8 hrs for contrast to reach colon. Lortab. Dressing changes twice daily and PRN. On therapeutic anticoagulation. Continue TPN. (1) Diverticulitis of colon with perforation Qualifiers: Diverticulitis bleeding: without bleeding Qualified Code(s): K57.20 - Diverticulitis of large intestine with perforation and abscess without bleeding
--- NOTE | 2018-02-20 16:45 | P.PN ---
Subjective Interval history: Patient is seen lying in bed. Reports that he is doing well. Says there was a lot of output -both liquid and gas -from his colostomy in the middle of the night. Denies nausea or vomiting. No fever or chills. No chest pain or shortness of breath. No dysuria. Physical Exam Vital signs: Vital Signs 02/19/18 20:00 02/20/18 00:00 02/20/18 04:00 Temperature 98.2 F 98.9 F 98.2 F Pulse Rate 92 H 100 H 98 H Respiratory Rate 18 18 18 Blood Pressure 108/64 118/58 L 108/56 L Pulse Oximetry 95 95 95 02/20/18 08:00 02/20/18 12:00 02/20/18 16:00 Temperature 98.8 F 98.2 F 98.1 F Pulse Rate 96 H 90 88 Respiratory Rate 16 16 16 Blood Pressure 112/57 L 122/68 123/59 L Pulse Oximetry 95 96 96 Intake & Output 02/19/18 02/20/18 02/20/18 18:59 06:59 18:59 Intake Total 1300 / 1300 2260.2 / 2260.2 Output Total 600 / 600 2325 / 2325 800 / 800 Balance 700 / 700 -64.8 / -64.8 -800 / -800 Weight 95.8 kg Intake: IV 1100 / 1100 2260.2 / 2260.2 Intralipid 20% Inj 250 ML @ 31. 250 / 250 25 mls/hr IV.CENTRAL Q24H [place] Rx#:[id number] LR 1000 mL Inj 1,000 ML @ 50 1000 / 1000 mls/hr IV.CONT .Q20H [place] Rx#: [id number] MVI-12 Inj 10 ML Folvite Inj 1 2009.2 2009.2 MG In TPN Fluid 2 Liter 2,000 ML @ 70 mls/hr IV.SIG Q24H [place] Rx#:[id number] Flagyl 500 MG Inj 100 ML @ 100 100 / 100 mls/hr IV.SIG Q6H [place] Rx#: [id number] Oral 200 / 200 Output: Urine 450 / 450 800 / 800 Stool 150 / 150 Stool Amount (Stoma) 2325 / 2325 Colostomy 2325 / 2325 Other: Date of Last Bowel Movement 02/19/18 02/19/18 Narrative: GENERAL: This is a well-nourished, well-developed patient, in no apparent distress. SKIN: Warm and dry. HEENT: Normocephalic. Pupils equal round and reactive. Nose without bleeding. Airway patent. NECK: Trachea midline. CARDIOVASCULAR: Regular rate and rhythm without murmurs. RESPIRATORY: Diminished bases. No wheezes, rales, or rhonchi. GASTROINTESTINAL: Abdomen distended, + bowel sounds in all quadrants. Midline dressing dry and intact, ELHAM drain previously removed, left quadrant ostomy, with pink stoma w/ gas and brown liquid in bag. GENITOURINARY: Mccray catheter previously removed. MUSCULOSKELETAL: Extremities without clubbing, cyanosis, or edema. NEUROLOGICAL: Awake and alert. Oriented to time, place, person. Moves all extremities. Normal speech. - Urinary Catheter Management Indwelling Urethral Catheter Cath placed during this visit: yes, but has since been removed by the nurse Reason for continuing: Hourly intake/output Insertion date: 02/10/18 Insertion time: 08:00 Removal date: 02/18/18 Removal time: 08:00 Results - Labs CBC & Chem 7: 02/20/18 04:55 02/20/18 04:55 Laboratory Results - last 24 hr 02/19/18 02/20/18 02/20/18 23:43 04:55 04:55 WBC 16.0 H RBC 3.17 L Hgb 9.8 L Hct 28.8 L MCV 91.0 MCH 31.0 MCHC 34.1 RDW 15.5 Plt Count 412 MPV 7.9 Prelim Diff (Auto) Slide review pending Neut % (Auto) 81.0 H Lymph % (Auto) 9.4 [place] % (Auto) 5.9 Eos % (Auto) 3.0 Baso % (Auto) 0.7 Neut # (Auto) 13.0 H Lymph # (Auto) 1.5 [place] # (Auto) 0.9 Eos # (Auto) 0.5 H Baso # (Auto) 0.1 WBC Differential Manual diff final Seg Neuts % (Manual) 74 H Band Neuts % (Manual) 9 H Lymphocytes % (Manual) 7 L Monocytes % (Manual) 8 Eosinophils % (Manual) 1 Myelocytes % (Man) 1 H Abs Neuts (Manual) 13.4 H Differential Comment . Toxic Granulation 1+ H Platelet Estimate Normal Platelet Morphology Normal Ovalocytes 1+ H Sodium 142 Potassium 3.8 Chloride 105 Carbon Dioxide 29.8 Anion Gap 7 BUN 9 Creatinine 0.55 L Estimated GFR Greater than 89 POC Glucose 108 Random Glucose 106 Calcium 7.5 L Microbiology 02/19/18 12:20 Blood - Peripheral Aerobic Blood Culture - Preliminary No growth in 1 day 02/19/18 12:20 Blood - Peripheral Anaerobic Blood Culture - Preliminary No growth in 1 day 02/19/18 12:20 Blood - Peripheral Aerobic Blood Culture - Preliminary No growth in 1 day 02/19/18 12:20 Blood - Peripheral Anaerobic Blood Culture - Preliminary No growth in 1 day 02/19/18 10:45 Clean Catch Urine Urine Culture - Preliminary No growth in 24 hours - Imaging Impressions Small Bowel X-Ray 02/19/18 00:00 CONCLUSION: Ileus versus partial small bowel obstruction with contrast getting into the patient's ostomy site. - Procedures See hospital course Assessment and Plan - Assessment (1) Hypokalemia Code(s): E87.6 - Hypokalemia Status: Acute (2) Diverticulitis of colon with perforation Code(s): K57.20 - Diverticulitis of large intestine with perforation and abscess without bleeding Status: Acute (3) Afib Code(s): I48.91 - Unspecified atrial fibrillation Status: Acute - Plan Mr. Mccurdy is 57 year old male with a history of inguinal hernia repair who was admitted to the hospital due to lower abdominal pain. CT Abdomen/Pelvis suggest inflammatory process lower abdomen/pelvis, likely diverticulitis, several focal collections of gas to the right of the mid sigmoid colon, nonspecific possible extraluminal gas. Acute diverticulitis Distal small bowel obstruction perforated bowel -S/p Zosyn. -Surgery consult ;greatly appreciate assistance. -CT scan of abd/pelvis on 02/02 showed perforated bowel. -Repeat CT scan on 02/07 continues to show persistent large volumes of free intraperitoneal air within the abdomen and pelvis indicating perforated bowel, air collection 7 cm in the pelvis which abuts the sigmoid colon and small bowel. Circumferential wall thickening in the urinary bladder likely representing secondary inflammation given adjacent changes in the pelvis. Trace bilateral pleural effusions. - S/P exploratory laparotomy, lysis of adhesions, sigmoid resection with end colonoscopy 02/10 -Mccray catheter removed -cystogram on 02/17 was unremarkable with no evidence of leak. -IV Levaquin and Flagyl -stopped per surgery on 02/19 due to concern for reactionary leukocytosis -Patient removed NG tube 02/16. Okay to leave out per surgery. Start clear liquid. -Currently on TPN and lipids. -Pain control d/c Dilaudid; start Lortab - KUB with multiple dilated bowel loops likely postsurgical ileus -Repeat abdominal CT on 02/18/18 indicated dilated small bowel loops throughout. Distal ileal loops in the lower right quadrant are nondilated and potentially entrapped. SBFT done 02/19 shows slow transit taking 8 hrs for contrast to reach colon. Leukocytosis -Cause unclear. Afebrile/asymptomatic. UA sent. Cultures ordered due to PICC line with TPN. 02/20 - Both cultures negative 1 day. Monitor. History of atrial fibrillation/ Coagulopathy History of DVT -Patient is unable to provide specifics. However, he does report a history of DVT and afib. -He takes Warfarin -alternates between 7 mg and 6 mg tablets. -Currently on Lovenox therapeutic dose. Patient will eventually need to be transitioned to Coumadin. Hypokalemia/ Hypophosphatemia/hypomagnesemia S/t decreased PO intake. -replete and monitor. -Repeat labs stable. -Improvement in urinary output. PPx: SCD's subq Lovenox Discussed Condition With: Discussed with patient and RN, Dr. Fuentes and Dr. Maradiaga. (2) Diverticulitis of colon with perforation Qualifiers: Diverticulitis bleeding: without bleeding Qualified Code(s): K57.20 - Diverticulitis of large intestine with perforation and abscess without bleeding
[2018-02-20] MEDS: Heparin Central Flush 100 UNIT/ML 5 ML Vial IV.FLUSH SCH (19:42)
[2018-02-20] MEDS: Multivitamin Inj 10 ML, Folic Acid Inj 1 MG in TPN Fluid 2 Liter 2,000 ML IV.SIG SCH (22:05)
[2018-02-21 06:33] LABS: Baso # (Auto) 0.1 th/mm3 (0.0-0.2); Baso % (Auto) 0.6 % (0.0-2.0); Eos # (Auto) 0.4 th/mm3 (0.0-0.4); Eos % (Auto) 3.1 % (0.0-4.0); Hematocrit 27.6 % (39.0-51.0); Hemoglobin 9.4 gm/dL (13.0-17.0); Lymph % (Auto) 14.5 % (9.0-44.0); Mean Corpuscular HGB Conc 33.9 % (32.0-36.0); Mean Corpuscular Hemoglobin 31.3 pg (27.0-34.0); Mean Corpuscular Volume 92.2 fL (80.0-100.0); Mean Platelet Volume 7.6 fL (7.0-11.0); Mono # (Auto) 0.8 th/mm3 (0.0-0.9); Mono % (Auto) 5.6 % (0.0-8.0); Neut # (Auto) 10.6 th/mm3 (1.8-7.7); Neut % (Auto) 76.2 % (16.0-70.0); Platelet Count 458 th/mm3 (150-450); Red Cell Distribution Width 15.2 % (11.6-17.2); White Blood Count 13.9 th/mm3 (4.0-11.0)
[2018-02-21] MEDS: Enoxaparin Inj 100 MG/ML Syringe SQ SCH ×2 (10:24→21:16)
[2018-02-21] MEDS: Senna/Docusate Sodium 8.6/50 MG Tablet PO SCH ×2 (10:24→20:09)
[2018-02-21] MEDS: Amiodarone 200 MG Tablet PO SCH (10:24)
[2018-02-21] MEDS: Carvedilol 6.25 MG Tablet PO SCH ×2 (10:24→20:09)
[2018-02-21] MEDS: Pantoprazole Inj 40 MG Vial IV.PUSH SCH (10:24)
[2018-02-21] MEDS: Heparin Central Flush 100 UNIT/ML 5 ML Vial IV.FLUSH SCH (12:12)
--- NOTE | 2018-02-21 14:59 | P.DIET ---
Nutritional Evaluation Type of nutrition evaluation: follow-up Nutrition consult regarding: TPN/PPN Objective - Diagnosis Diverticulitis w/ Perforation - Objective % IBW: 135 (BLS=993#) Body Weight Used for Calculations: IBW (70kg) Energy Needs - Lower Range (kCal/kg): 28 Energy Needs - Upper Range (kCal/kg): 32 Lower Limit kCal/kg (kCals): 1,960 Upper Limit kCal/kg (kCals): 2,240 Lower Limit Protein Factor (Grams per Kg): 1.2 Upper Limit Protein Factor (Grams per Kg): 1.4 Lower Protein Needs (Protein): 84 Upper Protein Needs (Protein): 98 Fluid Factor (ml/kg): 30 Estimated Fluid Needs (ml): 2,100 Dietitian Reviewed in Medical Record: Current diet, Curent medications, Intake & Output, Labs, TPN/PPN Diet Order: Clear Liquids Wound Care Note: 02/18 WOC note: DTI to L+R buttocks Objective Comments: Labs: Triglycerides 99 (on 02/18) Pulled out NGT Feeding - Current TPN/PPN Current TPN: Clinimix E 11/07 Current TPN/PPN Rate (ml/hr): 70 Amino Acid and Dextrose Current kCals Provided: 1,478 Amino Acid and Dextrose Current Protein Provided: 84 Current Lipid Concentration: 20% Current Lipids Rate: mls/hr over 24 hours: (31.25mls/hr x 8hrs daily) Current kCal Provided by TPN/PPN: 1,978 Carbohydrate Load (mg/kg/min): 3 Assessment Assessment: Pt remains on TPN and lipids as described above. Now on Clear Liquids. Pt removed his NGT. s/p sigmoid resection w/ colostomy placement. Reviewed WOC note 02/18, reviewed labs; triglycerides within normal limits. Continue current TPN and lipid regimen. Recommend continuing to check triglyceride levels weekly while on TPN. RD following along. Recommendations: 1. Continue current TPN and lipid regimen. 2. Recommend continuing to check TG levels weekly while on TPN. 3. Advance diet per surgery. Dietitian to Monitor: Lab values, Electrolytes, Intake & Output, TPN/PPN tolerance, Weight change, PO Intake, Diet advancement, Wound/skin status, Medical course
--- NOTE | 2018-02-21 17:26 | P.PN ---
Subjective Interval history: Patient is seen lying in bed. He is sleeping but wakes easily. Denies chest pain or shortness of breath. He feels that his abdomen is softer. No nausea or vomiting. Physical Exam Vital signs: Vital Signs 02/20/18 20:00 02/21/18 00:00 02/21/18 08:00 Temperature 98 F 97.4 F L 98.3 F Pulse Rate 95 H 91 H 92 H Respiratory Rate 18 18 18 Blood Pressure 129/67 110/62 118/59 L Pulse Oximetry 96 100 96 02/21/18 12:00 02/21/18 16:00 Temperature 98.1 F 97.9 F Pulse Rate 88 83 Respiratory Rate 17 18 Blood Pressure 116/66 132/69 Pulse Oximetry 97 96 Intake & Output 02/20/18 02/21/18 02/21/18 18:59 06:59 18:59 Intake Total 4060 / 4060 480 / 480 Output Total 1500 / 1500 800 / 800 1325 / 1325 Balance -1500 / -1500 3260 / 3260 -845 / -845 Weight 95.8 kg Intake: IV 4060 / 4060 Intralipid 20% Inj 250 ML @ 31. 250 / 250 25 mls/hr IV.CENTRAL Q24H [place] Rx#:[id number] LR 1000 mL Inj 1,000 ML @ 50 1300 / 1300 mls/hr IV.CONT .Q20H [place] Rx#: [id number] MVI-12 Inj 10 ML Folvite Inj 1 2510 / 2510 MG In TPN Fluid 2 Liter 2,000 ML @ 70 mls/hr IV.SIG Q24H [place] Rx#:[id number] Oral 480 / 480 Output: Urine 800 / 800 800 / 800 1000 / 1000 Stool Amount (Stoma) 700 / 700 325 / 325 Colostomy 700 / 700 325 / 325 Other: Date of Last Bowel Movement 02/20/18 Narrative: GENERAL: This is a well-nourished, well-developed patient, in no apparent distress. SKIN: Warm and dry. HEENT: Normocephalic. Pupils equal round and reactive. Nose without bleeding. Airway patent. NECK: Trachea midline. CARDIOVASCULAR: Regular rate and rhythm without murmurs. RESPIRATORY: Diminished bases. No wheezes, rales, or rhonchi. GASTROINTESTINAL: Abdomen distended, + bowel sounds in all quadrants. Midline dressing dry and intact, ELHAM drain previously removed, left quadrant ostomy, with pink stoma w/ gas and brown liquid in bag. GENITOURINARY: Mccray catheter previously removed. MUSCULOSKELETAL: Extremities without clubbing, cyanosis, or edema. NEUROLOGICAL: Awake and alert. Oriented to time, place, person. Moves all extremities. Normal speech. - Urinary Catheter Management Indwelling Urethral Catheter Cath placed during this visit: yes, but has since been removed by the nurse Reason for continuing: Hourly intake/output Insertion date: 02/10/18 Insertion time: 08:00 Removal date: 02/18/18 Removal time: 08:00 Results - Labs CBC & Chem 7: 02/21/18 05:28 02/20/18 04:55 Laboratory Results - last 24 hr 02/20/18 02/21/18 02/21/18 22:15 05:28 05:28 WBC 13.9 H RBC 3.00 L Hgb 9.4 L Hct 27.6 L MCV 92.2 MCH 31.3 MCHC 33.9 RDW 15.2 Plt Count 458 H MPV 7.6 Neut % (Auto) 76.2 H Lymph % (Auto) 14.5 [place] % (Auto) 5.6 Eos % (Auto) 3.1 Baso % (Auto) 0.6 Neut # (Auto) 10.6 H Lymph # (Auto) 2.0 [place] # (Auto) 0.8 Eos # (Auto) 0.4 Baso # (Auto) 0.1 WBC Differential . Differential Comment Auto diff final POC Glucose 120 H Vitamin B12 839 Folate 17.0 Microbiology 02/19/18 10:45 Clean Catch Urine Urine Culture - Final No growth in 48 hours 02/19/18 12:20 Blood - Peripheral Aerobic Blood Culture - Preliminary No growth in 2 days 02/19/18 12:20 Blood - Peripheral Anaerobic Blood Culture - Preliminary No growth in 2 days 02/19/18 12:20 Blood - Peripheral Aerobic Blood Culture - Preliminary No growth in 2 days 02/19/18 12:20 Blood - Peripheral Anaerobic Blood Culture - Preliminary No growth in 2 days - Procedures See hospital course Assessment and Plan - Assessment (1) Hypokalemia Code(s): E87.6 - Hypokalemia Status: Acute (2) Diverticulitis of colon with perforation Code(s): K5.20 - Diverticulitis of large intestine with perforation and abscess without bleeding Status: Acute (3) Afib Code(s): I48.91 - Unspecified atrial fibrillation Status: Acute - Plan Mr. Mccurdy is 57 year old male with a history of inguinal hernia repair who was admitted to the hospital due to lower abdominal pain. CT Abdomen/Pelvis suggest inflammatory process lower abdomen/pelvis, likely diverticulitis, several focal collections of gas to the right of the mid sigmoid colon, nonspecific possible extraluminal gas. Acute diverticulitis Distal small bowel obstruction perforated bowel -S/p Zosyn. -Surgery consult ;greatly appreciate assistance. -CT scan of abd/pelvis on 02/02 showed perforated bowel. -Repeat CT scan on 02/07 continues to show persistent large volumes of free intraperitoneal air within the abdomen and pelvis indicating perforated bowel, air collection 7 cm in the pelvis which abuts the sigmoid colon and small bowel. Circumferential wall thickening in the urinary bladder likely representing secondary inflammation given adjacent changes in the pelvis. Trace bilateral pleural effusions. - S/P exploratory laparotomy, lysis of adhesions, sigmoid resection with end colonoscopy 02/10 -Mccray catheter removed -cystogram on 02/17 was unremarkable with no evidence of leak. -IV Levaquin and Flagyl -stopped per surgery on 02/19 due to concern for reactionary leukocytosis. WBCs improving. -Patient removed NG tube 02/16. Okay to leave out per surgery. Start clear liquid. -Currently on TPN and lipids. -Pain control d/c Dilaudid; start Lortab - KUB with multiple dilated bowel loops likely postsurgical ileus -Repeat abdominal CT on 02/18/18 indicated dilated small bowel loops throughout. Distal ileal loops in the lower right quadrant are nondilated and potentially entrapped. SBFT done 02/19 shows slow transit taking 8 hrs for contrast to reach colon. Leukocytosis -Cause unclear. Afebrile/asymptomatic. UA sent -negative. Cultures ordered due to PICC line with TPN. 02/21 - Both cultures negative 2 day. Monitor. History of atrial fibrillation/ Coagulopathy History of DVT -Patient is unable to provide specifics. However, he does report a history of DVT and afib. -He takes Warfarin -alternates between 7 mg and 6 mg tablets. -Currently on Lovenox therapeutic dose. Patient will eventually need to be transitioned to Coumadin. Hypokalemia/ Hypophosphatemia/hypomagnesemia S/t decreased PO intake. -replete and monitor. -Repeat labs stable. -Improvement in urinary output. PPx: SCD's subq Lovenox Discussed Condition With: Discussed with patient and RN, and Dr. Maradiaga. (2) Diverticulitis of colon with perforation Qualifiers: Diverticulitis bleeding: without bleeding Qualified Code(s): K57.20 - Diverticulitis of large intestine with perforation and abscess without bleeding
[2018-02-21] MEDS: Multivitamin Inj 10 ML, Folic Acid Inj 1 MG in TPN Fluid 2 Liter 2,000 ML IV.SIG SCH (21:17)
[2018-02-22 07:11] LABS: Baso % (Auto) 0.4 % (0.0-2.0); Eos # (Auto) 0.5 th/mm3 (0.0-0.4); Eos % (Auto) 5.4 % (0.0-4.0); Hematocrit 31.1 % (39.0-51.0); Hemoglobin 10.3 gm/dL (13.0-17.0); Lymph # (Auto) 1.9 th/mm3 (1.0-4.8); Lymph % (Auto) 18.7 % (9.0-44.0); Mean Corpuscular Hemoglobin 30.5 pg (27.0-34.0); Mean Corpuscular Volume 92.3 fL (80.0-100.0); Mean Platelet Volume 7.4 fL (7.0-11.0); Mono # (Auto) 0.8 th/mm3 (0.0-0.9); Mono % (Auto) 7.9 % (0.0-8.0); Neut # (Auto) 6.8 th/mm3 (1.8-7.7); Neut % (Auto) 67.6 % (16.0-70.0); Platelet Count 518 th/mm3 (150-450); Red Blood Count 3.37 mil/mm3 (4.50-5.90); Red Cell Distribution Width 15.1 % (11.6-17.2)
[2018-02-22 07:33] LABS: Anion Gap 6 meq/L (5-15); Blood Urea Nitrogen 8 mg/dL (7-18); Calcium 7.9 mg/dL (8.5-10.1); Chloride 103 meq/L (98-107); Glomerular Filtration Rate Greater Than 89 mL/min (>89); Glucose,Random 120 mg/dL (74-106); Potassium 3.8 meq/L (3.5-5.1); Sodium 140 meq/L (136-145)
[2018-02-22] MEDS: Carvedilol 6.25 MG Tablet PO SCH ×2 (08:36→20:57)
[2018-02-22] MEDS: Pantoprazole Inj 40 MG Vial IV.PUSH SCH (08:36)
[2018-02-22] MEDS: Enoxaparin Inj 100 MG/ML Syringe SQ SCH ×2 (08:36→20:57)
[2018-02-22] MEDS: Amiodarone 200 MG Tablet PO SCH (08:36)
[2018-02-22] MEDS: Senna/Docusate Sodium 8.6/50 MG Tablet PO SCH ×2 (09:29→20:57)
[2018-02-22] MEDS: Heparin Central Flush 100 UNIT/ML 5 ML Vial IV.FLUSH SCH (09:29)
--- NOTE | 2018-02-22 10:38 | P.PNGS ---
Subjective Interval history: Denies nausea. He is having less bloating. + gas and liquid from colostomy. Physical Exam Vital signs: Vital Signs 02/21/18 12:00 02/21/18 16:00 02/21/18 19:08 Temperature 98.1 F 97.9 F 98.5 F Pulse Rate 88 83 81 Respiratory Rate 17 18 18 Blood Pressure 116/66 132/69 121/70 Pulse Oximetry 97 96 95 02/21/18 23:52 02/22/18 08:00 Temperature 98.4 F 97.8 F Pulse Rate 76 83 Respiratory Rate 18 17 Blood Pressure 121/65 117/63 Pulse Oximetry 97 97 Intake & Output 02/21/18 02/22/18 02/22/18 18:59 06:59 18:59 Intake Total 840 / 840 1370 / 1370 120 / 120 Output Total 2125 / 2125 1725 / 1725 Balance -1285 / -1285 -355 / -355 120 / 120 Weight 95.8 kg Intake: IV 1250 / 1250 Intralipid 20% Inj 250 ML @ 31. 250 / 250 25 mls/hr IV.CENTRAL Q24H [place] Rx#:[id number] LR 1000 mL Inj 1,000 ML @ 50 0 / 0 mls/hr IV.CONT .Q20H [place] Rx#: [id number] MVI-12 Inj 10 ML Folvite Inj 1 1000 / 1000 MG In TPN Fluid 2 Liter 2,000 ML @ 70 mls/hr IV.SIG Q24H [place] Rx#:[id number] Oral 840 / 840 120 / 120 120 / 120 Output: Urine 1600 / 1600 1400 / 1400 Stool Amount (Stoma) 525 / 525 325 / 325 Colostomy 525 / 525 325 / 325 Other: Date of Last Bowel Movement 02/21/18 02/22/18 Narrative: No distress Abd: moderate distention, slightly better. Gas and stool in bag. Inc with purulent drainage inferiorly- two alan removed and large amt purulence evacuated. Wound packed with 4x4. No serous drainage from superior aspect of incision. - Urinary Catheter Management Indwelling Urethral Catheter Cath placed during this visit: yes, but has since been removed by the nurse Reason for continuing: Not indwelling catheter Insertion date: 02/10/18 Insertion time: 08:00 Removal date: 02/18/18 Removal time: 08:00 Assessment and Plan - Assessment (1) Diverticulitis of colon with perforation Code(s): K57.20 - Diverticulitis of large intestine with perforation and abscess without bleeding Status: Acute - Plan POD 12 s/p ex lap sigmoid resection. Seems to be improving. WBC nml. Has superficial wound infection which is now being packed. Clears. CT showed ? partial SBO vs ileus. SBFT shows slow transit taking 8 hrs for contrast to reach colon. Try ensure and if tolerates today will advance diet tomorrow. Lortab. Dressing changes twice daily and PRN. On therapeutic anticoagulation. Continue TPN. (1) Diverticulitis of colon with perforation Qualifiers: Diverticulitis bleeding: without bleeding Qualified Code(s): K57.20 - Diverticulitis of large intestine with perforation and abscess without bleeding
--- NOTE | 2018-02-22 12:31 | P.PNIM ---
Subjective Interval history: Follow-up for abdominal surgery Patient denies any abdominal pain. Denying nausea or vomiting. He is very anxious to eat food. Patient is going through the menu with me during the interview. He remains afebrile he has no other complaints. Physical Exam Vital signs: Vital Signs 02/21/18 16:00 02/21/18 19:08 02/21/18 23:52 Temperature 97.9 F 98.5 F 98.4 F Pulse Rate 83 81 76 Respiratory Rate 18 18 18 Blood Pressure 132/69 121/70 121/65 Pulse Oximetry 96 95 97 02/22/18 08:00 02/22/18 12:00 Temperature 97.8 F 98.1 F Pulse Rate 83 90 Respiratory Rate 17 18 Blood Pressure 117/63 101/56 L Pulse Oximetry 97 96 Intake & Output 02/21/18 02/22/18 02/22/18 18:59 06:59 18:59 Intake Total 840 / 840 1370 / 1370 120 / 120 Output Total 2125 / 2125 1725 / 1725 Balance -1285 / -1285 -355 / -355 120 / 120 Weight 95.8 kg Intake: IV 1250 / 1250 Intralipid 20% Inj 250 ML @ 31. 250 / 250 25 mls/hr IV.CENTRAL Q24H [place] Rx#:[id number] LR 1000 mL Inj 1,000 ML @ 50 0 / 0 mls/hr IV.CONT .Q20H [place] Rx#: [id number] MVI-12 Inj 10 ML Folvite Inj 1 1000 / 1000 MG In TPN Fluid 2 Liter 2,000 ML @ 70 mls/hr IV.SIG Q24H [place] Rx#:[id number] Oral 840 / 840 120 / 120 120 / 120 Output: Urine 1600 / 1600 1400 / 1400 Stool Amount (Stoma) 525 / 525 325 / 325 Colostomy 525 / 525 325 / 325 Other: Date of Last Bowel Movement 02/21/18 02/22/18 - Constitutional no acute distress - Routine Cardiovascular Exam Present: RRR, S1, S2 - Routine Abdominal Exam Present: soft Comments: Ostomy in place. Wound bandages was changed this morning by general surgeon. Will keep it in place. Nontender to palpation. Abdomen is distended. - Routine Skin Exam Comments: Negative for any lower extremity edema. - Urinary Catheter Management Indwelling Urethral Catheter Cath placed during this visit: yes, but has since been removed by the nurse Reason for continuing: Not indwelling catheter Insertion date: 02/10/18 Insertion time: 08:00 Removal date: 02/18/18 Removal time: 08:00 Results - Labs CBC & Chem 7: 02/22/18 06:30 02/22/18 06:30 Laboratory Results - last 24 hr 02/22/18 02/22/18 06:30 06:30 WBC 10.0 RBC 3.37 L Hgb 10.3 L Hct 31.1 L MCV 92.3 MCH 30.5 MCHC 33.0 RDW 15.1 Plt Count 518 H MPV 7.4 Neut % (Auto) 67.6 Lymph % (Auto) 18.7 [place] % (Auto) 7.9 Eos % (Auto) 5.4 H Baso % (Auto) 0.4 Neut # (Auto) 6.8 Lymph # (Auto) 1.9 [place] # (Auto) 0.8 Eos # (Auto) 0.5 H Baso # (Auto) 0.0 WBC Differential . Differential Comment Auto diff final Sodium 140 Potassium 3.8 Chloride 103 Carbon Dioxide 31.0 Anion Gap 6 BUN 8 Creatinine 0.50 L Estimated GFR Greater than 89 Random Glucose 120 H Calcium 7.9 L Microbiology 02/19/18 12:20 Blood - Peripheral Aerobic Blood Culture - Preliminary No growth in 3 days 02/19/18 12:20 Blood - Peripheral Anaerobic Blood Culture - Preliminary No growth in 3 days 02/19/18 12:20 Blood - Peripheral Aerobic Blood Culture - Preliminary No growth in 3 days 02/19/18 12:20 Blood - Peripheral Anaerobic Blood Culture - Preliminary No growth in 3 days 02/19/18 10:45 Clean Catch Urine Urine Culture - Final No growth in 48 hours - Procedures See hospital course Assessment and Plan - Assessment (1) Hypokalemia Code(s): E87.6 - Hypokalemia Status: Acute (2) Diverticulitis of colon with perforation Code(s): K57.20 - Diverticulitis of large intestine with perforation and abscess without bleeding Status: Acute (3) Afib Code(s): I48.91 - Unspecified atrial fibrillation Status: Acute - Plan Mr. Mccurdy is 57 year old male with a history of inguinal hernia repair who was admitted to the hospital due to lower abdominal pain. CT Abdomen/Pelvis suggest inflammatory process lower abdomen/pelvis, likely diverticulitis, several focal collections of gas to the right of the mid sigmoid colon, nonspecific possible extraluminal gas. Acute diverticulitis Distal small bowel obstruction perforated bowel -S/p Zosyn. -Surgery consult ;greatly appreciate assistance. -CT scan of abd/pelvis on 02/02 showed perforated bowel. -Repeat CT scan on 02/07 continues to show persistent large volumes of free intraperitoneal air within the abdomen and pelvis indicating perforated bowel, air collection 7 cm in the pelvis which abuts the sigmoid colon and small bowel. Circumferential wall thickening in the urinary bladder likely representing secondary inflammation given adjacent changes in the pelvis. Trace bilateral pleural effusions. - S/P exploratory laparotomy, lysis of adhesions, sigmoid resection with end colonoscopy 02/10 -Mccray catheter removed -cystogram on 02/17 was unremarkable with no evidence of leak. -IV Levaquin and Flagyl -stopped per surgery on 02/19 due to concern for reactionary leukocytosis. WBCs improving. -Patient removed NG tube 02/16. Okay to leave out per surgery. Start clear liquid. -Currently on TPN and lipids. -Pain control d/c Dilaudid; start Lortab - KUB with multiple dilated bowel loops likely postsurgical ileus -Repeat abdominal CT on 02/18/18 indicated dilated small bowel loops throughout. Distal ileal loops in the lower right quadrant are nondilated and potentially entrapped. SBFT done 02/19 shows slow transit taking 8 hrs for contrast to reach colon. -Per general surgeon will try and sure today and if he tolerates he will advance diet tomorrow. Leukocytosis -Cause unclear. Afebrile/asymptomatic. UA sent -negative. Cultures ordered due to PICC line with TPN. 02/21 - Both cultures negative 2 day. Monitor off antibiotics. At the moment no indication for any antibiotics. History of atrial fibrillation/ Coagulopathy History of DVT -Patient is unable to provide specifics. However, he does report a history of DVT and afib. -He takes Warfarin -alternates between 7 mg and 6 mg tablets. -Currently on Lovenox therapeutic dose. Patient will eventually need to be transitioned to Coumadin. Hypokalemia/ Hypophosphatemia/hypomagnesemia S/t decreased PO intake. -replete and monitor. -Repeat labs stable. -Improvement in urinary output. PPx: SCD's subq Lovenox (2) Diverticulitis of colon with perforation Qualifiers: Diverticulitis bleeding: without bleeding Qualified Code(s): K57.20 - Diverticulitis of large intestine with perforation and abscess without bleeding
--- NOTE | 2018-02-22 18:47 | P.PNWCN ---
Wound Care Nurse Consult Description: Patient seen for follow up of colostomy teaching covering for Giselle IBARRA Communicated with: RN Juliann ona Recommendation: Monitor stoma for red/pink color, moisture, and output. Empty pouch of effluent when 1/3-1/2 full Change appliance Q5D and PRN for leaks. Wound/Pressure Injury - Wound Coccyx Length: 3.5 Width: 3 Depth: 0 Wound Vac - Wound Vac Right Abdomen Mode Setting: Continuous Wound Drain - Drain # 1 Right Lower Abdomen Drainage Description: Green, Thin Drainage Odor: None/Absent Drain Removal Date: 02/17/18 Drain Removal Time: 18:00 Drain Removed By: Carlie Palmer Incision - Patient Status Premedicated for Pain Prior to Dressing Change: No - Incision Abdomen Incision Assessment: Ongoing Incision Type: Incision Incision Description: Approximated Drainage Description: Serosanguinous Drainage Amount: Minimal Drainage Odor: No Odor Incision Dressing Status: Changed Primary Dressing: Absorbant Pad Cover Dressing: Transparent (Reinforced dressing with tranparent markel strips) Other Cover Dressing: MARKEL Tape Type: Paper Incision Dressing Change Date: 02/17/18 Incision/Surgery Date: 02/10/18 Right Lower Abdomen Incision Assessment: Ongoing Incision Type: Incision Incision Description: Approximated, [place] Incision Bed Appearance: [place] Surrounding Tissue Appearance: [place] Surrounding Tissue Temperature: Warm Drainage Description: Serosanguinous Drainage Amount: Scant Drainage Odor: No Odor Incision Dressing Status: Changed Incision Cleaning Solution: Alcohol Primary Dressing: XEROFORM Cover Dressing: Gauze Pads, Other Other Cover Dressing: ABD Tape Type: Paper - Additional Information MARKEL dressing was changed today by web developerSANDRA Guzman and corporate strategist Dixie Bowel Diversion Stoma - Bowel Stoma Colostomy Stoma Edema: Yes (mild) Stoma Appearance: Beefy Red Loop Supporting Edwin: No Collection Device: Two-piece Drainage Description: Liquid Wafer Size: 2 1/4 Moldable Stoma Care: Pouch and Wafer Changed Zaira-Stomal Skin Appearance: Intact Zaira-Stomal Surrounding Tissue Sensation Description: No Symptoms - Additional Information Additional Information: Patient seen on for continued ostomy teaching, support and care, full note to follow.
[2018-02-22] MEDS: Multivitamin Inj 10 ML, Folic Acid Inj 1 MG in TPN Fluid 2 Liter 2,000 ML IV.SIG SCH (20:58)
[2018-02-23] MEDS: Amiodarone 200 MG Tablet PO SCH (10:27)
[2018-02-23] MEDS: Senna/Docusate Sodium 8.6/50 MG Tablet PO SCH ×2 (10:27→20:00)
[2018-02-23] MEDS: Pantoprazole Inj 40 MG Vial IV.PUSH SCH (10:27)
[2018-02-23] MEDS: Carvedilol 6.25 MG Tablet PO SCH ×2 (10:28→20:00)
[2018-02-23] MEDS: Heparin Central Flush 100 UNIT/ML 5 ML Vial IV.FLUSH SCH (10:28)
[2018-02-23] MEDS: Enoxaparin Inj 100 MG/ML Syringe SQ SCH ×2 (10:28→20:00)
--- NOTE | 2018-02-23 12:16 | P.PNGS ---
Subjective Interval history: Tolerated some ensure yesterday. Colostomy functioning. Physical Exam Vital signs: Vital Signs 02/22/18 16:34 02/22/18 19:10 02/23/18 00:03 Temperature 97.2 F L 97.9 F 98.3 F Pulse Rate 71 72 91 H Respiratory Rate 18 17 18 Blood Pressure 104/60 123/68 103/56 L Pulse Oximetry 97 97 96 02/23/18 01:00 02/23/18 08:00 Temperature 97.7 F Pulse Rate 79 Respiratory Rate 17 18 Blood Pressure 98/54 L Pulse Oximetry 96 Intake & Output 02/22/18 02/23/18 02/23/18 18:59 06:59 18:59 Intake Total 720 / 720 3460.2 / 3460.2 Output Total 2024 / 2024 2225 / 2225 Balance -1305 / -1305 1235.2 / 1235.2 Weight 95.8 kg Intake: IV 2860.2 / 2860.2 Intralipid 20% Inj 250 ML @ 31. 250 / 250 25 mls/hr IV.CENTRAL Q24H [place] Rx#:[id number] MVI-12 Inj 10 ML Folvite Inj 1 2009.2 / 2009.2 MG In TPN Fluid 2 Liter 2,000 ML @ 70 mls/hr IV.SIG Q24H [place] Rx#:[id number] Oral 720 / 720 600 / 600 Output: Urine 1900 / 1900 1650 / 1650 Stool Amount (Stoma) 125 / 125 575 / 575 Colostomy 125 / 125 575 / 575 Other: Mode Setting Right Abdomen Continuous # Voids 3 Date of Last Bowel Movement 02/22/18 02/22/18 02/23/18 Narrative: NAD Abd: inc open at inferior aspect, packed with 4x4, some purulent drainage superiorly. Colostomy pink and functioning. - Urinary Catheter Management Indwelling Urethral Catheter Cath placed during this visit: yes, but has since been removed by the nurse Reason for continuing: Not indwelling catheter Insertion date: 02/10/18 Insertion time: 08:00 Removal date: 02/18/18 Removal time: 08:00 Assessment and Plan - Assessment (1) Diverticulitis of colon with perforation Code(s): K57.20 - Diverticulitis of large intestine with perforation and abscess without bleeding Status: Acute - Plan POD 13 s/p ex lap sigmoid resection. Seems to be improving. WBC nml. Has superficial wound infection which is now being packed. Try soft diet. Lortab. Dressing changes twice daily and PRN. On therapeutic anticoagulation. Continue TPN. Pressure ulcer- d/w Giselle WCN. Stage 3. Will order specialty bed. Importance of turning reinforced with patient. Hopefully nutrition will improve as well as he begins tolerating diet. (1) Diverticulitis of colon with perforation Qualifiers: Diverticulitis bleeding: without bleeding Qualified Code(s): K57.20 - Diverticulitis of large intestine with perforation and abscess without bleeding
--- NOTE | 2018-02-23 13:31 | P.PNWCN ---
Wound Care Nurse Consult Description: Patient seen for follow up of colostomy teaching and evaluation of wound seen previously by narrative writer as a DTI. Communicated with: Dr Alfredo Winston, RN Erin, student accounts coordinator Recommendation: Left inner buttock Q5D and PRN for soiling or dislodgement: Gently cleanse wound with NS and gauze. Pat dry. Apply Puracol to wound bed. Apply skin barrier film ([place] SPRAY) to periwound and allow to dry. Apply optifoam gentle border. Date dressing. PLEASE encourage and assist patient to reposition Q2H to relieve pressure and PRN for comfort. PLEASE use ONLY ONE ultrasorb moisture wicking underpad with Airapy LOW AIR- LOSS MATTRESS. NO COTTON PULL PADS PLEASE as they hold in moisture and heat. Colostomy: Monitor stoma for red/pink color, moisture, and output. Empty pouch of effluent when 1/3-1/2 full Change appliance Q5D and PRN for leaks. Additional information: Patient seen on for ostomy assessment and wound evaluation. Patient noted in bed laying on his right side when entering room with a moist cotton pull pad underneath him that was removed. A disposable ultrasorb was obtained and placed underneath patient for moisture control. Ostomy pouch was noted with 125ml of brown liquid effluent and air that was emptied and left in bathroom for I&O's. Stoma is red, round, moist with mucus, and functioning. Appliance is intact and noted without leaks. Pouch was closed properly after emptying. Patient wound was visualized on left inner buttock. Patient was assisted to his left side after assessment. Low air loss pressure reducing mattress surface will be ordered for patient. Wound/Pressure Injury - Wound Right Buttocks Wound Bed Appearance: Peeling Skin Left Inner Buttock Wound Staging: Stage III Wound Assessment: Ongoing Is This a Chronic Wound: No Length: 2 (cm) Width: 1.5 (cm) Depth: 0.2 (cm) Wound Bed Appearance: [place], Yellow Wound Bed Appearance: Full thickness skin loss Drainage Amount: None Drainage Odor: No Odor Dressing Status: Open to Air - Additional Information Previous deep tissue injury on the L inner buttock /gluteal cleft/ coccyx area , has opened up to full thickness skin loss with exposed adipose tissue. Also noted R inner buttock is denuded skin. Patient was educated on the need to reposition himself to avoid the wound described above. Cotton pull pad was removed and a disposable moisture wicking ultrasorb was placed under buttocks. Patient was then assisted to his left side with a pillow placed under his right side. Dr Fuentes was at bedside performing midline abdomen dressing change and is aware of ostomy output and Stage III wound. Incision - Additional Information [place] noted to midline incision with open area noted. Dressing changed by Dr Fuentes during assessment. Bowel Diversion Stoma - Bowel Stoma Colostomy Stoma Appearance: Protruding, Round Collection Device: Two-piece Drainage Description: Liquid, Brown Wafer Size: 2 1/4 Moldable - Additional Information Additional Information: Patient seen on for continued ostomy teaching, emptying of ostomy pouch , and education on pressure injury.
--- NOTE | 2018-02-23 13:32 | P.PNIM ---
Subjective Interval history: Follow-up for abdominal surgery Patient stated that he was able to tolerate some Ensure. General surgeon already saw patient and is advancing his diet to soft diet. He denies any abdominal pain, nausea or vomiting. Patient remains afebrile. He has no other complaints. Physical Exam Vital signs: Vital Signs 02/22/18 16:34 02/22/18 19:10 02/23/18 00:03 Temperature 97.2 F L 97.9 F 98.3 F Pulse Rate 71 72 91 H Respiratory Rate 18 17 18 Blood Pressure 104/60 123/68 103/56 L Pulse Oximetry 97 97 96 02/23/18 01:00 02/23/18 08:00 Temperature 97.7 F Pulse Rate 79 Respiratory Rate 17 18 Blood Pressure 98/54 L Pulse Oximetry 96 Intake & Output 02/22/18 02/23/18 02/23/18 18:59 06:59 18:59 Intake Total 720 / 720 3460.2 / 3460.2 Output Total 2024 / 2024 2225 / 2225 Balance -1305 / -1305 1235.2 / 1235.2 Weight 95.8 kg Intake: IV 2860.2 / 2860.2 Intralipid 20% Inj 250 ML @ 31. 250 / 250 25 mls/hr IV.CENTRAL Q24H [facility] Rx#:[id number] MVI-12 Inj 10 ML Folvite Inj 1 2009.2 / 2009.2 MG In TPN Fluid 2 Liter 2,000 ML @ 70 mls/hr IV.SIG Q24H [facility] Rx#:[id number] Oral 720 / 720 600 / 600 Output: Urine 1900 / 1900 1650 / 1650 Stool Amount (Stoma) 125 / 125 575 / 575 Colostomy 125 / 125 575 / 575 Other: Mode Setting Right Abdomen Continuous # Voids 3 Date of Last Bowel Movement 02/22/18 02/22/18 02/23/18 - Constitutional no acute distress - Routine HEENT Exam ENT: Present: mucous membranes moist - Routine Respiratory Exam Present: CTA bilaterally - Routine Cardiovascular Exam Present: RRR, S1, S2 Comments: No rubs murmurs or gallops. - Routine Abdominal Exam Present: soft Comments: Surgical scar dry clean and intact. Ostomy in place. Abdomen seemed distended but nontender to palpation. Negative for any peritoneal signs. - Routine Extremities Exam Present: edema - Urinary Catheter Management Indwelling Urethral Catheter Cath placed during this visit: yes, but has since been removed by the nurse Reason for continuing: Not indwelling catheter Insertion date: 02/10/18 Insertion time: 08:00 Removal date: 02/18/18 Removal time: 08:00 Results - Labs CBC & Chem 7: 02/22/18 06:30 02/22/18 06:30 Laboratory Results - last 24 hr 02/22/18 02/22/18 14:19 21:21 POC Glucose 106 102 Microbiology 02/19/18 12:20 Blood - Peripheral Aerobic Blood Culture - Preliminary No growth in 4 days 02/19/18 12:20 Blood - Peripheral Anaerobic Blood Culture - Preliminary No growth in 4 days 02/19/18 12:20 Blood - Peripheral Aerobic Blood Culture - Preliminary No growth in 4 days 02/19/18 12:20 Blood - Peripheral Anaerobic Blood Culture - Preliminary No growth in 4 days - Procedures See hospital course Assessment and Plan - Assessment (1) Hypokalemia Code(s): E87.6 - Hypokalemia Status: Acute (2) Diverticulitis of colon with perforation Code(s): K57.20 - Diverticulitis of large intestine with perforation and abscess without bleeding Status: Acute (3) Afib Code(s): I48.91 - Unspecified atrial fibrillation Status: Acute - Plan Mr. Mccurdy is 57 year old male with a history of inguinal hernia repair who was admitted to the hospital due to lower abdominal pain. CT Abdomen/Pelvis suggest inflammatory process lower abdomen/pelvis, likely diverticulitis, several focal collections of gas to the right of the mid sigmoid colon, nonspecific possible extraluminal gas. Acute diverticulitis Distal small bowel obstruction perforated bowel -S/p Zosyn. -Surgery consult ;greatly appreciate assistance. -CT scan of abd/pelvis on 02/02 showed perforated bowel. -Repeat CT scan on 02/07 continues to show persistent large volumes of free intraperitoneal air within the abdomen and pelvis indicating perforated bowel, air collection 7 cm in the pelvis which abuts the sigmoid colon and small bowel. Circumferential wall thickening in the urinary bladder likely representing secondary inflammation given adjacent changes in the pelvis. Trace bilateral pleural effusions. - S/P exploratory laparotomy, lysis of adhesions, sigmoid resection with end colonoscopy 02/10 -Mccray catheter removed -cystogram on 02/17 was unremarkable with no evidence of leak. -IV Levaquin and Flagyl -stopped per surgery on 02/19 due to concern for reactionary leukocytosis. WBCs improving. -Patient removed NG tube 02/16. Okay to leave out per surgery. Start clear liquid. -Currently on TPN and lipids. -Pain control d/c Dilaudid; start Lortab - KUB with multiple dilated bowel loops likely postsurgical ileus -Repeat abdominal CT on 02/18/18 indicated dilated small bowel loops throughout. Distal ileal loops in the lower right quadrant are nondilated and potentially entrapped. SBFT done 02/19 shows slow transit taking 8 hrs for contrast to reach colon. -Per general surgeon will try soft diet today. Continue with TPN. Leukocytosis -Most likely induced by antibiotics. Resolved. History of atrial fibrillation/ Coagulopathy History of DVT -Patient is unable to provide specifics. However, he does report a history of DVT and afib. -He takes Warfarin -alternates between 7 mg and 6 mg tablets. -Currently on Lovenox therapeutic dose. Patient will eventually need to be transitioned to Coumadin. Hypokalemia/ Hypophosphatemia/hypomagnesemia S/t decreased PO intake. -replete and monitor. -Repeat labs stable. -Improvement in urinary output. coccyx wound -Being managed by wound care. PPx: SCD's subq Lovenox (2) Diverticulitis of colon with perforation Qualifiers: Diverticulitis bleeding: without bleeding Qualified Code(s): K57.20 - Diverticulitis of large intestine with perforation and abscess without bleeding
[2018-02-23] MEDS: Multivitamin Inj 10 ML, Folic Acid Inj 1 MG in TPN Fluid 2 Liter 2,000 ML IV.SIG SCH (19:56)
[2018-02-24] MEDS: Carvedilol 6.25 MG Tablet PO SCH ×2 (10:15→21:00)
[2018-02-24] MEDS: Heparin Central Flush 100 UNIT/ML 5 ML Vial IV.FLUSH SCH (10:15)
[2018-02-24] MEDS: Amiodarone 200 MG Tablet PO SCH (10:15)
[2018-02-24] MEDS: Senna/Docusate Sodium 8.6/50 MG Tablet PO SCH ×2 (10:15→21:00)
[2018-02-24] MEDS: Enoxaparin Inj 100 MG/ML Syringe SQ SCH ×2 (10:15→21:00)
[2018-02-24] MEDS: Pantoprazole Inj 40 MG Vial IV.PUSH SCH (10:16)
[2018-02-24 10:33] LABS: Baso % (Auto) 0.3 % (0.0-2.0); Eos # (Auto) 0.2 th/mm3 (0.0-0.4); Eos % (Auto) 1.6 % (0.0-4.0); Hematocrit 35.1 % (39.0-51.0); Hemoglobin 11.5 gm/dL (13.0-17.0); Lymph # (Auto) 0.8 th/mm3 (1.0-4.8); Lymph % (Auto) 5.6 % (9.0-44.0); Mean Corpuscular HGB Conc 32.7 % (32.0-36.0); Mean Corpuscular Volume 91.9 fL (80.0-100.0); Mono # (Auto) 0.7 th/mm3 (0.0-0.9); Mono % (Auto) 4.7 % (0.0-8.0); Neut # (Auto) 12.4 th/mm3 (1.8-7.7); Neut % (Auto) 87.8 % (16.0-70.0); Platelet Count 576 th/mm3 (150-450); Red Blood Count 3.82 mil/mm3 (4.50-5.90); Red Cell Distribution Width 15.4 % (11.6-17.2); White Blood Count 14.1 th/mm3 (4.0-11.0)
[2018-02-24 11:06] LABS: Anion Gap 6 meq/L (5-15); Blood Urea Nitrogen 16 mg/dL (7-18); Calcium 8.2 mg/dL (8.5-10.1); Carbon Dioxide 29.7 meq/L (21.0-32.0); Chloride 96 meq/L (98-107); Glomerular Filtration Rate Greater Than 89 mL/min (>89); Glucose,Random 127 mg/dL (74-106); Potassium 4.4 meq/L (3.5-5.1); Sodium 132 meq/L (136-145)
--- NOTE | 2018-02-24 11:18 | P.PNGS ---
Subjective Interval history: Tolerating about half of meal of turkey yesterday. Possible fever of 102 at 7 am although this is not documented. Reportedly the next temp was 100.2. He does not have any complaints. Physical Exam Vital signs: Vital Signs 02/23/18 12:00 02/23/18 16:00 02/23/18 16:10 Temperature 97.7 F 98.6 F Pulse Rate 82 98 H Respiratory Rate 18 18 17 Blood Pressure 109/59 L 93/52 L Pulse Oximetry 93 L 97 02/23/18 19:53 02/24/18 00:00 02/24/18 04:00 Temperature 99.1 F 99.5 F 98.8 F Pulse Rate 85 97 H 87 Respiratory Rate 17 17 16 Blood Pressure 117/61 119/60 106/56 L Pulse Oximetry 96 95 94 L Intake & Output 02/23/18 02/24/18 02/24/18 18:59 06:59 18:59 Intake Total 480 / 480 2260.2 / 2260.2 Output Total 650 / 650 800 / 800 Balance -170 / -170 1460.2 / 1460.2 Intake: IV 2260.2 / 2260.2 Intralipid 20% Inj 250 ML @ 31. 250 / 250 25 mls/hr IV.CENTRAL Q24H [facility] Rx#:[id number] MVI-12 Inj 10 ML Folvite Inj 1 2009. / 2009.2 MG In TPN Fluid 2 Liter 2,000 ML @ 70 mls/hr IV.SIG Q24H [facility] Rx#:[id number] Oral 480 / 480 Output: Urine 650 / 650 750 / 750 Stool Amount (Stoma) 50 / 50 Colostomy 50 / 50 Other: Date of Last Bowel Movement 02/23/18 02/23/18 Narrative: NAD Abd: mild distention, improving. Colostomy is pink with output which is thickening somewhat. Inc with wound packing in inferior portion, clean. Some purulence from superior aspect. - Urinary Catheter Management Indwelling Urethral Catheter Cath placed during this visit: yes, but has since been removed by the nurse Reason for continuing: Not indwelling catheter Insertion date: 02/10/18 Insertion time: 08:00 Removal date: 02/18/18 Removal time: 08:00 Assessment and Plan - Assessment (1) Diverticulitis of colon with perforation Code(s): K57.20 - Diverticulitis of large intestine with perforation and abscess without bleeding Status: Acute - Plan POD 14 s/p ex lap sigmoid resection. Seems to be improving. WBC nml. Has superficial wound infection which is now being packed. Reported fever 102. Check cbc, cxr. Continue soft diet. Lortab. Dressing changes twice daily and PRN. On therapeutic anticoagulation. Continue TPN. Pressure ulcer- Stage 3. Now on specialty bed. Hopefully nutrition will improve as well as he begins tolerating diet. (1) Diverticulitis of colon with perforation Qualifiers: Diverticulitis bleeding: without bleeding Qualified Code(s): K57.20 - Diverticulitis of large intestine with perforation and abscess without bleeding
--- NOTE | 2018-02-24 12:51 | XR ---
EXAM DATE: 02/24/2018 11:58 AM EDT AGE/SEX: 57 years / Male INDICATIONS: Fever. CLINICAL DATA: This is the patient's initial encounter. Patient reports that signs and symptoms have been present for 3 days and indicates a pain score of 0/10. MEDICAL/SURGICAL HISTORY: . diverticulitis. DVT, A-fib, bacterial meningitis . colon resection , colostomy COMPARISON: No prior exams available for comparison. FINDINGS: The cardiac silhouette is enlarged in transverse diameter. A PICC line is in place via right-sided ap proach with its tip in the region of the superior vena cava. There is prominence of the central pulmo nary vasculature with indistinct vascular margins compatible with vascular congestion but no evidence of overt failure. There is no evidence of pneumonia. CONCLUSION: Cardiomegaly and findings of vascular congestion without overt failure. There is no evidence of pneum onia. Electronically signed by: Ricky Carranza MD 02/24/2018 12:50 PM EDT
[2018-02-24 13:24] LABS: Baso # (Auto) 0.1 th/mm3 (0.0-0.2); Baso % (Auto) 0.5 % (0.0-2.0); Eos # (Auto) 0.2 th/mm3 (0.0-0.4); Eos % (Auto) 1.5 % (0.0-4.0); Hematocrit 33.7 % (39.0-51.0); Hemoglobin 11.2 gm/dL (13.0-17.0); Lymph # (Auto) 1.4 th/mm3 (1.0-4.8); Mean Corpuscular HGB Conc 33.3 % (32.0-36.0); Mean Corpuscular Hemoglobin 30.3 pg (27.0-34.0); Mean Corpuscular Volume 91.1 fL (80.0-100.0); Mean Platelet Volume 7.4 fL (7.0-11.0); Mono # (Auto) 0.8 th/mm3 (0.0-0.9); Mono % (Auto) 5.3 % (0.0-8.0); Neut # (Auto) 13.1 th/mm3 (1.8-7.7); Neut % (Auto) 83.7 % (16.0-70.0); Platelet Count 565 th/mm3 (150-450); Red Blood Count 3.69 mil/mm3 (4.50-5.90); Red Cell Distribution Width 15.2 % (11.6-17.2); White Blood Count 15.7 th/mm3 (4.0-11.0)
--- NOTE | 2018-02-24 14:08 | P.PNIM ---
Subjective Interval history: Follow up abdominal surgery. Patient states he is trying to tolerate food, did not eat breakfast but will try to eat lunch. He is denying any chest pain, nausea, vomiting or abdominal pain. Physical Exam Vital signs: Vital Signs 02/23/18 16:00 02/23/18 16:10 02/23/18 19:53 Temperature 98.6 F 99.1 F Pulse Rate 98 H 85 Respiratory Rate 18 17 17 Blood Pressure 93/52 L 117/61 Pulse Oximetry 97 96 02/24/18 00:00 02/24/18 04:00 Temperature 99.5 F 98.8 F Pulse Rate 97 H 87 Respiratory Rate 17 16 Blood Pressure 119/60 106/56 L Pulse Oximetry 95 94 L Intake & Output 02/23/18 02/24/18 02/24/18 18:59 06:59 18:59 Intake Total 480 / 480 2260.2 / 2260.2 Output Total 850 / 850 800 / 800 Balance -370 / -370 1460.2 / 1460.2 Intake: IV 2260.2 / 2260.2 Intralipid 20% Inj 250 ML @ 31. 250 / 250 25 mls/hr IV.CENTRAL Q24H [facility] Rx#:[id number] MVI-12 Inj 10 ML Folvite Inj 1 2009.2 / 2010.2 MG In TPN Fluid 2 Liter 2,000 ML @ 70 mls/hr IV.SIG Q24H [facility] Rx#:[id number] Oral 480 / 480 Output: Urine 850 / 850 750 / 750 Stool Amount (Stoma) 50 / 50 Colostomy 50 / 50 Other: Date of Last Bowel Movement 02/23/18 02/23/18 02/24/18 Narrative: GENERAL: This is a well-nourished, well-developed patient, in no apparent distress. Skin: Surgical scar dry and intact. CARDIOVASCULAR: Regular rate and rhythm without murmurs, gallops, or rubs. RESPIRATORY: Clear to auscultation. Breath sounds equal bilaterally. No wheezes , rales, or rhonchi. GASTROINTESTINAL: Abdomen soft, non-tender, mildly distended. Normal active bowel sounds, Ostomy in place. MUSCULOSKELETAL: Extremities without clubbing, cyanosis, or edema. NEURO: Alert & Oriented x4 to person, place, time, situation. Moves all ext x4 - Urinary Catheter Management Indwelling Urethral Catheter Cath placed during this visit: yes, but has since been removed by the nurse Reason for continuing: Not indwelling catheter Insertion date: 02/10/18 Insertion time: 08:00 Removal date: 02/18/18 Removal time: 08:00 Results - Labs CBC & Chem 7: 02/24/18 12:40 02/24/18 09:49 Laboratory Results - last 24 hr 02/23/18 02/23/18 02/24/18 15:00 20:22 09:49 WBC 14.1 H RBC 3.82 L Hgb 11.5 L Hct 35.1 L MCV 91.9 MCH 30.0 MCHC 32.7 RDW 15.4 Plt Count 576 H MPV 7.0 Neut % (Auto) 87.8 H Lymph % (Auto) 5.6 L [place] % (Auto) 4.7 Eos % (Auto) 1.6 Baso % (Auto) 0.3 Neut # (Auto) 12.4 H Lymph # (Auto) 0.8 L [place] # (Auto) 0.7 Eos # (Auto) 0.2 Baso # (Auto) 0.0 WBC Differential . Differential Comment Auto diff final Sodium Potassium Chloride Carbon Dioxide Anion Gap BUN Creatinine Estimated GFR POC Glucose 111 H 95 Random Glucose Calcium 02/24/18 02/24/18 09:49 12:40 WBC 15.7 H RBC 3.69 L Hgb 11.2 L Hct 33.7 L MCV 91.1 MCH 30.3 MCHC 33.3 RDW 15.2 Plt Count 565 H MPV 7.4 Neut % (Auto) 83.7 H Lymph % (Auto) 9.0 [place] % (Auto) 5.3 Eos % (Auto) 1.5 Baso % (Auto) 0.5 Neut # (Auto) 13.1 H Lymph # (Auto) 1.4 [place] # (Auto) 0.8 Eos # (Auto) 0.2 Baso # (Auto) 0.1 WBC Differential . Differential Comment Auto diff final Sodium 132 L Potassium 4.4 Chloride 96 L Carbon Dioxide 29.7 Anion Gap 6 BUN 16 Creatinine 0.68 Estimated GFR Greater than 89 POC Glucose Random Glucose 127 H Calcium 8.2 L Microbiology 02/19/18 12:20 Blood - Peripheral Aerobic Blood Culture - Final No growth in 5 days 02/19/18 12:20 Blood - Peripheral Anaerobic Blood Culture - Final No growth in 5 days 02/19/18 12:20 Blood - Peripheral Aerobic Blood Culture - Final No growth in 5 days 02/19/18 12:20 Blood - Peripheral Anaerobic Blood Culture - Final No growth in 5 days - Imaging Impressions Chest X-Ray 02/24/18 00:00 CONCLUSION: Cardiomegaly and findings of vascular congestion without overt failure. There is no evidence of pneumonia. - Procedures See hospital course Assessment and Plan - Assessment (1) Hypokalemia Code(s): E87.6 - Hypokalemia Status: Acute (2) Diverticulitis of colon with perforation Code(s): K57.20 - Diverticulitis of large intestine with perforation and abscess without bleeding Status: Acute (3) Afib Code(s): I48.91 - Unspecified atrial fibrillation Status: Acute - Plan Mr. Mccurdy is 57 year old male with a history of inguinal hernia repair who was admitted to the hospital due to lower abdominal pain. CT Abdomen/Pelvis suggest inflammatory process lower abdomen/pelvis, likely diverticulitis, several focal collections of gas to the right of the mid sigmoid colon, nonspecific possible extraluminal gas. Acute diverticulitis Distal small bowel obstruction perforated bowel -S/p Zosyn. -Surgery consult ;greatly appreciate assistance. -CT scan of abd/pelvis on 02/02 showed perforated bowel. -Repeat CT scan on 02/07 continues to show persistent large volumes of free intraperitoneal air within the abdomen and pelvis indicating perforated bowel, air collection 7 cm in the pelvis which abuts the sigmoid colon and small bowel. Circumferential wall thickening in the urinary bladder likely representing secondary inflammation given adjacent changes in the pelvis. Trace bilateral pleural effusions. - S/P exploratory laparotomy, lysis of adhesions, sigmoid resection with end colonoscopy 02/10 -Mccray catheter removed -cystogram on 02/17 was unremarkable with no evidence of leak. -IV Levaquin and Flagyl -stopped per surgery on 02/19 due to concern for reactionary leukocytosis. WBCs improving. -Patient removed NG tube 02/16. Okay to leave out per surgery. -Currently on TPN and lipids, attempting to try a soft diet -Pain control with Lortab - KUB with multiple dilated bowel loops likely postsurgical ileus -Repeat abdominal CT on 02/18/18 indicated dilated small bowel loops throughout. Distal ileal loops in the lower right quadrant are nondilated and potentially entrapped. SBFT done 02/19 shows slow transit taking 8 hrs for contrast to reach colon. -Per general surgeon will try soft diet today. Continue with TPN. Leukocytosis -Most likely induced by antibiotics. Resolved. History of atrial fibrillation/ Coagulopathy History of DVT -Patient is unable to provide specifics. However, he does report a history of DVT and afib. -He takes Warfarin -alternates between 7 mg and 6 mg tablets. -Currently on Lovenox therapeutic dose. Patient will eventually need to be transitioned to Coumadin. Hypokalemia/ Hypophosphatemia/hypomagnesemia S/t decreased PO intake. -replete and monitor. -Repeat labs stable. -Improvement in urinary output. coccyx wound -Being managed by wound care. Discussed Condition With: Patient and group captain Planning: Patient may need a snf if HHC is not an option (2) Diverticulitis of colon with perforation Qualifiers: Diverticulitis bleeding: without bleeding Qualified Code(s): K57.20 - Diverticulitis of large intestine with perforation and abscess without bleeding
--- NOTE | 2018-02-24 15:08 | P.PNWCN ---
Wound Care Nurse Consult Description: Patient seen for follow up of colostomy teaching and evaluation of wound on left inner buttock. Communicated with: SANRDA Winston Patient Physical Therapist Recommendation: Left inner buttock Q5D and PRN for soiling or dislodgement: Gently cleanse wound with NS and gauze. Pat dry. Apply Puracol to wound bed. Apply skin barrier film ([place] SPRAY) to periwound and allow to dry. Apply optifoam gentle border. Date dressing. PLEASE encourage and assist patient to reposition Q2H to relieve pressure and PRN for comfort. PLEASE use ONLY ONE ultrasorb moisture wicking underpad with Airapy LOW AIR- LOSS MATTRESS. NO COTTON PULL PADS PLEASE as they hold in moisture and heat. Colostomy: Monitor stoma for red/pink color, moisture, and output. Empty pouch of effluent when 1/3-1/2 full Change appliance Q5D and PRN for leaks. Additional information: Patient seen on for ostomy assessment, teaching, demonstration, and evaluation of wound on left inner buttock. Wound/Pressure Injury - Wound Right Buttocks Wound Bed Appearance: Peeling Skin Dressing Status: Open to Air Left inner buttock Wound Staging: Stage III Wound Assessment: Ongoing Wound Type: Pressure Injury Is This a Chronic Wound: No Requested from Provider a Wound Care Consult: Yes Length: 2 (cm) Width: 1.5 (cm) Depth: 0.2 (cm) Wound Bed Appearance: [place], Yellow Wound Bed Appearance: Shallow full thickness skin loss, moist wound bed, no active drainage, no odor Drainage Amount: None Drainage Odor: No Odor Wound Packing Type: Collagen Cover Dressing: foam adhesive Wound Dressing Change Date: 02/24/18 Incision - Additional Information [place] noted to midline incision with open area noted. Dressing changed by Dr Fuentes during assessment. Bowel Diversion Stoma - Bowel Stoma Colostomy Stoma Appearance: Protruding, Round Collection Device: Two-piece Drainage Description: Liquid, Brown Wafer Size: 2 1/4 Moldable Zaira-Stomal Skin Appearance: Intact Zaira-Stomal Surrounding Tissue Sensation Description: No Symptoms - Additional Information Additional Information: Patient seen on [address] [place] for continued ostomy teaching, demonstration of releasing air from pouch, and education on pressure injury and repositioning along with getting up out of bed.
--- NOTE | 2018-02-24 16:53 | P.DIET ---
Nutritional Evaluation Type of nutrition evaluation: follow-up Nutrition consult regarding: TPN/PPN Objective - Diagnosis Diverticulitis w/ Perforation - Objective % IBW: 137 (FMT=674#) Body Weight Used for Calculations: IBW (70kg) Energy Needs - Lower Range (kCal/kg): 28 Energy Needs - Upper Range (kCal/kg): 32 Lower Limit kCal/kg (kCals): 1,960 Upper Limit kCal/kg (kCals): 2,240 Lower Limit Protein Factor (Grams per Kg): 1.2 Upper Limit Protein Factor (Grams per Kg): 1.4 Lower Protein Needs (Protein): 84 Upper Protein Needs (Protein): 98 Fluid Factor (ml/kg): 30 Estimated Fluid Needs (ml): 2,100 Dietitian Reviewed in Medical Record: Current diet, Curent medications, Intake & Output, Labs, TPN/PPN Diet Order: Regular Wound Care Note: 02/24: L inner buttocks stage III Objective Comments: Meds: Lactulose, Reglan Labs: Triglycerides 99 (on 02/18) Feeding - Current TPN/PPN Current TPN: Clinimix E 11/07 Current TPN/PPN Rate (ml/hr): 70 Amino Acid and Dextrose Current kCals Provided: 1,478 Amino Acid and Dextrose Current Protein Provided: 84 Current Lipid Concentration: 20% Current Lipids Rate: mls/hr over 24 hours: (31.25mls/hr x 8hrs daily) Current kCal Provided by TPN/PPN: 1,978 Carbohydrate Load (mg/kg/min): 3 Assessment Assessment: Pt remains on TPN and lipids as described above. This regimen continues to be appropriate. He now has a stage III pressure injury to the L inner buttocks per WOCN documentation. He's been recently advanced to a soft diet w/ Ensure BID. He is slowly tolerating his diet and increasing his PO intake. He remains at high nutritional risk 2/2 recent colostomy, need for TPN, and new stage III pressure injury. I recommend continuing current POC for now and if his PO intake continues to improve, we can always conduct a calorie count. Dietitian following. Recommendations: 1. Continue current TPN and lipid regimen. 2. Continue Ensure BID. 3. Diet per surgery. 4. Will continue to monitor PO intake and can conduct calorie count if it continues to improve. Dietitian to Monitor: Lab values, Electrolytes, Supplement acceptance, Intake & Output, Diet tolerance, TPN/PPN tolerance, Weight change, PO Intake, Wound/skin status, Medical course
[2018-02-24] MEDS: Multivitamin Inj 10 ML, Folic Acid Inj 1 MG in TPN Fluid 2 Liter 2,000 ML IV.SIG SCH (20:00)
[2018-02-25 07:34] LABS: Alanine Aminotransferase 14 U/L (12-78); Anion Gap 6 meq/L (5-15); Aspartate Aminotransferase 16 U/L (15-37); Blood Urea Nitrogen 16 mg/dL (7-18); Calcium 8.2 mg/dL (8.5-10.1); Carbon Dioxide 28.7 meq/L (21.0-32.0); Chloride 98 meq/L (98-107); Glomerular Filtration Rate Greater Than 89 mL/min (>89); Glucose,Random 111 mg/dL (74-106); Magnesium 2.1 mg/dL (1.5-2.5); Potassium 4.5 meq/L (3.5-5.1); Sodium 133 meq/L (136-145)
[2018-02-25 07:37] LABS: Alkaline Phosphatase 116 U/L (45-117); Total Protein 6.8 g/dL (6.4-8.2)
[2018-02-25] MEDS: Pantoprazole Inj 40 MG Vial IV.PUSH SCH (08:00)
[2018-02-25] MEDS: Amiodarone 200 MG Tablet PO SCH (09:22)
[2018-02-25] MEDS: Carvedilol 6.25 MG Tablet PO SCH ×2 (09:22→21:15)
[2018-02-25] MEDS: Heparin Central Flush 100 UNIT/ML 5 ML Vial IV.FLUSH SCH (09:23)
[2018-02-25] MEDS: Senna/Docusate Sodium 8.6/50 MG Tablet PO SCH ×2 (09:23→21:15)
[2018-02-25] MEDS: Enoxaparin Inj 100 MG/ML Syringe SQ SCH ×2 (09:23→21:17)
--- NOTE | 2018-02-25 12:05 | P.PNIM ---
Subjective Interval history: Follow up abdominal surgery. Patient states he is doing better with food, states he is eating a little at a time. He is denying any chest pain, nausea, vomiting or abdominal pain. Physical Exam Vital signs: Vital Signs 02/24/18 16:00 02/24/18 20:00 02/25/18 00:00 Temperature 98.7 F 99.1 F 98.3 F Pulse Rate 91 H 90 84 Respiratory Rate 16 18 20 Blood Pressure 103/59 L 107/63 96/58 L Pulse Oximetry 95 98 94 L 02/25/18 08:00 Temperature 99.2 F Pulse Rate 90 Respiratory Rate 12 Blood Pressure 106/58 L Pulse Oximetry 96 Intake & Output 02/24/18 02/25/18 02/25/18 18:59 06:59 18:59 Intake Total 1800 / 1800 250 / 250 Output Total 550 / 550 1175 / 1175 Balance -550 / -550 625 / 625 250 / 250 Weight 177 kg Intake: IV 1800 / 1800 250 / 250 Intralipid 20% Inj 250 ML @ 31. 250 / 250 25 mls/hr IV.CENTRAL Q24H [facility] Rx#:[id number] MVI-12 Inj 10 ML Folvite Inj 1 1800 / 1800 MG In TPN Fluid 2 Liter 2,000 ML @ 70 mls/hr IV.SIG Q24H [facility] Rx#:[id number] Output: Urine 550 / 550 1100 / 1100 Stool Amount (Stoma) 75 / 75 Colostomy 75 / 75 Other: Date of Last Bowel Movement 02/24/18 02/24/18 02/25/18 Narrative: GENERAL: This is a well-nourished, well-developed patient, in no apparent distress. Skin: Surgical scar dry and intact. Left inner buttock wound dressing intact CARDIOVASCULAR: Regular rate and rhythm without murmurs, gallops, or rubs. RESPIRATORY: Clear to auscultation. Breath sounds equal bilaterally. No wheezes , rales, or rhonchi. GASTROINTESTINAL: Abdomen soft, non-tender, mildly distended. Normal active bowel sounds, Ostomy in place. MUSCULOSKELETAL: Extremities without clubbing, cyanosis, or edema. NEURO: Alert & Oriented x4 to person, place, time, situation. Moves all ext x4 - Urinary Catheter Management Indwelling Urethral Catheter Cath placed during this visit: yes, but has since been removed by the nurse Reason for continuing: Not indwelling catheter Insertion date: 02/10/18 Insertion time: 08:00 Removal date: 02/18/18 Removal time: 08:00 Results - Labs CBC & Chem 7: 02/24/18 12:40 02/25/18 05:20 Laboratory Results - last 24 hr 02/24/18 02/24/18 02/24/18 12:40 14:42 20:42 WBC 15.7 H RBC 3.69 L Hgb 11.2 L Hct 33.7 L MCV 91.1 MCH 30.3 MCHC 33.3 RDW 15.2 Plt Count 565 H MPV 7.4 Neut % (Auto) 83.7 H Lymph % (Auto) 9.0 [place] % (Auto) 5.3 Eos % (Auto) 1.5 Baso % (Auto) 0.5 Neut # (Auto) 13.1 H Lymph # (Auto) 1.4 [place] # (Auto) 0.8 Eos # (Auto) 0.2 Baso # (Auto) 0.1 WBC Differential . Differential Comment Auto diff final Sodium Potassium Chloride Carbon Dioxide Anion Gap BUN Creatinine Estimated GFR POC Glucose 114 H 115 H Random Glucose Calcium Magnesium Total Bilirubin AST ALT Alkaline Phosphatase Total Protein Albumin 02/25/18 02/25/18 05:20 08:26 WBC RBC Hgb Hct MCV MCH MCHC RDW Plt Count MPV Neut % (Auto) Lymph % (Auto) [place] % (Auto) Eos % (Auto) Baso % (Auto) Neut # (Auto) Lymph # (Auto) [place] # (Auto) Eos # (Auto) Baso # (Auto) WBC Differential Differential Comment Sodium 133 L Potassium 4.5 Chloride 98 Carbon Dioxide 28.7 Anion Gap 6 BUN 16 Creatinine 0.68 Estimated GFR Greater than 89 POC Glucose 119 H Random Glucose 111 H Calcium 8.2 L Magnesium 2.1 Total Bilirubin 0.1 L AST 16 ALT 14 Alkaline Phosphatase 116 Total Protein 6.8 D Albumin 2.0 L Microbiology 02/19/18 12:20 Blood - Peripheral Aerobic Blood Culture - Final No growth in 5 days 02/19/18 12:20 Blood - Peripheral Anaerobic Blood Culture - Final No growth in 5 days 02/19/18 12:20 Blood - Peripheral Aerobic Blood Culture - Final No growth in 5 days 02/19/18 12:20 Blood - Peripheral Anaerobic Blood Culture - Final No growth in 5 days - Imaging Impressions Chest X-Ray 02/24/18 00:00 CONCLUSION: Cardiomegaly and findings of vascular congestion without overt failure. There is no evidence of pneumonia. - Procedures See hospital course Assessment and Plan - Assessment (1) Hypokalemia Code(s): E87.6 - Hypokalemia Status: Acute (2) Diverticulitis of colon with perforation Code(s): K57.20 - Diverticulitis of large intestine with perforation and abscess without bleeding Status: Acute (3) Afib Code(s): I48.91 - Unspecified atrial fibrillation Status: Acute - Plan Mr. Mccurdy is 57 year old male with a history of inguinal hernia repair who was admitted to the hospital due to lower abdominal pain. CT Abdomen/Pelvis suggest inflammatory process lower abdomen/pelvis, likely diverticulitis, several focal collections of gas to the right of the mid sigmoid colon, nonspecific possible extraluminal gas. Acute diverticulitis Distal small bowel obstruction perforated bowel -S/p Zosyn. -Surgery consult ;greatly appreciate assistance. -CT scan of abd/pelvis on 02/02 showed perforated bowel. -Repeat CT scan on 02/07 continues to show persistent large volumes of free intraperitoneal air within the abdomen and pelvis indicating perforated bowel, air collection 7 cm in the pelvis which abuts the sigmoid colon and small bowel. Circumferential wall thickening in the urinary bladder likely representing secondary inflammation given adjacent changes in the pelvis. Trace bilateral pleural effusions. - S/P exploratory laparotomy, lysis of adhesions, sigmoid resection with end colonoscopy 02/10 -Mccray catheter removed -cystogram on 02/17 was unremarkable with no evidence of leak. -IV Levaquin and Flagyl -stopped per surgery on 02/19 due to concern for reactionary leukocytosis. WBCs improving. -Patient removed NG tube 02/16. Okay to leave out per surgery. -Currently on TPN and lipids, attempting to try a soft diet -Pain control with Lortab - KUB with multiple dilated bowel loops likely postsurgical ileus -Repeat abdominal CT on 02/18/18 indicated dilated small bowel loops throughout. Distal ileal loops in the lower right quadrant are nondilated and potentially entrapped. SBFT done 02/19 shows slow transit taking 8 hrs for contrast to reach colon. -Per general surgeon will try soft diet today. Continue with TPN. Leukocytosis -Most likely induced by antibiotics. Resolved. History of atrial fibrillation/ Coagulopathy History of DVT -Patient is unable to provide specifics. However, he does report a history of DVT and afib. -He takes Warfarin -alternates between 7 mg and 6 mg tablets. -Currently on Lovenox therapeutic dose. Patient will eventually need to be transitioned to Coumadin. Hypokalemia/ Hypophosphatemia/hypomagnesemia S/t decreased PO intake. -replete and monitor. -Repeat labs stable. -Improvement in urinary output. coccyx wound -Being managed by wound care. DVT prophylaxis: Lovenox Discharge Planning: Patient may need a snf if HHC is not an option (2) Diverticulitis of colon with perforation Qualifiers: Diverticulitis bleeding: without bleeding Qualified Code(s): K57.20 - Diverticulitis of large intestine with perforation and abscess without bleeding
--- NOTE | 2018-02-25 13:01 | P.PNGS ---
Subjective Interval history: Tolerating more solid foods. Physical Exam Vital signs: Vital Signs 02/24/18 16:00 02/24/18 20:00 02/25/18 00:00 Temperature 98.7 F 99.1 F 98.3 F Pulse Rate 91 H 90 84 Respiratory Rate 16 18 20 Blood Pressure 103/59 L 107/63 96/58 L Pulse Oximetry 95 98 94 L 02/25/18 08:00 Temperature 99.2 F Pulse Rate 90 Respiratory Rate 12 Blood Pressure 106/58 L Pulse Oximetry 96 Intake & Output 02/24/18 02/25/18 02/25/18 18:59 06:59 18:59 Intake Total 1800 / 1800 250 / 250 Output Total 550 / 550 1175 / 1175 Balance -550 / -550 625 / 625 250 / 250 Weight 177 kg Intake: IV 1800 / 1800 250 / 250 Intralipid 20% Inj 250 ML @ 31. 250 / 250 25 mls/hr IV.CENTRAL Q24H [facility] Rx#:[id number] MVI-12 Inj 10 ML Folvite Inj 1 1800 / 1800 MG In TPN Fluid 2 Liter 2,000 ML @ 70 mls/hr IV.SIG Q24H [facility] Rx#:[id number] Output: Urine 550 / 550 1100 / 1100 Stool Amount (Stoma) 75 / 75 Colostomy 75 / 75 Other: Date of Last Bowel Movement 02/24/18 02/24/18 02/25/18 Narrative: NAD Abd: colostomy functioning; lower incision wound ok, packing changed. Superior incision with purulent drainage- 3 alan removed and packed - Urinary Catheter Management Indwelling Urethral Catheter Cath placed during this visit: yes, but has since been removed by the nurse Reason for continuing: Not indwelling catheter Insertion date: 02/10/18 Insertion time: 08:00 Removal date: 02/18/18 Removal time: 08:00 Assessment and Plan - Assessment (1) Diverticulitis of colon with perforation Code(s): K57.20 - Diverticulitis of large intestine with perforation and abscess without bleeding Status: Acute - Plan POD 15 s/p ex lap sigmoid resection. Bowel function improving. Has superficial wound infection which is now being packed. CXR ok. WBC 15 yesterday. Recheck in am. Possibly secondary to superficial wound infection. Continue soft diet. Lortab. Dressing changes twice daily and PRN. On therapeutic anticoagulation. Continue TPN. Pressure ulcer- Stage 3. Now on specialty bed. Hopefully nutrition will improve as well as he begins tolerating diet. (1) Diverticulitis of colon with perforation Qualifiers: Diverticulitis bleeding: without bleeding Qualified Code(s): K57.20 - Diverticulitis of large intestine with perforation and abscess without bleeding
[2018-02-25] MEDS: Multivitamin Inj 10 ML, Folic Acid Inj 1 MG in TPN Fluid 2 Liter 2,000 ML IV.SIG SCH (21:16)
--- NOTE | 2018-02-26 08:37 | P.PNGS ---
Subjective Patient reports: no new complaints, tolerating a regular diet, bowel movement Physical Exam Vital signs: Vital Signs 02/25/18 12:00 02/25/18 16:00 02/25/18 20:00 Temperature 98.3 F 89 F L 98.6 F Pulse Rate 78 83 80 Respiratory Rate 14 18 18 Blood Pressure 101/57 L 102/62 113/67 Pulse Oximetry 98 97 95 02/26/18 00:00 02/26/18 06:00 Temperature 98.3 F 98.8 F Pulse Rate 93 H 94 H Respiratory Rate 18 18 Blood Pressure 96/66 L 98/57 L Pulse Oximetry 98 95 Intake & Output 02/25/18 02/26/18 02/26/18 18:59 06:59 18:59 Intake Total 568 / 568 2380.2 / 2380.2 Output Total 575 / 575 1100 / 1100 Balance -7 / -7 1280.2 / 1280.2 Intake: IV 250 / 250 2260.2 / 2260.2 Intralipid 20% Inj 250 ML @ 31. 250 / 250 250 / 250 25 mls/hr IV.CENTRAL Q24H [facility] Rx#:[id number] MVI-12 Inj 10 ML Folvite Inj 1 2009.2 / 2009.2 MG In TPN Fluid 2 Liter 2,000 ML @ 70 mls/hr IV.SIG Q24H [facility] Rx#:[id number] Oral 318 / 318 120 / 120 Output: Urine 575 / 575 900 / 900 Urine/Stool Mix 200 / 200 Other: Date of Last Bowel Movement 02/25/18 02/26/18 - Routine Abdominal Exam Present: soft, wound, ostomy Comments: soft stool in stoma wound healing well - Urinary Catheter Management Indwelling Urethral Catheter Cath placed during this visit: yes, but has since been removed by the nurse Reason for continuing: Not indwelling catheter Insertion date: 02/10/18 Insertion time: 08:00 Removal date: 02/18/18 Removal time: 08:00 Assessment and Plan - Assessment (1) Diverticulitis of colon with perforation Code(s): K57.20 - Diverticulitis of large intestine with perforation and abscess without bleeding Status: Acute Plan: s/p end colostomy with wound infection now cont local wound care OOB ambulate in hallway - Plan advance diet as tolerated to soft (1) Diverticulitis of colon with perforation Qualifiers: Diverticulitis bleeding: without bleeding Qualified Code(s): K57.20 - Diverticulitis of large intestine with perforation and abscess without bleeding
[2018-02-26] MEDS: Carvedilol 6.25 MG Tablet PO SCH ×2 (08:52→21:22)
[2018-02-26] MEDS: Pantoprazole Inj 40 MG Vial IV.PUSH SCH (08:53)
[2018-02-26] MEDS: Enoxaparin Inj 100 MG/ML Syringe SQ SCH ×2 (08:53→21:23)
[2018-02-26] MEDS: Heparin Central Flush 100 UNIT/ML 5 ML Vial IV.FLUSH SCH (08:54)
[2018-02-26] MEDS: Senna/Docusate Sodium 8.6/50 MG Tablet PO SCH ×2 (08:54→21:23)
[2018-02-26] MEDS: Amiodarone 200 MG Tablet PO SCH (08:54)
[2018-02-26 10:56] LABS: Baso # (Auto) 0.1 th/mm3 (0.0-0.2); Baso % (Auto) 0.3 % (0.0-2.0); Eos # (Auto) 0.2 th/mm3 (0.0-0.4); Eos % (Auto) 1.6 % (0.0-4.0); Hematocrit 36.8 % (39.0-51.0); Hemoglobin 12.4 gm/dL (13.0-17.0); Lymph # (Auto) 1.5 th/mm3 (1.0-4.8); Lymph % (Auto) 10.3 % (9.0-44.0); Mean Corpuscular HGB Conc 33.7 % (32.0-36.0); Mean Corpuscular Hemoglobin 30.9 pg (27.0-34.0); Mean Corpuscular Volume 91.7 fL (80.0-100.0); Mean Platelet Volume 7.1 fL (7.0-11.0); Mono # (Auto) 1.3 th/mm3 (0.0-0.9); Mono % (Auto) 8.4 % (0.0-8.0); Neut # (Auto) 11.9 th/mm3 (1.8-7.7); Neut % (Auto) 79.4 % (16.0-70.0); Platelet Count 622 th/mm3 (150-450); Red Blood Count 4.01 mil/mm3 (4.50-5.90); Red Cell Distribution Width 15.4 % (11.6-17.2)
--- NOTE | 2018-02-26 13:46 | P.CONPSY ---
Provisional Diagnosis Admission Date: January 22, 2018 03:59 History of Present Illness Service: Psychiatry Consult date: 02/26/18 Reason for Consult: Per nursing, pt depressed, not wanting to interact Primary Care Provider: Arnold Costello DO History of Present Illness: Patient is a 57 y/o man, single, no children, domiciled with roommates , currently unemployed, with no formal past psychiatric history, no previous psychiatric diagnoses, denies any previous hospitalizations, but did report having been seen by psychiatrist during his last medical hospitalization which she was treated for bacterial meningitis in [place] at that time had refused any psychiatric interventions at that time, with a substance use history significant for daily alcohol use, with a past medical significant for hypertension, A. fib, history of DVT, history of bacterial meningitis, who was currently admitted to the medical service for hyperkalemia, diverticulitis and colon perforation A. fib which patient was noted by nursing to be more depressed and outlined to interact with other which psychiatry was consulted for evaluation. Discussion nursing staff reported the patient has been okay this morning, denying any suicidal homicidal. Patient was found lying hospital bed noted to be calm, cooperative. Patient noted to be somewhat irritable during interview socially refusing to engage was able to cooperate superficially. Patient states that he would just like to get his life back in order within a couple of weeks and he is worried about his depleting finances being here in the hospital. Patient states that he was previously in [place] for bacterial meningitis in August and now he has been at this current facility during this current admission since September and feeling frustrated with recent hospitalizations. He states that he has been advised by the current medical team that he may only require a week more of medical stabilization which he looks forward to. Patient expressing frustration stating that he is upset that he has not been visited by his friends were worried about being able to continue manage his finances while in the hospital. 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 He reports having some difficulties with sleep recently, stating his appetite is "so-so" stating his energy is "a little low" concentration has been fine, his mood has been "so-so" denying feeling depressed but mostly frustrated. Patient states " I need money, [id number], that would fix all my problems." Patient denies any suicidal homicidal ideations, denies any perceptional services or delusions mostly upset of his current circumstances. Patient mentions that he expects is "a little respect". Patient was encouraged and provided with supportive therapy to continue recommendations that he may continue to recover move on with his life which she acknowledged and agreed. Past psychiatric history: Patient denies any previous psychiatric diagnoses, hospitalizations, formal psychiatric interventions. Substance use history: Tobacco use, alcohol use "couple of beers a day", denies any other drug use. Past medical history: A. fib, hypertension, history of DVT, history of bacterial meningitis as per patient and Debra in August 2018. Allergies: Sulfas Social history: Single, no children, domiciled roommates, currently unemployed. Review of Systems All other systems reviewed negative except as stated in HPI [facility] - History History Provided By: Patient, Medical Record - Medical History Medical History: Medical History (Last Reviewed 02/23/18 @ 08:44 by [employer]) Afib Bacterial meningitis Cataract DVT (deep venous thrombosis) - Tobacco History Second Hand Smoke Exposure: No Tobacco Use In Past 30 Days: Yes Smoking Status: Current every day smoker Tobacco Type: Cigarettes - Alcohol History How Often Do You Have a Drink Containing Alcohol: 2 to 3 times a week - Substance Use History Substance History: No History of Abuse - Travel History Recent Travel in the [place] Within the Last 8 Weeks: No Recent Travel Out of the Country Within the Last 8 Weeks: No - Immunization History Tetanus Immunization: >5 Years Hx Influenza Vaccine This Season: No Medications and Allergies Active Medications: Active Medications Acetaminophen (Tylenol) 650 mg PO Q4H PRN PRN Reason: Temp > 100.4 Hydrocodone Bitart/Acetaminophen ([place] 10/325) 1 tab PO Q6H PRN PRN Reason: PAIN SCALE 6 TO 10 Last Admin: 02/26/18 06:43 Dose: 1 tab Hydrocodone Bitart/Acetaminophen ([place] 5/325) 1 tab PO Q6H PRN PRN Reason: PAIN SCALE 3 TO 5 Last Admin: 02/20/18 20:25 Dose: 1 tab Al Hydroxide/Mg Hydroxide (Milk Of Magnesia Liq) 30 ml PO Q12H PRN PRN Reason: Mild Constipation Last Admin: 01/23/18 13:22 Dose: 30 ml Amiodarone HCl (Cordarone) 200 mg PO DAILY [facility] Last Admin: 02/26/18 08:54 Dose: 200 mg Carvedilol (Coreg) 6.25 mg PO BID [facility] Last Admin: 02/26/18 08:52 Dose: Not Given Enoxaparin Sodium (Lovenox Inj) 90 mg SQ Q12HR [facility] Last Admin: 02/26/18 08:53 Dose: 90 mg Heparin Sodium (Porcine) (Heparin Central Flush) 0 unit IV.FLUSH DAILY [facility] Last Admin: 02/26/18 08:54 Dose: 500 unit Heparin Sodium (Porcine) (Heparin Central Flush) 0 unit IV.FLUSH PRN PRN PRN Reason: Flush PICC Line Fat Emulsion Intravenous (Intralipid 20% Inj) 250 mls @ 31.25 mls/hr IV.CENTRAL Q24H [facility] Last Infusion: 02/26/18 05:17 Dose: Infused Multivitamins 10 ml/ Folic Acid 1 mg/ Amino Acids/Electrolytes/Dextrose 2, 010.2 mls @ 70 mls/hr IV.SIG Q24H [facility] Last Admin: 02/25/18 21:16 Dose: 70 mls/hr Sodium Chloride (Ns Inj) 1,000 mls @ 0 mls/hr IV.SIG BOLUS [facility] Last Infusion: 02/12/18 19:22 Dose: Infused Lactulose (Lactulose Liq) 30 ml PO DAILY PRN PRN Reason: SEVERE CONSITIPATION Last Admin: 01/24/18 09:06 Dose: 30 ml Lorazepam (Ativan Inj) 1 mg IV.PUSH Q6H PRN PRN Reason: ANXIETY AND/OR AGITATION Last Admin: 02/18/18 03:03 Dose: 0.5 mg Melatonin (Melatonin) 5 mg PO HS PRN PRN Reason: INSOMNIA Last Admin: 02/18/18 01:19 Dose: 5 mg Metoclopramide HCl (Reglan Inj) 5 mg IV.PUSH Q8HR [facility]; Protocol Last Admin: 02/26/18 06:44 Dose: 5 mg Naloxone HCl (Narcan Inj) 0.4 mg IV.PUSH UNSCH PRN PRN Reason: SEE LABEL COMMENTS Nicotine (Habitrol 7 Mg Patch.24 Hr) 1 patch T-DERMAL DAILY [facility] Last Admin: 02/26/18 11:06 Dose: 1 patch Ondansetron HCl (Zofran Inj) 4 mg IV.PUSH Q6H PRN PRN Reason: NAUSEA OR VOMITING Last Admin: 02/23/18 01:40 Dose: 4 mg Padimate O ([place]) 0 applicatio TOPICAL Q1H PRN PRN Reason: DRY LIPS Last Admin: 02/18/18 09:32 Dose: 1 applicatio Pantoprazole Sodium (Protonix Inj) 40 mg IV.PUSH Q24H [facility] Last Admin: 02/26/18 08:53 Dose: 40 mg Patch Removal (Remove Old Patch) 1 each T-DERMAL DAILY [facility] Last Admin: 02/26/18 11:06 Dose: 1 each Senna/Docusate Sodium (Zaira-Colace) 1 tab PO BID [facility] Last Admin: 02/26/18 08:54 Dose: 1 tab Sennosides (Senokot) 17.2 mg PO Q12H PRN PRN Reason: Moderate Constipation Sodium Chloride (Ns Flush) 2 ml IV.FLUSH PRN PRN PRN Reason: FLUSH AFTER USING IV ACCESS Last Admin: 02/20/18 20:25 Dose: 2 ml Sodium Chloride (Ns Flush) 0 ml IV.FLUSH DAILY [facility] Last Admin: 02/26/18 08:55 Dose: 10 ml Sodium Chloride (Ns Flush) 0 ml IV.FLUSH PRN PRN PRN Reason: FLUSH AFTER USING IV ACCESS Sodium Chloride (Ns Flush) 0 ml IV.FLUSH PRN PRN PRN Reason: Flush After Blood Draws Allergies Allergy/AdvReac Type Severity Reaction Status Date / Time Sulfa (Sulfonamide Allergy Severe HEADACHE Verified 03/16/17 16:22 Antibiotics) Home Medications Medication Instructions Recorded Confirmed Type amiodarone 200 mg PO DAILY 01/22/18 01/22/18 History carvedilol [Coreg] 6.25 mg PO BID 01/22/18 01/22/18 History warfarin [Coumadin] 6 mg PO EVERY OTHER DAY 01/22/18 01/22/18 History warfarin [Coumadin] 7 mg PO EVERY OTHER DAY 01/22/18 01/22/18 History Exam Vital signs: Vital Signs 02/25/18 16:00 02/25/18 20:00 02/26/18 00:00 Temperature 89 F L 98.6 F 98.3 F Pulse Rate 83 80 93 H Respiratory Rate 18 18 18 Blood Pressure 102/62 113/67 96/66 L Pulse Oximetry 97 95 98 02/26/18 06:00 02/26/18 08:00 02/26/18 12:00 Temperature 98.8 F 99.4 F 99.1 F Pulse Rate 94 H 96 H 100 H Respiratory Rate 18 Blood Pressure 98/57 L 98/57 L 108/61 Pulse Oximetry 95 95 96 Intake & Output 02/25/18 02/26/18 02/26/18 18:59 06:59 18:59 Intake Total 568 / 568 2380.2 / 2380.2 Output Total 575 / 575 1100 / 1100 Balance -7 / -7 1280.2 / 1280.2 Intake: IV 250 / 250 2260.2 / 2260.2 Intralipid 20% Inj 250 ML @ 31. 250 / 250 250 / 250 25 mls/hr IV.CENTRAL Q24H [facility] Rx#:[id number] MVI-12 Inj 10 ML Folvite Inj 1 2009.2 / 2009.2 MG In TPN Fluid 2 Liter 2,000 ML @ 70 mls/hr IV.SIG Q24H [facility] Rx#:[id number] Oral 318 / 318 120 / 120 Output: Urine 575 / 575 900 / 900 Urine/Stool Mix 200 / 200 Other: Date of Last Bowel Movement 02/25/18 02/26/18 02/26/18 Narrative: Not noted to be in acute distress, no gross motor abnormalities noted, no tremor or EPS. - Constitutional no acute distress, cooperative (superficially) Mental Status Examination Appearance: Appropriate, Other (in hospital gown) Consciousness: Alert Orientation: Person, Place, Date/Time Speech: Unremarkable Language: Adequate Fund of Knowledge: Inadequate Attention and Concentration: Adequate Memory: Unremarkable Mood: Irritable Affect: Irritable Thought Process & Associations: Intact, Goal directed, Linear Thought Content: Appropriate Hallucination Type: None Delusion Type: None Suicidal Ideation: No Suicidal Plan: No Suicidal Intention: No Homicidal Ideation: No Homicidal Plan: No Homicidal Intention: No Insight: Fair Judgment: Impulsive Assessment and Plan - Assessment (1) Psychological and behavioral factors associated with disorders or diseases classified elsewhere Code(s): F54 - Psychological and behavioral factors associated with disorders or diseases classified elsewhere Status: Acute (2) Diverticulitis of colon with perforation Code(s): K57.20 - Diverticulitis of large intestine with perforation and abscess without bleeding Status: Acute - Plan Plan: Estimated LOS: [] days Patient is a 57-year-old man, single, domiciled with roommates, currently unemployed, with no formal past psychiatric history, with a past medical history significant for A. fib, hypertension, history of DVT, currently admitted to the medical service for diverticulitis of colon with perforation, A. fib patient has had several weeks of hospitalization, who was noted by nursing staff to be depressed but denying any suicidal ideations which psychiatry was consulted for evaluation. Patient at this time with notable irritability and frustration due to prolonged hospitalization, currently denying any depressed mood or suicidal ideation but mostly perseverative on his worry of financial difficulties which can be expected due to current circumstances. Patient does not present with symptoms that would necessitate psychotropic intervention at this time nor inpatient psychiatric admission. Recommend diphenhydramine 50mg PO HS for sleep disturbance if melatonin not effective. Recommend social work to assist patient as he is requesting help in managing his accounts to pay his bills while in the hospital. Brief supportive psychotherapy provided. Consult appreciated. Justification for Continued Inpatient Stay: At risk for further decompensation at lower level of care. (2) Diverticulitis of colon with perforation Qualifiers: Diverticulitis bleeding: without bleeding Qualified Code(s): K57.20 - Diverticulitis of large intestine with perforation and abscess without bleeding
--- NOTE | 2018-02-26 15:29 | P.PN ---
Subjective Interval history: Follow-up acute diverticulitis February 26, 2018-patient seen and examined, no acute event overnight. Afebrile. Denies any abdominal pain. Physical Exam Vital signs: Vital Signs 02/25/18 16:00 02/25/18 20:00 02/26/18 00:00 Temperature 89 F L 98.6 F 98.3 F Pulse Rate 83 80 93 H Respiratory Rate 18 18 18 Blood Pressure 102/62 113/67 96/66 L Pulse Oximetry 97 95 98 02/26/18 06:00 02/26/18 08:00 02/26/18 12:00 Temperature 98.8 F 99.4 F 99.1 F Pulse Rate 94 H 96 H 100 H Respiratory Rate 18 17 18 Blood Pressure 98/57 L 98/57 L 108/61 Pulse Oximetry 95 95 96 Intake & Output 02/25/18 02/26/18 02/26/18 18:59 06:59 18:59 Intake Total 568 / 568 2380.2 / 2380.2 Output Total 575 / 575 1100 / 1100 Balance -7 / -7 1280.2 / 1280.2 Intake: IV 250 / 250 2260.2 / 2260.2 Intralipid 20% Inj 250 ML @ 31. 250 / 250 250 / 250 25 mls/hr IV.CENTRAL Q24H [place] Rx#:[id number] MVI-12 Inj 10 ML Folvite Inj 1 2009.2 / 2009.2 MG In TPN Fluid 2 Liter 2,000 ML @ 70 mls/hr IV.SIG Q24H [place] Rx#:[id number] Oral 318 / 318 120 / 120 Output: Urine 575 / 575 900 / 900 Urine/Stool Mix 200 / 200 Other: Date of Last Bowel Movement 02/25/18 02/26/18 02/26/18 Narrative: GENERAL: NAD SKIN: Warm and dry. HEAD: Normocephalic. EYES: No scleral icterus. No injection or drainage. NECK: Supple, trachea midline. No JVD or lymphadenopathy. CARDIOVASCULAR: Regular rate and rhythm without murmurs, gallops, or rubs. RESPIRATORY: Breath sounds equal bilaterally. No accessory muscle use. GASTROINTESTINAL: Abdomen soft, non-tender, nondistended. Colostomy bag in place MUSCULOSKELETAL: No cyanosis, or edema. BACK: Nontender without obvious deformity. No CVA tenderness. - Urinary Catheter Management Indwelling Urethral Catheter Cath placed during this visit: yes, but has since been removed by the nurse Reason for continuing: Not indwelling catheter Insertion date: 02/10/18 Insertion time: 08:00 Removal date: 02/18/18 Removal time: 08:00 Results - Labs CBC & Chem 7: 02/26/18 10:40 02/25/18 05:20 Laboratory Results - last 24 hr 02/25/18 02/26/18 02/26/18 21:10 06:47 10:40 WBC 15.0 H RBC 4.01 L Hgb 12.4 L Hct 36.8 L MCV 91.7 MCH 30.9 MCHC 33.7 RDW 15.4 Plt Count 622 H MPV 7.1 Neut % (Auto) 79.4 H Lymph % (Auto) 10.3 [place] % (Auto) 8.4 H Eos % (Auto) 1.6 Baso % (Auto) 0.3 Neut # (Auto) 11.9 H Lymph # (Auto) 1.5 [place] # (Auto) 1.3 H Eos # (Auto) 0.2 Baso # (Auto) 0.1 WBC Differential . Differential Comment Auto diff final POC Glucose 115 H 113 H 02/26/18 14:26 WBC RBC Hgb Hct MCV MCH MCHC RDW Plt Count MPV Neut % (Auto) Lymph % (Auto) [place] % (Auto) Eos % (Auto) Baso % (Auto) Neut # (Auto) Lymph # (Auto) [place] # (Auto) Eos # (Auto) Baso # (Auto) WBC Differential Differential Comment POC Glucose 135 H - Procedures See hospital course Assessment and Plan - Assessment (1) Hypokalemia Code(s): E87.6 - Hypokalemia Status: Acute (2) Diverticulitis of colon with perforation Code(s): K57.20 - Diverticulitis of large intestine with perforation and abscess without bleeding Status: Acute (3) Afib Code(s): I48.91 - Unspecified atrial fibrillation Status: Acute - Plan 57-year-old man with Acute diverticulitis Distal small bowel obstruction perforated bowel -S/p Zosyn. -Surgery consult ;greatly appreciate assistance. - S/P exploratory laparotomy, lysis of adhesions, sigmoid resection with end colonoscopy 02/10 -Currently on TPN with tray -Pain control with Lortab Leukocytosis -Most likely induced by antibiotics. Resolved. History of atrial fibrillation/ Coagulopathy History of DVT -He takes Warfarin -alternates between 7 mg and 6 mg tablets. -Currently on Lovenox therapeutic dose. Patient will eventually need to be transitioned to Coumadin. Hypokalemia/ Hypophosphatemia/hypomagnesemia S/t decreased PO intake. -replete and monitor. -Repeat labs stable. coccyx wound -Being managed by wound care. DVT prophylaxis: Lovenox (2) Diverticulitis of colon with perforation Qualifiers: Diverticulitis bleeding: without bleeding Qualified Code(s): K57.20 - Diverticulitis of large intestine with perforation and abscess without bleeding
[2018-02-26] MEDS: Multivitamin Inj 10 ML, Folic Acid Inj 1 MG in TPN Fluid 2 Liter 2,000 ML IV.SIG SCH (21:07)
--- NOTE | 2018-02-26 23:03 | XR ---
EXAM DATE: 02/26/2018 10:39 PM EDT AGE/SEX: 57 years / Male INDICATIONS: Cough. CLINICAL DATA: This is the patient's subsequent encounter. Patient reports that signs and symptoms h ave been present for 4 - 6 days and indicates a pain score of 0/10. MEDICAL/SURGICAL HISTORY: . Diverticulitis. DVT, A-fib, Bacterial meningitis. . Colon resectio n. Colostomy. COMPARISON: [facility], CHEST 1V SINGLE AP, 02/24/2018. . FINDINGS: A single AP semierect portable view the chest was obtained and again demonstrates the right-sided PIC C line in place. There is new focal area of patchy opacity in the left perihilar region. The right seth ng is clear. There is no effusion. The heart size is within normal limits. The bony thorax is intact. CONCLUSION: New focal area of opacity in the left perihilar region of concern for possible early pneumonia. Electronically signed by: Mervin Mena MD 02/26/2018 11:02 PM EDT
[2018-02-26] MEDS: Azithromycin Inj 500 MG in Sodium Chlor 0.9% Inj 250 ML IV.SIG SCH (23:49)
[2018-02-27] MEDS: Heparin Central Flush 100 UNIT/ML 5 ML Vial IV.FLUSH SCH (09:12)
[2018-02-27] MEDS: Enoxaparin Inj 100 MG/ML Syringe SQ SCH ×2 (09:12→23:11)
[2018-02-27] MEDS: Pantoprazole Inj 40 MG Vial IV.PUSH SCH (09:12)
[2018-02-27] MEDS: Senna/Docusate Sodium 8.6/50 MG Tablet PO SCH ×2 (09:13→23:12)
[2018-02-27] MEDS: Carvedilol 6.25 MG Tablet PO SCH ×2 (09:13→23:12)
[2018-02-27] MEDS: Amiodarone 200 MG Tablet PO SCH (09:13)
--- NOTE | 2018-02-27 12:18 | P.PN ---
Subjective Interval history: Follow-up acute diverticulitis February 26, 2018-patient seen and examined, no acute event overnight. Afebrile. Denies any abdominal pain. February 27, 2018-patient seen and examined, T-max 101.5 at 8 PM, states currently he is feeling weak Physical Exam Vital signs: Vital Signs 02/26/18 16:00 02/26/18 20:00 02/27/18 00:00 Temperature 99.1 F 101.5 F H 99.8 F H Pulse Rate 84 107 H 94 H Respiratory Rate 18 Blood Pressure 109/61 109/62 102/61 Pulse Oximetry 95 94 L 95 02/27/18 04:00 02/27/18 08:00 02/27/18 12:00 Temperature 98.3 F 99.9 F H 98.9 F Pulse Rate 92 H 105 H 87 Respiratory Rate 18 Blood Pressure 100/58 L 105/59 L 97/54 L Pulse Oximetry 97 94 L 95 Intake & Output 02/26/18 02/27/18 02/27/18 18:59 06:59 18:59 Intake Total 2450 / 2450 350 / 350 Output Total 950 / 950 1025 / 1025 Balance -950 / -950 1425 / 1425 350 / 350 Intake: IV 2150 / 2150 350 / 350 Intralipid 20% Inj 250 ML @ 31. 250 / 250 25 mls/hr IV.CENTRAL Q24H [place] Rx#:[id number] Azithromycin Inj 500 MG In NS 250 / 250 Inj 250 ML @ 250 mls/hr IV.SIG Q24H [place] Rx#:[id number] Maxipime Inj 2,000 MG In NS Inj 100 / 100 100 / 100 100 ML @ 200 mls/hr IV.SIG Q8H [place] Rx#:[id number] MVI-12 Inj 10 ML Folvite Inj 1 1800 / 1800 MG In TPN Fluid 2 Liter 2,000 ML @ 70 mls/hr IV.SIG Q24H [place] Rx#:[id number] Oral 300 / 300 Output: Urine 800 / 800 875 / 875 Stool 150 / 150 150 / 150 Other: # Voids 4 Date of Last Bowel Movement 02/26/18 02/26/18 Narrative: GENERAL: NAD SKIN: Warm and dry. HEAD: Normocephalic. EYES: No scleral icterus. No injection or drainage. NECK: Supple, trachea midline. No JVD or lymphadenopathy. CARDIOVASCULAR: Regular rate and rhythm without murmurs, gallops, or rubs. RESPIRATORY: Breath sounds equal bilaterally. No accessory muscle use. GASTROINTESTINAL: Abdomen soft, non-tender, nondistended. Colostomy bag in place MUSCULOSKELETAL: No cyanosis, or edema. BACK: Nontender without obvious deformity. No CVA tenderness. - Urinary Catheter Management Indwelling Urethral Catheter Cath placed during this visit: yes, but has since been removed by the nurse Reason for continuing: Not indwelling catheter Insertion date: 02/10/18 Insertion time: 08:00 Removal date: 02/18/18 Removal time: 08:00 Results - Labs CBC & Chem 7: 02/26/18 10:40 02/25/18 05:20 Laboratory Results - last 24 hr 02/26/18 02/26/18 02/27/18 14:26 20:44 08:07 POC Glucose 135 H 123 H 135 H Microbiology 02/26/18 22:47 Blood - Other Aerobic Blood Culture - Preliminary No growth in 1 day 02/26/18 22:47 Blood - Other Anaerobic Blood Culture - Preliminary No growth in 1 day 02/26/18 22:40 Blood - Other Aerobic Blood Culture - Preliminary No growth in 1 day 02/26/18 22:40 Blood - Other Anaerobic Blood Culture - Preliminary No growth in 1 day 02/26/18 22:50 Blood - Other Aerobic Blood Culture - Preliminary No growth in 1 day 02/26/18 22:50 Blood - Other Anaerobic Blood Culture - Preliminary No growth in 1 day - Imaging Impressions Chest X-Ray 02/26/18 00:00 CONCLUSION: New focal area of opacity in the left perihilar region of concern for possible early pneumonia. - Procedures See hospital course Assessment and Plan - Assessment (1) Hypokalemia Code(s): E87.6 - Hypokalemia Status: Acute (2) Diverticulitis of colon with perforation Code(s): K57.20 - Diverticulitis of large intestine with perforation and abscess without bleeding Status: Acute (3) Afib Code(s): I48.91 - Unspecified atrial fibrillation Status: Acute - Plan 57-year-old man with Acute diverticulitis Distal small bowel obstruction perforated bowel -S/p Zosyn. -Surgery consult ;greatly appreciate assistance. - S/P exploratory laparotomy, lysis of adhesions, sigmoid resection with end colonoscopy 02/10 -Currently on TPN with tray -Pain control with Lortab Leukocytosis -Most likely induced by antibiotics. History of atrial fibrillation/ Coagulopathy History of DVT -He takes Warfarin -alternates between 7 mg and 6 mg tablets. -Currently on Lovenox therapeutic dose. Patient will eventually need to be transitioned to Coumadin. Hypokalemia/ Hypophosphatemia/hypomagnesemia S/t decreased PO intake. -replete and monitor. -Repeat labs stable. coccyx wound -Being managed by wound care. Febrile episode Consider panculture, x-ray and abdominal imaging if no improvement Continue with Tylenol as needed DVT prophylaxis: Lovenox (2) Diverticulitis of colon with perforation Qualifiers: Diverticulitis bleeding: without bleeding Qualified Code(s): K57.20 - Diverticulitis of large intestine with perforation and abscess without bleeding
[2018-02-27 18:32] LABS: Bacteria,Urine Rare /hpf; Bilirubin,Urine Negative (Negative); Clarity,Urine Hazy (Clear); Color,Urine Yellow (Yellw/Straw); Glucose,Urine (UA) Negative (Negative); Leukocyte Esterase,Urine Negative (Negative); Mucus,Urine Few /lpf (Occasional); Nitrite,Urine Negative (Negative); Specific Gravity,Urine 1.023 (1.002-1.035); Squamous Epithelial Cell,Urine <1 /hpf (0-5)
[2018-02-27] MEDS: Multivitamin Inj 10 ML, Folic Acid Inj 1 MG in TPN Fluid 2 Liter 2,000 ML IV.SIG SCH (23:20)
[2018-02-27] MEDS: Azithromycin Inj 500 MG in Sodium Chlor 0.9% Inj 250 ML IV.SIG SCH (23:41)
[2018-02-28 07:03] LABS: Baso # (Auto) 0.1 th/mm3 (0.0-0.2); Baso % (Auto) 0.7 % (0.0-2.0); Eos # (Auto) 0.4 th/mm3 (0.0-0.4); Hematocrit 31.7 % (39.0-51.0); Hemoglobin 10.7 gm/dL (13.0-17.0); Lymph % (Auto) 15.6 % (9.0-44.0); Mean Corpuscular HGB Conc 33.8 % (32.0-36.0); Mean Corpuscular Hemoglobin 30.6 pg (27.0-34.0); Mean Corpuscular Volume 90.7 fL (80.0-100.0); Mean Platelet Volume 7.5 fL (7.0-11.0); Mono # (Auto) 1.7 th/mm3 (0.0-0.9); Mono % (Auto) 13.9 % (0.0-8.0); Neut # (Auto) 8.3 th/mm3 (1.8-7.7); Neut % (Auto) 66.8 % (16.0-70.0); Platelet Count 487 th/mm3 (150-450); White Blood Count 12.5 th/mm3 (4.0-11.0)
[2018-02-28 07:30] LABS: Alkaline Phosphatase 152 U/L (45-117); Total Protein 7.1 g/dL (6.4-8.2)
[2018-02-28 07:35] LABS: Alanine Aminotransferase 17 U/L (12-78); Albumin 1.8 g/dL (3.4-5.0); Anion Gap 8 meq/L (5-15); Aspartate Aminotransferase 16 U/L (15-37); Blood Urea Nitrogen 22 mg/dL (7-18); Calcium 8.1 mg/dL (8.5-10.1); Carbon Dioxide 26.3 meq/L (21.0-32.0); Chloride 100 meq/L (98-107); Glomerular Filtration Rate Greater Than 89 mL/min (>89); Glucose,Random 121 mg/dL (74-106); Potassium 4.9 meq/L (3.5-5.1); Sodium 134 meq/L (136-145)
[2018-02-28] MEDS: Pantoprazole Inj 40 MG Vial IV.PUSH SCH (08:50)
[2018-02-28] MEDS: Heparin Central Flush 100 UNIT/ML 5 ML Vial IV.FLUSH SCH (08:51)
[2018-02-28] MEDS: Enoxaparin Inj 100 MG/ML Syringe SQ SCH ×2 (08:51→20:44)
[2018-02-28] MEDS: Carvedilol 6.25 MG Tablet PO SCH ×2 (08:52→22:10)
[2018-02-28] MEDS: Senna/Docusate Sodium 8.6/50 MG Tablet PO SCH ×2 (08:52→20:44)
[2018-02-28] MEDS: Amiodarone 200 MG Tablet PO SCH (08:52)
--- NOTE | 2018-02-28 13:49 | P.PNIM ---
Subjective Interval history: Mr. Mccurdy was afebrile with stable VS overnight. Per nursing staff, some concern exists for patient being depressed. Patient reports that he is doing ok at this time; he does not report chest pain or recent shortness of breath. patient has some cough and mucus production; he uses bedside suction. Patient having small bowel movements. Patient reports some desire to go home rather than rehab, stating that he has bills to pay. Patient intermittently would get angry and curse, and was resistant to consideration of medication for mood symptoms although he feels sad from his medical conditions. Physical Exam Vital signs: Vital Signs 02/27/18 16:00 02/27/18 19:36 02/27/18 20:00 Temperature 98.4 F 97.3 F L Pulse Rate 86 80 Respiratory Rate 18 18 16 Blood Pressure 96/53 L 105/60 Pulse Oximetry 96 98 02/28/18 00:00 02/28/18 04:00 02/28/18 08:00 Temperature 98.4 F 98.6 F 98.3 F Pulse Rate 78 82 81 Respiratory Rate 20 16 16 Blood Pressure 94/46 L 100/57 L 98/53 L Pulse Oximetry 96 99 96 02/28/18 12:45 Temperature Pulse Rate Respiratory Rate 18 Blood Pressure Pulse Oximetry Intake & Output 02/27/18 02/28/18 02/28/18 18:59 06:59 18:59 Intake Total 590 / 590 3698 / 3698 350 / 350 Output Total 575 / 575 750 / 750 Balance 15 / 15 2948 / 2948 350 / 350 Intake: IV 350 / 350 3458 / 3458 350 / 350 Intralipid 20% Inj 250 ML @ 31. 250 / 250 208 / 208 250 / 250 25 mls/hr IV.CENTRAL Q24H [place] Rx#:[id number] Azithromycin Inj 500 MG In NS 250 / 250 Inj 250 ML @ 250 mls/hr IV.SIG Q24H [place] Rx#:[id number] Maxipime Inj 2,000 MG In NS Inj 100 / 100 100 / 100 100 / 100 100 ML @ 200 mls/hr IV.SIG Q8H [place] Rx#:[id number] MVI-12 Inj 10 ML Folvite Inj 1 2900 / 2900 MG In TPN Fluid 2 Liter 2,000 ML @ 70 mls/hr IV.SIG Q24H [place] Rx#:[id number] Oral 240 / 240 240 / 240 Output: Urine 475 / 475 750 / 750 Stool 100 / 100 Other: Date of Last Bowel Movement 02/27/18 02/27/18 Narrative: GENERAL: NAD SKIN: Warm and dry. Abdomen with dressed midline vertical incision and functioning colostomy HEENT: Normocephalic. MMM. EOM grossly I NECK: No JVD or lymphadenopathy. CARDIOVASCULAR: Regular rate and rhythm without murmurs. Normal perfusion RESPIRATORY: CTAB; normal rate GASTROINTESTINAL: Abdomen soft, non-tender, nondistended. Colostomy bag in place MUSCULOSKELETAL: No cyanosis, or edema - Urinary Catheter Management Indwelling Urethral Catheter Cath placed during this visit: yes, but has since been removed by the nurse Reason for continuing: Not indwelling catheter Insertion date: 02/10/18 Insertion time: 08:00 Removal date: 02/18/18 Removal time: 08:00 Results - Labs CBC & Chem 7: 02/28/18 06:31 02/28/18 06:31 Laboratory Results - last 24 hr 02/27/18 02/27/18 02/27/18 14:36 17:51 20:54 WBC RBC Hgb Hct MCV MCH MCHC RDW Plt Count MPV Neut % (Auto) Lymph % (Auto) [place] % (Auto) Eos % (Auto) Baso % (Auto) Neut # (Auto) Lymph # (Auto) [place] # (Auto) Eos # (Auto) Baso # (Auto) WBC Differential Differential Comment Sodium Potassium Chloride Carbon Dioxide Anion Gap BUN Creatinine Estimated GFR POC Glucose 131 H 117 H Random Glucose Calcium Total Bilirubin AST ALT Alkaline Phosphatase Total Protein Albumin Urine Color Yellow Urine Clarity Hazy H Urine pH 5.0 Ur Specific Krebs 1.023 Urine Protein 30 H Urine Glucose (UA) Negative Urine Ketones Trace H Urine Occult Blood Small H Urine Nitrate Negative Urine Bilirubin Negative Urine Urobilinogen Less than 2 Ur Leukocyte Esterase Negative Urine RBC 4 H Urine WBC 4 Ur Squamous Epith Cells <1 Urine Bacteria Rare H Urine Mucus Few H Micro UA Comment Culture not ind Ur Microscopic Review Not Reportable Urine Culture Comments Culture not ind 02/28/18 02/28/18 06:31 06:31 WBC 12.5 H RBC 3.50 L Hgb 10.7 L Hct 31.7 L MCV 90.7 MCH 30.6 MCHC 33.8 RDW 15.0 Plt Count 487 H MPV 7.5 Neut % (Auto) 66.8 Lymph % (Auto) 15.6 [place] % (Auto) 13.9 H Eos % (Auto) 3.0 Baso % (Auto) 0.7 Neut # (Auto) 8.3 H Lymph # (Auto) 2.0 [place] # (Auto) 1.7 H Eos # (Auto) 0.4 Baso # (Auto) 0.1 WBC Differential . Differential Comment Auto diff final Sodium 134 L Potassium 4.9 Chloride 100 Carbon Dioxide 26.3 Anion Gap 8 BUN 22 H Creatinine 0.72 Estimated GFR Greater than 89 POC Glucose Random Glucose 121 H Calcium 8.1 L Total Bilirubin 0.2 AST 16 ALT 17 Alkaline Phosphatase 152 H Total Protein 7.1 Albumin 1.8 L Urine Color Urine Clarity Urine pH Ur Specific Krebs Urine Protein Urine Glucose (UA) Urine Ketones Urine Occult Blood Urine Nitrate Urine Bilirubin Urine Urobilinogen Ur Leukocyte Esterase Urine RBC Urine WBC Ur Squamous Epith Cells Urine Bacteria Urine Mucus Micro UA Comment Ur Microscopic Review Urine Culture Comments Microbiology 02/26/18 22:40 Blood - Other Aerobic Blood Culture - Preliminary gram positive cocci 02/26/18 22:40 Blood - Other Anaerobic Blood Culture - Preliminary gram positive cocci 02/26/18 22:47 Blood - Other Aerobic Blood Culture - Preliminary gram positive cocci 02/26/18 22:47 Blood - Other Anaerobic Blood Culture - Preliminary gram positive cocci 02/26/18 22:50 Blood - Other Aerobic Blood Culture - Preliminary Staphylococcus aureus 02/26/18 22:50 Blood - Other Anaerobic Blood Culture - Preliminary Staphylococcus aureus - Procedures See hospital course Assessment and Plan - Assessment (1) Hypokalemia Code(s): E87.6 - Hypokalemia Status: Acute (2) Diverticulitis of colon with perforation Code(s): K57.20 - Diverticulitis of large intestine with perforation and abscess without bleeding Status: Acute (3) Afib Code(s): I48.91 - Unspecified atrial fibrillation Status: Acute - Plan Mr. Mccurdy is a 57-year-old man with: GI Diverticulitis w/ perforation s/p sigmoid resection On TPN Impression: Diverticulitis w/ perforation; POD 18 from Ex lap sigmoid resection -Continue dressing changes -Continue pain control -Continue feeding with TPN -General surgery consulted -s/p Zosyn Pressure ulcer Impression: Stage 3 -Wound care consulted; continue management History of atrial fibrillation/ Coagulopathy History of DVT Impression: On home Warfarin -alternates between 7 mg and 6 mg tablets. -Currently on Lovenox therapeutic dose. Patient will eventually need to be transitioned to Coumadin near discharge Electrolyte abnormalities Hypokalemia/ Hypophosphatemia/hypomagnesemia S/t decreased PO intake. -replete and monitor. -Repeat labs stable. Bacteremia Impression: Cultures drawn 02/26 in association with fever positive for staph. CXR taken at that time with suggestion of early new pneumonia. UA 02/26 negative. No reported worsening of sacral ulcer per Wound care eval 02/28 -Repeat blood cultures ordered -Will add Vancomycin for MRSA coverage -Will repeat CXR -Will consider abd imaging as well as consider further eval of sacral wound/ culture based on wound care report; will also consider ID consult -Continue with Tylenol as needed Poor mood Impression: Patient resistant to full discussion of mood/potential treatments. Patient is agreeable to improved sleep control -Will try Trazodone HS (QT 373 on last EKG) DVT prophylaxis: Lovenox Code Status: Full code (2) Diverticulitis of colon with perforation Qualifiers: Diverticulitis bleeding: without bleeding Qualified Code(s): K57.20 - Diverticulitis of large intestine with perforation and abscess without bleeding
--- NOTE | 2018-02-28 14:22 | P.PNWCN ---
Wound Care Nurse Consult Description: Patient seen on for follow up of colostomy teaching and evaluation of wound on left inner buttock. Communicated with: SANDRA Chandra Recommendation: Left inner buttock Q5D and PRN for soiling or dislodgement: Gently cleanse wound with NS and gauze. Pat dry. Apply Puracol AG to wound bed. Apply skin barrier film ([place] SPRAY) to periwound and allow to dry. Apply bordered gauze. Date dressing. PLEASE encourage and assist patient to reposition Q2H to relieve pressure and PRN for comfort. PLEASE use ONLY ONE ultrasorb moisture wicking underpad with Airapy LOW AIR- LOSS MATTRESS. NO COTTON PULL PADS PLEASE as they hold in moisture and heat. Colostomy: Monitor stoma for red/pink color, moisture, and output. Empty pouch of effluent when 1/3-1/2 full Change appliance Q5D and PRN for leaks. Additional information: Patient seen on for follow up of wound to left inner buttock and ostomy located on left abdomen. Wound/Pressure Injury - Wound Right Buttocks Wound Type: Skin Tear Is This a Chronic Wound: No Wound Bed Appearance: Peeling Skin Wound Bed Appearance: Skin tear noted with blanching erythema noted to periwound. Drainage Amount: None Drainage Odor: No Odor Dressing Status: Open to Air Left Inner Buttock Wound Staging: Stage III Wound Assessment: Ongoing Wound Type: Pressure Injury Is This a Chronic Wound: Yes Length: 2 (cm) Width: 1.3 (cm) Depth: 0.2 (cm) Wound Bed Appearance: [place], Yellow Wound Bed Appearance: Full thickness skin loss Drainage Amount: None Drainage Odor: No Odor Dressing Status: Changed (removed optifoam, cleansed wound, placed puracol AG in wound bed, covered with bordered gauze dressing) Cleansing Solution: Saline Wound Packing Type: Collagen (Puracol AG) Primary Dressing: Adhesive Dressing Wound Dressing Change Date: 02/28/18 Bowel Diversion Stoma - Bowel Stoma Colostomy Stoma Appearance: Protruding, Round (red, moist, functioning with light brown semi formed stool) Collection Device: Two-piece (with low pressure adaptor in place) Drainage Description: Soft, Brown Wafer Size: 2 1/4 Moldable - Additional Information Additional Information: Patient seen on for continued ostomy teaching, demonstration of releasing air from pouch, and education on pressure injury and repositioning along with getting up out of bed.
--- NOTE | 2018-02-28 15:13 | P.DIET ---
Nutritional Evaluation Type of nutrition evaluation: follow-up Nutrition consult regarding: TPN/PPN Objective - Diagnosis Diverticulitis w/ Perforation - Objective % IBW: 137 (GEX=354#) Body Weight Used for Calculations: IBW (70kg) Energy Needs - Lower Range (kCal/kg): 28 Energy Needs - Upper Range (kCal/kg): 32 Lower Limit kCal/kg (kCals): 1,960 Upper Limit kCal/kg (kCals): 2,240 Lower Limit Protein Factor (Grams per Kg): 1.2 Upper Limit Protein Factor (Grams per Kg): 1.4 Lower Protein Needs (Protein): 84 Upper Protein Needs (Protein): 98 Fluid Factor (ml/kg): 30 Estimated Fluid Needs (ml): 2,100 Dietitian Reviewed in Medical Record: Current diet, Curent medications, Intake & Output, Labs, TPN/PPN Diet Order: Regular Oral Diet Intake Amount: Fair 50-75% Wound Care Note: 02/28: L inner buttocks stage III, R buttocks skin tear Objective Comments: Meds: Lactulose, Reglan Labs: Triglycerides 99 (on 02/18) Huge ? wt discrepancy in the last 24hrs noted Feeding - Current PO Supplement Current Supplement: Ensure Original Current Frequency of Supplement: Twice daily Current kCals Provided by Supplement: 250 Current Protein Provided by Supplement: 9 - Current TPN/PPN Current TPN: Clinimix E 5/20 Current TPN/PPN Rate (ml/hr): 70 Amino Acid and Dextrose Current kCals Provided: 1,478 Amino Acid and Dextrose Current Protein Provided: 84 Current Lipid Concentration: 20% Current Lipids Rate: mls/hr over 24 hours: (31.25mls/hr x 8hrs daily) Current kCal Provided by TPN/PPN: 1,978 Carbohydrate Load (mg/kg/min): 3 Assessment Assessment: Pt remains on TPN and lipids as described above. This regimen continues to be appropriate. He has a stage III pressure injury to the L inner buttocks per [facility] documentation. He continues on a soft diet w/ Ensure BID. He does continue to refuse meals occasionally, but when he does eat it tends to be relatively good. Pt does remain at high nutritional risk 2/2 recent colostomy, need for TPN , and new stage III pressure injury. I recommend continuing current POC for now w/ TPN and lipids to utilize this for wound healing . Dietitian following. Recommendations: 1. Continue current TPN and lipid regimen. 2. Continue Ensure BID. 3. Diet per surgery. Dietitian to Monitor: Lab values, Supplement acceptance, Intake & Output, Diet tolerance, TPN/PPN tolerance, Weight change, PO Intake, Wound/skin status, Medical course
[2018-02-28] MEDS ORDERED: Vancomycin Consult Pharmacy OTHER PRN (19:15)
--- NOTE | 2018-02-28 20:10 | XR ---
EXAM DATE: 02/28/2018 7:54 PM EDT AGE/SEX: 57 years / Male INDICATIONS: Fever. CLINICAL DATA: This is the patient's subsequent encounter. Patient reports that signs and symptoms h ave been present for 1 week and indicates a pain score of 0/10. MEDICAL/SURGICAL HISTORY: . Diverticulitis. DVT, A-fib, Bacterial meningitis. . Colon resectio n. Colostomy. COMPARISON: [facility], CHEST 1V SINGLE AP, 02/26/2018. . FINDINGS: A single AP portable erect view of the chest was obtained and again demonstrates a focal abnormal opa city in the left perihilar region. This is increased in size compared to the prior study. The heart s ize remains enlarged. There is no effusion. The right lung is clear. The right PICC line remains in p lace. CONCLUSION: Interval increase in the size of the focal opacity in the left perihilar region most characteristic o f pneumonia. Electronically signed by: Mervin Mena MD 02/28/2018 8:08 PM EDT
[2018-02-28] MEDS: Multivitamin Inj 10 ML, Folic Acid Inj 1 MG in TPN Fluid 2 Liter 2,000 ML IV.SIG SCH (20:44)
[2018-02-28] MEDS ORDERED: Vancomycin Inj 1,000 MG in Sodium Chlor 0.9% Inj 250 ML IV.SIG ONE ×2 (22:00→23:00)
[2018-02-28] MEDS: Azithromycin Inj 500 MG in Sodium Chlor 0.9% Inj 250 ML IV.SIG SCH (22:11)
[2018-03-01] MEDS: traZODone 100 MG Tablet PO SCH ×2 (00:31→20:49)
[2018-03-01 06:59] LABS: Baso # (Auto) 0.1 th/mm3 (0.0-0.2); Baso % (Auto) 0.8 % (0.0-2.0); Eos # (Auto) 0.5 th/mm3 (0.0-0.4); Hematocrit 31.1 % (39.0-51.0); Hemoglobin 10.6 gm/dL (13.0-17.0); Lymph # (Auto) 2.1 th/mm3 (1.0-4.8); Mean Corpuscular HGB Conc 34.2 % (32.0-36.0); Mean Corpuscular Hemoglobin 30.8 pg (27.0-34.0); Mean Corpuscular Volume 90.1 fL (80.0-100.0); Mean Platelet Volume 7.5 fL (7.0-11.0); Mono # (Auto) 1.1 th/mm3 (0.0-0.9); Mono % (Auto) 11.3 % (0.0-8.0); Neut # (Auto) 6.3 th/mm3 (1.8-7.7); Neut % (Auto) 61.9 % (16.0-70.0); Platelet Count 534 th/mm3 (150-450); Red Blood Count 3.45 mil/mm3 (4.50-5.90); Red Cell Distribution Width 15.3 % (11.6-17.2); White Blood Count 10.1 th/mm3 (4.0-11.0)
[2018-03-01 07:41] LABS: Anion Gap 7 meq/L (5-15); Blood Urea Nitrogen 18 mg/dL (7-18); Calcium 8.6 mg/dL (8.5-10.1); Carbon Dioxide 26.1 meq/L (21.0-32.0); Chloride 102 meq/L (98-107); Glomerular Filtration Rate Greater Than 89 mL/min (>89); Glucose,Random 123 mg/dL (74-106); Potassium 4.7 meq/L (3.5-5.1); Sodium 135 meq/L (136-145)
[2018-03-01] MEDS ORDERED: Vancomycin Inj 1,250 MG in Sodium Chlor 0.9% Inj 250 ML IV.SIG SCH (08:00)
[2018-03-01] MEDS: Pantoprazole Inj 40 MG Vial IV.PUSH SCH (09:28)
[2018-03-01] MEDS: Heparin Central Flush 100 UNIT/ML 5 ML Vial IV.FLUSH SCH (09:29)
[2018-03-01] MEDS: Enoxaparin Inj 100 MG/ML Syringe SQ SCH ×2 (09:29→20:49)
[2018-03-01] MEDS: Senna/Docusate Sodium 8.6/50 MG Tablet PO SCH ×2 (09:29→20:49)
[2018-03-01] MEDS: Amiodarone 200 MG Tablet PO SCH (09:29)
[2018-03-01] MEDS: Vancomycin Inj 1,250 MG in Sodium Chlor 0.9% Inj 250 ML IV.SIG SCH ×2 (09:30→20:50)
[2018-03-01] MEDS: Carvedilol 6.25 MG Tablet PO SCH ×2 (09:30→20:44)
--- NOTE | 2018-03-01 11:24 | P.PNIM ---
Subjective Interval history: Patient reports that he is doing well overnight. Patient reports desire to be discharged by next week he reports that he has bills to pay and that he does not want to be here any longer. No other acute concerns. Patient reports that he is feeding and voiding well. Physical Exam Vital signs: Vital Signs 02/28/18 12:00 02/28/18 12:45 02/28/18 13:15 Temperature 98.1 F Pulse Rate 89 Respiratory Rate 18 18 18 Blood Pressure 105/62 Pulse Oximetry 96 02/28/18 16:00 02/28/18 20:00 03/01/18 00:00 Temperature 97.9 F 97.9 F 98.5 F Pulse Rate 94 H 79 83 Respiratory Rate 18 17 18 Blood Pressure 100/59 L 101/61 109/56 L Pulse Oximetry 94 L 96 96 03/01/18 04:00 03/01/18 08:00 03/01/18 10:00 Temperature 97.6 F 98.3 F Pulse Rate 87 85 Respiratory Rate 17 18 18 Blood Pressure 92/51 L 111/55 L Pulse Oximetry 97 98 Intake & Output 02/28/18 03/01/18 03/01/18 18:59 06:59 18:59 Intake Total 930 / 930 2410 / 2410 100 / 100 Output Total 700 / 700 550 / 550 Balance 230 / 230 1860 / 1860 100 / 100 Weight 77.3 kg Intake: IV 450 / 450 2410 / 2410 100 / 100 Intralipid 20% Inj 250 ML @ 31. 250 / 250 250 / 250 25 mls/hr IV.CENTRAL Q24H [place] Rx#:[id number] Azithromycin Inj 500 MG In NS 250 / 250 Inj 250 ML @ 250 mls/hr IV.SIG Q24H [place] Rx#:[id number] Maxipime Inj 2,000 MG In NS Inj 200 / 200 100 / 100 100 / 100 100 ML @ 200 mls/hr IV.SIG Q8H [place] Rx#:[id number] MVI-12 Inj 10 ML Folvite Inj 1 1560 / 1560 MG In TPN Fluid 2 Liter 2,000 ML @ 70 mls/hr IV.SIG Q24H [place] Rx#:[id number] Vancomycin Inj 1,000 MG In NS 250 / 250 Inj 250 ML @ 250 mls/hr IV.SIG ONCE ONE Rx#:[id number] Oral 480 / 480 Output: Urine 700 / 700 550 / 550 Stool Amount (Stoma) 0 / 0 Colostomy 0 / 0 Other: Date of Last Bowel Movement 02/28/18 02/28/18 Narrative: GENERAL: NAD, appears to be frustrated with questions SKIN: Warm and dry. Abdomen with dressed midline vertical incision and functioning colostomy. Dressing over sacral ulcer. HEENT: Normocephalic. MOM. NECK: No JVD or lymphadenopathy. CARDIOVASCULAR: Regular rate and rhythm without murmurs. Normal perfusion RESPIRATORY: CTAB; normal rate GASTROINTESTINAL: Abdomen soft, non-tender, nondistended. Colostomy bag in place MUSCULOSKELETAL: No cyanosis, or edema - Urinary Catheter Management Indwelling Urethral Catheter Cath placed during this visit: yes, but has since been removed by the nurse Reason for continuing: Not indwelling catheter Insertion date: 02/10/18 Insertion time: 08:00 Removal date: 02/18/18 Removal time: 08:00 Results - Labs CBC & Chem 7: 03/01/18 05:51 03/01/18 05:51 Laboratory Results - last 24 hr 02/28/18 02/28/18 03/01/18 14:25 20:40 05:51 WBC 10.1 RBC 3.45 L Hgb 10.6 L Hct 31.1 L MCV 90.1 MCH 30.8 MCHC 34.2 RDW 15.3 Plt Count 534 H MPV 7.5 Prelim Diff (Auto) Slide review pending Neut % (Auto) 61.9 Lymph % (Auto) 21.0 [place] % (Auto) 11.3 H Eos % (Auto) 5.0 H Baso % (Auto) 0.8 Neut # (Auto) 6.3 Lymph # (Auto) 2.1 [place] # (Auto) 1.1 H Eos # (Auto) 0.5 H Baso # (Auto) 0.1 WBC Differential . Diff Scan Auto diff confirmed Differential Comment . Sodium Potassium Chloride Carbon Dioxide Anion Gap BUN Creatinine Estimated GFR POC Glucose 128 H 130 H Random Glucose Calcium 03/01/18 05:51 WBC RBC Hgb Hct MCV MCH MCHC RDW Plt Count MPV Prelim Diff (Auto) Neut % (Auto) Lymph % (Auto) [place] % (Auto) Eos % (Auto) Baso % (Auto) Neut # (Auto) Lymph # (Auto) [place] # (Auto) Eos # (Auto) Baso # (Auto) WBC Differential Diff Scan Differential Comment Sodium 135 L Potassium 4.7 Chloride 102 Carbon Dioxide 26.1 Anion Gap 7 BUN 18 Creatinine 0.66 Estimated GFR Greater than 89 POC Glucose Random Glucose 123 H Calcium 8.6 Microbiology 02/28/18 10:10 Blood - Peripheral Aerobic Blood Culture - Preliminary gram positive cocci 02/28/18 10:10 Blood - Peripheral Anaerobic Blood Culture - Preliminary No growth in 1 day 02/28/18 10:16 Blood - Peripheral Aerobic Blood Culture - Preliminary gram positive cocci 02/28/18 10:16 Blood - Peripheral Anaerobic Blood Culture - Preliminary No growth in 1 day 02/26/18 22:40 Blood - Other Aerobic Blood Culture - Final S. aureus MRSA 02/26/18 22:40 Blood - Other Anaerobic Blood Culture - Final S. aureus MRSA 02/26/18 22:47 Blood - Other Aerobic Blood Culture - Final S. aureus MRSA 02/26/18 22:47 Blood - Other Anaerobic Blood Culture - Final S. aureus MRSA 02/26/18 22:50 Blood - Other Aerobic Blood Culture - Final S. aureus MRSA 02/26/18 22:50 Blood - Other Anaerobic Blood Culture - Final S. aureus MRSA - Imaging Impressions Chest X-Ray 02/28/18 00:00 CONCLUSION: Interval increase in the size of the focal opacity in the left perihilar region most characteristic of pneumonia. - Procedures See hospital course Assessment and Plan - Assessment (1) Hypokalemia Code(s): E87.6 - Hypokalemia Status: Resolved (2) Diverticulitis of colon with perforation Code(s): K57.20 - Diverticulitis of large intestine with perforation and abscess without bleeding Status: Resolved (3) Afib Code(s): I48.91 - Unspecified atrial fibrillation Status: Acute (4) Pneumonia Code(s): J18.9 - Pneumonia, unspecified organism Status: Acute (5) Bacteremia Code(s): R78.81 - Bacteremia Status: Acute - Plan 57-year-old male with past medical history of A. fib and DTV on anticoagulatiion admitted initially for diverticulitis with perforation s/p sigmoid resection on 02/10, postoperative course has been complicated by pneumonia diagnosed on 02/26, patient is on cefepime and azithromycin, patient also had a positive blood culture for bacteremia on 02/26 which has now resulted in positive MRSA 3 with 1 sensitivity back showing sensitivity to vanc the other 2 cultures are still pending sensitivity. Patient is still receiving wound care for his sacral ulcer, now pending ID consult and surgery reccs. - Plan 1. Diverticulitis w/ perforation s/p sigmoid resection, has colostomy, POD#19: -Continue dressing changes, pain control, TPN, cont. reccs per general surgery consulted, s/p Zosyn 2. Pressure ulcer, stage 3: Wound care managing. Frequent position changes. 3. History of atrial fibrillation/Hx of DVT: On home Warfarin -alternates between 7 mg and 6 mg tablets. Currently on Lovenox therapeutic dose. Patient will eventually need to be transitioned to Coumadin near discharge. 4. Bacteremia: Cultures drawn 02/26 +MRSA x3 with sens. to Vanc, ID consulted. On Vanc since 02/28. UA on 02/26 Neg. Bld cx Neg on 02/09 and 02/19. Rot Bld Cx drawn on 02/28. No reported worsening of sacral ulcer per Wound care eval 02/28. Consider abd imaging as well as consider further eval of sacral wound/culture based on wound care and ID reccs, ID consulted today to assist with management. 5. Pneumonia: Dx per CXR on 02/26, on Cefepime and Zpak started on 02/26. 6. Depression: cont. Trazodone HS (QT 373 on last EKG) 7. DVT prophylaxis: Lovenox (2) Diverticulitis of colon with perforation Qualifiers: Diverticulitis bleeding: without bleeding Qualified Code(s): K57.20 - Diverticulitis of large intestine with perforation and abscess without bleeding
--- NOTE | 2018-03-01 13:07 | P.CONID ---
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 Patient was admitted on the day of admission with severe acute onset of abdominal pain lower abdomen. He denied nausea vomiting or constipation at that time unclear if he has a history of diverticulitis in the past. He was noted to have a WBC count of 19,000. Sepsis workup was initiated with blood cultures are negative. A CT of the abdomen pelvis was done which showed a significant amount of inflammatory changes around the sigmoid colon with small pockets of free air. Patient is followed by Dr. Fuentes of surgery services and underwent resection of the colon followed by a diverting colostomy. Postoperatively patient has done okay except that he is is currently on TPN using a PICC line. Subsequently started developing new fevers on 02/26/2018 with elevation in his white count 15.8. Patient underwent repeat workup of sepsis in this time blood cultures are positive for MRSA from both peripheral as well as from PICC line. Patient also has a surgical wound which appears to have dehisced in 2 places on the superior as well as the lower aspect of the surgical site I do not see any gross purulence or any erythema surrounding the surgical site. He also has a sacral decubitus on his buttocks again does not appear to be the source of infection. Infectious diseases consulted for evaluation and management of sepsis, MRSA bacteremia in a postop patient. Review of Systems All other systems reviewed negative except as stated in HPI PMFSH - History History Provided By: Patient, Medical Record - Medical History Medical History: Medical History (Last Reviewed 02/28/18 @ 08:48 by Ottoniel Alejo) Afib Bacterial meningitis Cataract DVT (deep venous thrombosis) - Tobacco History Second Hand Smoke Exposure: No Tobacco Use In Past 30 Days: Yes Smoking Status: Current every day smoker Tobacco Type: Cigarettes - Alcohol History How Often Do You Have a Drink Containing Alcohol: 2 to 3 times a week - Substance Use History Substance History: No History of Abuse - Travel History Recent Travel in the [place] Within the Last 8 Weeks: No Recent Travel Out of the Country Within the Last 8 Weeks: No - Immunization History Tetanus Immunization: >5 Years Hx Influenza Vaccine This Season: No Medications and Allergies Active Medications: Active Medications Acetaminophen (Tylenol) 650 mg PO Q4H PRN PRN Reason: Temp > 100.4 Hydrocodone Bitart/Acetaminophen ([place] 10/325) 1 tab PO Q6H PRN PRN Reason: PAIN SCALE 6 TO 10 Last Admin: 02/28/18 19:02 Dose: 1 tab Hydrocodone Bitart/Acetaminophen ([place] 5/325) 1 tab PO Q6H PRN PRN Reason: PAIN SCALE 3 TO 5 Last Admin: 03/01/18 09:30 Dose: 1 tab Al Hydroxide/Mg Hydroxide (Milk Of Yana Segura) 30 ml PO Q12H PRN PRN Reason: Mild Constipation Last Admin: 01/23/18 13:22 Dose: 30 ml Amiodarone HCl (Cordarone) 200 mg PO DAILY [facility] Last Admin: 03/01/18 09:29 Dose: 200 mg Carvedilol (Coreg) 6.25 mg PO BID [facility] Last Admin: 03/01/18 09:30 Dose: 6.25 mg Enoxaparin Sodium (Lovenox Inj) 90 mg SQ Q12HR [facility] Last Admin: 03/01/18 09:29 Dose: 90 mg Heparin Sodium (Porcine) (Heparin Central Flush) 0 unit IV.FLUSH DAILY [facility] Last Admin: 03/01/18 09:29 Dose: 500 unit Heparin Sodium (Porcine) (Heparin Central Flush) 0 unit IV.FLUSH PRN PRN PRN Reason: Flush PICC Line Fat Emulsion Intravenous (Intralipid 20% Inj) 250 mls @ 31.25 mls/hr IV.CENTRAL Q24H [facility] Last Infusion: 03/01/18 05:21 Dose: Infused Multivitamins 10 ml/ Folic Acid 1 mg/ Amino Acids/Electrolytes/Dextrose 2, 010.2 mls @ 70 mls/hr IV.SIG Q24H [facility] Last Infusion: 03/01/18 05:21 Dose: 70 mls/hr Sodium Chloride (Ns Inj) 1,000 mls @ 0 mls/hr IV.SIG BOLUS [facility] Last Infusion: 02/12/18 19:22 Dose: Infused Cefepime HCl 2,000 mg/ Sodium (Chloride) 100 mls @ 200 mls/hr IV.SIG Q8H [place] Last Infusion: 03/01/18 08:45 Dose: Infused Azithromycin 500 mg/ Sodium (Chloride) 250 mls @ 250 mls/hr IV.SIG Q24H [place] Last Infusion: 03/01/18 00:58 Dose: Infused Vancomycin HCl 1,250 mg/ (Sodium Chloride) 262.5 mls @ 250 mls/hr IV.SIG Q12H [place] Last Infusion: 03/01/18 10:33 Dose: Infused Lactulose (Lactulose Liq) 30 ml PO DAILY PRN PRN Reason: SEVERE CONSITIPATION Last Admin: 01/24/18 09:06 Dose: 30 ml Lorazepam (Ativan Inj) 1 mg IV.PUSH Q6H PRN PRN Reason: ANXIETY AND/OR AGITATION Last Admin: 02/18/18 03:03 Dose: 0.5 mg Melatonin (Melatonin) 5 mg PO HS PRN PRN Reason: INSOMNIA Last Admin: 02/18/18 01:19 Dose: 5 mg Metoclopramide HCl (Reglan Inj) 5 mg IV.PUSH Q8HR [place]; Protocol Last Admin: 03/01/18 05:24 Dose: 5 mg Miscellaneous Information ([facility] Ordered Lab Info) 0 each OTHER ONCE ONE Stop: 03/02/18 08:46 Naloxone HCl (Narcan Inj) 0.4 mg IV.PUSH UNSCH PRN PRN Reason: SEE LABEL COMMENTS Nicotine (Habitrol 7 Mg Patch.24 Hr) 1 patch T-DERMAL DAILY [facility] Last Admin: 03/01/18 09:31 Dose: 1 patch Ondansetron HCl (Zofran Inj) 4 mg IV.PUSH Q6H PRN PRN Reason: NAUSEA OR VOMITING Last Admin: 02/23/18 01:40 Dose: 4 mg Padimate O ([place]) 0 applicatio TOPICAL Q1H PRN PRN Reason: DRY LIPS Last Admin: 02/18/18 09:32 Dose: 1 applicatio Pantoprazole Sodium (Protonix Inj) 40 mg IV.PUSH Q24H [place] Last Admin: 03/01/18 09:28 Dose: 40 mg Patch Removal (Remove Old Patch) 1 each T-DERMAL DAILY [place] Last Admin: 03/01/18 09:30 Dose: 1 each Pharmacy Profile Note (Vancomycin Consult Pharmacy) 1 each OTHER UNSCH PRN PRN Reason: Pharmacy to dose Senna/Docusate Sodium (Zaira-Colace) 1 tab PO BID [facility] Last Admin: 03/01/18 09:29 Dose: 1 tab Sennosides (Senokot) 17.2 mg PO Q12H PRN PRN Reason: Moderate Constipation Sodium Chloride (Ns Flush) 2 ml IV.FLUSH PRN PRN PRN Reason: FLUSH AFTER USING IV ACCESS Last Admin: 02/20/18 20:25 Dose: 2 ml Sodium Chloride (Ns Flush) 0 ml IV.FLUSH DAILY [facility] Last Admin: 03/01/18 09:31 Dose: 10 ml Sodium Chloride (Ns Flush) 0 ml IV.FLUSH PRN PRN PRN Reason: FLUSH AFTER USING IV ACCESS Sodium Chloride (Ns Flush) 0 ml IV.FLUSH PRN PRN PRN Reason: Flush After Blood Draws Trazodone HCl (Desyrel) 100 mg PO [facility] Last Admin: 03/01/18 00:31 Dose: 100 mg Allergies Allergy/AdvReac Type Severity Reaction Status Date / Time Sulfa (Sulfonamide Allergy Severe HEADACHE Verified 03/16/17 16:22 Antibiotics) Home Medications Medication Instructions Recorded Confirmed Type amiodarone 200 mg PO DAILY 01/22/18 01/22/18 History carvedilol [Coreg] 6.25 mg PO BID 01/22/18 01/22/18 History warfarin [Coumadin] 6 mg PO EVERY OTHER DAY 01/22/18 01/22/18 History warfarin [Coumadin] 7 mg PO EVERY OTHER DAY 01/22/18 01/22/18 History Exam Vital signs: Vital Signs 02/28/18 13:15 02/28/18 16:00 02/28/18 20:00 Temperature 97.9 F 97.9 F Pulse Rate 94 H 79 Respiratory Rate 18 18 17 Blood Pressure 100/59 L 101/61 Pulse Oximetry 94 L 96 03/01/18 00:00 03/01/18 04:00 03/01/18 08:00 Temperature 98.5 F 97.6 F 98.3 F Pulse Rate 83 87 85 Respiratory Rate 18 17 18 Blood Pressure 109/56 L 92/51 L 111/55 L Pulse Oximetry 96 97 98 03/01/18 10:00 Temperature Pulse Rate Respiratory Rate 18 Blood Pressure Pulse Oximetry Intake & Output 02/28/18 03/01/18 03/01/18 18:59 06:59 18:59 Intake Total 930 / 930 2410 / 2410 362.5 / 362.5 Output Total 700 / 700 550 / 550 Balance 230 / 230 1860 / 1860 362.5 / 362.5 Weight 77.3 kg Intake: IV 450 / 450 2410 / 2410 362.5 / 362.5 Intralipid 20% Inj 250 ML @ 31. 250 / 250 250 / 250 25 mls/hr IV.CENTRAL Q24H [place] Rx#:[id number] Azithromycin Inj 500 MG In NS 250 / 250 Inj 250 ML @ 250 mls/hr IV.SIG Q24H [place] Rx#:[id number] Maxipime Inj 2,000 MG In NS Inj 200 / 200 100 / 100 100 / 100 100 ML @ 200 mls/hr IV.SIG Q8H [place] Rx#:[id number] MVI-12 Inj 10 ML Folvite Inj 1 1560 / 1560 MG In TPN Fluid 2 Liter 2,000 ML @ 70 mls/hr IV.SIG Q24H [place] Rx#:[id number] Vancomycin Inj 1,000 MG In NS 250 / 250 Inj 250 ML @ 250 mls/hr IV.SIG ONCE ONE Rx#:[id number] Vancomycin Inj 1,250 MG In NS 262.5 / 262.5 Inj 250 ML @ 250 mls/hr IV.SIG Q12H [place] Rx#:[id number] Oral 480 / 480 Output: Urine 700 / 700 550 / 550 Stool Amount (Stoma) 0 / 0 Colostomy 0 / 0 Other: Date of Last Bowel Movement 02/28/18 02/28/18 Narrative: GENERAL: Well-nourished well-developed, not in acute distress SKIN: Cool and dry, no generalized rash HEAD: Atraumatic. Normocephalic. No temporal or scalp tenderness. EYES: Pupils equal round and reactive. Scleral icterus. No injection or drainage. No petechia ENT: Nothing abnormal detected NECK: Trachea midline. Supple, nontender, no meningeal signs. CARDIOVASCULAR: HS audible. RESPIRATORY: Clear to auscultation bilaterally. GASTROINTESTINAL: Abdomen soft nontender. Midline surgical scar with some dehiscence noted on the superior as well as the lower aspect of the surgical incision. No surrounding erythema to suggest acute infection. No obvious discharge noted. MUSCULOSKELETAL: Extremities without clubbing, cyanosis. Colostomy site ok. NEUROLOGICAL: Alert oriented 3. Nonfocal. Psych cooperative IV line sites ok. PICC line site with no evidence of infection. Results - Labs CBC & Chem 7: 03/01/18 05:51 03/01/18 05:51 Labs: Laboratory Results - last 24 hr 02/28/18 02/28/18 03/01/18 14:25 20:40 05:51 WBC 10.1 RBC 3.45 L Hgb 10.6 L Hct 31.1 L MCV 90.1 MCH 30.8 MCHC 34.2 RDW 15.3 Plt Count 534 H MPV 7.5 Prelim Diff (Auto) Slide review pending Neut % (Auto) 61.9 Lymph % (Auto) 21.0 [place] % (Auto) 11.3 H Eos % (Auto) 5.0 H Baso % (Auto) 0.8 Neut # (Auto) 6.3 Lymph # (Auto) 2.1 [place] # (Auto) 1.1 H Eos # (Auto) 0.5 H Baso # (Auto) 0.1 WBC Differential . Diff Scan Auto diff confirmed Differential Comment . Sodium Potassium Chloride Carbon Dioxide Anion Gap BUN Creatinine Estimated GFR POC Glucose 128 H 130 H Random Glucose Calcium 03/01/18 05:51 WBC RBC Hgb Hct MCV MCH MCHC RDW Plt Count MPV Prelim Diff (Auto) Neut % (Auto) Lymph % (Auto) [place] % (Auto) Eos % (Auto) Baso % (Auto) Neut # (Auto) Lymph # (Auto) [place] # (Auto) Eos # (Auto) Baso # (Auto) WBC Differential Diff Scan Differential Comment Sodium 135 L Potassium 4.7 Chloride 102 Carbon Dioxide 26.1 Anion Gap 7 BUN 18 Creatinine 0.66 Estimated GFR Greater than 89 POC Glucose Random Glucose 123 H Calcium 8.6 - Imaging Impressions Chest X-Ray 02/28/18 00:00 CONCLUSION: Interval increase in the size of the focal opacity in the left perihilar region most characteristic of pneumonia. Assessment and Plan - Plan Sepsis with elevation in white count, fevers, source of infection likely PICC line infection. MRSA bacteremia likely PICC line related Midline surgical scar with wound base and with no obvious infection although there is dehiscence noted. Colostomy in place PICC line in place History of DVTs on anticoagulation. History of bacterial meningitis Recommendations Continue Cefepime IV for now. Will repeat CXR and assess clinically again in am. Patient has no resp symptoms. Continue Vanco IV (target 15-20 for bacteremia) DC Azithro Discontinue PICC line Initially I recommended that a central line be placed but Dr. Fuentes decided the patient does not need TPN until a central line is not required at the present time Send catheter tip of the PICC line for culture We will repeat blood cultures in a.m. already ordered Doppler upper extremity at the PICC line site to look for evidence of septic thrombophlebitis Patient does need IV antibiotics on discharge but please do not place any PICC line without clearance from infectious disease physician Follow cultures Follow clinical course Discussed with Dr. Damon hospitalist Discussed with nurse for the patient Discussed with patient
--- NOTE | 2018-03-01 15:21 | P.PNGS ---
Subjective Interval history: Walked yesterday 3 times around halls. MRSA in blood and PICC line to be removed. Physical Exam Vital signs: Vital Signs 02/28/18 16:00 02/28/18 20:00 03/01/18 00:00 Temperature 97.9 F 97.9 F 98.5 F Pulse Rate 94 H 79 83 Respiratory Rate 18 17 18 Blood Pressure 100/59 L 101/61 109/56 L Pulse Oximetry 94 L 96 96 03/01/18 04:00 03/01/18 08:00 03/01/18 10:00 Temperature 97.6 F 98.3 F Pulse Rate 87 85 Respiratory Rate 17 18 18 Blood Pressure 92/51 L 111/55 L Pulse Oximetry 97 98 03/01/18 12:00 Temperature 97.7 F Pulse Rate 72 Respiratory Rate 18 Blood Pressure 107/61 Pulse Oximetry 98 Intake & Output 02/28/18 03/01/18 03/01/18 18:59 06:59 18:59 Intake Total 930 / 930 2410 / 2410 602.5 / 602.5 Output Total 700 / 700 550 / 550 925 / 925 Balance 230 / 230 1860 / 1860 -322.5 / -322.5 Weight 77.3 kg Intake: IV 450 / 450 2410 / 2410 362.5 / 362.5 Intralipid 20% Inj 250 ML @ 31. 250 / 250 250 / 250 25 mls/hr IV.CENTRAL Q24H [place] Rx#:[id number] Azithromycin Inj 500 MG In NS 250 / 250 Inj 250 ML @ 250 mls/hr IV.SIG Q24H [place] Rx#:[id number] Maxipime Inj 2,000 MG In NS Inj 200 / 200 100 / 100 100 / 100 100 ML @ 200 mls/hr IV.SIG Q8H [place] Rx#:[id number] MVI-12 Inj 10 ML Folvite Inj 1 1560 / 1560 MG In TPN Fluid 2 Liter 2,000 ML @ 70 mls/hr IV.SIG Q24H [place] Rx#:[id number] Vancomycin Inj 1,000 MG In NS 250 / 250 Inj 250 ML @ 250 mls/hr IV.SIG ONCE ONE Rx#:[id number] Vancomycin Inj 1,250 MG In NS 262.5 / 262.5 Inj 250 ML @ 250 mls/hr IV.SIG Q12H [place] Rx#:[id number] Oral 480 / 480 240 / 240 Output: Urine 700 / 700 550 / 550 925 / 925 Stool Amount (Stoma) 0 / 0 Colostomy 0 / 0 Other: # Voids 1 Date of Last Bowel Movement 02/28/18 02/28/18 Narrative: NAD Abd: soft, colostomy functioning, sup and inf wounds with mild purulence, no erythema - Urinary Catheter Management Indwelling Urethral Catheter Cath placed during this visit: yes, but has since been removed by the nurse Reason for continuing: Not indwelling catheter Insertion date: 02/10/18 Insertion time: 08:00 Removal date: 02/18/18 Removal time: 08:00 Assessment and Plan - Assessment (1) Diverticulitis of colon with perforation Code(s): K57.20 - Diverticulitis of large intestine with perforation and abscess without bleeding Status: Resolved - Plan S/p ex lap sigmoid resection with superficial wound infection. MRSA bacteremia- PICC being removed. ID seeing. Nutrition- diet improving. PICC being removed and I will stop TPN. Encouraged diet and ENsure intake. Continue wound care abdominal incision and sacral pressure ulcer. Case d/w nursing staff. He is clear for discharge from my standpoint when deemed safe by attending and consulting physicians. Will need local wound care and close f/u with me for the abdominal wound and colostomy. (1) Diverticulitis of colon with perforation Qualifiers: Diverticulitis bleeding: without bleeding Qualified Code(s): K57.20 - Diverticulitis of large intestine with perforation and abscess without bleeding
--- NOTE | 2018-03-01 17:53 | US ---
EXAM DATE: 03/01/2018 5:50 PM EDT AGE/SEX: 57 years / Male INDICATIONS: Right arm swelling. CLINICAL DATA: This is the patient's initial encounter. Patient reports that signs and symptoms have been present for 1 week and indicates a pain score of 3/10. MEDICAL/SURGICAL HISTORY: . Atrial fibrillation. Bacterial meningitis. Cataracts. Deep vein thr ombosis. None. COMPARISON: No prior exams available for comparison. FINDINGS: Occlusive thrombus in the brachial vein a PICC line site. Mixture of occlusive and nonocclusive thrombus seen within basilic vein. CONCLUSION: 1. Venous thrombosis as above currently all superficial. Electronically signed by: Pablo Rodriguez MD 03/01/2018 5:52 PM EDT
[2018-03-01] MEDS: Melatonin 5 MG Tablet PO PRN (23:47)
[2018-03-02 05:50] LABS: Baso # (Auto) 0.1 th/mm3 (0.0-0.2); Eos # (Auto) 0.4 th/mm3 (0.0-0.4); Eos % (Auto) 4.4 % (0.0-4.0); Hematocrit 30.7 % (39.0-51.0); Hemoglobin 10.5 gm/dL (13.0-17.0); Lymph # (Auto) 2.3 th/mm3 (1.0-4.8); Mean Corpuscular Hemoglobin 30.9 pg (27.0-34.0); Mean Corpuscular Volume 90.8 fL (80.0-100.0); Mean Platelet Volume 7.2 fL (7.0-11.0); Mono % (Auto) 10.3 % (0.0-8.0); Neut # (Auto) 5.7 th/mm3 (1.8-7.7); Neut % (Auto) 60.3 % (16.0-70.0); Platelet Count 567 th/mm3 (150-450); Red Blood Count 3.39 mil/mm3 (4.50-5.90); Red Cell Distribution Width 15.2 % (11.6-17.2); White Blood Count 9.5 th/mm3 (4.0-11.0)
[2018-03-02] MEDS ORDERED: Pharmacy Ordered Lab Info OTHER ONE (08:45)
[2018-03-02] MEDS: Amiodarone 200 MG Tablet PO SCH (08:52)
[2018-03-02] MEDS: Senna/Docusate Sodium 8.6/50 MG Tablet PO SCH ×2 (08:52→20:42)
[2018-03-02] MEDS: Carvedilol 6.25 MG Tablet PO SCH ×2 (08:52→20:40)
[2018-03-02] MEDS: Enoxaparin Inj 100 MG/ML Syringe SQ SCH ×2 (08:52→20:43)
[2018-03-02] MEDS: Vancomycin Inj 1,250 MG in Sodium Chlor 0.9% Inj 250 ML IV.SIG SCH ×2 (08:52→20:43)
[2018-03-02] MEDS: Heparin Central Flush 100 UNIT/ML 5 ML Vial IV.FLUSH SCH (09:14)
[2018-03-02 09:52] LABS: Anion Gap 8 meq/L (5-15); Aspartate Aminotransferase 18 U/L (15-37); Blood Urea Nitrogen 17 mg/dL (7-18); Calcium 8.7 mg/dL (8.5-10.1); Carbon Dioxide 25.1 meq/L (21.0-32.0); Chloride 101 meq/L (98-107); Glomerular Filtration Rate Greater Than 89 mL/min (>89); Glucose,Random 93 mg/dL (74-106); Potassium 4.5 meq/L (3.5-5.1); Sodium 134 meq/L (136-145)
[2018-03-02 09:53] LABS: Alanine Aminotransferase 24 U/L (12-78)
[2018-03-02 09:55] LABS: Alkaline Phosphatase 187 U/L (45-117); Total Protein 7.5 g/dL (6.4-8.2); Vancomycin,Trough 15.2 mcg/mL (5.0-10.0)
--- NOTE | 2018-03-02 10:20 | P.PN ---
Subjective Interval history: Follow-up MRSA bacteremia March 02, 2018-patient seen and examined, afebrile, denies any abdominal pain. No acute event overnight. Physical Exam Vital signs: Vital Signs 03/01/18 12:00 03/01/18 16:00 03/01/18 16:44 Temperature 97.7 F 98.1 F Pulse Rate 72 86 Respiratory Rate 18 18 18 Blood Pressure 107/61 115/64 Pulse Oximetry 98 96 03/01/18 20:00 03/02/18 00:00 03/02/18 02:22 Temperature 98.4 F 98.2 F Pulse Rate 87 83 Respiratory Rate 18 17 18 Blood Pressure 117/62 109/61 Pulse Oximetry 98 99 03/02/18 04:00 03/02/18 07:42 Temperature 98.4 F 97.8 F Pulse Rate 77 82 Respiratory Rate 17 18 Blood Pressure 100/60 102/63 Pulse Oximetry 98 95 Intake & Output 03/01/18 03/02/18 03/02/18 18:59 06:59 18:59 Intake Total 1665.7 / 1665.7 512.5 / 512.5 100 / 100 Output Total 1475 / 1475 200 / 200 Balance 190.7 / 190.7 312.5 / 312.5 100 / 100 Intake: IV 1185.7 / 1185.7 362.5 / 362.5 100 / 100 Maxipime Inj 2,000 MG In NS Inj 200 / 200 100 / 100 100 / 100 100 ML @ 200 mls/hr IV.SIG Q8H [facility] Rx#:[id number] MVI-12 Inj 10 ML Folvite Inj 1 723.2 / 723.2 MG In TPN Fluid 2 Liter 2,000 ML @ 70 mls/hr IV.SIG Q24H [facility] Rx#:[id number] Vancomycin Inj 1,250 MG In NS 262.5 / 262.5 262.5 / 262.5 Inj 250 ML @ 250 mls/hr IV.SIG Q12H [facility] Rx#:[id number] Oral 480 / 480 Other 150 / 150 Output: Urine 1425 / 1425 200 / 200 Stool Amount (Stoma) 50 / 50 Colostomy 50 / 50 Other: Other Intake Source Saline Solution # Voids 1 Date of Last Bowel Movement 02/28/18 03/01/18 03/01/18 Narrative: GENERAL: NAD SKIN: Warm and dry. HEAD: Normocephalic. EYES: No scleral icterus. No injection or drainage. NECK: Supple, trachea midline. No JVD or lymphadenopathy. CARDIOVASCULAR: Regular rate and rhythm without murmurs, gallops, or rubs. RESPIRATORY: Breath sounds equal bilaterally. No accessory muscle use. GASTROINTESTINAL: Abdomen soft, non-tender, nondistended. Colostomy in place MUSCULOSKELETAL: No cyanosis, or edema. BACK: Nontender without obvious deformity. No CVA tenderness. - Urinary Catheter Management Indwelling Urethral Catheter Cath placed during this visit: yes, but has since been removed by the nurse Reason for continuing: Not indwelling catheter Insertion date: 02/10/18 Insertion time: 08:00 Removal date: 02/18/18 Removal time: 08:00 Results - Labs CBC & Chem 7: 03/02/18 05:26 03/02/18 08:45 Laboratory Results - last 24 hr 03/01/18 03/01/18 03/02/18 14:30 21:12 05:26 WBC 9.5 RBC 3.39 L Hgb 10.5 L Hct 30.7 L MCV 90.8 MCH 30.9 MCHC 34.0 RDW 15.2 Plt Count 567 H MPV 7.2 Neut % (Auto) 60.3 Lymph % (Auto) 24.0 [place] % (Auto) 10.3 H Eos % (Auto) 4.4 H Baso % (Auto) 1.0 Neut # (Auto) 5.7 Lymph # (Auto) 2.3 [place] # (Auto) 1.0 H Eos # (Auto) 0.4 Baso # (Auto) 0.1 WBC Differential . Differential Comment Auto diff final Sodium Potassium Chloride Carbon Dioxide Anion Gap BUN Creatinine Estimated GFR POC Glucose 130 H 99 Random Glucose Calcium Total Bilirubin AST ALT Alkaline Phosphatase C-Reactive Protein Total Protein Albumin Vancomycin Trough 03/02/18 08:45 WBC RBC Hgb Hct MCV MCH MCHC RDW Plt Count MPV Neut % (Auto) Lymph % (Auto) [place] % (Auto) Eos % (Auto) Baso % (Auto) Neut # (Auto) Lymph # (Auto) [place] # (Auto) Eos # (Auto) Baso # (Auto) WBC Differential Differential Comment Sodium 134 L Potassium 4.5 Chloride 101 Carbon Dioxide 25.1 Anion Gap 8 BUN 17 Creatinine 0.67 Estimated GFR Greater than 89 POC Glucose Random Glucose 93 Calcium 8.7 Total Bilirubin 0.2 AST 18 ALT 24 Alkaline Phosphatase 187 H C-Reactive Protein 4.50 H Total Protein 7.5 Albumin 2.0 L Vancomycin Trough 15.2 H Microbiology 02/28/18 10:10 Blood - Peripheral Aerobic Blood Culture - Final S. aureus MRSA 02/28/18 10:10 Blood - Peripheral Anaerobic Blood Culture - Preliminary gram positive cocci 02/28/18 10:16 Blood - Peripheral Aerobic Blood Culture - Final S. aureus MRSA 02/28/18 10:16 Blood - Peripheral Anaerobic Blood Culture - Preliminary No growth in 1 day 02/26/18 22:40 Blood - Other Aerobic Blood Culture - Final S. aureus MRSA 02/26/18 22:40 Blood - Other Anaerobic Blood Culture - Final S. aureus MRSA 02/26/18 22:47 Blood - Other Aerobic Blood Culture - Final S. aureus MRSA 02/26/18 22:47 Blood - Other Anaerobic Blood Culture - Final S. aureus MRSA 02/26/18 22:50 Blood - Other Aerobic Blood Culture - Final S. aureus MRSA 02/26/18 22:50 Blood - Other Anaerobic Blood Culture - Final S. aureus MRSA - Imaging Impressions Venous Doppler Study 03/01/18 00:00 CONCLUSION: 1. Venous thrombosis as above currently all superficial. - Procedures See hospital course Assessment and Plan - Assessment (1) Hypokalemia Code(s): E87.6 - Hypokalemia Status: Resolved (2) Diverticulitis of colon with perforation Code(s): K57.20 - Diverticulitis of large intestine with perforation and abscess without bleeding Status: Resolved (3) Afib Code(s): I48.91 - Unspecified atrial fibrillation Status: Acute (4) Pneumonia Code(s): J18.9 - Pneumonia, unspecified organism Status: Acute (5) Bacteremia Code(s): R78.81 - Bacteremia Status: Acute - Plan 57-year-old man with Bacteremia: Cultures drawn 02/26 +MRSA x3 with sens. Currently on vancomycin and cefepime per infectious disease specialist Continue to monitor cultures Acute diverticulitis Distal small bowel obstruction perforated bowel -Surgery consult ;greatly appreciate assistance. - S/P exploratory laparotomy, lysis of adhesions, sigmoid resection with end colonoscopy 02/10 -Pain control with Lortab History of atrial fibrillation/ Coagulopathy History of DVT -He takes Warfarin -alternates between 7 mg and 6 mg tablets. -Currently on Lovenox therapeutic dose. Patient will eventually need to be transitioned to Coumadin. coccyx wound -Being managed by wound care. DVT prophylaxis: Lovenox (2) Diverticulitis of colon with perforation Qualifiers: Diverticulitis bleeding: without bleeding Qualified Code(s): K57.20 - Diverticulitis of large intestine with perforation and abscess without bleeding
--- NOTE | 2018-03-02 15:11 | P.PNID ---
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 Patient was admitted on the day of admission with severe acute onset of abdominal pain lower abdomen. He denied nausea vomiting or constipation at that time unclear if he has a history of diverticulitis in the past. He was noted to have a WBC count of 19,000. Sepsis workup was initiated with blood cultures are negative. A CT of the abdomen pelvis was done which showed a significant amount of inflammatory changes around the sigmoid colon with small pockets of free air. Patient is followed by Dr. Fuentes of surgery services and underwent resection of the colon followed by a diverting colostomy. Postoperatively patient has done okay except that he is is currently on TPN using a PICC line. Subsequently started developing new fevers on 02/26/2018 with elevation in his white count 15.8. Patient underwent repeat workup of sepsis in this time blood cultures are positive for MRSA from both peripheral as well as from PICC line. Patient also has a surgical wound which appears to have dehisced in 2 places on the superior as well as the lower aspect of the surgical site I do not see any gross purulence or any erythema surrounding the surgical site. He also has a sacral decubitus on his buttocks again does not appear to be the source of infection. Infectious diseases consulted for evaluation and management of sepsis, MRSA bacteremia in a postop patient. Overnight events reviewed with RN No fevers No rash No diarrhea Antibiotics: Vanco IV Cefepime IV Lines: Lines ok Past Medical History: reviewed Allergies/Adverse Reactions: Allergies Sulfa (Sulfonamide Antibiotics) Allergy (Severe, Verified 03/16/17 16:22) HEADACHE Objective Vital Signs 03/01/18 16:00 03/01/18 16:44 03/01/18 20:00 Temperature 98.1 F 98.4 F Pulse Rate 86 87 Respiratory Rate 18 18 18 Blood Pressure 115/64 117/62 Pulse Oximetry 96 98 03/02/18 00:00 03/02/18 02:22 03/02/18 04:00 Temperature 98.2 F 98.4 F Pulse Rate 83 77 Respiratory Rate 17 18 17 Blood Pressure 109/61 100/60 Pulse Oximetry 99 98 03/02/18 07:42 03/02/18 12:00 Temperature 97.8 F 97.3 F L Pulse Rate 82 75 Respiratory Rate 18 16 Blood Pressure 102/63 109/61 Pulse Oximetry 95 95 Intake & Output 03/01/18 03/02/18 03/02/18 18:59 06:59 18:59 Intake Total 1665.7 / 1665.7 512.5 / 512.5 602.5 / 602.5 Output Total 1475 / 1475 200 / 200 50 / 50 Balance 190.7 / 190.7 312.5 / 312.5 552.5 / 552.5 Intake: IV 1185.7 / 1185.7 362.5 / 362.5 362.5 / 362.5 Maxipime Inj 2,000 MG In NS Inj 200 / 200 100 / 100 100 / 100 100 ML @ 200 mls/hr IV.SIG Q8H [facility] Rx#:[id number] MVI-12 Inj 10 ML Folvite Inj 1 723.2 / 723.2 MG In TPN Fluid 2 Liter 2,000 ML @ 70 mls/hr IV.SIG Q24H [facility] Rx#:[id number] Vancomycin Inj 1,250 MG In NS 262.5 / 262.5 262.5 / 262.5 262.5 / 262.5 Inj 250 ML @ 250 mls/hr IV.SIG Q12H [facility] Rx#:[id number] Oral 480 / 480 240 / 240 Other 150 / 150 Output: Urine 1425 / 1425 200 / 200 Stool Amount (Stoma) 50 / 50 50 / 50 Colostomy 50 / 50 50 / 50 Other: Other Intake Source Saline Solution # Voids 1 2 Date of Last Bowel Movement 02/28/18 03/01/18 03/01/18 03/01/18 17:58 Catheter Tip - Other Wound Culture - Preliminary No growth in 24 hours 02/28/18 10:16 Blood - Peripheral Aerobic Blood Culture - Final S. aureus MRSA 02/28/18 10:16 Blood - Peripheral Anaerobic Blood Culture - Preliminary No growth in 2 days 02/28/18 10:10 Blood - Peripheral Aerobic Blood Culture - Final S. aureus MRSA 02/28/18 10:10 Blood - Peripheral Anaerobic Blood Culture - Preliminary gram positive cocci 03/02/18 05:35 Blood - Peripheral Aerobic Blood Culture - Pending 03/02/18 05:35 Blood - Peripheral Anaerobic Blood Culture - Pending 03/02/18 05:26 Blood - Peripheral Aerobic Blood Culture - Pending 03/02/18 05:26 Blood - Peripheral Anaerobic Blood Culture - Pending 02/26/18 22:40 Blood - Other Aerobic Blood Culture - Final S. aureus MRSA 02/26/18 22:40 Blood - Other Anaerobic Blood Culture - Final S. aureus MRSA 02/26/18 22:47 Blood - Other Aerobic Blood Culture - Final S. aureus MRSA 02/26/18 22:47 Blood - Other Anaerobic Blood Culture - Final S. aureus MRSA 02/26/18 22:50 Blood - Other Aerobic Blood Culture - Final S. aureus MRSA 02/26/18 22:50 Blood - Other Anaerobic Blood Culture - Final S. aureus MRSA Lab - Hematology Results 03/01/18 03/02/18 05:51 05:26 WBC 10.1 9.5 RBC 3.45 L 3.39 L Hgb 10.6 L 10.5 L Hct 31.1 L 30.7 L MCV 90.1 90.8 MCH 30.8 30.9 MCHC 34.2 34.0 RDW 15.3 15.2 Plt Count 534 H 567 H MPV 7.5 7.2 Prelim Diff (Auto) Slide review pending Neut % (Auto) 61.9 60.3 Lymph % (Auto) 21.0 24.0 [place] % (Auto) 11.3 H 10.3 H Eos % (Auto) 5.0 H 4.4 H Baso % (Auto) 0.8 1.0 Neut # (Auto) 6.3 5.7 Lymph # (Auto) 2.1 2.3 [place] # (Auto) 1.1 H 1.0 H Eos # (Auto) 0.5 H 0.4 Baso # (Auto) 0.1 0.1 WBC Differential . . Diff Scan Auto diff confirmed Differential Comment . Auto diff final Lab - Chemistry Results 02/28/18 03/01/18 03/01/18 20:40 05:51 14:30 Sodium 135 L Potassium 4.7 Chloride 102 Carbon Dioxide 26.1 Anion Gap 7 BUN 18 Creatinine 0.66 Estimated GFR Greater than 89 POC Glucose 130 H 130 H Random Glucose 123 H Calcium 8.6 Total Bilirubin AST ALT Alkaline Phosphatase C-Reactive Protein Total Protein Albumin 03/01/18 03/02/18 21:12 08:45 Sodium 134 L Potassium 4.5 Chloride 101 Carbon Dioxide 25.1 Anion Gap 8 BUN 17 Creatinine 0.67 Estimated GFR Greater than 89 POC Glucose 99 Random Glucose 93 Calcium 8.7 Total Bilirubin 0.2 AST 18 ALT 24 Alkaline Phosphatase 187 H C-Reactive Protein 4.50 H Total Protein 7.5 Albumin 2.0 L Imaging: ITS Impressions Cystogram 02/17/18 00:00 CONCLUSION: Unremarkable cystogram. No evidence of leak. Abdomen X-Ray 02/18/18 00:00 CONCLUSION: Findings of generalized ileus. The findings have worsened when compared with the prior examination. Followup examination is recommended if clinically indicated. Abdomen/Pelvis CT 02/18/18 00:00 CONCLUSION: Dilated small bowel loops throughout. Distal ileal loops in the right lower quadrant are nondilated and potentially entrapped. Small Bowel X-Ray 02/19/18 00:00 CONCLUSION: Ileus versus partial small bowel obstruction with contrast getting into the patient's ostomy site. Chest X-Ray 02/28/18 00:00 CONCLUSION: Interval increase in the size of the focal opacity in the left perihilar region most characteristic of pneumonia. Venous Doppler Study 03/01/18 00:00 CONCLUSION: 1. Venous thrombosis as above currently all superficial. Physical Exam: GENERAL: Well-nourished well-developed, not in acute distress SKIN: Cool and dry, no generalized rash HEAD: Atraumatic. Normocephalic. No temporal or scalp tenderness. EYES: Pupils equal round and reactive. Scleral icterus. No injection or drainage. No petechia ENT: Nothing abnormal detected NECK: Trachea midline. Supple, nontender, no meningeal signs. CARDIOVASCULAR: HS audible. RESPIRATORY: Clear to auscultation bilaterally. GASTROINTESTINAL: Abdomen soft nontender. Midline surgical scar with some dehiscence noted on the superior as well as the lower aspect of the surgical incision. No surrounding erythema to suggest acute infection. No obvious discharge noted. MUSCULOSKELETAL: Extremities without clubbing, cyanosis. Colostomy site ok. NEUROLOGICAL: Alert oriented 3. Nonfocal. Psych cooperative IV line sites ok. Assessment and Plan - Plan Sepsis with elevation in white count, fevers, source of infection likely PICC line infection. MRSA bacteremia likely PICC line related Midline surgical scar with wound base and with no obvious infection although there is dehiscence noted. Colostomy in place PICC line in place History of DVTs on anticoagulation. History of bacterial meningitis Recommendations Continue Cefepime IV for now. Will repeat CXR and assess clinically again in am. Patient has no resp symptoms. 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 Explained to him the current bacteremia is life threatening and it would not be a good idea for him to leave AMA. Will follow on Wed next
--- NOTE | 2018-03-02 16:35 | P.PNWCN ---
Wound Care Nurse Consult Description: Patient seen on for follow up of colostomy teaching. Communicated with: SANDRA Chandra Recommendation: Colostomy: Monitor stoma for red/pink color, moisture, and output. Empty pouch of effluent when 1/3-1/2 full Change appliance Q5D and PRN for leaks. Bowel Diversion Stoma - Bowel Stoma Colostomy Stoma Edema: Yes (mild) Stoma Appearance: Beefy Red Loop Supporting Edwin: No Collection Device: Two-piece (with low pressure adaptor in place) Drainage Description: Flatus Wafer Size: 2 1/4 Moldable Zaira-Stomal Surrounding Tissue Sensation Description: No Symptoms - Additional Information Additional Information: Patient seen on for continued ostomy teaching, demonstration of releasing air from pouch. Patient seems interested in teaching today.Explained to patient the reasoning behind changing out colostomy appliances every 5 to 7 days as opposed to every day. Patient verbalizes understanding.
[2018-03-02] MEDS: traZODone 100 MG Tablet PO SCH (20:42)
[2018-03-02] MEDS: Melatonin 5 MG Tablet PO PRN (23:58)
[2018-03-03] MEDS: Carvedilol 6.25 MG Tablet PO SCH ×2 (07:45→21:10)
[2018-03-03] MEDS: Enoxaparin Inj 100 MG/ML Syringe SQ SCH ×2 (07:45→21:10)
[2018-03-03] MEDS: Senna/Docusate Sodium 8.6/50 MG Tablet PO SCH ×2 (07:45→21:10)
[2018-03-03] MEDS: Amiodarone 200 MG Tablet PO SCH (07:45)
[2018-03-03] MEDS: Vancomycin Inj 1,250 MG in Sodium Chlor 0.9% Inj 250 ML IV.SIG SCH ×2 (09:22→21:34)
--- NOTE | 2018-03-03 10:30 | P.PN ---
Subjective Interval history: Follow-up MRSA bacteremia March 02, 2018-patient seen and examined, afebrile, denies any abdominal pain. No acute event overnight. March 03, 2018-patient seen and examined, no chest pain, afebrile. Taking p.o. without any nausea vomiting. Physical Exam Vital signs: Vital Signs 03/02/18 12:00 03/02/18 20:00 03/03/18 00:00 Temperature 97.3 F L 97.5 F L 98.5 F Pulse Rate 75 83 99 H Respiratory Rate 18 Blood Pressure 109/61 119/70 115/62 Pulse Oximetry 95 100 99 03/03/18 02:11 03/03/18 04:00 03/03/18 07:55 Temperature 98.2 F 98 F Pulse Rate 80 71 Respiratory Rate 16 Blood Pressure 104/62 97/59 L Pulse Oximetry 97 97 Intake & Output 03/02/18 03/03/18 03/03/18 18:59 06:59 18:59 Intake Total 1600.5 / 1600.5 362.5 / 362.5 240 / 240 Output Total 600 / 600 300 / 300 150 / 150 Balance 1000.5 / 1000.5 62.5 / 62.5 90 / 90 Intake: IV 462.5 / 462.5 362.5 / 362.5 Maxipime Inj 2,000 MG In NS Inj 200 / 200 100 / 100 100 ML @ 200 mls/hr IV.SIG Q8H [facility] Rx#:[id number] Vancomycin Inj 1,250 MG In NS 262.5 / 262.5 262.5 / 262.5 Inj 250 ML @ 250 mls/hr IV.SIG Q12H [facility] Rx#:[id number] Oral 1138 / 1138 240 / 240 Output: Urine 500 / 500 300 / 300 150 / 150 Stool Amount (Stoma) 100 / 100 Colostomy 100 / 100 Other: # Voids 1 1 Date of Last Bowel Movement 03/01/18 Narrative: GENERAL: NAD SKIN: Warm and dry. HEAD: Normocephalic. EYES: No scleral icterus. No injection or drainage. NECK: Supple, trachea midline. No JVD or lymphadenopathy. CARDIOVASCULAR: Regular rate and rhythm without murmurs, gallops, or rubs. RESPIRATORY: Breath sounds equal bilaterally. No accessory muscle use. GASTROINTESTINAL: Abdomen soft, non-tender, nondistended. Colostomy in place MUSCULOSKELETAL: No cyanosis, or edema. BACK: Nontender without obvious deformity. No CVA tenderness. - Urinary Catheter Management Indwelling Urethral Catheter Cath placed during this visit: yes, but has since been removed by the nurse Reason for continuing: Not indwelling catheter Insertion date: 02/10/18 Insertion time: 08:00 Removal date: 02/18/18 Removal time: 08:00 Results - Labs CBC & Chem 7: 03/02/18 05:26 03/02/18 08:45 Microbiology 02/28/18 10:10 Blood - Peripheral Aerobic Blood Culture - Final S. aureus MRSA 02/28/18 10:10 Blood - Peripheral Anaerobic Blood Culture - Preliminary S. aureus MRSA 03/01/18 17:58 Catheter Tip - Other Wound Culture - Preliminary No growth in 24 hours 02/28/18 10:16 Blood - Peripheral Aerobic Blood Culture - Final S. aureus MRSA 02/28/18 10:16 Blood - Peripheral Anaerobic Blood Culture - Preliminary No growth in 2 days - Procedures See hospital course Assessment and Plan - Assessment (1) Hypokalemia Code(s): E87.6 - Hypokalemia Status: Resolved (2) Diverticulitis of colon with perforation Code(s): K57.20 - Diverticulitis of large intestine with perforation and abscess without bleeding Status: Resolved (3) Afib Code(s): I48.91 - Unspecified atrial fibrillation Status: Acute (4) Pneumonia Code(s): J18.9 - Pneumonia, unspecified organism Status: Acute (5) Bacteremia Code(s): R78.81 - Bacteremia Status: Acute - Plan 57-year-old man with Bacteremia: Cultures drawn 02/26 +MRSA x3 with sens. Currently on vancomycin and cefepime per infectious disease specialist Continue to monitor cultures. Repeat culture negative to date Acute diverticulitis Distal small bowel obstruction perforated bowel -Surgery consult ;greatly appreciate assistance. - S/P exploratory laparotomy, lysis of adhesions, sigmoid resection with end colonoscopy 02/10 -Pain control with Lortab History of atrial fibrillation/ Coagulopathy History of DVT -He takes Warfarin -alternates between 7 mg and 6 mg tablets. -Currently on Lovenox therapeutic dose. Patient will eventually need to be transitioned to Coumadin. coccyx wound -Being managed by wound care. DVT prophylaxis: Lovenox (2) Diverticulitis of colon with perforation Qualifiers: Diverticulitis bleeding: without bleeding Qualified Code(s): K57.20 - Diverticulitis of large intestine with perforation and abscess without bleeding
--- NOTE | 2018-03-03 16:57 | P.PNWCN ---
Wound Care Nurse Consult Description: Patient seen on for follow up of colostomy teaching and wound assessment for coccyx area Communicated with: Rn Juliann hyatt and patient Recommendation: Colostomy: Monitor stoma for red/pink color, moisture, and output. Empty pouch of effluent when 1/3-1/2 full Change appliance Q5D and PRN for leaks. Wound/Pressure Injury - Wound Left Inner Buttock Wound Staging: Stage III Wound Type: Pressure Injury Is This a Chronic Wound: Yes Length: 1.1 (cm) Width: 0.5 (cm) Depth: 0.1 (cm) Wound Bed Appearance: [place], Yellow Wound Bed Appearance: Wound bed presents with ~40% pink tissue and ~60% yellow exudate. Periwound presents with scar tissue and blanchable pink skin. Surrounding Tissue Appearance: [place] Surrounding Tissue Temperature: Warm Drainage Description: Serosanguinous Drainage Amount: Scant Drainage Odor: No Odor Dressing Status: Changed Cleansing Solution: Saline Primary Dressing: Puracol AG Cover Dressing: bordered gauze Wound Dressing Change Date: 03/03/18 Wound Margin Description: Well defined and open - Additional Information Previous stage III pressure injury noted on the L inner buttock /gluteal cleft / coccyx area has improved. Wound measurements and descriptions are noted above.Patient verbalizes turning self and is laying on disposable moisture wicking ultrasorb with flat turn sheet in airapy bed. Bowel Diversion Stoma - Bowel Stoma Colostomy Stoma Edema: Yes (mild) Stoma Appearance: Beefy Red Loop Supporting Edwin: No Collection Device: Two-piece Drainage Description: Liquid, Brown Wafer Size: 2 1/4 Moldable Zaira-Stomal Surrounding Tissue Sensation Description: No Symptoms - Additional Information Additional Information: Patient verbalized getting up to empty colostomy in toilet today. Observed that ostomy pouch was more than 1/3 full, and asked patient to empty colostomy pouch at this time. Patient states, "I am in bed now and I not going to get back up right now". Demonstrated to patient emptying colostomy and encouraged patient to empty own colostomy pouch with nurses help if needed in toilet. Patient agrees with this. Patient seems uninterested with further teaching at this time. Will return tomorrow for follow up teaching.
[2018-03-03] MEDS: traZODone 100 MG Tablet PO SCH (21:10)
[2018-03-04] MEDS: Melatonin 5 MG Tablet PO PRN (00:43)
[2018-03-04] MEDS: Amiodarone 200 MG Tablet PO SCH (07:45)
[2018-03-04] MEDS: Carvedilol 6.25 MG Tablet PO SCH ×2 (07:45→20:48)
[2018-03-04] MEDS: Enoxaparin Inj 100 MG/ML Syringe SQ SCH ×2 (07:45→20:49)
[2018-03-04] MEDS: Senna/Docusate Sodium 8.6/50 MG Tablet PO SCH ×2 (07:45→20:47)
[2018-03-04] MEDS: Vancomycin Inj 1,250 MG in Sodium Chlor 0.9% Inj 250 ML IV.SIG SCH ×2 (08:05→20:48)
--- NOTE | 2018-03-04 10:45 | P.PN ---
Subjective Interval history: Follow-up MRSA bacteremia March 02, 2018-patient seen and examined, afebrile, denies any abdominal pain. No acute event overnight. March 03, 2018-patient seen and examined, no chest pain, afebrile. Taking p.o. without any nausea vomiting. March 04, 2018-patient seen and examined, afebrile, no acute event overnight. Repeat blood culture negative to date. Physical Exam Vital signs: Vital Signs 03/03/18 12:24 03/03/18 16:00 03/04/18 00:00 Temperature 97.8 F 97.1 F L 97.7 F Pulse Rate 84 78 86 Respiratory Rate 18 18 18 Blood Pressure 109/63 114/69 106/63 Pulse Oximetry 98 98 95 03/04/18 01:13 03/04/18 02:33 03/04/18 04:00 Temperature 97.8 F Pulse Rate 75 Respiratory Rate 18 19 16 Blood Pressure 98/61 L Pulse Oximetry 97 03/04/18 07:41 Temperature 98.2 F Pulse Rate 77 Respiratory Rate 16 Blood Pressure 99/61 L Pulse Oximetry 96 Intake & Output 03/03/18 03/04/18 03/04/18 18:59 06:59 18:59 Intake Total 902.5 / 902.5 583.5 / 583.5 100 / 100 Output Total 700 / 700 400 / 400 200 / 200 Balance 202.5 / 202.5 183.5 / 183.5 -100 / -100 Intake: IV 462.5 / 462.5 362.5 / 362.5 100 / 100 Maxipime Inj 2,000 MG In NS Inj 200 / 200 100 / 100 100 / 100 100 ML @ 200 mls/hr IV.SIG Q8H [facility] Rx#:[id number] Vancomycin Inj 1,250 MG In NS 262.5 / 262.5 262.5 / 262.5 Inj 250 ML @ 250 mls/hr IV.SIG Q12H [facility] Rx#:[id number] Oral 440 / 440 221 / 221 Output: Urine 650 / 650 400 / 400 200 / 200 Stool Amount (Stoma) 50 / 50 Colostomy 50 / 50 Other: Mode Setting Right Abdomen Continuous # Voids 1 Date of Last Bowel Movement 03/03/18 Narrative: GENERAL: NAD SKIN: Warm and dry. HEAD: Normocephalic. EYES: No scleral icterus. No injection or drainage. NECK: Supple, trachea midline. No JVD or lymphadenopathy. CARDIOVASCULAR: Regular rate and rhythm without murmurs, gallops, or rubs. RESPIRATORY: Breath sounds equal bilaterally. No accessory muscle use. GASTROINTESTINAL: Abdomen soft, non-tender, nondistended. Colostomy in place MUSCULOSKELETAL: No cyanosis, or edema. BACK: Nontender without obvious deformity. No CVA tenderness. - Urinary Catheter Management Indwelling Urethral Catheter Cath placed during this visit: yes, but has since been removed by the nurse Reason for continuing: Not indwelling catheter Insertion date: 02/10/18 Insertion time: 08:00 Removal date: 02/18/18 Removal time: 08:00 Results - Labs CBC & Chem 7: 03/02/18 05:26 03/02/18 08:45 Microbiology 02/28/18 10:16 Blood - Peripheral Aerobic Blood Culture - Final S. aureus MRSA 02/28/18 10:16 Blood - Peripheral Anaerobic Blood Culture - Final S. aureus MRSA 02/28/18 10:10 Blood - Peripheral Aerobic Blood Culture - Final S. aureus MRSA 02/28/18 10:10 Blood - Peripheral Anaerobic Blood Culture - Final S. aureus MRSA 03/01/18 17:58 Catheter Tip - Other Wound Culture - Final No growth in 48 hours 03/02/18 05:35 Blood - Peripheral Aerobic Blood Culture - Preliminary No growth in 1 day 03/02/18 05:35 Blood - Peripheral Anaerobic Blood Culture - Preliminary No growth in 1 day 03/02/18 05:26 Blood - Peripheral Aerobic Blood Culture - Preliminary No growth in 1 day 03/02/18 05:26 Blood - Peripheral Anaerobic Blood Culture - Preliminary No growth in 1 day - Procedures See hospital course Assessment and Plan - Assessment (1) Hypokalemia Code(s): E87.6 - Hypokalemia Status: Resolved (2) Diverticulitis of colon with perforation Code(s): K57.20 - Diverticulitis of large intestine with perforation and abscess without bleeding Status: Resolved (3) Afib Code(s): I48.91 - Unspecified atrial fibrillation Status: Acute (4) Pneumonia Code(s): J18.9 - Pneumonia, unspecified organism Status: Acute (5) Bacteremia Code(s): R78.81 - Bacteremia Status: Acute - Plan 57-year-old man with Bacteremia: Cultures drawn 02/26 +MRSA x3 with sens. Currently on vancomycin and cefepime per infectious disease specialist Continue to monitor cultures. Repeat culture negative to date Acute diverticulitis Distal small bowel obstruction perforated bowel -Surgery consult ;greatly appreciate assistance. - S/P exploratory laparotomy, lysis of adhesions, sigmoid resection with end colonoscopy 02/10 -Pain control with Lortab History of atrial fibrillation/ Coagulopathy History of DVT -He takes Warfarin -Currently on Lovenox therapeutic dose. Patient will eventually need to be transitioned to Coumadin. coccyx wound -Being managed by wound care. DVT prophylaxis: Lovenox Check CBC and CMP in a.m. (2) Diverticulitis of colon with perforation Qualifiers: Diverticulitis bleeding: without bleeding Qualified Code(s): K57.20 - Diverticulitis of large intestine with perforation and abscess without bleeding
--- NOTE | 2018-03-04 18:08 | P.PNWCN ---
Wound Care Nurse Consult Description: Patient seen on for follow up of colostomy teaching Communicated with: [employer]ER and patient Recommendation: Colostomy: Monitor stoma for red/pink color, moisture, and output. Empty pouch of effluent when 1/3-1/2 full Change appliance Q5D and PRN for leaks.Do not tape colostomy appliance in place. Mold colostomy appliance do not cut. Have patient empty colostomy appliance and assist with changing in bathroom Bowel Diversion Stoma - Bowel Stoma Colostomy Stoma Diameter: 25 (mm) Stoma Appearance: Beefy Red Loop Supporting Edwin: No Collection Device: Two-piece Drainage Description: Liquid, Brown Wafer Size: 1 3/4 Moldable 45mm Stoma Care: Pouch and Wafer Changed, Skin Care Zaira-Stomal Skin Appearance: Intact Zaira-Stomal Surrounding Tissue Sensation Description: No Symptoms - Additional Information Additional Information: Patient seen for follow up colostomy teaching and colostomy care. Patient is laying in bed, Changed ostomy appliance in bed with patient, explaining with step by step instruction. Stoma presents as red, round and protruding. Stoma measures 25 mm or 1 inch in diameter. Peristomal skin was cleansed with water and disposable wash cloth and patted dry. Applied 2 1/[address] Patient will need smaller appliances for home use. Will need 1 3/4 inch appliance for next wafer and pouch change. Patient to change next appliance with standby assistance. Patient verbalizes when to empty pouch, change appliance, and what stoma should look like.
[2018-03-04] MEDS: traZODone 100 MG Tablet PO SCH (20:48)
[2018-03-05] MEDS: Melatonin 5 MG Tablet PO PRN (01:03)
[2018-03-05 05:50] LABS: Baso # (Auto) 0.2 th/mm3 (0.0-0.2); Baso % (Auto) 1.9 % (0.0-2.0); Eos # (Auto) 0.2 th/mm3 (0.0-0.4); Eos % (Auto) 2.9 % (0.0-4.0); Hematocrit 31.8 % (39.0-51.0); Hemoglobin 10.5 gm/dL (13.0-17.0); Lymph # (Auto) 2.7 th/mm3 (1.0-4.8); Lymph % (Auto) 32.7 % (9.0-44.0); Mean Corpuscular HGB Conc 33.1 % (32.0-36.0); Mean Corpuscular Hemoglobin 30.6 pg (27.0-34.0); Mean Corpuscular Volume 92.6 fL (80.0-100.0); Mean Platelet Volume 7.3 fL (7.0-11.0); Mono # (Auto) 0.8 th/mm3 (0.0-0.9); Mono % (Auto) 10.3 % (0.0-8.0); Neut # (Auto) 4.3 th/mm3 (1.8-7.7); Neut % (Auto) 52.2 % (16.0-70.0); Platelet Count 578 th/mm3 (150-450); Red Blood Count 3.43 mil/mm3 (4.50-5.90); Red Cell Distribution Width 15.5 % (11.6-17.2); White Blood Count 8.2 th/mm3 (4.0-11.0)
[2018-03-05 06:23] LABS: Albumin 2.2 g/dL (3.4-5.0); Anion Gap 10 meq/L (5-15); Aspartate Aminotransferase 28 U/L (15-37); Blood Urea Nitrogen 19 mg/dL (7-18); Calcium 8.9 mg/dL (8.5-10.1); Carbon Dioxide 23.4 meq/L (21.0-32.0); Chloride 107 meq/L (98-107); Glomerular Filtration Rate 79 mL/min (>89); Glucose,Random 85 mg/dL (74-106); Potassium 4.1 meq/L (3.5-5.1); Sodium 140 meq/L (136-145)
[2018-03-05 06:26] LABS: Alanine Aminotransferase 28 U/L (12-78); Alkaline Phosphatase 163 U/L (45-117); Total Protein 7.4 g/dL (6.4-8.2)
[2018-03-05] MEDS: Carvedilol 6.25 MG Tablet PO SCH ×2 (08:46→20:52)
[2018-03-05] MEDS: Enoxaparin Inj 100 MG/ML Syringe SQ SCH ×2 (08:46→20:50)
[2018-03-05] MEDS: Amiodarone 200 MG Tablet PO SCH (08:46)
[2018-03-05] MEDS: Senna/Docusate Sodium 8.6/50 MG Tablet PO SCH ×2 (08:47→20:51)
[2018-03-05] MEDS: Vancomycin Inj 1,250 MG in Sodium Chlor 0.9% Inj 250 ML IV.SIG SCH ×2 (08:47→20:51)
--- NOTE | 2018-03-05 11:49 | P.PN ---
Subjective Interval history: Follow-up MRSA bacteremia March 02, 2018-patient seen and examined, afebrile, denies any abdominal pain. No acute event overnight. March 03, 2018-patient seen and examined, no chest pain, afebrile. Taking p.o. without any nausea vomiting. March 04, 2018-patient seen and examined, afebrile, no acute event overnight. Repeat blood culture negative to date. March 05, 2018-examined, stable and no acute event overnight. Case discussed with Dr. Fuentes general surgery Physical Exam Vital signs: Vital Signs 03/04/18 11:59 03/04/18 15:23 03/04/18 20:00 Temperature 97.3 F L 98.0 F 97.8 F Pulse Rate 73 95 H 76 Respiratory Rate 18 17 18 Blood Pressure 105/67 116/69 102/56 L Pulse Oximetry 98 97 99 03/05/18 00:00 03/05/18 04:00 03/05/18 08:00 Temperature 98.1 F 97.8 F 97.9 F Pulse Rate 81 76 78 Respiratory Rate 18 19 16 Blood Pressure 104/57 L 94/58 L 104/68 Pulse Oximetry 96 97 97 Intake & Output 03/04/18 03/05/18 03/05/18 18:59 06:59 18:59 Intake Total 1012.5 / 1012.5 602.5 / 602.5 Output Total 600 / 600 250 / 250 Balance 412.5 / 412.5 352.5 / 352.5 Intake: IV 462.5 / 462.5 362.5 / 362.5 Maxipime Inj 2,000 MG In NS Inj 200 / 200 100 / 100 100 ML @ 200 mls/hr IV.SIG Q8H [facility] Rx#:[id number] Vancomycin Inj 1,250 MG In NS 262.5 / 262.5 262.5 / 262.5 Inj 250 ML @ 250 mls/hr IV.SIG Q12H [facility] Rx#:[id number] Oral 550 / 550 240 / 240 Output: Urine 400 / 400 250 / 250 Stool Amount (Stoma) 200 / 200 Colostomy 200 / 200 Other: Date of Last Bowel Movement 03/04/18 Narrative: GENERAL: NAD SKIN: Warm and dry. HEAD: Normocephalic. EYES: No scleral icterus. No injection or drainage. NECK: Supple, trachea midline. No JVD or lymphadenopathy. CARDIOVASCULAR: Regular rate and rhythm without murmurs, gallops, or rubs. RESPIRATORY: Breath sounds equal bilaterally. No accessory muscle use. GASTROINTESTINAL: Abdomen soft, non-tender, nondistended. Colostomy in place MUSCULOSKELETAL: No cyanosis, or edema. BACK: Nontender without obvious deformity. No CVA tenderness. - Urinary Catheter Management Indwelling Urethral Catheter Cath placed during this visit: yes, but has since been removed by the nurse Reason for continuing: Not indwelling catheter Insertion date: 02/10/18 Insertion time: 08:00 Removal date: 02/18/18 Removal time: 08:00 Results - Labs CBC & Chem 7: 03/05/18 05:15 03/05/18 05:15 Laboratory Results - last 24 hr 03/05/18 03/05/18 05:15 05:15 WBC 8.2 RBC 3.43 L Hgb 10.5 L Hct 31.8 L MCV 92.6 MCH 30.6 MCHC 33.1 RDW 15.5 Plt Count 578 H MPV 7.3 Neut % (Auto) 52.2 Lymph % (Auto) 32.7 [place] % (Auto) 10.3 H Eos % (Auto) 2.9 Baso % (Auto) 1.9 Neut # (Auto) 4.3 Lymph # (Auto) 2.7 [place] # (Auto) 0.8 Eos # (Auto) 0.2 Baso # (Auto) 0.2 WBC Differential . Differential Comment Auto diff final Sodium 140 Potassium 4.1 Chloride 107 Carbon Dioxide 23.4 Anion Gap 10 BUN 19 H Creatinine 0.97 Estimated GFR 79 L Random Glucose 85 Calcium 8.9 Total Bilirubin 0.2 AST 28 ALT 28 Alkaline Phosphatase 163 H Total Protein 7.4 Albumin 2.2 L Microbiology 03/02/18 05:35 Blood - Peripheral Aerobic Blood Culture - Preliminary No growth in 3 days 03/02/18 05:35 Blood - Peripheral Anaerobic Blood Culture - Preliminary No growth in 3 days 03/02/18 05:26 Blood - Peripheral Aerobic Blood Culture - Preliminary No growth in 3 days 03/02/18 05:26 Blood - Peripheral Anaerobic Blood Culture - Preliminary No growth in 3 days 02/28/18 10:16 Blood - Peripheral Aerobic Blood Culture - Final S. aureus MRSA 02/28/18 10:16 Blood - Peripheral Anaerobic Blood Culture - Final S. aureus MRSA 02/28/18 10:10 Blood - Peripheral Aerobic Blood Culture - Final S. aureus MRSA 02/28/18 10:10 Blood - Peripheral Anaerobic Blood Culture - Final S. aureus MRSA - Procedures See hospital course Assessment and Plan - Assessment (1) Hypokalemia Code(s): E87.6 - Hypokalemia Status: Resolved (2) Diverticulitis of colon with perforation Code(s): K57.20 - Diverticulitis of large intestine with perforation and abscess without bleeding Status: Resolved (3) Afib Code(s): I48.91 - Unspecified atrial fibrillation Status: Acute (4) Pneumonia Code(s): J18.9 - Pneumonia, unspecified organism Status: Acute (5) Bacteremia Code(s): R78.81 - Bacteremia Status: Acute - Plan 57-year-old man with Bacteremia: Cultures drawn 02/26 +MRSA x3 with sens. Currently on vancomycin and cefepime per infectious disease specialist Continue to monitor cultures. Repeat culture negative to date 3 days Acute diverticulitis Distal small bowel obstruction perforated bowel -Surgery ff PRN - S/P exploratory laparotomy, lysis of adhesions, sigmoid resection with end colonoscopy 02/10 -Pain control with Lortab History of atrial fibrillation/ Coagulopathy History of DVT -He takes Warfarin -Currently on Lovenox therapeutic dose. Patient will eventually need to be transitioned to Coumadin. coccyx wound -Being managed by wound care. DVT prophylaxis: Lovenox (2) Diverticulitis of colon with perforation Qualifiers: Diverticulitis bleeding: without bleeding Qualified Code(s): K57.20 - Diverticulitis of large intestine with perforation and abscess without bleeding
[2018-03-05] MEDS: traZODone 100 MG Tablet PO SCH (20:51)
[2018-03-06] MEDS: Melatonin 5 MG Tablet PO PRN (00:31)
[2018-03-06] MEDS ORDERED: Pharmacy Ordered Lab Info OTHER ONE (08:45)
[2018-03-06] MEDS: Carvedilol 6.25 MG Tablet PO SCH ×2 (09:05→21:35)
[2018-03-06] MEDS: Enoxaparin Inj 100 MG/ML Syringe SQ SCH ×2 (09:07→21:45)
[2018-03-06] MEDS: Senna/Docusate Sodium 8.6/50 MG Tablet PO SCH ×2 (09:07→21:45)
[2018-03-06] MEDS: Amiodarone 200 MG Tablet PO SCH (09:07)
[2018-03-06] MEDS: Vancomycin Inj 1,250 MG in Sodium Chlor 0.9% Inj 250 ML IV.SIG SCH (09:53)
--- NOTE | 2018-03-06 13:30 | P.PN ---
Subjective Interval history: Follow-up MRSA bacteremia March 02, 2018-patient seen and examined, afebrile, denies any abdominal pain. No acute event overnight. March 03, 2018-patient seen and examined, no chest pain, afebrile. Taking p.o. without any nausea vomiting. March 04, 2018-patient seen and examined, afebrile, no acute event overnight. Repeat blood culture negative to date. March 05, 2018-examined, stable and no acute event overnight. Case discussed with Dr. Fuentes general surgery March 06, 2018-patient seen and examined, afebrile, no chest pain or shortness of breath. Denies any dizziness. Physical Exam Vital signs: Vital Signs 03/05/18 16:00 03/05/18 20:00 03/06/18 00:00 Temperature 97.2 F L 97.8 F 97.8 F Pulse Rate 80 71 82 Respiratory Rate 18 18 18 Blood Pressure 107/58 L 105/66 113/68 Pulse Oximetry 99 98 96 03/06/18 04:00 03/06/18 08:00 03/06/18 12:00 Temperature 97.7 F 97.7 F Pulse Rate 68 66 Respiratory Rate 18 18 18 Blood Pressure 108/63 107/60 Pulse Oximetry 97 Intake & Output 03/05/18 03/06/18 03/06/18 18:59 06:59 18:59 Intake Total 362.5 / 362.5 462.5 / 462.5 602.5 / 602.5 Output Total 200 / 200 100 / 100 150 / 150 Balance 162.5 / 162.5 362.5 / 362.5 452.5 / 452.5 Intake: IV 362.5 / 362.5 462.5 / 462.5 362.5 / 362.5 Maxipime Inj 2,000 MG In NS Inj 100 / 100 200 / 200 100 / 100 100 ML @ 200 mls/hr IV.SIG Q8H [facility] Rx#:[id number] Vancomycin Inj 1,250 MG In NS 262.5 / 262.5 262.5 / 262.5 262.5 / 262.5 Inj 250 ML @ 250 mls/hr IV.SIG Q12H [facility] Rx#:[id number] Oral 240 / 240 Output: Urine 100 / 100 150 / 150 Stool Amount (Stoma) 200 / 200 Colostomy 200 / 200 Other: Date of Last Bowel Movement 03/05/18 03/06/18 Narrative: GENERAL: NAD SKIN: Warm and dry. HEAD: Normocephalic. EYES: No scleral icterus. No injection or drainage. NECK: Supple, trachea midline. No JVD or lymphadenopathy. CARDIOVASCULAR: Regular rate and rhythm without murmurs, gallops, or rubs. RESPIRATORY: Breath sounds equal bilaterally. No accessory muscle use. GASTROINTESTINAL: Abdomen soft, non-tender, nondistended. Colostomy in place MUSCULOSKELETAL: No cyanosis, or edema. BACK: Nontender without obvious deformity. No CVA tenderness. - Urinary Catheter Management Indwelling Urethral Catheter Cath placed during this visit: yes, but has since been removed by the nurse Reason for continuing: Not indwelling catheter Insertion date: 02/10/18 Insertion time: 08:00 Removal date: 02/18/18 Removal time: 08:00 Results - Labs CBC & Chem 7: 03/05/18 05:15 03/05/18 05:15 Laboratory Results - last 24 hr 03/06/18 08:45 Vancomycin Trough 28.1 H Microbiology 03/02/18 05:35 Blood - Peripheral Aerobic Blood Culture - Preliminary No growth in 4 days 03/02/18 05:35 Blood - Peripheral Anaerobic Blood Culture - Preliminary No growth in 4 days 03/02/18 05:26 Blood - Peripheral Aerobic Blood Culture - Preliminary No growth in 4 days 03/02/18 05:26 Blood - Peripheral Anaerobic Blood Culture - Preliminary No growth in 4 days - Procedures See hospital course Assessment and Plan - Assessment (1) Hypokalemia Code(s): E87.6 - Hypokalemia Status: Resolved (2) Diverticulitis of colon with perforation Code(s): K57.20 - Diverticulitis of large intestine with perforation and abscess without bleeding Status: Resolved (3) Afib Code(s): I48.91 - Unspecified atrial fibrillation Status: Acute (4) Pneumonia Code(s): J18.9 - Pneumonia, unspecified organism Status: Acute (5) Bacteremia Code(s): R78.81 - Bacteremia Status: Acute - Plan 57-year-old man with Bacteremia: Cultures drawn 02/26 +MRSA x3 with sens. Currently on vancomycin and cefepime per infectious disease specialist Continue to monitor cultures. Repeat culture negative to date 3 days Acute diverticulitis Distal small bowel obstruction perforated bowel -Surgery ff PRN - S/P exploratory laparotomy, lysis of adhesions, sigmoid resection with end colonoscopy 02/10 -Pain control with Lortab History of atrial fibrillation/ Coagulopathy History of DVT -He takes Warfarin -Currently on Lovenox therapeutic dose. Patient will eventually need to be transitioned to Coumadin. coccyx wound -Continue with current treatment per protocol for wound care nurse. DVT prophylaxis: Lovenox (2) Diverticulitis of colon with perforation Qualifiers: Diverticulitis bleeding: without bleeding Qualified Code(s): K57.20 - Diverticulitis of large intestine with perforation and abscess without bleeding
--- NOTE | 2018-03-06 14:13 | P.DIET ---
Nutritional Evaluation Type of nutrition evaluation: follow-up Nutrition consult regarding: TPN/PPN Objective - Diagnosis Diverticulitis w/ Perforation - Objective % IBW: 137 (AMF=686#) Body Weight Used for Calculations: IBW (70kg) Energy Needs - Lower Range (kCal/kg): 28 Energy Needs - Upper Range (kCal/kg): 32 Lower Limit kCal/kg (kCals): 1,960 Upper Limit kCal/kg (kCals): 2,240 Lower Limit Protein Factor (Grams per Kg): 1.2 Upper Limit Protein Factor (Grams per Kg): 1.4 Lower Protein Needs (Protein): 84 Upper Protein Needs (Protein): 98 Fluid Factor (ml/kg): 30 Estimated Fluid Needs (ml): 2,100 Dietitian Reviewed in Medical Record: Current diet, Curent medications, Intake & Output, Labs, TPN/PPN Diet Order: Regular Wound Care Note: 03/03: L buttocks pressure injury improved Feeding - Current PO Supplement Current Supplement: Ensure Original Current Frequency of Supplement: Twice daily Current kCals Provided by Supplement: 250 Current Protein Provided by Supplement: 9 Assessment Assessment: Pt at nutritional risk r/t current clinical status. TPN and Lipids were d/c'd on 03/01. He continues on a soft diet w/ Ensure BID. Pt's present po intake is 50 -100%. Pt with recent colostomy, and pressure injury that is improving per WOC note. Will continue to monitor po intake, clinical course. Recommendations: 1. Soft diet 2. Continue Ensure BID. Dietitian to Monitor: Lab values, Supplement acceptance, Intake & Output, Diet tolerance, Weight change, PO Intake, Wound/skin status, Medical course
--- NOTE | 2018-03-06 15:19 | P.PNID ---
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 Patient was admitted on the day of admission with severe acute onset of abdominal pain lower abdomen. He denied nausea vomiting or constipation at that time unclear if he has a history of diverticulitis in the past. He was noted to have a WBC count of 19,000. Sepsis workup was initiated with blood cultures are negative. A CT of the abdomen pelvis was done which showed a significant amount of inflammatory changes around the sigmoid colon with small pockets of free air. Patient is followed by Dr. Fuentes of surgery services and underwent resection of the colon followed by a diverting colostomy. Postoperatively patient has done okay except that he is is currently on TPN using a PICC line. Subsequently started developing new fevers on 02/26/2018 with elevation in his white count 15.8. Patient underwent repeat workup of sepsis in this time blood cultures are positive for MRSA from both peripheral as well as from PICC line. Patient also has a surgical wound which appears to have dehisced in 2 places on the superior as well as the lower aspect of the surgical site I do not see any gross purulence or any erythema surrounding the surgical site. He also has a sacral decubitus on his buttocks again does not appear to be the source of infection. Infectious diseases consulted for evaluation and management of sepsis, MRSA bacteremia in a postop patient. Overnight events reviewed with RN No fevers No rash No diarrhea BCX neg for 4 days. Antibiotics: Vanco IV Cefepime IV Lines: Lines ok Past Medical History: reviewed Allergies/Adverse Reactions: Allergies Sulfa (Sulfonamide Antibiotics) Allergy (Severe, Verified 03/16/17 16:22) HEADACHE Objective Vital Signs 03/05/18 16:00 03/05/18 20:00 03/06/18 00:00 Temperature 97.2 F L 97.8 F 97.8 F Pulse Rate 80 71 82 Respiratory Rate 18 18 18 Blood Pressure 107/58 L 105/66 113/68 Pulse Oximetry 99 98 96 03/06/18 04:00 03/06/18 08:00 03/06/18 12:00 Temperature 97.7 F 97.7 F Pulse Rate 68 66 Respiratory Rate 18 18 18 Blood Pressure 108/63 107/60 Pulse Oximetry 97 03/06/18 12:30 Temperature Pulse Rate Respiratory Rate 18 Blood Pressure Pulse Oximetry Intake & Output 03/05/18 03/06/18 03/06/18 18:59 06:59 18:59 Intake Total 362.5 / 362.5 462.5 / 462.5 602.5 / 602.5 Output Total 200 / 200 100 / 100 150 / 150 Balance 162.5 / 162.5 362.5 / 362.5 452.5 / 452.5 Intake: IV 362.5 / 362.5 462.5 / 462.5 362.5 / 362.5 Maxipime Inj 2,000 MG In NS Inj 100 / 100 200 / 200 100 / 100 100 ML @ 200 mls/hr IV.SIG Q8H [place] Rx#:[id number] Vancomycin Inj 1,250 MG In NS 262.5 / 262.5 262.5 / 262.5 262.5 / 262.5 Inj 250 ML @ 250 mls/hr IV.SIG Q12H [place] Rx#:[id number] Oral 240 / 240 Output: Urine 100 / 100 150 / 150 Stool Amount (Stoma) 200 / 200 Colostomy 200 / 200 Other: Date of Last Bowel Movement 03/05/18 03/06/18 03/02/18 05:35 Blood - Peripheral Aerobic Blood Culture - Preliminary No growth in 4 days 03/02/18 05:35 Blood - Peripheral Anaerobic Blood Culture - Preliminary No growth in 4 days 03/02/18 05:26 Blood - Peripheral Aerobic Blood Culture - Preliminary No growth in 4 days 03/02/18 05:26 Blood - Peripheral Anaerobic Blood Culture - Preliminary No growth in 4 days 02/28/18 10:16 Blood - Peripheral Aerobic Blood Culture - Final S. aureus MRSA 02/28/18 10:16 Blood - Peripheral Anaerobic Blood Culture - Final S. aureus MRSA 02/28/18 10:10 Blood - Peripheral Aerobic Blood Culture - Final S. aureus MRSA 02/28/18 10:10 Blood - Peripheral Anaerobic Blood Culture - Final S. aureus MRSA 03/01/18 17:58 Catheter Tip - Other Wound Culture - Final No growth in 48 hours Lab - Hematology Results 03/05/18 05:15 WBC 8.2 RBC 3.43 L Hgb 10.5 L Hct 31.8 L MCV 92.6 MCH 30.6 MCHC 33.1 RDW 15.5 Plt Count 578 H MPV 7.3 Neut % (Auto) 52.2 Lymph % (Auto) 32.7 [place] % (Auto) 10.3 H Eos % (Auto) 2.9 Baso % (Auto) 1.9 Neut # (Auto) 4.3 Lymph # (Auto) 2.7 [place] # (Auto) 0.8 Eos # (Auto) 0.2 Baso # (Auto) 0.2 WBC Differential . Differential Comment Auto diff final Lab - Chemistry Results 03/05/18 05:15 Sodium 140 Potassium 4.1 Chloride 107 Carbon Dioxide 23.4 Anion Gap 10 BUN 19 H Creatinine 0.97 Estimated GFR 79 L Random Glucose 85 Calcium 8.9 Total Bilirubin 0.2 AST 28 ALT 28 Alkaline Phosphatase 163 H Total Protein 7.4 Albumin 2.2 L Imaging: ITS Impressions Cystogram 02/17/18 00:00 CONCLUSION: Unremarkable cystogram. No evidence of leak. Abdomen X-Ray 02/18/18 00:00 CONCLUSION: Findings of generalized ileus. The findings have worsened when compared with the prior examination. Followup examination is recommended if clinically indicated. Abdomen/Pelvis CT 02/18/18 00:00 CONCLUSION: Dilated small bowel loops throughout. Distal ileal loops in the right lower quadrant are nondilated and potentially entrapped. Small Bowel X-Ray 02/19/18 00:00 CONCLUSION: Ileus versus partial small bowel obstruction with contrast getting into the patient's ostomy site. Chest X-Ray 02/28/18 00:00 CONCLUSION: Interval increase in the size of the focal opacity in the left perihilar region most characteristic of pneumonia. Venous Doppler Study 03/01/18 00:00 CONCLUSION: 1. Venous thrombosis as above currently all superficial. Physical Exam: GENERAL: Well-nourished well-developed, not in acute distress SKIN: Cool and dry, no generalized rash HEAD: Atraumatic. Normocephalic. No temporal or scalp tenderness. EYES: Pupils equal round and reactive. Scleral icterus. No injection or drainage. No petechia ENT: Nothing abnormal detected NECK: Trachea midline. Supple, nontender, no meningeal signs. CARDIOVASCULAR: HS audible. RESPIRATORY: Clear to auscultation bilaterally. GASTROINTESTINAL: Abdomen soft nontender. Midline surgical scar with some dehiscence noted on the superior as well as the lower aspect of the surgical incision. No surrounding erythema to suggest acute infection. No obvious discharge noted. MUSCULOSKELETAL: Extremities without clubbing, cyanosis. Colostomy site ok. NEUROLOGICAL: Alert oriented 3. Nonfocal. Psych cooperative IV line sites ok. Assessment and Plan - Plan Sepsis with elevation in white count, fevers, source of infection likely PICC line infection. MRSA bacteremia likely PICC line related Midline surgical scar with wound base and with no obvious infection although there is dehiscence noted. Colostomy in place PICC line in place History of DVTs on anticoagulation. History of bacterial meningitis Recommendations DC Cefepime IV DC Vanco IV Start Zyvox oral to finish 6 more days of Rx for MRSA PICC line bacteremia. Would like to avoid PICC line as patient is not reliable and has wounds that need caring as well. Concern for cross contamination of new PICC if placed. Vilma RN vilma patient plan of care answered all Qs. [facility] [employer] Anu she will fax and get preauthorization for Zyvox. if this cannot be obtained may need IV antibiotics. Will sign off please call back if Zyvox not approved for IV antibiotic documents.
[2018-03-06] MEDS: Linezolid 600 MG Tablet PO SCH ×2 (16:32→21:45)
[2018-03-06] MEDS: traZODone 100 MG Tablet PO SCH (21:45)
[2018-03-07] MEDS: Melatonin 5 MG Tablet PO PRN ×2 (00:02→23:25)
[2018-03-07] MEDS: Carvedilol 6.25 MG Tablet PO SCH ×3 (09:05→21:05)
[2018-03-07] MEDS: Amiodarone 200 MG Tablet PO SCH (09:06)
[2018-03-07] MEDS: Senna/Docusate Sodium 8.6/50 MG Tablet PO SCH ×2 (09:06→21:05)
[2018-03-07] MEDS: Linezolid 600 MG Tablet PO SCH ×2 (09:06→21:05)
[2018-03-07] MEDS: Enoxaparin Inj 100 MG/ML Syringe SQ SCH ×2 (09:06→21:04)
[2018-03-07 10:20] LABS: Vancomycin,Random 20.4 Comment
--- NOTE | 2018-03-07 11:44 | P.PN ---
Subjective Interval history: Follow-up MRSA bacteremia March 02, 2018-patient seen and examined, afebrile, denies any abdominal pain. No acute event overnight. March 03, 2018-patient seen and examined, no chest pain, afebrile. Taking p.o. without any nausea vomiting. March 04, 2018-patient seen and examined, afebrile, no acute event overnight. Repeat blood culture negative to date. March 05, 2018-examined, stable and no acute event overnight. Case discussed with Dr. Fuentes general surgery March 06, 2018-patient seen and examined, afebrile, no chest pain or shortness of breath. Denies any dizziness. March 07, 2018-patient seen and examined, currently on Zyvox p.o. per ID. Afebrile. No acute event overnight. Physical Exam Vital signs: Vital Signs 03/06/18 12:00 03/06/18 12:30 03/06/18 16:00 Temperature 97.8 F Pulse Rate 71 Respiratory Rate 18 18 Blood Pressure 111/62 Pulse Oximetry 98 03/06/18 18:03 03/06/18 20:00 03/06/18 23:00 Temperature 97.9 F Pulse Rate 75 Respiratory Rate 18 18 18 Blood Pressure 117/68 Pulse Oximetry 98 03/07/18 00:49 03/07/18 02:00 03/07/18 06:00 Temperature 97.6 F Pulse Rate 82 Respiratory Rate 18 18 17 Blood Pressure 106/61 Pulse Oximetry 96 03/07/18 08:00 Temperature 98.0 F Pulse Rate 71 Respiratory Rate 16 Blood Pressure 114/62 Pulse Oximetry 98 Intake & Output 03/06/18 03/07/18 03/07/18 18:59 06:59 18:59 Intake Total 602.5 / 602.5 Output Total 1450 / 1450 Balance -847.5 / -847.5 Intake: IV 362.5 / 362.5 Maxipime Inj 2,000 MG In NS Inj 100 / 100 100 ML @ 200 mls/hr IV.SIG Q8H [facility] Rx#:[id number] Vancomycin Inj 1,250 MG In NS 262.5 / 262.5 Inj 250 ML @ 250 mls/hr IV.SIG Q12H [facility] Rx#:[id number] Oral 240 / 240 Output: Urine 750 / 750 Stool Amount (Stoma) 700 / 700 Colostomy 700 / 700 Other: Date of Last Bowel Movement 03/06/18 03/06/18 03/06/18 Narrative: GENERAL: NAD SKIN: Warm and dry. HEAD: Normocephalic. EYES: No scleral icterus. No injection or drainage. NECK: Supple, trachea midline. No JVD or lymphadenopathy. CARDIOVASCULAR: Regular rate and rhythm without murmurs, gallops, or rubs. RESPIRATORY: Breath sounds equal bilaterally. No accessory muscle use. GASTROINTESTINAL: Abdomen soft, non-tender, nondistended. Colostomy in place MUSCULOSKELETAL: No cyanosis, or edema. BACK: Nontender without obvious deformity. No CVA tenderness. - Urinary Catheter Management Indwelling Urethral Catheter Cath placed during this visit: yes, but has since been removed by the nurse Reason for continuing: Not indwelling catheter Insertion date: 02/10/18 Insertion time: 08:00 Removal date: 02/18/18 Removal time: 08:00 Results - Labs CBC & Chem 7: 03/05/18 05:15 03/07/18 09:19 Laboratory Results - last 24 hr 03/07/18 09:19 Creatinine 1.05 Estimated GFR 73 L Random Vancomycin 20.4 Microbiology 03/02/18 05:35 Blood - Peripheral Aerobic Blood Culture - Final No growth in 5 days 03/02/18 05:35 Blood - Peripheral Anaerobic Blood Culture - Final No growth in 5 days 03/02/18 05:26 Blood - Peripheral Aerobic Blood Culture - Final No growth in 5 days 03/02/18 05:26 Blood - Peripheral Anaerobic Blood Culture - Final No growth in 5 days - Procedures See hospital course Assessment and Plan - Assessment (1) Hypokalemia Code(s): E87.6 - Hypokalemia Status: Resolved (2) Diverticulitis of colon with perforation Code(s): K57.20 - Diverticulitis of large intestine with perforation and abscess without bleeding Status: Resolved (3) Afib Code(s): I48.91 - Unspecified atrial fibrillation Status: Acute (4) Pneumonia Code(s): J18.9 - Pneumonia, unspecified organism Status: Acute (5) Bacteremia Code(s): R78.81 - Bacteremia Status: Acute - Plan 57-year-old man with MRSA PICC line Bacteremia: Cultures drawn 02/26 +MRSA x3 with sens. Currently on Zyvox as of March 06, 2018 for total of 6 days per ID. s/p Vancomycin and cefepime Continue to monitor cultures. Repeat culture negative to date 4 days Acute diverticulitis Distal small bowel obstruction perforated bowel -Surgery ff PRN - S/P exploratory laparotomy, lysis of adhesions, sigmoid resection with end colonoscopy 02/10 -Pain control with Lortab History of atrial fibrillation/ Coagulopathy History of DVT -He takes Warfarin -Currently on Lovenox therapeutic dose. Patient will eventually need to be transitioned to Coumadin. coccyx wound -Continue with current treatment per protocol for wound care nurse. DVT prophylaxis: Lovenox (2) Diverticulitis of colon with perforation Qualifiers: Diverticulitis bleeding: without bleeding Qualified Code(s): K57.20 - Diverticulitis of large intestine with perforation and abscess without bleeding
[2018-03-07] MEDS: traZODone 100 MG Tablet PO SCH (21:05)
[2018-03-08] MEDS: Senna/Docusate Sodium 8.6/50 MG Tablet PO SCH ×2 (08:54→20:39)
[2018-03-08] MEDS: Enoxaparin Inj 100 MG/ML Syringe SQ SCH ×2 (08:54→20:39)
[2018-03-08] MEDS: Amiodarone 200 MG Tablet PO SCH (08:55)
[2018-03-08] MEDS: Carvedilol 6.25 MG Tablet PO SCH ×2 (08:55→20:44)
[2018-03-08] MEDS: Linezolid 600 MG Tablet PO SCH ×2 (09:02→20:39)
--- NOTE | 2018-03-08 11:12 | P.PN ---
Subjective Interval history: Follow-up MRSA bacteremia March 02, 2018-patient seen and examined, afebrile, denies any abdominal pain. No acute event overnight. March 03, 2018-patient seen and examined, no chest pain, afebrile. Taking p.o. without any nausea vomiting. March 04, 2018-patient seen and examined, afebrile, no acute event overnight. Repeat blood culture negative to date. March 05, 2018-examined, stable and no acute event overnight. Case discussed with Dr. Fuentes general surgery March 06, 2018-patient seen and examined, afebrile, no chest pain or shortness of breath. Denies any dizziness. March 07, 2018-patient seen and examined, currently on Zyvox p.o. per ID. Afebrile. No acute event overnight. March 08, 2018-patient seen and examined, looking for discharge. No acute events overnight. Afebrile. Physical Exam Vital signs: Vital Signs 03/07/18 12:00 03/07/18 16:00 03/07/18 17:39 Temperature 97.8 F 97.2 F L Pulse Rate 72 71 Respiratory Rate 18 Blood Pressure 102/61 104/62 Pulse Oximetry 98 99 03/07/18 20:00 03/07/18 23:45 03/08/18 00:00 Temperature 97.7 F 97.4 F L Pulse Rate 75 66 Respiratory Rate 18 17 Blood Pressure 123/64 94/52 L Pulse Oximetry 97 97 03/08/18 04:00 03/08/18 08:00 03/08/18 09:33 Temperature 97.6 F 97.8 F Pulse Rate 67 65 Respiratory Rate 18 Blood Pressure 102/59 L 93/58 L Pulse Oximetry 98 97 Intake & Output 03/07/18 03/08/18 03/08/18 18:59 06:59 18:59 Output Total 900 / 900 Balance -900 / -900 Output: Urine 700 / 700 Stool Amount (Stoma) 200 / 200 Colostomy 200 / 200 Other: Date of Last Bowel Movement 03/06/18 03/07/18 03/08/18 Narrative: GENERAL: NAD SKIN: Warm and dry. HEAD: Normocephalic. EYES: No scleral icterus. No injection or drainage. NECK: Supple, trachea midline. No JVD or lymphadenopathy. CARDIOVASCULAR: Regular rate and rhythm without murmurs, gallops, or rubs. RESPIRATORY: Breath sounds equal bilaterally. No accessory muscle use. GASTROINTESTINAL: Abdomen soft, non-tender, nondistended. Colostomy in place MUSCULOSKELETAL: No cyanosis, or edema. BACK: Nontender without obvious deformity. No CVA tenderness. - Urinary Catheter Management Indwelling Urethral Catheter Cath placed during this visit: yes, but has since been removed by the nurse Reason for continuing: Not indwelling catheter Insertion date: 02/10/18 Insertion time: 08:00 Removal date: 02/18/18 Removal time: 08:00 Results - Labs CBC & Chem 7: 03/05/18 05:15 03/07/18 09:19 Microbiology 03/02/18 05:35 Blood - Peripheral Aerobic Blood Culture - Final No growth in 5 days 03/02/18 05:35 Blood - Peripheral Anaerobic Blood Culture - Final No growth in 5 days 03/02/18 05:26 Blood - Peripheral Aerobic Blood Culture - Final No growth in 5 days 03/02/18 05:26 Blood - Peripheral Anaerobic Blood Culture - Final No growth in 5 days - Procedures See hospital course Assessment and Plan - Assessment (1) Hypokalemia Code(s): E87.6 - Hypokalemia Status: Resolved (2) Diverticulitis of colon with perforation Code(s): K57.20 - Diverticulitis of large intestine with perforation and abscess without bleeding Status: Resolved (3) Afib Code(s): I48.91 - Unspecified atrial fibrillation Status: Acute (4) Pneumonia Code(s): J18.9 - Pneumonia, unspecified organism Status: Acute (5) Bacteremia Code(s): R78.81 - Bacteremia Status: Acute - Plan 57-year-old man with MRSA PICC line Bacteremia: Cultures drawn 02/26 +MRSA x3 with sens. Currently on Zyvox as of March 06, 2018 for total of 6 days per ID. s/p Vancomycin and cefepime Continue to monitor cultures. Repeat culture negative to date 5 days Acute diverticulitis Distal small bowel obstruction perforated bowel -Surgery ff PRN - S/P exploratory laparotomy, lysis of adhesions, sigmoid resection with end colonoscopy 02/10 -Pain control with Lortab History of atrial fibrillation/ Coagulopathy History of DVT -He takes Warfarin -Currently on Lovenox therapeutic dose. Patient will eventually need to be transitioned to Coumadin. coccyx wound -Continue with current treatment per protocol for wound care nurse. DVT prophylaxis: Lovenox Discharge pending approval from insurance regarding patient's antibiotic (2) Diverticulitis of colon with perforation Qualifiers: Diverticulitis bleeding: without bleeding Qualified Code(s): K57.20 - Diverticulitis of large intestine with perforation and abscess without bleeding
--- NOTE | 2018-03-08 12:03 | P.PNGS ---
Subjective Interval history: He is tolerating diet fairly well now. Stool has become solid. On zyvox for MRSA bacteremia. Physical Exam Vital signs: Vital Signs 03/07/18 12:00 03/07/18 16:00 03/07/18 17:39 Temperature 97.8 F 97.2 F L Pulse Rate 72 71 Respiratory Rate 16 18 Blood Pressure 102/61 104/62 Pulse Oximetry 98 99 03/07/18 20:00 03/07/18 23:45 03/08/18 00:00 Temperature 97.7 F 97.4 F L Pulse Rate 75 66 Respiratory Rate 18 17 Blood Pressure 123/64 94/52 L Pulse Oximetry 97 97 03/08/18 04:00 03/08/18 08:00 03/08/18 09:33 Temperature 97.6 F 97.8 F Pulse Rate 67 65 Respiratory Rate 16 18 Blood Pressure 102/59 L 93/58 L Pulse Oximetry 98 97 Intake & Output 03/07/18 03/08/18 03/08/18 18:59 06:59 18:59 Output Total 900 / 900 Balance -900 / -900 Output: Urine 700 / 700 Stool Amount (Stoma) 200 / 200 Colostomy 200 / 200 Other: Date of Last Bowel Movement 03/06/18 03/07/18 03/08/18 Narrative: Incisional wounds packing changed- granulating well without evidence of infection Colostomy with solid stool output - Urinary Catheter Management Indwelling Urethral Catheter Cath placed during this visit: yes, but has since been removed by the nurse Reason for continuing: Not indwelling catheter Insertion date: 02/10/18 Insertion time: 08:00 Removal date: 02/18/18 Removal time: 08:00 Assessment and Plan - Assessment (1) Diverticulitis of colon with perforation Code(s): K57.20 - Diverticulitis of large intestine with perforation and abscess without bleeding Status: Resolved - Plan Doing well. On zyvox may be dc'd if approved as outpatient. Continue wound packing at home with [facility]. F/u with me in 1-2 weeks. (1) Diverticulitis of colon with perforation Qualifiers: Diverticulitis bleeding: without bleeding Qualified Code(s): K57.20 - Diverticulitis of large intestine with perforation and abscess without bleeding
--- NOTE | 2018-03-08 14:01 | P.DCO ---
- Home Health Nursing Order: Medical education, Signs/symptoms of disease process, Wound care and dressing changes, Nursing assessment with vital signs - Certification I have seen patient William Mccurdy on 03/08/18. My clinical findings support the need for the requested home health care services because: Deconditioned with increased weakness I certify that my clinical findings support that this patient is homebound because: Poor cardiac reserve
--- NOTE | 2018-03-08 14:10 | P.DS ---
Date of admission: 01/22/18 03:59 Primary care physician: Arnold Costello DO Anticipated date of discharge: 03/08/18 Brief History from admission: This is a 57-year-old male with PMH of A. fib, h/o DVT on Anticoagulation and HTN who presented to the ER w/ complaints of abdominal pain. States pain started yesterday afternoon, pain runs along lower abdomen, severe, 10/10, non- radiating. No associated nausea, vomiting or diarrhea. Denies fever or chills. No h/o similar symptoms. On arrival, BP 125/67, HR 79, O2 sat 98% on RA, Temp 99.1. WBC of 19.4. Chemistry essentially unremarkable except for GFR 73. UA positive for UTI. CT Abdomen/Pelvis with inflammatory process lower abdomen/pelvis, likely diverticulitis, several focal collections of gas to the right of the mid sigmoid colon, nonspecific possible extraluminal gas. S/p Cipro/Flagyl in ER. Dr. Fuentes consulted, will evaluate. DS: Diagnosis - Discharge Diagnosis (1) Hypokalemia Status: Resolved (2) Diverticulitis of colon with perforation Status: Resolved (3) Afib Status: Acute (4) Pneumonia Status: Acute (5) Bacteremia Status: Acute DS: Medications - Discharge Medications Prescriptions: hydrocodone-acetaminophen 1 tab PO Q6H PRN #20 tab PRN Reason: Acute Pain linezolid [Zyvox] 600 mg PO Q12HR 6 Days tab DS: Summary Hospital Course: While in hospital, patient was treated for: MRSA PICC line Bacteremia: Cultures drawn 02/26 +MRSA x3 with sens. Currently on Zyvox as of March 06, 2018 for total of 6 days per ID. s/p Vancomycin and cefepime [place] culture were negative prior to admission Acute diverticulitis Distal small bowel obstruction perforated bowel -Surgery ff PRN - S/P exploratory laparotomy, lysis of adhesions, sigmoid resection with end colonoscopy 02/10 -Pain control with Lortab History of atrial fibrillation/ Coagulopathy History of DVT -He takes Warfarin -Currently on Lovenox therapeutic dose. Patient will be transitioned to Coumadin. coccyx wound -Continue with current treatment per protocol for wound care nurse. DVT prophylaxis: Lovenox - Time Spent with Patient Total time spent providing and/or coordinating discharge services: Greater than 30 minutes - Quality: VTE Deep Vein Thrombosis/Pulmonary Embolism Present on Admission: No Exam Vital signs: Vital Signs 03/07/18 16:00 03/07/18 17:39 03/07/18 20:00 Temperature 97.2 F L 97.7 F Pulse Rate 71 75 Respiratory Rate 16 18 17 Blood Pressure 104/62 123/64 Pulse Oximetry 99 97 03/07/18 23:45 03/08/18 00:00 03/08/18 04:00 Temperature 97.4 F L 97.6 F Pulse Rate 66 67 Respiratory Rate 18 17 16 Blood Pressure 94/52 L 102/59 L Pulse Oximetry 97 98 03/08/18 08:00 03/08/18 09:33 03/08/18 12:00 Temperature 97.8 F 97.8 F Pulse Rate 65 97 H Respiratory Rate 18 Blood Pressure 93/58 L 111/64 Pulse Oximetry 97 97 Intake & Output 03/07/18 03/08/18 03/08/18 18:59 06:59 18:59 Output Total 900 / 900 Balance -900 / -900 Output: Urine 700 / 700 Stool Amount (Stoma) 200 / 200 Colostomy 200 / 200 Other: Date of Last Bowel Movement 03/06/18 03/07/18 03/08/18 Narrative: GENERAL: NAD SKIN: Warm and dry. HEAD: Normocephalic. EYES: No scleral icterus. No injection or drainage. NECK: Supple, trachea midline. No JVD or lymphadenopathy. CARDIOVASCULAR: Regular rate and rhythm without murmurs, gallops, or rubs. RESPIRATORY: Breath sounds equal bilaterally. No accessory muscle use. GASTROINTESTINAL: Abdomen soft, non-tender, nondistended. Colostomy in place MUSCULOSKELETAL: No cyanosis, or edema. BACK: Nontender without obvious deformity. No CVA tenderness. Results Procedures completed during hospitalization: exploratory laparotomy, lysis of adhesions, sigmoid resection with end colonoscopy 02/10 Completed studies during hospitalization: Pending at discharge 02/10/18 13:08 Surgical [PTH] Routine - Impressions ITS Impressions Cystogram 02/17/18 00:00 CONCLUSION: Unremarkable cystogram. No evidence of leak. Abdomen X-Ray 02/18/18 00:00 CONCLUSION: Findings of generalized ileus. The findings have worsened when compared with the prior examination. Followup examination is recommended if clinically indicated. Abdomen/Pelvis CT 02/18/18 00:00 CONCLUSION: Dilated small bowel loops throughout. Distal ileal loops in the right lower quadrant are nondilated and potentially entrapped. Small Bowel X-Ray 02/19/18 00:00 CONCLUSION: Ileus versus partial small bowel obstruction with contrast getting into the patient's ostomy site. Chest X-Ray 02/28/18 00:00 CONCLUSION: Interval increase in the size of the focal opacity in the left perihilar region most characteristic of pneumonia. Venous Doppler Study 03/01/18 00:00 CONCLUSION: 1. Venous thrombosis as above currently all superficial. Discharge Plan - Discharge Disposition Patient Disposition: /Home Health Service - Discharge Condition Condition: Fair - Discharge Order Discharge Orders: Discharge Order (Routine); Ordered 03/08/18 Ordered By: Nic Meléndez - Discharge Details Anticipated Discharge Date: 01/30/18 - Physicians Team Primary Care Provider: Arnold Costello Attending Provider: Nic Meléndez Other Providers: Sav Fuentes MD ; Lavelle Guerrero MD ; Eli Boyd MD ; [facility]
[2018-03-08] MEDS: traZODone 100 MG Tablet PO SCH (20:39)
[2018-03-09] MEDS: Melatonin 5 MG Tablet PO PRN (00:08)
[2018-03-09 01:11] VITALS: O2SAT 98
[2018-03-09 03:39] VITALS: RESP 18
[2018-03-09] MEDS: Linezolid 600 MG Tablet PO SCH (07:47)
[2018-03-09] MEDS: Amiodarone 200 MG Tablet PO SCH (07:48)
[2018-03-09] MEDS: Enoxaparin Inj 100 MG/ML Syringe SQ SCH (07:48)
[2018-03-09] MEDS: Senna/Docusate Sodium 8.6/50 MG Tablet PO SCH (07:48)
[2018-03-09 07:52] VITALS: BP 103/68; PULSE 80; TEMP 97.7
== END 2018-03-09 09:20 | disposition home health service (06) ==
LOC: NEPC 21:29 → NEDA 01-22 03:59 → N06 01-22 05:26
PROVIDERS: ADMIT Hospitalist; ATTEND Hospitalist